=== PATIENT | male | born 1965 | race Caucasian/White ===

== ENCOUNTER → 2017-11-10 10:53 | Outpatient (CLI) | payer OTHER, SELFPAY ==
[2017-11-10 12:50] LABS: AST(SGOT) 21 U/L (15-37); Alanine Aminotransfer ALT/SGPT 36 U/L (16-61); Alkaline Phosphatase 61 U/L (45-117); Bilirubin, Direct 0.13 mg/dL (0.00-0.30); Cholesterol 145 mg/dL (200); Globulin 3.4 g/dL (2.2-4.2); High Density Lipoprotein 38 mg/dL; Protein, Total 7.4 g/dL (6.4-8.2); Triglycerides 174 mg/dL; Very Low Density Lipoprotein 35 mg/dL (5-40)
== END ==
PROVIDERS: Nurse Practitioner Family; Family Provider Family Medicine; PCP Family Medicine; Visit Provider Family Medicine
DX: E78.5 Hyperlipidemia, unspecified (principal); E78.1 Pure hyperglyceridemia
CPT/HCPCS: 36415; 80061; 80076

== ENCOUNTER → 2018-01-04 10:01 | Outpatient (CLI) | payer OTHER, SELFPAY | PROVIDERS: Family Provider Family Medicine; PCP Family Medicine; Visit Provider Family Medicine | DX: M54.16 Radiculopathy, lumbar region (principal) | CPT/HCPCS: 72110 ==

== ENCOUNTER 2018-04-01 15:18 | Emergency (ER) | payer OTHER, SELFPAY ==
[2018-04-01 15:18] VITALS: BP 175/94; PULSE 85; RESP 18; TEMP 36.6; O2SAT 100; BMI 30.5
--- NOTE | 2018-04-01 15:35 | RAD_ITS ---
STUDY: X-RAY - LEFT KNEE REASON FOR EXAM: Male, 52 years old. Injury and pain TECHNIQUE: Four view(s) of the knee were obtained. COMPARISON: None. FINDINGS: The distal femur is unremarkable. The proximal tibia is unremarkable. Normal medial femorotibial compartment. Normal lateral femorotibial compartment. Normal patellofemoral articulation. There is no fullness above the patella. The soft tissue structures are unremarkable. RAD/Knee 4 or More Views IMPRESSION: No acute abnormalities are seen in the left knee. Electronically Signed: Tiana Atkins MD at 18:43 EST Tel Direct: [phone], Service support ,
--- NOTE | 2018-04-01 15:35 | ED.VISSUMM ---
- ER Visit Summary Date of Service: 04/01/18 Chief Complaint: Left knee injury History of Present Illness: The patient is a 52 M slipped on mud going down the hill, felt the snap. No head injuries. Unable to lift the leg since then. No paresthesias. Pain with movement. Has not had orthopedic surgery in the past, however has seen [facility] in the past for elbow rehab. Baby aspirin. No other complaints. Has tolerated [place] in the past. Physical Examination: General: Alert and oriented ?3, no acute distress HEENT: Normocephalic, atraumatic. Moist mucosa membranes Neck: supple, nontender. Cardiovascular: Regular rate and rhythm, no murmurs Respiratory: Normal breath sounds, symmetric, no distress Abdomen: Soft, nontender, nondistended Extremities: Left lower extremity negative logroll. Defect at quadriceps insertion. No patellar deformities. Negative varus and valgus. Unable to extend leg. No patellar ligament tenderness or defect. Skin intact. Neurovascular intact. Neuro: no focal neurological deficits. Test Results: Left knee x-ray: No acute bony process Emergency Department Course and Treatment: Patient exam concerns for quadriceps rupture. Treated [place] prior to x-ray images for comfort. X-ray reviewed by myself shows no fracture or dislocation. He is placed in a knee mobilizer and crutches. Prescription for [place]. He states he would like to follow-up with [facility] orthopedics for which she does have information. X-ray was placed on a disc. Discussed nonweightbearing left lower extremity until he sees his orthopedist. Treatment Plan: [] Disposition: Discharge Impression: Ruptured left quadriceps tendon This note was generated with Mobule dictation software. It may contain incorrect words, spelling, and punctuation that were not noted in review of the chart prior to signing ED Disposition - Plan for ED Patient: Disposition: Home or Assisted Living Chief Complaint: Lower Extremity Injury Diagnosis: Rupture of left quadriceps tendon Prescriptions: Hydrocodone Bitart/Apap 5-325 [[place] 5MG-325MG] 1 tablet PO Q6H PRN PRN 3 Days #12 tablet PRN Reason: Pain Referrals: Parker Villavicencio DO [Primary Care Provider] - Additional Instructions: Ruptured left quadriceps tendon. Nonweightbearing to left lower extremity. Keep knee immobilizer and crutches. Follow-up with your orthopedist at [facility].
[2018-04-01] MEDS: HYDROcodone Bitartrate/Apap 5/325 Tablet PO (15:38)
[2018-04-01 17:37] VITALS: BP 168/92; PULSE 85; RESP 15; O2SAT 98
--- OUTSIDE RECORDS SUMMARY | 2018-05-26 00:04 | XMS RPT_ITS ---
:1965 Author Organization OHIP Support Name Relationship Address Phone AJ, THI Unavailable [address] + [place] [address] ANTHONY THORPE Unavailable Unavailable + [place] [address] CHUY LANES Unavailable [address] + [place] [address] AJ, THI Unavailable [address] + [place] [address] ANTHONY THORPE Unavailable Unavailable + [place] [address] CHUY LANES Un[address] + [place] [address] AJ, THI Unavailable [address] + [place] [address] R Unavailable Unavailable Unavailable BOOTHY, THI Unavailable [address] + [place] [address] R Unavailable Unavailable Unavailable BOOTHY, THI Unavailable [address] + [place] [address] R Unavailable Unavailable Unavailable BOOTHY, THI Unavailable [address] + [place] [address] R Unavailable Unavailable Unavailable BOOTHY, THI Unavailable [address] + [place] [address] R Unavailable Unavailable Unavailable BOOTHY, THI Unavailable [address] + [place] [address] R Unavailable Unavailable Unavailable BOOTHY, THI Unavailable [address] + [place] [address] R Unavailable Unavailable Unavailable BOOTHY, THI Unavailable [address] + [place] [address] R Unavailable Unavailable Unavailable BOOTHY, THI Unavailable Unavailable + R Unavailable Unavailable Unavailable BOOTHY, THI Unavailable NA + [place], [place] R Unavailable Unavailable Unavailable BOOTHY, THI Unavailable NA + [place], [place] R Unavailable Unavailable Unavailable R Unavailable Unavailable Unavailable THORPE, THI Unavailable [address] + [place], [place] . Care Team Providers Name Role Phone PCP, NONE Primary Care Unavailable LESIA KINCAID Attending Unavailable Naseem Mann Attending Unavailable Maye, Parker Primary Care Unavailable Fabian Diaz Attending Unavailable Maye, Parker Referring Unavailable Maye, Parker Primary Care Unavailable Maye, Parker Attending Unavailable Maye, Parker Primary Care Unavailable Maye, Parker Attending Unavailable Maye, Parker Referring Unavailable Maye, Parker Primary Care Unavailable Dossie, Mraie Ivy Attending Unavailable Maye, Parker Referring Unavailable Maye, Parker Primary Care Unavailable Dossie, Marie Ivy Attending Unavailable Maye, Parker Referring Unavailable Maye, Parker Primary Care Unavailable Dossie, Marie Ivy Attending Unavailable Maye, Parker Referring Unavailable Dossie, Marie Ivy Attending Unavailable Maye, Parker Referring Unavailable Dossie, Marie Ivy Attending Unavailable MoodispaNaseem carlisle Attending Unavailable Maye, Parker Referring Unavailable Dossie, Marie Ivy Attending Unavailable Maye, Parker Referring Unavailable Maye, Parker Primary Care Unavailable Roscoe Joseph Attending Unavailable Ifeanyi Murphy Attending Unavailable Ifeanyi Murphy Referring Unavailable Maye, Parker Primary Care Unavailable Kirsty Esquivelh Attending Unavailable Alvin Starr Referring Unavailable Maye, Parker Primary Care Unavailable PROBLEMS PROBLEMS DATE TYPE CONDITION / CODE ATTENDING STATUS SOURCE Unknown G89.18 - Other acute Ifeanyi Murphy Active [facility] postprocedural pain / Community G89.18(ICD-10) Hospital Repository Unknown S76.119A - Strain of Roscoe Joseph Active [place] [facility] unspecified quadriceps Community muscle, fascia and Hospital tendon, initial Repository encounter / S76.119A(ICD-10) Unknown M99.03 - Segmental and Dossie, Marie Active [facility] somatic dysfunction of [facility] lumbar region / Hospital M99.03(ICD-10) Repository Unknown M99.02 - Segmental and Dossie, Marie Active [facility] somatic dysfunction of [facility] thoracic region / Hospital M99.02(ICD-10) Repository Unknown M99.05 - Segmental and Dossie, Marie Active [place] [facility] somatic dysfunction of [facility] pelvic region / Hospital M99.05(ICD-10) Repository Unknown E78.5 - Moodisp[place], Active [place] [facility] Hyperlipidemia, [facility] unspecified / Hospital E78.5(ICD-10) Repository Unknown I42.2 - Other [place], Active [place] [facility] hypertrophic [facility] cardiomyopathy / Hospital I42.2(ICD-10) Repository Unknown I10 - Essential [place], Active [place] [facility] (primary) hypertension [facility] / I10(ICD-10) Hospital Repository Admitting Dizziness and LESIA KINCAID [facility] 8 Diagnosis giddiness / System R42(ICD-10) Repository Final Acute nasopharyngitis LESIA KINCAID [facility] 8 Diagnosis [common cold] / System (Discharge) J00(ICD-10) Repository Unknown E78.1 - Pure RoofFabian Active [place] [facility] hyperglyceridemia / Community E78.1(ICD-10) Hospital Repository PROCEDURES PROCEDURES No Procedure Records FoundRESULTS RESULTS OPERATIVE REPORT Observed: 04/04/2018 Status: F Source: ROB[facility] 2:08 PM [facility] H[facility]PITAL REPOSITORY [facility] Medical Records Department [address] [place] [address] Operative Report 04/04/18 1405 MR#: [id number] Acct: [id number] Name: ILAGEORGIA Mena Rep #: [id number] : 1965 52 From: Ifeanyi Murphy MD PCP: Parker Villavicencio DO Status: REG [facility] Location: [place] [address] Report of Operation Date of Procedure: 04/04/18 Pre-Operative Diagnosis: Left quad tendon rupture Post-Operative Diagnosis: Left quad tendon rupture Surgery/Procedure Performed:: Left quadriceps tendon repair Description of Surgical Findings:: Stable repair, anatomically repaired collection card clerk: Damien Kimball Type of Anesthesia:: General Anesthesiologist: Wyatt Bowens Special Medications: 2 g Ancef Estimated Blood Loss (mL): 25 Fluids Replaced: 1500 mL crystalloid Description of Procedure: On the date of procedure patient's left lower extremity is was marked in the preoperative area. The patient was then taken back to the operating room where they were placed on the table in the supine position. All bony prominences were identified a well-padded. Anesthesia assumed control of the C-spine and airway and remained controlled throughout the remainder of the procedure. A tourniquet was placed on the left upper thigh and the left leg was prepped in a sterile fashion. The surgeon scrubbed at this time. Upon reentering the room the left extremity was draped in a standard orthopedic fashion. A timeout was then called and everyone agreed upon the side, the site, the procedure to be performed, patient's identity and antibiotics given. Attention was directed to the left leg where a midline incision was made. Dissection was taken down through skin, subcutaneous tissues and fat. At this point we were able to identify the rupture and got a gush of serosanguineous fluid. The wound was copiously irrigated with normal saline. The proximal aspect of the patella was debrided and the bone was rongeured to prepare a fresh tissue bed. Allis clamps were then placed on the quadricep tendon was pulled distally. 2 #5 FiberWire's were used to place 2 Krak w stitches giving us all 4 suture limbs. At this time #0 Vicryls were then used to repair the retinaculum but left untied. A short Beath pin was then used to drill 3 bone tunnels and passed the suture limbs. 2 suture limbs were placed through the central tunnel. The #1 Vicryls were then tied to repair the retinaculum and take stress off the tendon repair. The central limbs of the FiberWire were then tunneled under the tendon and firmly tied over bone tunnels to the outter limbs medially and laterally. Finally a #1 Vicryl runner was used to sew the retinacular repair over the central portion of the tendon. The tendon repair was stressed and did not see stress until 30 degrees of flexion.The wound was irrigated out with normal saline. Skin was closed with 2-0 Vicryl and cj. A sterile compressive dressing was placed. A knee immobilizer brace was then placed on the operative extremity locked in extension. Patient was awakened by anesthesia and transferred to the [facility] then taken to the PACU for recovery. Post op plan PT: Touchdown with TROM brace locked in extension 2 weeks followed by weightbearing as tolerated with the T ROM locked for 4 weeks. Brace: locked in extension until first post op visit. At first visit patient should have 1 PT visit with brace opened to 0-30 flexion with flexion advanced 15 degrees per week. Patient may also start quad sets and straight leg raises at first visit. Goal is 90 degrees of flexion at 6 weeks. Will begin strengthening at 6 weeks. Prior to 6 weeks pt only allowed active flexion and passive extension. Follow up: 2 weeks for wound check and removal of cj My physician preschool assistant was a vital part of this case. He was important in appropriate retraction during the case, and protection of soft tissues during the procedure. His intimate knowledge of the case and my steps aided in safe and expedient completion of the procedure as well as appropriate position of the leg during the case. He was also vital in assisting with closure under my direct supervision. - Complications NONE - Admit VTE Documentation VTE Present on Admission: No VTE Mechan Device Prophylaxis: SCD's, Thigh High BILLIE Hose VTE Pharm Prophylaxis ordered?: Yes 04/04/18 1408 <Electronically signed by Ifeanyi Murphy MD> Date Ifeanyi Murphy MD CC: Parker Villavicencio DO; Ifeanyi Murphy MD Signed CBC W/DIFF, AUTOMATED Collected: 04/03/2018 Status: F Source: ROBYN 12:[address] [facility] REPOSITORY TYPE CODE TESTS RESULT OUT OF RANGE REFERENCE UNITS LAB L100.1000 4.4-11.0 K/mm3 High WBC 16.1 LAB L100.1200 4.6-6.2 M/mm3 Normal RBC 4.92 LAB L100.1300 13.0-16.5 g/dl Normal HGB 15.9 LAB L100.1400 40-54 % Normal HCT 44.4 LAB L100.1500 80-94 fL Normal MCV 90.2 LAB L100.1600 27.0-32.0 pg High MCH 32.3 LAB L100.1700 32-36 g/gl Normal MCHC 35.8 LAB L100.1810 11.6-14.6 % Normal RDW CV 12.7 LAB L100.1820 35.1-43.9 fl Normal RDW SD 41.5 LAB L100.1900 150-450 K/mm3 Normal PLT 271 LAB L100.2000 6.2-12.0 fl Normal MPV 10.1 LAB L100.2100 47-70 % High NEUT% 80.0 LAB L100.2200 19-41 % Low LY% 11.1 LAB L100.2300 0-10 % Normal MONO% 8.0 LAB L100.2400 0-5 % Normal EO% 0.5 LAB L100.2500 0-1 % Normal BASO% 0.2 LAB L100.2550 0.0-0.9 % Normal IM GRAN % 0.200 Result Comment: IG% - Immature Granulocytes (promyelocytes, myelocytes and metamyelocytes) > 1% indicates that a LEFT SHIFT is Present. LAB L100.2620 2.0-7.7 X10 3/uL High Absolute Neut 12.9 LAB L100.2720 0.83-4.51 X10 3/ul Normal Absolute Lymph 1.78 Performed By: #### L100.0100 #### [facility] [address] [place] [address]. [place], [address] BASIC METABOLIC Collected: 04/03/2018 Status: F Source: SCENIC PROFILE (BMP) 12:[address] [facility] REPOSITORY TYPE CODE TESTS RESULT OUT OF RANGE REFERENCE UNITS LAB L501.0100 74-106 mg/dL Normal GLU 92 Result Comment: Please note revised GLUCOSE reference range effective 2017. LAB L501.1000 7-18 mg/dL High BUN 28 LAB L501.1100 0.70-1.30 mg/dL High CREAT,SERUM 1.46 Result Comment: The validity of the calculated GFR AND GFRAA in patients over 70 years has not been determined. Clinical correlation is essential. LAB L501.1110 >60 mL/min Low EST GFR 54 Result Comment: Non- GFR Calc LAB L501.1115 >60 mL/min Normal EST GFR - AA 65 Result Comment: GFR Calc LAB L501.1300 10-20 RATIO Normal BUN/CRE 19.2 LAB L501.2200 8.5-10.1 mg/dL CA Normal 8.8 LAB L501.5300 136-145 mmol/L NA Normal 140 LAB L501.5600 3.5-5.1 mmol/L K Normal 3.5 LAB L501.5900 98-107 mmol/L CL Normal 101 LAB L501.6100 21.0-32.0 mmol/L Normal CO2 27.0 LAB L501.6200 5-15 Normal GAP 12 Performed By: #### L500.2500 #### [facility] [address] [place], [address] EMERGENCY DEPARTMENT Observed: 04/01/2018 Status: F Source: SCENIC SUMMARY 5:[address] [facility] REPOSITORY [facility] Medical Records Department [address] [place] [address] Emergency Department Summary 04/01/18 1535 MR#: [id number] Acct: [id number] Name: GEORGIA THORPE Rep #: [id number] : 1965 52 From: Roscoe Portillo PCP: Parker Villavicencio DO Status: REG ER - ER Visit Summary Date of Service: 04/01/18 Chief Complaint: Left knee injury History of Present Illness: The patient is a 52 M slipped on mud going down the hill, felt the snap. No head injuries. Unable to lift the leg since then. No paresthesias. Pain with movement. Has not had orthopedic surgery in the past, however has seen [facility] in the past for elbow rehab. Baby aspirin. No other complaints. Has tolerated Ensign in the past. Physical Examination: General: Alert and oriented 3, no acute distress HEENT: Normocephalic, atraumatic. Moist mucosa membranes Neck: supple, nontender. Cardiovascular: Regular rate and rhythm, no murmurs Respiratory: Normal breath sounds, symmetric, no distress Abdomen: Soft, nontender, nondistended Extremities: Left lower extremity negative logroll. Defect at quadriceps insertion. No patellar deformities. Negative varus and valgus. Unable to extend leg. No patellar ligament tenderness or defect. Skin intact. Neurovascular intact. Neuro: no focal neurological deficits. Test Results: Left knee x-ray: No acute bony process Emergency Department Course and Treatment: Patient exam concerns for quadriceps rupture. Treated Ensign prior to x-ray images for comfort. X-ray reviewed by myself shows no fracture or dislocation. He is placed in a knee mobilizer and crutches. Prescription for Ensign. He states he would like to follow-up with [facility] orthopedics for which she does have information. X-ray was placed on a disc. Discussed nonweightbearing left lower extremity until he sees his orthopedist. Treatment Plan: [] Disposition: Discharge Impression: Ruptured left quadriceps tendon This note was generated with eoSemi dictation software. It may contain incorrect words, spelling, and punctuation that were not noted in review of the chart prior to signing ED Disposition - Plan for ED Patient: Disposition: Home or Assisted Living Chief Complaint: Lower Extremity Injury Diagnosis: Rupture of left quadriceps tendon Prescriptions: Hydrocodone Bitart/Apap 5-325 [Ensign 5MG-325MG] 1 tablet PO Q6H PRN PRN 3 Days #12 tablet PRN Reason: Pain Referrals: Parker Villavicencio DO [Primary Care Provider] - Additional Instructions: Ruptured left quadriceps tendon. Nonweightbearing to left lower extremity. Keep knee immobilizer and crutches. Follow-up with your orthopedist at [facility]. What to do if you have Problems For any increased pain, shortness of breath, bleeding, nausea or vomiting, chest pain, or any unexpected problems, contact your Primary Care Provider. Call [facility] ([phone]) or report to the closest Emergency Room. Call 911 if necessary. 04/01/18 7178 <Electronically signed by Roscoe Portillo> Date Roscoe Portillo Cosigner Signature (If Indicated): Date CC: Parker Villavicencio DO KNEE 4 OR MORE Observed: 04/01/2018 Status: F Source: ROBYN VIEWS 3:[address] [facility] REPOSITORY [facility] Imaging Services [address] [place] [address] Knee 4 or More Views MR#: [id number] Acct: [id number] Name: GEORGIA THORPE Rep #: [id number] : 1965 M 52 From: Tiana Atkins MD PCP: Parker Villavicencio DO Status: DEP ER Study: Knee 4 or More Views Date of Exam: 04/01/18 Exam# [id number] Ordering Dr: Roscoe Joseph DO STUDY: X-RAY - LEFT KNEE REASON FOR EXAM: Male, 52 years old. Injury and pain TECHNIQUE: Four view(s) of the knee were obtained. COMPARISON: None. FINDINGS: The distal femur is unremarkable. The proximal tibia is unremarkable. Normal medial femorotibial compartment. Normal lateral femorotibial compartment. Normal patellofemoral articulation. There is no fullness above the patella. The soft tissue structures are unremarkable. RAD/Knee 4 or More Views IMPRESSION: No acute abnormalities are seen in the left knee. Electronically Signed: Tiana Atkins MD at 18:43 EST Tel Direct: [phone], Service support , CC: Parker Villavicencio DO; Roscoe Joseph Filter Tank Operator: Signed CHIROPRACTIC REPORT Observed: 02/06/2018 Status: F Source: ROBYN 10:[address] [facility] REPOSITORY [facility] [address] [place] [address] OFFICE VISIT Date of Service: 02/05/18 MR#: [id number] Acct: [id number] Name: ILAGEORGIA Mena Rep #: [id number] : 1965 Provider: Marie Ramos D.C. Age/Sex: 52/M Location: [facility] Status: Signed Intake Vital Signs02/05/18 Height 5 ft 7 in 02/05/18 Weight: 201 lb 02/05/18 Body Mass Index (BMI) 31.4 Intake Visit Reasons: back pain Chief Complaint: Low back pain Is patient in pain?: Yes Allergies No Known Allergies Allergy (Verified 02/05/18 13:09) Medications aspirin 81 mg tablet,delayed release 81 mg PO QDAY 05/12/17 [History Confirmed 02/05/18] fenofibrate nanocrystallized 48 mg tablet 48 mg PO QDAY 05/12/17 [History Confirmed 02/05/18] hydrochlorothiazide 25 mg tablet 25 mg PO QDAY #90 tab 12/04/17 [Rx Confirmed 02/05/18] verapamil ER 120 mg 24 hr capsule,extended release 120 mg PO BID #180 cap 12/05/17 [Rx Confirmed 02/05/18] losartan 100 mg tablet 100 mg PO QDAY #90 tab 12/11/17 [Rx Confirmed 02/05/18] fluticasone 50 mcg/actuation nasal spray,suspension 2 spray INTRANASAL DAILY 02/05/18 [History Confirmed 02/05/18] zolpidem 10 mg tablet 10 mg PO QHS PRN 02/05/18 [History Confirmed 02/05/18] PFSH Medical History Essential hypertension (Chronic) Hypertriglyceridemia (Chronic) Allergic rhinitis (Chronic) Erectile dysfunction (Chronic) Hyperlipidemia (Chronic) Surgical History History of left heart catheterization (Chronic) Hx of sinus surgery (Chronic) Family History Father CAD (coronary artery disease) Hypertension Aunt Cancer Social History Smoking Status: Never smoker alcohol intake: current alcohol intake frequency: a few times a month Alcohol type: beer substance use type: does not use caffeine: Yes Type: carbonated beverages, coffee Number of servings: 2 what type of physical activity do you participate in: none seatbelt use: always do you feel safe at home: Yes HPI back pain : Chief Complaint: low back pain Visit Number: 5 Details: GEORGIA THORPE is a 52 year old M who presents with decreased low back pain. He states he is not experiencing a sharp twinge in the back anymore, although there is a dull ache still present. Today Georgia rates his pain a 3/10 and describes it as a dull ache that bands across the low back, bending, lifting, twisting and golfing still cause increased pain, although he denies any numbness, tingling, or radiculopathy. Location: low back pain Duration: intermittent Aggravating or associated factors: bending, lifting, and twisting Relieving factors: chiro Pain Quality: aching, dull, cramping Exam Musc General: Yes normal posture, normal gait and joint tenderness (T9, T10,L3-L5, R SI) Thoracic/Lumbar Spine: pain with thoraco-lumbar ROM, thoraco- lumbar ROM limited, thoracic and lumbar spine normal to inspection, Lasegue's sign positive, straight leg raise negative bilaterally, paraspinal tenderness bilaterally in the lower lumbar, in the mid lumbar, in the lower thoracic and in the mid thoracic, thoraco-lumbar spasm bilaterally in the lower lumbar and in the lower thoracic Sacroiliac joints: on the right Office Procedures Chiropractic Treatments Procedures Manipulation: 3-4 regions (T9,L3,L5, RIL) Electrical Stimulation: 15 mins (lumbar ) Assessment AND Plan 1. Segmental and somatic dysfunction of pelvic region M99.05 Orders Orders: 2. Segmental and somatic dysfunction of thoracic region M99.02 Orders Orders: 3. Segmental and somatic dysfunction of lumbar region M99.03 Orders Orders: Plan Detail Additional Comments Patient is showing positive response to therapy. Goals Decrease pain and spasm Decrease R big toe numbness Barriers Decreased L5-S1 disc height Follow Up 2 x week Coding Level of Care Code No Charge Diagnoses Segmental and somatic dysfunction of pelvic region M99.05 Segmental and somatic dysfunction of thoracic region M99.02 Segmental and somatic dysfunction of lumbar region M99.03 Additional Codes Procedures - Manipulation: 3-4 regions (58358) Procedures - Electrical Stimulation: 15 mins (53612) 02/06/18 1034 <Electronically signed by Marie Ramos D.C.> Date Marie Stanley Signature: Date (if applicable) CC: CARDIOLOGY VISIT Observed: 02/05/2018 Status: F Source: ROBYN REPORT 1:[address] [facility] REPOSITORY [facility] [address] [place] [address] OFFICE VISIT Date of Service: 02/05/18 MR#: [id number] Acct: [id number] Name: GEORGIA THORPE Rep #: [id number] : 1965 Provider: Naseem Mann MD Age/Sex: 52/M [place] [facility] [place]: Signed HPI HPI Chief Complaint: Low back pain Details: GEORGIA THORPE, is a 52 M who presents to the office today for outpatient cardiovascular follow-up. Overall he states he is doing well. He denies any concerns of chest discomfort at rest or with exertion. There has been no issues with respect to acute CHF or pulmonary edema. There has been no concern of palpitations, near-syncope, or syncope. He states he appears to be tolerating his medications well. He has had lipid profile performed in October of this year. His cholesterol was reported at 145 with an LDL of 72 and an HDL of 38 and a triglyceride level of 174. Intake Vital Signs02/05/18 Height 5 ft 7 in 02/05/18 Weight: 201 lb 02/05/18 Body Mass Index (BMI) 31.4 02/05/18 Blood Pressure 124/7 H Intake Visit Reasons: 9 M FU Allergies No Known Allergies Allergy (Verified 02/05/18 13:09) Medications aspirin 81 mg tablet,delayed release 81 mg PO QDAY 05/12/17 [History Confirmed 02/05/18] fenofibrate nanocrystallized 48 mg tablet 48 mg PO QDAY 05/12/17 [History Confirmed 02/05/18] hydrochlorothiazide 25 mg tablet 25 mg PO QDAY #90 tab 12/04/17 [Rx Confirmed 02/05/18] verapamil ER 120 mg 24 hr capsule,extended release 120 mg PO BID #180 cap 12/05/17 [Rx Confirmed 02/05/18] losartan 100 mg tablet 100 mg PO QDAY #90 tab 12/11/17 [Rx Confirmed 02/05/18] fluticasone 50 mcg/actuation nasal spray,suspension 2 spray INTRANASAL DAILY 02/05/18 [History Confirmed 02/05/18] zolpidem 10 mg tablet 10 mg PO QHS PRN 02/05/18 [History Confirmed 02/05/18] PFSH Medical History Essential hypertension (Chronic) Hypertriglyceridemia (Chronic) Allergic rhinitis (Chronic) Erectile dysfunction (Chronic) Hyperlipidemia (Chronic) Surgical History History of left heart catheterization (Chronic) Hx of sinus surgery (Chronic) Family History Father CAD (coronary artery disease) Hypertension Aunt Cancer Social History Smoking Status: Never smoker alcohol intake: current alcohol intake frequency: a few times a month Alcohol type: beer substance use type: does not use caffeine: Yes Type: carbonated beverages, coffee Number of servings: 2 what type of physical activity do you participate in: none seatbelt use: always do you feel safe at home: Yes ROS Const Const: Positive for fatigue (not sleeping well); negative for weakness, weight gain, weight loss, frequent falls or excessive sweating Eyes Eyes: Negative for change in vision, blurry vision or transient loss of vision ENT ENT: Negative for dizziness or balance problems Cardio Chest Pain: No Palpitations: No Edema: None Muscle aches with walking: None Resp Respiratory: Positive for SOB with activity (baseline); negative for SOB at rest GI GI: Negative vomiting or vomiting blood/hematemesis : Negative for hematuria Musc Musc: Negative for balance problems, muscle aches/ myalgia, muscle weakness or joint pain Skin Skin: Negative non-healing lesions or rash Neuro Neuro: Negative for weakness, blurry vision, dizziness, lightheadedness, frequent falls or orthostatic symptoms Gonsalo Hematologic/Lymphatic: Negative for easy bleeding Endo Endo: Positive for fatigue (not sleeping well); negative for excessive sweating Psych Psych: Negative for anxiety or depression Allergy Allergy/Immunology: Negative for hives, Negative for rash Cardiology Exam Const Appearance: cooperative, healthy appearing, comfortable, no acute distress, well developed and well groomed Nutritional Appearance: overweight Orientation: alert, awake and oriented x3 Head Head: normal to inspection, normocephalic and atraumatic Ears: hearing grossly normal bilaterally Face and Sinus: face symmetric Mouth: oral mucosae normal Teeth and gingiva: fair dentition Eyes Eyelids: eyelids normal Conjunctivae: conjunctivae normal Pupils: PERRL EOM: EOM intact bilaterally Neck Neck: no JVD and normal visual inspection Carotids: normal carotid upstroke Chest Chest inspection: normal inspection of the chest, normal respiratory effort and symmetric chest movement Auscultation: Bilateral: Clear to Auscultation Cardio Palpation: normal PMI Rate: regular rate Rhythm: regular rhythm Heart sounds: S1 normal and S2 normal; negative rub or gallop GI GI: normal to inspection, bowel sounds present and soft Neuro General: alert, awake and oriented x3 Skin Skin: no rashes or lesions noted Extremities Pulses: Normal: Right Posterior Tibial Pulse, Left Posterior Tibial Pulse, Right Radial Pulse, Left Radial Pulse Lower Extremity Edema: None: Bilateral Psych Psychological: normal affect Supplemental Info He did have a transthoracic echocardiogram on 12/31/2015 Interpretation Summary Left ventricular systolic function is normal. The estimated ejection fraction is 65 %. Moderate assymetric septal hypertrophy. The left atrium is mildly enlarged. Chordal systolic anterior motion of the mitral valve. Trivial mitral valve insufficiency. Trivial tricuspid valve insufficiency. Mild diffuse aortic valve thickening. Mild focal aortic valve calcification. Trivial pulmonic valve insufficiency. Transmitral doppler flow suggestive of impaired relaxation of left ventricle Late peaking spectral doppler pattern in the LVOT area approaching 3 m/sec (PG of 36 mm Hg) c/ w a hyperdynamic state. The echo findings are consistent with hypertrophic cardiomyopathy. He had a stress test performed at the [facility] in [place], [place] on 11/20/2015 Per the report the SPECT perfusion imaging was within normal limits, the LV wall motion and ejection fraction was within normal limits, it was considered a low risk scan He did have a diagnostic cardiac catheterization performed on 09/13/2011 at [facility] At that time the left ventricle was normal with an LVEF of 70% with fluoroscopic findings suggestive of left ventricular hypertrophy and the coronary arteries were thought to be angiographically normal. Of note there was relatively normal resting left ventricular end-diastolic pressures Assessment AND Plan 1. Asymmetric septal hypertrophy I42.2 Plan At the present time he continues with his history of an underlying abnormal transthoracic echocardiogram with concerns of asymmetric septal hypertrophy with overall preserved LV systolic function with an estimated LVEF of 65% based upon his last study. He did have hemodynamic findings compatible with a hyperdynamic state. He has been on medical management. He has done well on his medical therapy. This will be continued. Orders Orders: 2. Hypertrophic obstructive cardiomyopathy I42.1 Plan Based upon his aforementioned findings he does have concerns of an underlying hypertrophic obstructive type cardiomyopathy. Again he appears without any acute symptoms. He has been doing well on his medical management. He will continue medical therapy and follow-up. As part of his follow-up, over time, he will have echocardiograms performed to monitor his left ventricular wall motion, thickness, and overall systolic function. 3. Hyperlipidemia, unspecified hyperlipidemia type E78.5 Plan His lipid labs were reviewed. They appear to be under reasonably good control with respect to his total cholesterol and his LDL cholesterol. He does need to continue risk factor evaluation and care. He needs to continue dietary management and exercise. Hopefully his total cholesterol and LDL cholesterol remains low and his HDL cholesterol will increase Orders Orders: 4. Essential hypertension I10 Plan He has blood pressure appears to be well at home. He states since custodial he feels overall his blood pressure has been under better control. He will continue his current medical therapy Orders Orders: Plan Detail Goals Decrease pain and spasm Decrease R big toe numbness Barriers Decreased L5-S1 disc height Follow Up 1 Year ([facility]) Coding Level of Care Code Off vis,est,level 4 Diagnoses Asymmetric septal hypertrophy I42.2 Hypertrophic obstructive cardiomyopathy I42.1 Cardiomyopathy type: obstructive hypertrophic Hyperlipidemia, unspecified hyperlipidemia type E78.5 Hyperlipidemia type: unspecified Essential hypertension I10 Coding Level of Care Code Off vis,est,level 4 Diagnoses Asymmetric septal hypertrophy I42.2 Hypertrophic obstructive cardiomyopathy I42.1 Cardiomyopathy type: obstructive hypertrophic Hyperlipidemia, unspecified hyperlipidemia type E78.5 Hyperlipidemia type: unspecified Essential hypertension I10 02/05/18 1639 <Electronically signed by Naseem Mann MD> Date Naseem Mann MD Cosigner Signature: Date (if applicable) CC: Parker Villavicencio DO CHIROPRACTIC REPORT Observed: 02/05/2018 Status: F Source: [facility] 11:12 AM [facility] [address] [place] [address] OFFICE VISIT Date of Service: 02/01/18 MR#: [id number] Acct: [id number] Name: GEORGIA THORPE Rep #: [id number] : 1965 Provider: Marie Ramos D.C. Age/Sex: 52/M Location: [facility] Status: Signed Intake Vital Signs02/01/18 Height 5 ft 7 in 02/01/18 Weight: 198 lb 02/01/18 Body Mass Index (BMI) 31.0 Intake Visit Reasons: Low back pain Is patient in pain?: Yes Allergies No Known Allergies Allergy (Verified 09/25/14 01:12) Medications aspirin 81 mg tablet,delayed release 81 mg PO QDAY 05/12/17 [History Confirmed 05/12/17] fenofibrate nanocrystallized 48 mg tablet 48 mg PO QDAY 05/12/17 [History Confirmed 05/12/17] hydrochlorothiazide 25 mg tablet 25 mg PO QDAY #90 tab 12/04/17 [Rx] verapamil ER 120 mg 24 hr capsule,extended release 120 mg PO BID #180 cap 12/05/17 [Rx] losartan 100 mg tablet 100 mg PO QDAY #90 tab 12/11/17 [Rx] PFSH Medical History Essential hypertension (Chronic) Hypertriglyceridemia (Chronic) Allergic rhinitis (Chronic) Erectile dysfunction (Chronic) Hyperlipidemia (Chronic) Surgical History History of left heart catheterization (Chronic) Hx of sinus surgery (Chronic) Family History Father CAD (coronary artery disease) Hypertension Aunt Cancer Social History Smoking Status: Never smoker alcohol intake: current alcohol intake frequency: a few times a month Alcohol type: beer substance use type: does not use caffeine: Yes Type: carbonated beverages, coffee Number of servings: 2 what type of physical activity do you participate in: none seatbelt use: always do you feel safe at home: Yes HPI Low back pain : Chief Complaint: Low back pain Visit Number: 4 Details: GEORGIA THORPE is a 52 year old M who presents with decreased low back pain. He states that after each treatment his pain is slightly decreasing, leaving him with a tight ache banding across the low back. On occasion after frequent bending and twisting Georgia will experience a sharp sensation that bands across the low back. Georgia denies any numbness, tingling, or radiculopathy. Location: low back pain Duration: intermittent Aggravating or associated factors: bending and twisting Relieving factors: chiro Pain Quality: aching, dull, cramping, sharp Exam Musc General: Yes normal posture, normal gait and joint tenderness (L3-L5, R SI) Thoracic/Lumbar Spine: pain with thoraco-lumbar ROM, thoraco- lumbar ROM limited, thoracic and lumbar spine normal to inspection, Lasegue's sign positive, straight leg raise negative bilaterally, paraspinal tenderness bilaterally in the lower thoracic, in the lower lumbar and in the mid lumbar, thoraco-lumbar spasm bilaterally in the lower lumbar, in the mid lumbar and in the lower thoracic Sacroiliac joints: on the right Office Procedures Chiropractic Treatments Procedures Manipulation: 3-4 regions (T11, L3,L5, RIL) Assessment AND Plan 1. Segmental and somatic dysfunction of pelvic region M99.05 Orders Orders: 2. Segmental and somatic dysfunction of lumbar region M99.03 Orders Orders: 3. Segmental and somatic dysfunction of thoracic region M99.02 Orders Orders: Plan Detail Goals Decrease pain and spasm Decrease R big toe numbness Barriers Decreased L5-S1 disc height Follow Up 2 x week Coding Level of Care Code No Charge Diagnoses Segmental and somatic dysfunction of pelvic region M99.05 Segmental and somatic dysfunction of lumbar region M99.03 Segmental and somatic dysfunction of thoracic region M99.02 Additional Codes Procedures - Manipulation: 3-4 regions (70889) 02/05/18 1112 <Electronically signed by Marie Ramos D.C.> Date Marie [facility] Signature: Date (if applicable) CC: CHIROPRACTIC REPORT Observed: 01/30/2018 Status: F Source: [facility] 8:31 AM [facility] [address] [place] [id number] OFFICE VISIT Date of Service: 01/29/18 MR#: [id number] Acct: [id number] Name: GEORGIA THORPE Rep #: [id number] : 1965 Provider: Marie Ramos D.C. Age/Sex: 52/M Location: [facility] Status: Signed Intake Vital Signs01/29/18 Height 5 ft 7 in 01/29/18 Weight: 198 lb 01/29/18 Body Mass Index (BMI) 31.0 Intake Visit Reasons: low back pain Chief Complaint: Low back pain Is patient in pain?: Yes Allergies No Known Allergies Allergy (Verified 09/25/14 01:12) Medications aspirin 81 mg tablet,delayed release 81 mg PO QDAY 05/12/17 [History Confirmed 05/12/17] fenofibrate nanocrystallized 48 mg tablet 48 mg PO QDAY 05/12/17 [History Confirmed 05/12/17] hydrochlorothiazide 25 mg tablet 25 mg PO QDAY #90 tab 12/04/17 [Rx] verapamil ER 120 mg 24 hr capsule,extended release 120 mg PO BID #180 cap 12/05/17 [Rx] losartan 100 mg tablet 100 mg PO QDAY #90 tab 12/11/17 [Rx] PFSH Medical History Hypertriglyceridemia (Chronic) Allergic rhinitis (Chronic) Erectile dysfunction (Chronic) Hyperlipidemia (Chronic) Hypertension (Chronic) Surgical History History of left heart catheterization (Chronic) Hx of sinus surgery (Chronic) Family History Father CAD (coronary artery disease) Hypertension Aunt Cancer Social History Smoking Status: Never smoker alcohol intake: current alcohol intake frequency: a few times a month Alcohol type: beer substance use type: does not use caffeine: Yes Type: carbonated beverages, coffee Number of servings: 2 what type of physical activity do you participate in: none seatbelt use: always do you feel safe at home: Yes HPI low back pain : Chief Complaint: Low back pain Visit Number: 3 Details: GEORGIA THORPE is a 52 year old M who presents with decreased low back pain. He states that after his last treatment his pain slightly decreased, leaving him with a tight ache. Rotation, lifting, and twisting still cause increased pain, although he denies any numbness or tingling rating his pain a 3/10. Location: low back Duration: intermittent Aggravating or associated factors: bending, lifting, twisting Relieving factors: chiro Pain Quality: aching, dull, cramping Exam Musc General: Yes normal posture, normal gait and joint tenderness (L3-L5, R SI) Thoracic/Lumbar Spine: pain with thoraco-lumbar ROM, thoraco- lumbar ROM limited, thoracic and lumbar spine normal to inspection, Lasegue's sign positive, straight leg raise negative bilaterally, paraspinal tenderness on the right greater than left, thoraco-lumbar spasm on the right greater than left (lower lumbar) Sacroiliac joints: on the right Office Procedures Chiropractic Treatments Procedures Manipulation: 1-2 regions (L3,L5, RIL) Electrical Stimulation: 15 mins (Lumbar ) Traction, Mechanical: Yes Details: Lumbar traction 15 min Assessment AND Plan 1. Segmental and somatic dysfunction of pelvic region M99.05 Orders Orders: 2. Segmental and somatic dysfunction of thoracic region M99.02 Orders Orders: 3. Segmental and somatic dysfunction of lumbar region M99.03 Orders Orders: Plan Detail Goals Decrease pain and spasm Decrease R big toe numbness Barriers Decreased L5-S1 disc height Follow Up 2 x week Coding Level of Care Code No Charge Diagnoses Segmental and somatic dysfunction of pelvic region M99.05 Segmental and somatic dysfunction of thoracic region M99.02 Segmental and somatic dysfunction of lumbar region M99.03 Additional Codes Procedures - Electrical Stimulation: 15 mins (68368) Procedures - Traction, Mechanical: Yes (34411) Procedures - Manipulation: 1-2 regions (23247) 01/30/18 0831 <Electronically signed by Marie Ramos D.C.> Date Marie Ramos D.C. Cosigner Signature: Date (if applicable) CC: CHIROPRACTIC REPORT Observed: 01/22/2018 Status: F Source: [facility] 8:29 AM [facility] [address] [place] [address] OFFICE VISIT Date of Service: 01/18/18 MR#: [id number] Acct: [id number] Name: ILAGEORGIA Nik Rep #: [id number] : 1965 Provider: Marie Ramos D.C. Age/Sex: 52/M Location: [facility] Status: Signed Intake Vital Signs01/18/18 Height 5 ft 7 in 01/18/18 Weight: 198 lb 01/18/18 Body Mass Index (BMI) 31.0 Intake Visit Reasons: back pain Chief Complaint: Low back pain Is patient in pain?: Yes Allergies No Known Allergies Allergy (Verified 09/25/14 01:12) Medications aspirin 81 mg tablet,delayed release 81 mg PO QDAY 05/12/17 [History Confirmed 05/12/17] fenofibrate nanocrystallized 48 mg tablet 48 mg PO QDAY 05/12/17 [History Confirmed 05/12/17] hydrochlorothiazide 25 mg tablet 25 mg PO QDAY #90 tab 12/04/17 [Rx] verapamil ER 120 mg 24 hr capsule,extended release 120 mg PO BID #180 cap 12/05/17 [Rx] losartan 100 mg tablet 100 mg PO QDAY #90 tab 12/11/17 [Rx] PFSH Medical History Hypertriglyceridemia (Chronic) Allergic rhinitis (Chronic) Erectile dysfunction (Chronic) Hyperlipidemia (Chronic) Hypertension (Chronic) Surgical History History of left heart catheterization (Chronic) Hx of sinus surgery (Chronic) Family History Father CAD (coronary artery disease) Hypertension Aunt Cancer Social History Smoking Status: Never smoker alcohol intake: current alcohol intake frequency: a few times a month Alcohol type: beer substance use type: does not use caffeine: Yes Type: carbonated beverages, coffee Number of servings: 2 what type of physical activity do you participate in: none seatbelt use: always do you feel safe at home: Yes HPI back pain: Chief Complaint: Low back pain Visit Number: 2 Details: GEORGIA THORPE is a 52 year old M who presents with low back and R foot numbness. After his last treatment he noticed his back was sore and tight, although did not decrease the pain. Georgia still has the numbness in his R big toe with no change. Today he rates his pain a 3/10 and describes it as a tight ache that bands across the low back. Rotation, bending, lifting, and twisting cause increased pain and numbness, although denies any numbness, or tingling. Location: low back pain Duration: intermittent Aggravating or associated factors: bending, lifting, and twisting Relieving factors: chiro Pain Quality: aching, dull, cramping Exam Musc General: Yes normal posture, normal gait and joint tenderness (L3-L5, R SI) Thoracic/Lumbar Spine: pain with thoraco-lumbar ROM with forward flexion, thoraco-lumbar ROM limited with forward flexion, thoracic and lumbar spine normal to inspection, Lasegue's sign positive on the right, straight leg raise negative bilaterally, paraspinal tenderness on the right greater than left (QL, piriformis), thoraco-lumbar spasm on the right in the lower lumbar and in the mid lumbar Office Procedures Chiropractic Treatments Procedures Manipulation: 1-2 regions (T12, L3,L5, RIL) Electrical Stimulation: 15 mins (lumbar ) Traction, Mechanical: Yes Details: Lumbar traction Assessment AND Plan 1. Segmental and somatic dysfunction of pelvic region M99.05 Orders Orders: 2. Segmental and somatic dysfunction of thoracic region M99.02 Orders Orders: 3. Segmental and somatic dysfunction of lumbar region M99.03 Orders Orders: Plan Detail Goals Decrease pain and spasm Decrease R big toe numbness Barriers Decreased L5-S1 disc height Follow Up 1 x week Coding Level of Care Code No Charge Diagnoses Segmental and somatic dysfunction of pelvic region M99.05 Segmental and somatic dysfunction of thoracic region M99.02 Segmental and somatic dysfunction of lumbar region M99.03 Additional Codes Procedures - Electrical Stimulation: 15 mins (46226) Procedures - Traction, Mechanical: Yes (25039) Procedures - Manipulation: 1-2 regions (98603) 01/22/18 0829 <Electronically signed by Marie Ramos D.C.> Date Marie Ramos D.C. Cosigner Signature: Date (if applicable) CC: CHIROPRACTIC REPORT Observed: 01/16/2018 Status: F Source: [facility] 1:30 PM [facility] [address] [place] [address] OFFICE VISIT Date of Service: 01/16/18 MR#: [id number] Acct: [id number] Name: GEORGIA THORPE Rep #: [id number] : 1965 Provider: Marie Ramos D.C. Age/Sex: 52/M Location: [facility] Status: Signed Intake Vital Signs01/16/18 Height 5 ft 7 in 01/16/18 Weight: 198 lb 01/16/18 Body Mass Index (BMI) 31.0 Intake Visit Reasons: back pain Chief Complaint: R sided low back pain Is patient in pain?: Yes Allergies No Known Allergies Allergy (Verified 09/25/14 01:12) Medications aspirin 81 mg tablet,delayed release 81 mg PO QDAY 05/12/17 [History Confirmed 05/12/17] fenofibrate nanocrystallized 48 mg tablet 48 mg PO QDAY 05/12/17 [History Confirmed 05/12/17] hydrochlorothiazide 25 mg tablet 25 mg PO QDAY #90 tab 12/04/17 [Rx] verapamil ER 120 mg 24 hr capsule,extended release 120 mg PO BID #180 cap 12/05/17 [Rx] losartan 100 mg tablet 100 mg PO QDAY #90 tab 12/11/17 [Rx] PFSH Medical History Hypertriglyceridemia (Chronic) Allergic rhinitis (Chronic) Erectile dysfunction (Chronic) Hyperlipidemia (Chronic) Hypertension (Chronic) Surgical History History of left heart catheterization (Chronic) Hx of sinus surgery (Chronic) Family History Father CAD (coronary artery disease) Hypertension Aunt Cancer Social History Smoking Status: Never smoker alcohol intake: current alcohol intake frequency: a few times a month Alcohol type: beer substance use type: does not use caffeine: Yes Type: carbonated beverages, coffee Number of servings: 2 what type of physical activity do you participate in: none seatbelt use: always do you feel safe at home: Yes HPI back pain : Chief Complaint: Low back pain Visit Number: 1 Referral source: Details: GEORGIA THORPE is a 52 year old M who presents with R sided low back pain. He states the pain has been ongoing for 4 months, although recently he began with R big toe numbness. Bending, lifting, and twisting seem to cause increased pain, although the R sided low back pain is described as only a tightness. Georgia denies any numbness, tingling, or radiculopathy. At times when using a foam roller and stretching his low back improves. Onset: 09/05/17 Location: R sided low back pain Duration: intermittent Aggravating or associated factors: bending, lifting and twisting Relieving factors: foam roller Pain Quality: aching, dull, cramping Exam Musc General: Yes normal posture, normal gait and joint tenderness (L3-L5, R SI) Thoracic/Lumbar Spine: pain with thoraco-lumbar ROM with forward flexion, thoraco-lumbar ROM limited with forward flexion, thoracic and lumbar spine normal to inspection, Lasegue's sign positive on the right, straight leg raise negative bilaterally, paraspinal tenderness on the right greater than left (QL, piriformis), thoraco-lumbar spasm on the right in the lower lumbar and in the mid lumbar Neuro General: alert, awake, oriented x3, gait normal, abnormal to light touch, pain or propio. (R L4/L5 dermatome tingly to sensation testing), no focal motor deficits, deep tendon reflexes 2+ bilaterally (lower extremity) Ortho Test CERVICAL THORACIC LUMBAR Kemps: Negative Valsalvas: Negative SLR: Negative Iliac Compression: Negative Office Procedures Chiropractic Treatments Procedures Manipulation: 3-4 regions (T10, L3,L5, RIL) Electrical Stimulation: 15 mins Location: lumbar Traction, Mechanical: Yes Assessment AND Plan Problems 1. Segmental and somatic dysfunction of lumbar region M99.03 2. Segmental and somatic dysfunction of thoracic region M99.02 3. Segmental and somatic dysfunction of pelvic region M99.05 Plan Reviewed lumbar xrays and recommend acute care treatment plan. Orders Orders: Plan Detail Goals Decrease pain and spasm Decrease R big toe numbness Barriers Decreased L5-S1 disc height Follow Up 2x/wk Coding Level of Care Code Off vis,new,level 3 Diagnoses Segmental and somatic dysfunction of lumbar region M99.03 Segmental and somatic dysfunction of thoracic region M99.02 Segmental and somatic dysfunction of pelvic region M99.05 Additional Codes Procedures - Manipulation: 3-4 regions (43670) Procedures - Electrical Stimulation: 15 mins (63739) Procedures - Traction, Mechanical: Yes (20008) 01/16/18 1330 <Electronically signed by Marie Ramos D.C.> Date Marie Ramos D.C. Cosigner Signature: Date (if applicable) CC: L/S SPINE MIN 4 Observed: 01/04/2018 Status: F Source: [facility] 10:[address] [facility] REPOSITORY [facility] Services [address] [place] [address] L/S Spine Min 4 Views MR#: [id number] Acct: [id number] Name: GEORGIA THORPE Rep #: [id number] : 1965 M 52 From: Gianni Almazan MD PCP: Parker Villavicencio DO Status: REG CLI Study: L/S Spine Min 4 Views Date of Exam: 01/04/18 Exam# [id number] Ordering Dr: Parker Villavicencio DO STUDY: X-RAY - LUMBAR SPINE REASON FOR EXAM: Male, 52 years old. Low back pain TECHNIQUE: 5 view(s) of the lumbar spine were obtained. COMPARISON: 2014 FINDINGS: Normal lumbar lordosis. There is no substantial scoliosis. There is a normal alignment of the vertebrae. Normal vertebral bodies and endplates. Normal disc space heights except for narrowing at L5/S1. There is no demonstrated fracture. The soft tissue structures are unremarkable. RAD/L/S Spine Min 4 Views IMPRESSION: Degenerative changes at L5/S1, otherwise unremarkable lumbar spine Electronically Signed: Shane Almazan MD at 10:09 EDT , Service support , CC: Parker Villavicencio DO Filter Tank Operator: Signed LIVER PROFILE Collected: 11/10/2017 Status: F Source: [facility] 10:[address] [facility] REPOSITORY TYPE CODE TESTS RESULT OUT OF RANGE REFERENCE UNITS LAB L501.1500 6.4-8.2 g/dL Normal T PROT 7.4 LAB L501.1800 3.2-5.0 g/dL Normal ALB 4.0 LAB L501.1950 2.2-4.2 g/dL Normal GLOB 3.4 LAB L501.4100 15-37 U/L Normal AST 21 LAB L501.4305 45-117 U/L Normal ALK P 61 LAB L501.4405 16-61 U/L Normal ALT 36 LAB L501.4600 0.20-1.00 mg/dL Normal T BILI 0.50 LAB L501.4700 0.00-0.30 mg/dL Normal D BILI 0.13 Performed By: #### L500.3400, L500.4100 #### [facility] [address] [place], [address] LIPID PROFILE Collected: 11/10/2017 Status: F Source: [facility] 10:[address] [facility] REPOSITORY TYPE CODE TESTS RESULT OUT OF RANGE REFERENCE UNITS LAB L501.4900 200 mg/dL Normal CHOL 145 Result Comment: <200 mg/dL Desirable 200-240 mg/dL Borderline >240 mg/dL High Risk LAB L501.5000 mg/dL Normal TRIG 174 Result Comment: The drugs N-Acetylcysteine and Metamizole may falsely depress this assay. Serum Triglycerides Reference Interval Normal <150 mg/dL Borderline high 150 - 199 mg/dL High 200 - 499 mg/dL Very High > or = 500 mg/dL LAB L501.6400 mg/dL Low HDL 38 Result Comment: The drugs N-Acetylcysteine and Metamizole may falsely depress this assay. Reference Range HDL <40 mg/dL Low HDL Cholesterol HDL >or= 60 mg/dL High HDL Cholesterol LAB L501.6500 0-130 mg/dL Normal LDL 72 LAB L501.6600 5-40 mg/dL Normal VLDL 35 Performed By: #### L500.3400, L500.4100 #### [facility] [address] [place], [address] CARDIOLOGY VISIT Observed: 05/29/2017 Status: F Source: [facility] REPORT 6:[address] [facility] REPOSITORY [facility] [address] [place], [place] [id number] OFFICE VISIT Date of Service: 05/15/17 MR#: [id number] Acct: [id number] Name: GEORGIA THORPE Rep #: [id number] : 1965 Provider: KENA Diaz Age/Sex: 51/M [place] [facility] [place]: Signed HPI 6 M FU: Details: GEORGIA THORPE, is a 51 M who presents to the office today for a cardiovascular outpatient follow-up. Patient has a history of asymmetrical septal hypertrophy, hypertension, and hyperlipidemia. Pt. denies chest, arm, jaw, or neck discomfort. His exercise tolerance is stable, decreased lately. Pt. denies symptoms of CHF, palpitations, lightheadedness, dizziness, near syncope, or syncopal episodes. Pt. denies edema or claudication issues. Pt. denies orthopnea, PND, fever, chills, blood in urine, blood in stool, myalgia, or unexplainable fatigue. Lower extremity arterial arterial exam from August 2016 was negative for significant arterial occlusive disease at rest with ABIs of 1.29 and 1.28. Echocardiogram from December 2015 showed estimated ejection fraction of 65%, moderate asymmetric septal hypertrophy, mildly enlarged left atrium, chordal systolic anterior motion of the mitral valve, trivial mitral valve insufficiency, trivial bicuspid valve insufficiency, mild diffuse aortic valve thickening, mild focal aortic valve calcification, trivial pulmonic valve insufficiency, diastolic dysfunction, late peaking spectral Doppler pattern in the LVOT area approaching 3 m/sec (PG of 36 mmHg) C/W a hyperdynamic state, and the echo findings are consistent with hypertrophic cardiomyopathy. Intake Vital Signs05/15/17 Height 5 ft 7 in 05/15/17 Weight: 207 lb 05/15/17 Body Mass Index (BMI) 32.4 05/15/17 Blood Pressure 104/62 05/15/17 Blood Pressure Location Lt brachial Intake Visit Reasons: 6 M FU Plow Holder Required: No Accompanied by: None Is patient in pain?: No Allergies No Known Allergies Allergy (Verified 09/25/14 01:12) Medications aspirin 81 mg tablet,delayed release 81 mg PO QDAY 05/12/17 [History Confirmed 05/12/17] fenofibrate nanocrystallized 48 mg tablet 48 mg PO QDAY 05/12/17 [History Confirmed 05/12/17] hydrochlorothiazide 25 mg tablet 25 mg PO QDAY 05/12/17 [History Confirmed 05/12/17] valsartan 320 mg tablet 320 mg PO QDAY 05/12/17 [History Confirmed 05/12/17] verapamil 120 mg tablet 120 mg PO BID tab 05/15/17 [History Confirmed 05/15/17] Ejection fraction %: 65 to 70 PFSH Medical History Hypertriglyceridemia (Chronic) Allergic rhinitis (Chronic) Erectile dysfunction (Chronic) Hyperlipidemia (Chronic) Hypertension (Chronic) Surgical History History of left heart catheterization (Chronic) Hx of sinus surgery (Chronic) Family History Father CAD (coronary artery disease) Hypertension Aunt Cancer Social History Smoking Status: Never smoker alcohol intake: current alcohol intake frequency: a few times a month Alcohol type: beer substance use type: does not use caffeine: Yes Type: carbonated beverages, coffee Number of servings: 2 what type of physical activity do you participate in: none seatbelt use: always do you feel safe at home: Yes ROS Const Const: Negative for fatigue, weakness, body ache, fever(s) or chills ENT ENT: Negative for dizziness Cardio Chest Pain: No Palpitations: Positive for No Edema: None Muscle aches with walking: None Resp Respiratory: Negative for SOB with activity, SOB at rest, SOB orthopnea\SOB lying down or paroxysmal nocturnal dyspnea GI GI: Negative nausea, black,tarry stools, bright, red blood in stools or vomiting blood/hematemesis : Negative for hematuria or frequent nighttime urination/ nocturia Musc Musc: Negative for muscle aches/ myalgia Neuro Neuro: Negative for weakness, Negative for dizziness, Negative for lightheadedness, Negative for near syncope, Negative for syncope, Negative for orthostatic symptoms Endo Endo: Negative for fatigue Cardiology Exam Const Appearance: cooperative, healthy appearing, comfortable and no acute distress Orientation: alert, awake and oriented x3 Head Head: normal to inspection Mouth: oral mucosae normal Neck Neck: no JVD and normal visual inspection Carotids: normal carotid upstroke Chest Chest inspection: normal inspection of the chest and normal respiratory effort Auscultation: Bilateral: Clear to Auscultation Cardio Rate: regular rate Rhythm: regular rhythm Heart sounds: S1 normal and S2 normal; negative rub or gallop GI GI: normal to inspection Neuro General: alert, awake, oriented x3 and CN's II-XI intact bilaterally Skin Skin: no rashes or lesions noted Extremities Pulses: Normal: Right Posterior Tibial Pulse, Left Posterior Tibial Pulse, Right Radial Pulse, Left Radial Pulse Lower Extremity Edema: None: Bilateral Psych Psychological: normal affect Assessment AND Plan 1. Asymmetric septal hypertrophy I42.2 Plan - COLLEEN Thomason Patient's most recent echocardiogram is noted above. Patient denies any secondary symptoms such as shortness of breath or lower extremity pedal edema. His activity level has been stable. We will continue to monitor this through exam and echocardiogram. We will not make any medication regimen changes. 2. Hypertriglyceridemia E78.1 Plan - COLLEEN Thomason Patient's most recent lipid panel from May 2017 showed cholesterol: 179, HDL: 38, LDL: 87, and triglycerides: 272. Based on these results it was recommended to increase his fenofibrate due to elevated triglycerides. Through conversation patient would like to continue risk factor modification such as improving his activity and diet and rechecking these values in the near future. Thus, patient will modify his activity and his diet and repeat lipid panel in approximately 3 months. If triglycerides remain elevated we will increase his fenofibrate. Orders Orders: 3. Essential hypertension I10 Plan - COLLEEN Thomason Patient's blood pressure readings at home and on the higher end of expected range with average systolics readings in the 140 and diastolic readings in the 80s. We will continue current blood pressure medication. We will continue to monitor this. 4. Leg pain, bilateral M79.604; M79.605 Plan - COLLEEN Thomason Patient's most recent MAY is noted above. Patient denies any lower extremity leg pain. We will continue to monitor this. We will not make any medication regimen changes. Plan Detail Other Orders Orders: Additional Comments - COLLEEN Thomason Discussed the above patient with Dr. Mann, he agrees with the plan of care. Thank you for allowing us to participate in the patients plan of care, if you have any questions please do not hesitate to call. This note was generated using a voice recognition system and there may be incorrect words, spelling or punctuation that were not noted when reviewing the office note prior to saving. Follow Up 9 Months (PFM) 05/24/17 1213 <Electronically signed by Fabian MACIAS> Date Fabian MACIAS 05/29/17 6599<Electronically signed by Naseem Mann MD> Cosigner Signature: Date (if applicable) Naseem Mann MD CC: Parker Villavicencio DO CBC W/DIFF, AUTOMATED Collected: 05/04/2017 Status: F Source: [place] 1:[address] [facility] REPOSITORY Order Comment: DR. VILLAVICENCIO ORDERED LIPID,PSA,CMP,CBCD DR. MANN ORDERED LIVER AND LIPID TYPE CODE TESTS RESULT OUT OF RANGE REFERENCE UNITS LAB L100.1000 4.4-11.0 K/mm3 Normal WBC 7.3 LAB L100.1200 4.6-6.2 M/mm3 Normal RBC 4.79 LAB L100.1300 13.0-16.5 g/dl Normal HGB 15.2 LAB L100.1400 40-54 % Normal HCT 42.6 LAB L100.1500 80-94 fL Normal MCV 88.9 LAB L100.1600 27.0-32.0 pg Normal MCH 31.7 LAB L100.1700 32-36 g/gl Normal MCHC 35.7 LAB L100.1810 11.6-14.6 % Normal RDW CV 12.6 LAB L100.1820 35.1-43.9 fl Normal RDW SD 40.4 LAB L100.1900 150-450 K/mm3 Normal PLT 277 LAB L100.2000 6.2-12.0 fl Normal MPV 10.0 LAB L100.2100 47-70 % Normal NEUT% 56.2 LAB L100.2200 19-41 % Normal LY% 31.7 LAB L100.2300 0-10 % Normal MONO% 8.5 LAB L100.2400 0-5 % Normal EO% 2.7 LAB L100.2500 0-1 % Normal BASO% 0.4 LAB L100.2550 0.0-0.9 % Normal IM GRAN % 0.500 Result Comment: IG% - Immature Granulocytes (promyelocytes, myelocytes and metamyelocytes) > 1% indicates that a LEFT SHIFT is Present. LAB L100.2620 2.0-7.7 X10 3/uL Normal Absolute Neut 4.1 LAB L100.2720 0.83-4.51 X10 3/ul Normal Absolute Lymph 2.32 Performed By: #### L100.0100 #### [facility] [address] [place], [address] BASIC METABOLIC Collected: 05/04/2017 Status: F Source: ROBYN PROFILE (BMP) 1:[address] [facility] REPOSITORY Order Comment: DR. VILLAVICENCIO ORDERED LIPID,PSA,CMP,CBCD DR. MANN ORDERED LIVER AND LIPID TYPE CODE TESTS RESULT OUT OF RANGE REFERENCE UNITS LAB L501.0100 70-110 mg/dL Normal GLU 95 LAB L501.1000 7-18 mg/dL High BUN 25 LAB L501.1100 0.70-1.30 mg/dL High 1.43 CREAT,SERUM Result Comment: The validity of the calculated GFR AND GFRAA in patients over 70 years has not been determined. Clinical correlation is essential. LAB L501.1110 >60 mL/min Low EST GFR 55 Result Comment: Non- GFR Calc LAB L501.1115 >60 mL/min Normal EST GFR - AA 67 Result Comment: GFR Calc LAB L501.1300 10-20 RATIO Normal BUN/CRE 17.5 LAB L501.2200 8.5-10.1 mg/dL CA Normal 8.9 LAB L501.5300 136-145 mmol/L NA Normal 137 LAB L501.5600 3.5-5.1 mmol/L K Normal 3.9 LAB L501.5900 98-107 mmol/L CL Normal 104 LAB L501.6100 21.0-32.0 mmol/L Normal CO2 24.0 LAB L501.6200 5-15 Normal GAP 9 Performed By: #### L500.2500, L501.9910 #### [facility] [address] [place], [address] PSA,TOTAL - ANNUAL Collected: 05/04/2017 Status: F Source: ROBYN SCREEN 1:[address] [facility] REPOSITORY Order Comment: DR. VILLAVICENCIO ORDERED LIPID,PSA,CMP,CBCD DR. MANN ORDERED LIVER AND LIPID TYPE CODE TESTS RESULT OUT OF RANGE REFERENCE UNITS LAB L501.9910 0.00-4.00 ng/mL Normal PSA,TOT 0.92 SCREEN Result Comment: This test was performed using the TPSA assay method for the tok tok tok chemistry system. Values obtained with different assay methods cannot be used interchangably. When changing PSA assays in the course of monitoring a patient, additional sequential testing should be carried out to confirm baseline values. Performed By: #### L500.2500, L501.9910 #### [facility] [address] [place], [address] LIVER PROFILE Collected: 05/04/2017 Status: F Source: ROBYN 1:[address] [facility] REPOSITORY Order Comment: Order Date: 01/05/16 Interface Comments: 12 hours fasting, may have water. TYPE CODE TESTS RESULT OUT OF RANGE REFERENCE UNITS LAB L501.1500 6.4-8.2 g/dL Normal T PROT 7.6 LAB L501.1800 3.4-5.0 g/dL Normal ALB 3.9 Result Comment: Please note revised Albumin AND Globulin reference range effective 2017. LAB L501.1950 2.2-4.2 g/dL Normal GLOB 3.7 LAB L501.4100 15-37 U/L Normal AST 21 LAB L501.4305 45-117 U/L Normal ALK P 60 LAB L501.4405 12-78 U/L Normal ALT 43 LAB L501.4600 0.20-1.00 mg/dL Normal T BILI 0.40 LAB L501.4700 0.00-0.30 mg/dL Normal D BILI 0.10 Performed By: #### L500.3400 #### [facility] [address] [place], [address] LIPID PROFILE Collected: 05/04/2017 Status: F Source: ROBYN 1:[address] [facility] REPOSITORY Order Comment: Order Date: 01/05/16 Interface Comments: 12 hours fasting, may have water. TYPE CODE TESTS RESULT OUT OF RANGE REFERENCE UNITS LAB L501.4900 200 mg/dL Normal CHOL 179 Result Comment: <200 mg/dL Desirable 200-240 mg/dL Borderline >240 mg/dL High Risk LAB L501.5000 mg/dL High TRIG 272 Result Comment: The drugs N-Acetylcysteine and Metamizole may falsely depress this assay. Serum Triglycerides Reference Interval Normal <150 mg/dL Borderline high 150 - 199 mg/dL High 200 - 499 mg/dL Very High > or = 500 mg/dL LAB L501.6400 mg/dL Low HDL 38 Result Comment: The drugs N-Acetylcysteine and Metamizole may falsely depress this assay. Reference Range HDL <40 mg/dL Low HDL Cholesterol HDL >or= 60 mg/dL High HDL Cholesterol LAB L501.6500 0-130 mg/dL Normal LDL 87 LAB L501.6600 5-40 mg/dL High VLDL 54 Performed By: #### L500.4100 #### [facility] [address] [place], [address] ALLERGIES ALLERGIES DATE TYPE / CODE NAME / CODE REACTION SEVERITY SOURCE 04/03/2018 Drug No Known Unknown [facility] Allergy/4160 Allergies/F00 Hospital 74254(SNOMED 4400944(RXNOR Repository CT) M) ENCOUNTERS ENCOUNTERS ADMIT/DISCHARGE ACCOUNT NUMBER ADMITTING ENCOUNTER LOCATION SOURCE CLASS 04/04/2018/04/04/20 [id number] Ambulatory [address] ding:SDCRoom Repository : AC17 04/03/2018 [id number] Ambulatory [facility] ding:MTLAB Repository 04/01/2018/04/01/20 [id number] Emergency [address] ding:ED Repository 02/05/2018/02/06/20 [id number] Ambulatory BMSBuilding: [place] 18 BMS.[facility] Repository 02/05/2018/02/06/20 [id number] Ambulatory BMSBuilding: [place] 18 BMS.[facility] Repository 02/01/2018/02/02/20 [id number] Ambulatory BMSBuilding: [place] 18 BMS.[facility] Repository 01/29/2018/01/30/20 [id number] Ambulatory BMSBuilding: [place] 18 BMS.[facility] Repository 01/25/2018 [id number] Ambulatory BMSBuilding: [place] BMS.[facility] Repository 01/18/2018/01/19/20 [id number] Ambulatory BMSBuilding: [place] 18 BMS.[facility] Repository 01/16/2018/01/17/20 [id number] Ambulatory BMSBuilding: [place] 18 BMS.[facility] Repository 01/04/2018 [id number] Ambulatory [facility] ding:HPRAD Repository 11/10/2017 [id number] Ambulatory [facility] ding:BFHLAB Repository 06/22/2017 [id number] Ambulatory [facility] Repository 05/15/2017/05/15/19 [id number] Ambulatory BMSBuilding: [place] 18 BMS.[facility] Repository 05/04/2017 [id number] Ambulatory [facility] ding:BFHLAB Repository PAYERS PAYERS ENCOUNTER GUARANTOR PAYER SUBSCRIBER SOURCE 04/04/2018 GEORGIA Mena Primary GEORGIA [id number] E Insurance:MEDICAL ROBERTSDOB: [address] Number: Repository [id number]: [phone] [id number] () Date:9023-30-48KQ [address] [address]OL: 04/04/2018 Secondary NOT GIVENUNK [place] Insurance:SELF PAY [facility] Number: Effective Repository Date:2018-04-02 04/03/2018 GEORGIA Mena Primary GEORGIA Carlson [id number] E Insurance:MEDICAL ROBERTSDOB: [address] Number: Repository [id number]: [phone] [id number] () Date:5128-51-67RW [address] [address]LM: 04/03/2018 Secondary NOT GIVENUNK [place] Insurance:SELF PAY [facility] Number: Effective Repository Date:2018-04-03 04/01/2018 GEORGIA Mena Primary GEORGIA THORPE903 E Insurance:MEDICAL ROBERTSDOB: [address] Number: Repository [id number]: [phone] [id number] () Date:2730-53-22[address] [place] [address]FI: 04/01/2018 Secondary NOT GIVENUNK [place] Insurance:SELF PAY [facility] Number: Effective Repository Date:2018-04-01 02/05/2018 GEORGIA Mena Primary GEORGIA THORPE903 E Insurance:MEDICAL ROBERTSDOB: [facility] 6271-50-80[facility], Number: Repository [place] [address]Nvy: [id number] Date:2461-83-78[address] () [address], [place] [address]SA: 02/05/2018 Secondary NOT GIVENUNK [place] Insurance:SELF PAY [facility] Number: Effective Repository Date:2018-02-05 02/05/2018 GEORGIA Nik Primary GEORGIA THORPE903 E Insurance:MEDICAL ROBERTSDOB: [facility] 5330-21-13MYEWyoming [facility] Hospital, Number: Repository [place] [address]Iag: [id number] Date:0620-54-48HP [address] () [address], [place] [address]OU: 02/05/2018 Secondary NOT GIVENUNK [place] Insurance:SELF PAY [facility] Number: Effective Repository Date:2018-02-05 02/01/2018 GEORGIA Mena Primary GEORGIA Carlson [id number] E Insurance:MEDICAL ROBERTSDOB: [facility] [id number] General Hospital, Number: Repository [place] [address]Pkq: [id number] Date:2184-83-82TV [address] () [address], [place] [address]BB: 02/01/2018 Secondary NOT GIVENUNK [place] Insurance:SELF PAY [facility] Number: Effective Repository Date:2018-02-01 01/29/2018 GEORGIA Nik Primary GEORGIA Carlson [id number] E Insurance:MEDICAL ROBERTSDOB: [address]08-19[facility], Number: Repository [place] [address]Xto: [id number] Date:6085-84-84TK [address] () [address], [place] [address]ZR: 01/29/2018 Secondary NOT GIVENUNK [place] Insurance:SELF PAY [facility] Number: Effective Repository Date:2018-01-29 01/25/2018 GEORGIA Nik Primary GEOR[place]IA THORPE903 E Insurance:MEDICAL ROBERTSDOB: [facility] [id number] General Hospital, Number: Repository [place] [address]Oqf: [id number] Date:1318-85-63ZP BOX () [address] [place] [address]YQ: 01/25/2018 Secondary NOT GIVENUNK [place] Insurance:SELF PAY [facility] Number: Effective Repository Date:2018-01-19 01/18/2018 GEORGIA Mena Primary GE[place]IA Carlson [id number] E Insurance:MEDICAL ROBERTSDOB: [facility] [id number] General Hospital, Number: Repository [place] [address]Mmv: [id number] Date:2728-85-65NO [address] () [address] [place] [address]BT: 01/18/2018 Secondary NOT GIVENUNK [place] Insurance:SELF PAY [facility] Number: Effective Repository Date:2018-01-18 01/16/2018 GEORGIA Mena Primary GEORGIA THORPE903 E Insurance:MEDICAL ROBERTSDOB: [facility] [id number] General Hospital, Number: Repository [place] [address]Vto: [id number] Date:8683-78-86OG BOX () [address] [place] [address]EQ: 01/16/2018 Secondary NOT GIVENUNK [place] Insurance:SELF PAY [facility] Number: Effective Repository Date:2018-01-16 01/04/2018 GEORGIA E Primary GEORGIA Carlson [id number] E Insurance:MEDICAL ROBERTSDOB: [facility] [id number] General Hospital, Number: Repository [place] [address]Pws: [id number] Date:8950-78-71MU [address] () [address], [place] [address]DD: 01/04/2018 Secondary NOT GIVENUNK [place] Insurance:SELF PAY [facility] Number: Effective Repository Date:2018-01-04 11/10/2017 GEORGIA E Primary GEORGIA THORPE903 E Insurance:MEDICAL ROBERTSDOB: [facility] 2203-01-52LDYWyoming General Hospital, Number: Repository [place] [address]Avv: [id number] Date:8693-16-32VQ [address] () [address], [place] [address]ND: 11/10/2017 Secondary NOT GIVENUNK [place] Insurance:SELF PAY [facility] Number: Effective Repository Date:2017-11-10 06/22/2017 GEORGIA Primary [facility] ROBERTSDOB: Insurance:MEDICAL ROBERTSDOB: System [facility] Number: [id number] Repository [place] [id number] [place], [place] Date:[place], [place] [address]Oyk: (330) Name:[facility] [address]Bxp: () [address], [place] [address] (HP) [phone]: 05/15/2017 GEORGIA E Primary GEORGIA THORPE903 E Insurance:MEDICAL ROBERTSDOB: [facility] [id number] General Hospital, Number: Repository [place] [address]Npp: [id number] Date:6629-26-78GF [address] () [address], [place] [address]TV: 05/15/2017 Secondary NOT GIVENUNK [place] Insurance:SELF PAY [facility] Number: Effective Repository Date:2017-04-08 05/04/2017 Georgia Mena Primary Georgia Thorpe903 E Insurance:MEDICAL RobertsDOB: [facility] [id number]. [facility], Number: Repository [place] [address]Cvj: [id number] Date:0964-14-11TD [address]OX (KW) [address], [place] [address]LJ: 05/04/2017 Secondary NOT GIVENUNK [place] Insurance:SELF PAY [facility] Number: Effective Repository Date:2017-05-04
== END 2018-04-01 17:37 | disposition home or self-care (01) ==
PROVIDERS: Emergency Provider Emergency Medicine; Family Provider Family Medicine; PCP Family Medicine
DX: S76.112A Strain of left quadriceps muscle, fascia and tendon, initial encounter (principal); W01.0XXA Fall on same level from slipping, tripping and stumbling without subsequent striking against object, initial encounter; Y93.9 Activity, unspecified; Y92.9 Unspecified place or not applicable; Y99.9 Unspecified external cause status; I10 Essential (primary) hypertension; Z79.82 Long term (current) use of aspirin; Z79.899 Other long term (current) drug therapy
CPT/HCPCS: 73564; 99284

== ENCOUNTER → 2018-04-03 12:17 | Outpatient (CLI) | payer OTHER, SELFPAY ==
[2018-04-01 15:18] VITALS: BMI 30.5
[2018-04-03 13:49] LABS: Absolute Lymphocyte Count 1.78 X10^3/ul (0.83-4.51); Absolute Neutrophil Count 12.9 X10^3/uL (2.0-7.7); Basophil# 0.03 X10^3/uL; Basophil% 0.2 % (0-1); Eosinophil# 0.08 X10^3/uL; Eosinophils% 0.5 % (0-5); Hematocrit 44.4 % (40-54); Hemoglobin 15.9 g/dl (13.0-16.5); Lymphocyte # 1.78 X10^3/ul (4.0); Lymphocyte % 11.1 % (19-41); Mean Corp Hgb Conc 35.8 g/gl (32-36); Mean Corpuscular Hgb 32.3 pg (27.0-32.0); Mean Corpuscular Volume 90.2 fL (80-94); Mean Platelet Vol. 10.1 fl (6.2-12.0); Monocyte# 1.28 X10^3/uL; Neutrophil # 12.88 X10^3/uL (2.7-7.7); POSITIVE COUNT NO; POSITIVE DIFFERENTIAL NO; POSITIVE MORPHOLOGY NO; Platelet Count 271 K/mm3 (150-450); RBC Distribution Width CV 12.7 % (11.6-14.6); RBC Distribution Width SD 41.5 fl (35.1-43.9); Red Blood Count 4.92 M/mm3 (4.6-6.2); White Blood Count 16.1 K/mm3 (4.4-11.0)
[2018-04-03 13:57] LABS: Anion Gap 12 (5-15); BUN 28 mg/dL (7-18); BUN/Creat Ratio 19.2 RATIO (10-20); Calcium,Total 8.8 mg/dL (8.5-10.1); Chloride 101 mmol/L (98-107); Creatinine, Serum 1.46 mg/dL (0.70-1.30); EST Glomerular Filtration Rate 54 mL/min (>60); Est Glom Filt Rate - Afr Amer 65 mL/min (>60); Glucose 92 mg/dL (74-106); Potassium 3.5 mmol/L (3.5-5.1); Sodium Level 140 mmol/L (136-145)
== END ==
PROVIDERS: Family Provider Family Medicine; PCP Family Medicine; Referring Provider Family Medicine; Visit Provider Family Medicine
DX: Z01.818 Encounter for other preprocedural examination (principal)
CPT/HCPCS: 36415; 80048; 85025

== ENCOUNTER 2018-04-04 10:45 | Day surgery (SDC) | payer OTHER, SELFPAY ==
[2018-04-04] MEDS: Cefazolin 2 GM in 0.9% Normal Saline 100 ML IV (13:06)
--- NOTE | 2018-04-04 14:05 | PCM.OPRPT ---
Report of Operation Date of Procedure: 04/04/18 Pre-Operative Diagnosis: Left quad tendon rupture Post-Operative Diagnosis: Left quad tendon rupture Surgery/Procedure Performed:: Left quadriceps tendon repair Description of Surgical Findings:: Stable repair, anatomically repaired anti air warfare operations officer: Damien Kimball Type of Anesthesia:: General Anesthesiologist: Wyatt Bowens Special Medications: 2 g Ancef Estimated Blood Loss (mL): 25 Fluids Replaced: 1500 mL crystalloid Description of Procedure: On the date of procedure patient's left lower extremity is was marked in the preoperative area. The patient was then taken back to the operating room where they were placed on the table in the supine position. All bony prominences were identified a well-padded. Anesthesia assumed control of the C-spine and airway and remained controlled throughout the remainder of the procedure. A tourniquet was placed on the left upper thigh and the left leg was prepped in a sterile fashion. The surgeon scrubbed at this time. Upon reentering the room the left extremity was draped in a standard orthopedic fashion. A timeout was then called and everyone agreed upon the side, the site, the procedure to be performed, patient's identity and antibiotics given. Attention was directed to the left leg where a midline incision was made. Dissection was taken down through skin, subcutaneous tissues and fat. At this point we were able to identify the rupture and got a gush of serosanguineous fluid. The wound was copiously irrigated with normal saline. The proximal aspect of the patella was debrided and the bone was rongeured to prepare a fresh tissue bed. Allis clamps were then placed on the quadricep tendon was pulled distally. 2 #5 FiberWire's were used to place 2 Krak?w stitches giving us all 4 suture limbs. At this time #0 Vicryls were then used to repair the retinaculum but left untied. A short Beath pin was then used to drill 3 bone tunnels and passed the suture limbs. 2 suture limbs were placed through the central tunnel. The #1 Vicryls were then tied to repair the retinaculum and take stress off the tendon repair. The central limbs of the FiberWire were then tunneled under the tendon and firmly tied over bone tunnels to the outter limbs medially and laterally. Finally a #1 Vicryl runner was used to sew the retinacular repair over the central portion of the tendon. The tendon repair was stressed and did not see stress until 30 degrees of flexion.The wound was irrigated out with normal saline. Skin was closed with 2-0 Vicryl and cj. A sterile compressive dressing was placed. A knee immobilizer brace was then placed on the operative extremity locked in extension. Patient was awakened by anesthesia and transferred to the [facility] then taken to the PACU for recovery. Post op plan PT: Touchdown with TROM brace locked in extension 2 weeks followed by weightbearing as tolerated with the T ROM locked for 4 weeks. Brace: locked in extension until first post op visit. At first visit patient should have 1 PT visit with brace opened to 0-30 flexion with flexion advanced 15 degrees per week. Patient may also start quad sets and straight leg raises at first visit. Goal is 90 degrees of flexion at 6 weeks. Will begin strengthening at 6 weeks. Prior to 6 weeks pt only allowed active flexion and passive extension. Follow up: 2 weeks for wound check and removal of jc My physician assistant women's basketball coach was a vital part of this case. He was important in appropriate retraction during the case, and protection of soft tissues during the procedure. His intimate knowledge of the case and my steps aided in safe and expedient completion of the procedure as well as appropriate position of the leg during the case. He was also vital in assisting with closure under my direct supervision. - Complications NONE - Admit VTE Documentation VTE Present on Admission: No VTE Mechan Device Prophylaxis: SCD's, Thigh High BILLIE Hose VTE Pharm Prophylaxis ordered?: Yes
--- NOTE | 2018-04-04 14:08 | OP.PCM_ITS ---
Report of Operation Date of Procedure: 04/04/18 Pre-Operative Diagnosis: Left quad tendon rupture Post-Operative Diagnosis: Left quad tendon rupture Surgery/Procedure Performed:: Left quadriceps tendon repair Description of Surgical Findings:: Stable repair, anatomically repaired laundry pricing clerk: Damien Kimball Type of Anesthesia:: General Anesthesiologist: Wyatt Bowens Special Medications: 2 g Ancef Estimated Blood Loss (mL): 25 Fluids Replaced: 1500 mL crystalloid Description of Procedure: On the date of procedure patient's left lower extremity is was marked in the preoperative area. The patient was then taken back to the operating room where they were placed on the table in the supine position. All bony prominences were identified a well-padded. Anesthesia assumed control of the C-spine and airway and remained controlled throughout the remainder of the procedure. A tourniquet was placed on the left upper thigh and the left leg was prepped in a sterile fashion. The surgeon scrubbed at this time. Upon reentering the room the left extremity was draped in a standard orthopedic fashion. A timeout was then called and everyone agreed upon the side, the site, the procedure to be performed, patient's identity and antibiotics given. Attention was directed to the left leg where a midline incision was made. Dissection was taken down through skin, subcutaneous tissues and fat. At this point we were able to identify the rupture and got a gush of serosanguineous fluid. The wound was copiously irrigated with normal saline. The proximal aspect of the patella was debrided and the bone was rongeured to prepare a fresh tissue bed. Allis clamps were then placed on the quadricep tendon was pulled distally. 2 #5 FiberWire's were used to place 2 Krak?w stitches giving us all 4 suture limbs. At this time #0 Vicryls were then used to repair the retinaculum but left untied. A short Beath pin was then used to drill 3 bone tunnels and passed the suture limbs. 2 suture limbs were placed through the central tunnel. The #1 Vicryls were then tied to repair the retinaculum and take stress off the tendon repair. The central limbs of the FiberWire were then tunneled under the tendon and firmly tied over bone tunnels to the outter limbs medially and laterally. Finally a #1 Vicryl runner was used to sew the retinacular repair over the central portion of the tendon. The tendon repair was stressed and did not see stress until 30 degrees of flexion.The wound was irrigated out with normal saline. Skin was closed with 2-0 Vicryl and cj. A sterile compressive dressing was placed. A knee immobilizer brace was then placed on the operative extremity locked in extension. Patient was awakened by anesthesia and transferred to the [facility] then taken to the PACU for recovery. Post op plan PT: Touchdown with TROM brace locked in extension 2 weeks followed by weightbearing as tolerated with the T ROM locked for 4 weeks. Brace: locked in extension until first post op visit. At first visit patient should have 1 PT visit with brace opened to 0-30 flexion with flexion advanced 15 degrees per week. Patient may also start quad sets and straight leg raises at first visit. Goal is 90 degrees of flexion at 6 weeks. Will begin strengthening at 6 weeks. Prior to 6 weeks pt only allowed active flexion and passive extension. Follow up: 2 weeks for wound check and removal of cj My physician household assistant was a vital part of this case. He was important in appropriate retraction during the case, and protection of soft tissues during the procedure. His intimate knowledge of the case and my steps aided in safe and expedient completion of the procedure as well as appropriate position of the leg during the case. He was also vital in assisting with closure under my direct supervision. - Complications NONE - Admit VTE Documentation VTE Present on Admission: No VTE Mechan Device Prophylaxis: SCD's, Thigh High BILLIE Hose VTE Pharm Prophylaxis ordered?: Yes
[2018-04-04 14:35] VITALS: BP 123/92; BP 140/80; PULSE 94; RESP 16; TEMP 37; O2SAT 97
[2018-04-04 14:45] VITALS: BP 138/76; BP 140/80; PULSE 92; RESP 16; O2SAT 97
[2018-04-04 15:00] VITALS: BP 134/89; BP 140/80; PULSE 92; RESP 16; O2SAT 95
[2018-04-04 15:15] VITALS: BP 140/80; BP 145/79; PULSE 98; RESP 16; O2SAT 98
[2018-04-04 15:38] VITALS: BP 140/80
[2018-04-04] MEDS: oxyCODONE 5 MG Tablet PO (15:39)
--- NOTE | 2018-04-04 15:49 | SUR.PREOP ---
Milagros Wallace checked pt in but must not of filled chart. Siria hernandez called Milagros at home and filled in as much as Milagros could remember
== END 2018-04-04 15:51 | disposition home or self-care (01) ==
LOC: SDC 10:47 → AC 10:51
PROVIDERS: Family Provider Family Medicine; PCP Family Medicine; Referring Provider Specialist; Visit Provider Specialist
PROC: (CPT 27385; principal; 2018-04-04 12:45)
DX: S76.112A Strain of left quadriceps muscle, fascia and tendon, initial encounter (principal); W17.81XA Fall down embankment (hill), initial encounter; E78.00 Pure hypercholesterolemia, unspecified; I10 Essential (primary) hypertension; E66.3 Overweight; Z68.30 Body mass index [BMI] 30.0-30.9, adult; Z79.899 Other long term (current) drug therapy; Z87.891 Personal history of nicotine dependence
CPT/HCPCS: 27385; 64447; J7120; J2405

== ENCOUNTER → 2019-01-16 09:43 | Outpatient (CLI) | payer OTHER, SELFPAY ==
[2019-01-16 12:34] LABS: Absolute Lymphocyte Count 2.15 X10^3/uL (0.83-4.51); Absolute Neutrophil Count 3.6 X10^3/uL (2.0-7.7); Basophil# 0.03 X10^3/uL; Basophil% 0.5 % (0-1); Eosinophil# 0.18 X10^3/uL; Eosinophils% 2.8 % (0-5); Hematocrit 42.1 % (40-54); Hemoglobin 14.9 g/dL (13.0-16.5); Lymphocyte # 2.15 X10^3/ul (4.0); Lymphocyte % 33.2 % (19-41); Mean Corp Hgb Conc 35.4 g/dL (32-36); Mean Corpuscular Hgb 32.4 pg (27.0-32.0); Mean Corpuscular Volume 91.5 fL (80-94); Mean Platelet Vol. 9.9 fl (6.2-12.0); Monocyte# 0.51 X10^3/uL; Monocyte% 7.9 % (0-10); NRBC Flagged by Analyzer 0 % (0-5); Neutrophil # 3.58 X10^3/uL (2.7-7.7); Neutrophil % 55.1 % (47-70); Platelet Count 233 K/mm3 (150-450); White Blood Count 6.5 K/mm3 (4.4-11.0)
[2019-01-16 13:09] LABS: ALB/GLOB Ratio 1.1 RATIO (0.9-2.4); AST(SGOT) 17 U/L (15-37); Alanine Aminotransfer ALT/SGPT 33 U/L (16-61); Albumin, Serum 3.7 g/dL (3.2-5.0); Alkaline Phosphatase 55 U/L (45-117); Anion Gap 8 (5-15); BUN 23 mg/dL (7-18); BUN/Creat Ratio 17.4 RATIO (10-20); Bilirubin, Direct 0.12 mg/dL (0.00-0.30); Calcium,Total 8.5 mg/dL (8.5-10.1); Chloride 107 mmol/L (98-107); Cholesterol 167 mg/dL (200); Creatinine, Serum 1.32 mg/dL (0.70-1.30); EST Glomerular Filtration Rate 60 mL/min (>60); Est Glom Filt Rate - Afr Amer 73 mL/min (>60); Globulin 3.3 g/dL (2.2-4.2); Glucose 90 mg/dL (74-106); High Density Lipoprotein 38 mg/dL; PSA,Total - Annual Screen 0.96 ng/mL (0.00-4.00); Potassium 3.7 mmol/L (3.5-5.1); Sodium Level 141 mmol/L (136-145); Triglycerides 280 mg/dL; Very Low Density Lipoprotein 56 mg/dL (5-40)
== END ==
PROVIDERS: Nurse Practitioner Family; Family Provider Family Medicine; PCP Family Medicine; Visit Provider Family Medicine
DX: Z00.00 Encounter for general adult medical examination without abnormal findings (principal); E78.5 Hyperlipidemia, unspecified; Z12.5 Encounter for screening for malignant neoplasm of prostate
CPT/HCPCS: 36415; 80053; 80061; 82248; 84153; 85025; G0103

== ENCOUNTER → 2019-01-28 12:30 | Outpatient (CLI) | payer OTHER, SELFPAY ==
--- NOTE | 2019-01-28 12:32 | ECHOD_ITS ---
Reason For Study: MURMUR Procedure This was a 2D Doppler, Color Flow transthoracic echocardiogram. The exam was of adequate technical quality. Exam performed in department. Left Ventricle Normal LV size. Asymmetric septal hypertrophy. Left ventricular systolic function is normal. The estimated ejection fraction is 65 %. There is evidence of diastolic dysfunction. No regional wall motion abnormalities noted. Right Ventricle Normal RV size. Normal systolic function. Atria The left atrium is mildly enlarged. Normal right atrium. No doppler evidence for ASD. Mitral Valve There is no mitral annular calcification. Normal mitral valve. Mild (1+) mitral valve insufficiency. Tricuspid Valve Normal tricuspid valve. Trivial tricuspid valve insufficiency. Aortic Valve Trisinus/trileaflet aortic valve. Mild focal aortic valve calcification. Pulmonic Valve The pulmonic valve is not well visualized. Mild (1+) pulmonic valve insufficiency. Great Vessels Normal sized aortic root. Pericardium/Pleural No pericardial effusion. MMode/2D Measurements & Calculations LVIDd: 4.8 cm IVSd: 1.9 cm Ao root diam: 3.5 cm LVIDs: 3.1 cm LVPWd: 1.2 cm RVDd: 2.8 cm FS: 34.3 % LAV(MOD-bp): 75.6 ml LVAd ap4: 35.2 cm2 SV(MOD-sp4): 76.1 ml LAV(MOD-bp) Indexed: 37.8 ml/m2 EDV(MOD-sp4): 109.4 ml LAV(MOD-sp2): 54.9 ml EDV(sp4-el): 117.5 ml LAV(MOD-sp4): 91.6 ml LVAs ap4: 16.7 cm2 ESV(MOD-sp4): 33.3 ml ESV(sp4-el): 33.6 ml EF(MOD-sp4): 69.6 % EF(sp4-el): 71.4 % SV(sp4-el): 83.9 ml LA A4 area: 26.2 cm2 LA dimension(2D): 5.1 cm RA A4 area: 17.4 cm2 Time Measurements MV dec time: 0.21 sec Doppler Measurements & Calculations MV E max kyle: 74.2 cm/sec Lat Peak E' Kyle: 7.9 cm/sec Med Peak E' Kyle: 4.4 cm/sec MV A max kyle: 53.4 cm/sec E/E' lat: 9.3 E/E' med: 16.9 MV E/A: 1.4 Ao V2 max: 146.1 cm/sec LV V1 max: 122.6 cm/sec PA V2 max: 149.9 cm/sec Ao max P.5 mmHg LV V1 max P.0 mmHg PI end-d kyle: 112.8 cm/sec Interpretation Summary Left ventricular systolic function is normal. The estimated ejection fraction is 65 %. Asymmetric septal hypertrophy. The left atrium is mildly enlarged. Mild (1+) mitral valve insufficiency. Trivial tricuspid valve insufficiency. Mild focal aortic valve calcification. Mild (1+) pulmonic valve insufficiency. There is evidence of diastolic dysfunction. Ordering Physician: Naseem Murray Referring Physician: PANCHO PAREDES Performed By: Carmen Mcmullen, RDCS, RVT
== END ==
PROVIDERS: Family Provider Family Medicine; PCP Family Medicine; Referring Provider Internal Medicine Cardiovascular Disease; Visit Provider Internal Medicine Cardiovascular Disease
DX: I42.2 Other hypertrophic cardiomyopathy (principal); E78.5 Hyperlipidemia, unspecified; I10 Essential (primary) hypertension
CPT/HCPCS: 93306

== ENCOUNTER → 2020-03-10 09:17 | Outpatient (CLI) | payer OTHER, SELFPAY ==
[2020-03-09 11:35] VITALS: BMI 30.2
[2020-03-10 10:48] LABS: AST(SGOT) 18 U/L (15-37); Alanine Aminotransfer ALT/SGPT 43 U/L (16-61); Albumin, Serum 3.8 g/dL (3.2-5.0); Alkaline Phosphatase 63 U/L (45-117); Bilirubin, Direct 0.14 mg/dL (0.00-0.30); Cholesterol 146 mg/dL (200); Globulin 3.4 g/dL (2.2-4.2); High Density Lipoprotein 33 mg/dL; Protein, Total 7.2 g/dL (6.4-8.2); Triglycerides 286 mg/dL; Very Low Density Lipoprotein 57 mg/dL (5-40)
== END ==
PROVIDERS: PCP Family Medicine; Referring Provider Internal Medicine Cardiovascular Disease; Visit Provider Internal Medicine Cardiovascular Disease
DX: E78.00 Pure hypercholesterolemia, unspecified (principal)
CPT/HCPCS: 36415; 80061; 80076

== ENCOUNTER → 2020-07-08 09:11 | Outpatient (CLI) | payer OTHER, SELFPAY ==
[2020-03-09 11:35] VITALS: BMI 30.2
[2020-07-08 12:25] LABS: Absolute Lymphocyte Count 2.13 X10^3/uL (0.83-4.51); Absolute Neutrophil Count 1.9 X10^3/uL (2.0-7.7); Basophil# 0.02 X10^3/uL; Basophil% 0.4 % (0-1); Eosinophils% 2.1 % (0-5); Hematocrit 41.4 % (40-54); Hemoglobin 14.6 g/dL (13.0-16.5); Lymphocyte # 2.13 X10^3/ul (4.0); Lymphocyte % 45.3 % (19-41); Mean Corp Hgb Conc 35.3 g/dL (32-36); Mean Corpuscular Hgb 32.2 pg (27.0-32.0); Mean Corpuscular Volume 91.2 fL (80-94); Mean Platelet Vol. 9.9 fl (6.2-12.0); Monocyte# 0.52 X10^3/uL; Monocyte% 11.1 % (0-10); NRBC Flagged by Analyzer 0 % (0-5); Neutrophil # 1.89 X10^3/uL (2.7-7.7); Neutrophil % 40.2 % (47-70); Platelet Count 249 K/mm3 (150-450); RBC Distribution Width CV 12.9 % (11.6-14.6); Red Blood Count 4.54 M/mm3 (4.6-6.2); White Blood Count 4.7 K/mm3 (4.4-11.0)
[2020-07-08 13:11] LABS: ALB/GLOB Ratio 1.2 RATIO (0.9-2.4); AST(SGOT) 26 U/L (15-37); Alanine Aminotransfer ALT/SGPT 53 U/L (16-61); Albumin, Serum 3.8 g/dL (3.2-5.0); Alkaline Phosphatase 64 U/L (45-117); Anion Gap 10 (5-15); BUN 25 mg/dL (7-18); BUN/Creat Ratio 16.6 RATIO (10-20); Calcium,Total 8.4 mg/dL (8.5-10.1); Chloride 105 mmol/L (98-107); Cholesterol 194 mg/dL (200); Creatinine, Serum 1.51 mg/dL (0.70-1.30); EST Glomerular Filtration Rate 51 mL/min (>60); Est Glom Filt Rate - Afr Amer 62 mL/min (>60); Globulin 3.3 g/dL (2.2-4.2); Glucose 99 mg/dL (74-106); High Density Lipoprotein 24 mg/dL; PSA,Total - Annual Screen 0.97 ng/mL (0.00-4.00); Potassium 3.3 mmol/L (3.5-5.1); Protein, Total 7.1 g/dL (6.4-8.2); Sodium Level 138 mmol/L (136-145); Triglycerides 766 mg/dL
== END ==
PROVIDERS: PCP Family Medicine; Visit Provider Internal Medicine Cardiovascular Disease
DX: Z00.00 Encounter for general adult medical examination without abnormal findings (principal); E78.5 Hyperlipidemia, unspecified; E78.1 Pure hyperglyceridemia; Z12.5 Encounter for screening for malignant neoplasm of prostate
CPT/HCPCS: 36415; 80053; 80061; 82248; 84153; 85025; G0103

== ENCOUNTER 2020-07-11 12:48 | Emergency (ER) | payer OTHER, SELFPAY ==
[2020-03-09 11:35] VITALS: BMI 30.2
[2020-07-11 12:50] VITALS: BP 166/74; PULSE 92; RESP 18; TEMP 36.6; O2SAT 98; BMI 32.5
--- NOTE | 2020-07-11 13:24 | ED.VISSUMM ---
- ER Visit Summary Date of Service: 07/11/20 Chief Complaint: Left thigh laceration History of Present Illness: The patient is a 54 M who presents with a laceration to his left thigh. Patient was using a utility knife when it slipped and cut his left thigh. Patient states the bleeding stopped after several minutes of pressure. Patient denies any paresthesias or weakness. Patient states his last tetanus was approximately 5 years ago. Patient denies any paresthesias or weakness. Patient denies any other injuries. Patient states his pain is very mild at the present time. Physical Examination: Vital signs are stable. Patient is afebrile. Patient is in no acute distress. Skin is warm and dry. There is a 3 cm full-thickness linear laceration of the anterior aspect of the left thigh. There are no foreign bodies noted. There is no active bleeding noted. Sensation was intact to light touch bilaterally in the lower extremities. Strength is 5/5 bilateral in lower extremities. There is good range of motion of the left hip and left knee. Emergency Department Course and Treatment: The wound was cleaned and irrigated with copious amounts of normal saline. The wound was anesthetized with 1% plain lidocaine locally. The wound was closed with 4 simple interrupted #4-0 nylon sutures under sterile technique. Patient tolerated the procedure well. Bacitracin dressing was applied. Patient was instructed to keep the wound clean and dry. Patient was instructed to follow-up with his primary care physician in 10 days for wound recheck and suture removal. Patient understood and was agreeable with the plan. All questions were answered. Disposition: Discharge home Impression: Left thigh laceration This note was generated with [employer] dictation software. It may contain incorrect words, spelling, and punctuation that were not noted in review of the chart prior to signing ED Disposition - Plan for ED Patient: Disposition: Home or Assisted Living Diagnosis: Laceration of left thigh Instructions: ED Laceration: All Closures Referrals: Parker Villavicencio DO [Primary Care Provider] - 10 Day for suture removal
[2020-07-11] MEDS: BACITRACIN 15 GM Tube 1 APPLIC TOPICAL (13:57)
[2020-07-11] MEDS: Lidocaine 1% (20 ml mdv) 20 ML Vial INFILT (13:57)
== END 2020-07-11 14:03 | disposition home or self-care (01) ==
PROVIDERS: Emergency Provider Emergency Medicine; PCP Family Medicine
DX: S71.112A Laceration without foreign body, left thigh, initial encounter (principal); W26.0XXA Contact with knife, initial encounter; Y93.9 Activity, unspecified; Y92.9 Unspecified place or not applicable; Y99.9 Unspecified external cause status; I10 Essential (primary) hypertension; Z79.82 Long term (current) use of aspirin; Z79.899 Other long term (current) drug therapy
CPT/HCPCS: 12002; 99284

== ENCOUNTER → 2020-08-13 08:34 | Outpatient (CLI) | payer OTHER, SELFPAY ==
[2020-08-13 10:21] LABS: AST(SGOT) 23 U/L (15-37); Alanine Aminotransfer ALT/SGPT 53 U/L (16-61); Alkaline Phosphatase 62 U/L (45-117); Bilirubin, Direct 0.21 mg/dL (0.00-0.30); Cholesterol 122 mg/dL (200); Globulin 3.4 g/dL (2.2-4.2); High Density Lipoprotein 35 mg/dL; Protein, Total 7.4 g/dL (6.4-8.2); Triglycerides 270 mg/dL; Very Low Density Lipoprotein 54 mg/dL (5-40)
== END ==
PROVIDERS: PCP Family Medicine; Referring Provider Nurse Practitioner Family; Visit Provider Nurse Practitioner Family
DX: E78.1 Pure hyperglyceridemia (principal); E78.5 Hyperlipidemia, unspecified
CPT/HCPCS: 36415; 80061; 80076

== ENCOUNTER → 2021-03-15 10:35 | Outpatient (CLI) | payer OTHER, SELFPAY ==
[2021-03-15 13:08] LABS: AST(SGOT) 22 U/L (15-37); Alanine Aminotransfer ALT/SGPT 53 U/L (16-61); Albumin, Serum 3.7 g/dL (3.2-5.0); Alkaline Phosphatase 60 U/L (45-117); Bilirubin, Direct 0.17 mg/dL (0.00-0.30); Cholesterol 120 mg/dL (200); Globulin 3.6 g/dL (2.2-4.2); High Density Lipoprotein 36 mg/dL; Protein, Total 7.3 g/dL (6.4-8.2); Triglycerides 225 mg/dL; Very Low Density Lipoprotein 45 mg/dL (5-40)
== END ==
PROVIDERS: PCP Family Medicine; Visit Provider Internal Medicine Cardiovascular Disease
DX: E78.00 Pure hypercholesterolemia, unspecified (principal)
CPT/HCPCS: 36415; 80061; 80076

== ENCOUNTER 2021-03-16 09:00 | Outpatient (RCR) | payer OTHER, SELFPAY ==
--- NOTE | 2021-01-22 08:17 | HP.PTEVAL_ITS ---
Patient's Visit Information GEORGIA THORPE Jr. is a 55 year old M referred to Physical Therapy by Dr. Osvaldo Bocanegra MD with a diagnosis of R rotator cuff repairs. Date of Evaluation: 01/22/21 Physical Therapist: Porfirio Montano, PT, ATC - Visit Plan Frequency: 1x/Week Duration: 6 Weeks Plan: Will follow up in 3 weeks as pt has already met all his restricted ROM. Follow Protocol. Forward elevation to 50 degrees for first 6 weeks, No pendulums, No IR behind back, ER to neutral. CP for pain - Subjective DOS: 01/11/21. Pt tore his R rotator cuff and had a repair on that date. Pt reports he tore his rotator cuff while he was bowling. Pt reports he is in very little pain this date. Pt reports he is an avid golfer and would like to return to that as soon as possible. Pt denies tingling and numbness in his R UE. Pt reports he is having sleep difficulty at this time secondary to being uncomfortable with his sling on. Pt notes he is R hand dominant. Pt reports he was told he can move his hand, but he is not allowed to actively move his R shoulder for 6 weeks. Pt works out at the [employer]. 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 2/10 pain at rest, and has not exceeded that level over the past 3-4 days. - Pain R shoulder Pain Intensity (Out of 10): 2 Pain Intensity Range: 2 - Objective Neuro: B UE sensation is WNL to light touch. B bicepital reflex= 1/3. ROM: L shoulder flex= 165, abd= 165, ER= 65, IR WNL. R shoulder flex= 50, ER= 0. MMT: L shoulder is 5/5 throughout. R shoulder not tested this date. Observation: Incisions are mostly healed. Sutures have been removed and steristrips applied. - Balance/Special Test Scores Quick DASH Score: 68.1800 - Goals Goal 1:: Decrease R shoulder pain x 50% to aid with sleep Goal Time Frame: 6-8 Weeks Goal 2:: Increase R shoulder ROM flex and abd x 50 degrees to aid with overhead lifting Goal Time Frame: 6-8 Weeks Goal 3:: Increase R shoulder strength to 4/5 throughout to aid with RTW without limitation Goal Time Frame: 6-8 Weeks Goal 4:: I with HEP Goal Time Frame: 6-8 Weeks - Rehabilitation Potential Physical Therapy Diagnosis: R shoulder pain, weakness, and limited ROM secondary to R rotator cuff repair Rehabilitation Potential: Good - Anticipated Interventions Patient/Client Instruction: Educate patient on: Condition, Plan of Care For the Purpose of:: To improve self management Therapeutic Exercise to Include: Strength training, Flexibilty training, Passive ROM, Active ROM, Scapular Strength/Stabilization For the Purpose of:: To decrease pain, To increase ROM, To improve muscle performance and motor function Cryotherapy (ice pack, ice massage): Yes For the Purpose of:: To decrease pain Thank you for the opportunity to evaluate your patient. For Medicare and Medicare HMO plans, please review the plan of care and approve it. It will need to be FAXED BACK to us at [phone] for Medicare purposes. For Medicare only, by signing this I certify the plan of care. Please let me know if there are questions or concerns regarding this plan of care. Physician Signature: Date:
--- NOTE | 2021-03-16 09:32 | HP.PTREVAL ---
Dr. Osvaldo Bocanegra MD, It has been my pleasure to treat GEORGIA THORPE Jr. over the last 6 visits for R rotator cuff repairs 01/11/21. Please see the progress note below for an update on the physical therapy plan of care! Subjective: Pt reports he has been compliant with Dr. cotto. No pain today Objective/Function: R shoulder pain is 0/10. R shoulder ROM: flex= 110, ER= 45 degrees Plan Plan: Follow Protocol. Forward elevation to 110 degrees for first 6 weeks, No pendulums, No IR behind back, ER to 45 degrees. CP for pain Balance/Gait/Functional tests - Balance/Special Test Scores Quick DASH Score: 68.1800 Goals Goal 1:: Decrease R shoulder pain x 50% to aid with sleep Goal Time Frame: 6-8 Weeks Goal Progress: Progressing Goal 2:: Increase R shoulder ROM flex and abd x 50 degrees to aid with overhead lifting Goal Time Frame: 6-8 Weeks Goal Progress: Progressing Goal 3:: Increase R shoulder strength to 4/5 throughout to aid with RTW without limitation Goal Time Frame: 6-8 Weeks Goal Progress: Progressing Goal 4:: I with HEP Goal Time Frame: 6-8 Weeks Goal Progress: Progressing Anticipated Interventions Patient/Client Instruction: Educate patient on: Condition, Plan of Care For the Purpose of:: To improve self management Therapeutic Exercise to Include: Strength training, Flexibilty training, Passive ROM, Active ROM, Scapular Strength/Stabilization For the Purpose of:: To decrease pain, To increase ROM, To improve muscle performance and motor function Cryotherapy (ice pack, ice massage): Yes For the Purpose of:: To decrease pain Please do not hesitate to contact me at [phone] by phone or if you have questions or concerns regarding this new plan of care! Sincerely, Porfirio Montano, PT, ATC
--- NOTE | 2021-05-17 14:29 | HP.PT.NRP ---
GEORGIA Rajseh THORPE Jr. was seen in my office for initial evaluation on 01/22/21. The following Plan of Care was established for this patient: Initial Frequency: 1x/Week Initial Duration: 6 Weeks Patient/Client Instruction: Educate patient on: Condition, Plan of Care For the Purpose of:: To improve self management Therapeutic Exercise to Include: Strength training, Flexibilty training, Passive ROM, Active ROM, Scapular Strength/Stabilization For the Purpose of:: To decrease pain, To increase ROM, To improve muscle performance and motor function Cryotherapy (ice pack, ice massage): Yes For the Purpose of:: To decrease pain This patient was last seen in our office . Pertinent comments regarding their Physical therapy will appear below: Pt was treated for 6 PT visits for R rotator cuff repair through the date of 03/16/21. Pt has not returned today and is therefore discontinued at this time. At this point I will be discontinuing this patient from physical therapy. I would be happy to see this patient again in the future if found appropriate by the physician. Thank you! Porfirio Montano, PT, ATC Balance/Gait/Functional tests - Balance/Special Test Scores Quick DASH Score: 68.1800
== END 2021-03-16 19:00 | disposition home or self-care (01) ==
LOC: PT 09:00
PROVIDERS: PCP Family Medicine; Referring Provider Orthopaedic Surgery; Visit Provider Orthopaedic Surgery
DX: M75.101 Unspecified rotator cuff tear or rupture of right shoulder, not specified as traumatic (principal)
CPT/HCPCS: 97140; 97161; 97164

== ENCOUNTER → 2021-09-14 | Outpatient (CLI) | payer MEDICAID, SELFPAY ==
[2021-09-14 07:37] LABS: Absolute Lymphocyte Count 2.82 X10^3/uL (0.83-4.51); Absolute Neutrophil Count 3.4 X10^3/uL (2.0-7.7); Basophil# 0.04 X10^3/uL; Basophil% 0.6 % (0-1); Eosinophil# 0.25 X10^3/uL; Eosinophils% 3.5 % (0-5); Hematocrit 43.9 % (40-54); Hemoglobin 15.6 g/dL (13.0-16.5); Lymphocyte # 2.82 X10^3/ul (0.83-4.51); Lymphocyte % 39.2 % (19-41); Mean Corp Hgb Conc 35.5 g/dL (32-36); Mean Corpuscular Hgb 32.4 pg (27.0-32.0); Mean Corpuscular Volume 91.1 fL (80-94); Mean Platelet Vol. 9.4 fl (6.2-12.0); Monocyte# 0.71 X10^3/uL; Monocyte% 9.9 % (0-10); NRBC Flagged by Analyzer 0 % (0-5); Neutrophil # 3.36 X10^3/uL (2.7-7.7); Neutrophil % 46.7 % (47-70); Platelet Count 173 K/mm3 (150-450); RBC Distribution Width CV 11.9 % (11.6-14.6); RBC Distribution Width SD 39.2 fl (35.1-43.9); Red Blood Count 4.82 M/mm3 (4.6-6.2); White Blood Count 7.2 K/mm3 (4.4-11.0)
[2021-09-14 07:57] LABS: AST(SGOT) 22 U/L (15-37); Alanine Aminotransfer ALT/SGPT 57 U/L (16-61); Albumin, Serum 3.7 g/dL (3.2-5.0); Alkaline Phosphatase 75 U/L (45-117); Bilirubin, Direct 0.13 mg/dL (0.00-0.30); Cholesterol 130 mg/dL (200); High Density Lipoprotein 32 mg/dL; Protein, Total 6.7 g/dL (6.4-8.2); Triglycerides 365 mg/dL; Very Low Density Lipoprotein 73 mg/dL (5-40)
[2021-09-14 08:01] LABS: Anion Gap 6 (5-15); BUN 23 mg/dL (7-18); BUN/Creat Ratio 18.5 RATIO (10-20); Calcium,Total 8.5 mg/dL (8.5-10.1); Chloride 105 mmol/L (98-107); Creatinine, Serum 1.24 mg/dL (0.70-1.30); EST Glomerular Filtration Rate 64 mL/min (>60); Est Glom Filt Rate - Afr Amer 77 mL/min (>60); Glucose 102 mg/dL (74-106); Potassium 3.2 mmol/L (3.5-5.1); Sodium Level 142 mmol/L (136-145)
== END | disposition home or self-care (01) ==
LOC: LAB 07:20
PROVIDERS: Internal Medicine Cardiovascular Disease; PCP Family Medicine; Referring Provider Physician Assistant Medical; Visit Provider Physician Assistant Medical
DX: I42.1 Obstructive hypertrophic cardiomyopathy (principal); I10 Essential (primary) hypertension; E78.5 Hyperlipidemia, unspecified; R06.00 Dyspnea, unspecified; E78.00 Pure hypercholesterolemia, unspecified; E78.1 Pure hyperglyceridemia
CPT/HCPCS: 36415; 80048; 80061; 80076; 85025

== ENCOUNTER → 2021-09-29 | Outpatient (CLI) | payer MEDICAID, SELFPAY ==
[2021-09-29 09:55] LABS: Anion Gap 7 (5-15); BUN 26 mg/dL (7-18); BUN/Creat Ratio 19.7 RATIO (10-20); Calcium,Total 8.7 mg/dL (8.5-10.1); Chloride 105 mmol/L (98-107); Cholesterol 129 mg/dL (200); Creatinine, Serum 1.32 mg/dL (0.70-1.30); EST Glomerular Filtration Rate 60 mL/min (>60); Est Glom Filt Rate - Afr Amer 72 mL/min (>60); Glucose 91 mg/dL (74-106); High Density Lipoprotein 34 mg/dL; Potassium 3.8 mmol/L (3.5-5.1); Sodium Level 139 mmol/L (136-145); Triglycerides 277 mg/dL; Very Low Density Lipoprotein 55 mg/dL (5-40)
== END | disposition home or self-care (01) ==
LOC: LAB 08:00
PROVIDERS: PCP Family Medicine; Visit Provider Physician Assistant Medical
DX: I10 Essential (primary) hypertension (principal); E78.5 Hyperlipidemia, unspecified; E78.1 Pure hyperglyceridemia
CPT/HCPCS: 36415; 80048; 80061

== ENCOUNTER → 2021-10-06 | Outpatient (CLI) | payer MEDICAID, SELFPAY ==
--- NOTE | 2021-10-06 06:56 | ECHOCS_ITS ---
Reason For Study: Dyspnea/SOB Procedure This was a 2D Doppler, Color Flow transthoracic echocardiogram. The study was technically difficult. Contrast injection was performed. Exam performed in department. Left Ventricle Normal LV size. Asymmetric septal hypertrophy. Left ventricular systolic function is hyperdynamic. The estimated ejection fraction is 75 %. There is evidence of diastolic dysfunction. No regional wall motion abnormalities noted. Right Ventricle Normal RV size. Normal systolic function. Atria The left atrium is mildly enlarged. Normal right atrium. No doppler evidence for ASD. Mitral Valve There is no mitral annular calcification. Chordal systolic anterior motion of the mitral valve. Mild (1+) mitral valve insufficiency. Tricuspid Valve Normal tricuspid valve. Trivial tricuspid valve insufficiency. Unable to estimate RV systolic pressure due to insufficient tricuspid regurgitant envelope. Aortic Valve Trisinus/trileaflet aortic valve. Mild focal aortic valve calcification. Pulmonic Valve The pulmonic valve is not well visualized. Trivial pulmonic valve insufficiency. Great Vessels Normal sized aortic root. Pericardium/Pleural No pericardial effusion. Medication Diluted definity 3ml given slow IV push to enhance endocardial definition. MMode/2D Measurements & Calculations LVIDd: 4.7 cm IVSd: 2.1 cm Ao root diam: 3.1 cm LVIDs: 3.1 cm LVPWd: 1.5 cm RVDd: 2.5 cm FS: 33.0 % LAV(MOD-bp): 61.4 ml LVAd ap4: 33.2 cm2 SV(MOD-sp4): 78.4 ml LAV(MOD-bp) Indexed: 29.6 ml/m2 LVLd ap4: 8.1 cm LAV(MOD-sp2): 51.7 ml EDV(MOD-sp4): 110.0 ml LAV(MOD-sp4): 66.5 ml EDV(sp4-el): 115.4 ml LVAs ap4: 15.6 cm2 LVLs ap4: 6.4 cm ESV(MOD-sp4): 31.6 ml ESV(sp4-el): 32.1 ml EF(MOD-sp4): 71.3 % EF(sp4-el): 72.1 % SV(sp4-el): 83.2 ml LA A4 area: 20.2 cm2 LA dimension(2D): 4.5 cm RA A4 area: 10.6 cm2 Doppler Measurements & Calculations MV E max kyle: 48.7 cm/sec Lat Peak E' Kyle: 5.2 cm/sec Med Peak E' Kyle: 2.8 cm/sec MV A max kyle: 58.1 cm/sec E/E' lat: 9.4 E/E' med: 17.5 MV E/A: 0.84 Ao V2 max: 141.1 cm/sec LV V1 max: 112.9 cm/sec PA V2 max: 143.5 cm/sec Ao max P.0 mmHg LV V1 max P.1 mmHg Ao V2 mean: 99.3 cm/sec Ao mean P.3 mmHg Ao V2 VTI: 25.2 cm ECHO/Echo Complete W/ Contrast Interpretation Summary The study was technically difficult. Contrast injection was performed. Left ventricular systolic function is hyperdynamic. The estimated ejection fraction is 75 %. Asymmetric septal hypertrophy. The left atrium is mildly enlarged. Chordal systolic anterior motion of the mitral valve. Mild (1+) mitral valve insufficiency. Trivial tricuspid valve insufficiency. Mild focal aortic valve calcification. Trivial pulmonic valve insufficiency. Unable to estimate RV systolic pressure due to insufficient tricuspid regurgita nt envelope. There is evidence of diastolic dysfunction. Late peaking spectral doppler pattern in the LVOT area approaching 3 m/sec (PG of 36 mm Hg) c/w a hyperdynamic state. The echo findings are consistent with hypertrophic cardiomyopathy. Ordering Physician: Lety Joseph Referring Physician: Parker Abdullahi Performed By: Melania Diaz, RDCS, RVT
--- NOTE | 2021-10-06 08:22 | STRESSREP_ITS ---
Stress Test Report Date: 10-06-2021 Procedure: Exercise tolerance test/imaging study Indications: Shortness of breath/dyspnea on exertion; hypertrophic cardiomyopa thy Consent: Per the patient Procedure: The patient exercised on a Lorenzo protocol for 6 minutes completing Stage II achieving a peak heart rate of 148 bpm (90% predicted maximal heart rate) with a peak blood pressure 172/80 mmHg and a peak MET capacity of 7 METs. The baseline ECG demonstrated normal sinus rhythm; ST/T wave abnormality. The peak exercise ECG demonstrated demonstrated continued ST/T wave abnormality which appears to be more pronounced, with respect to ST segment depression, compared to the baseline study with notation of subsequent resolution towards baseline later in recovery.. There were no cardiac dysrhythmias pretest, during exercise, or recovery. The functional capacity was considered average. There was no complaint of chest discomfort during exercise or recovery. The examination was discontinued secondary to dyspnea. Impression: 1. Technically adequate (percent predicted maximal heart rate greater than 85%) exercise tolerance test 2. Peak exercise ECG demonstrated continued ST/T wave abnormality which appears to be more pronounced, with respect to ST segment depression, compared to the baseline study with notation of subsequent resolution towards baseline later in recovery 3. There were no cardiac dysrhythmias pretest, during exercise, or recovery 4. Nuclear images pending Myocardial perfusion imaging study: Technique: The patient was injected with 12.0 mCi of technetium 99m Cardiolite and subsequently rest SPECT Cardiolite nuclear imaging was obtained in the horizontal long, vertical long, and short axis views. The patient exercised on a Lorenzo protocol for 6 minutes completing Stage II achieving a peak heart rate of 148 bpm (90% predicted maximal heart rate) with a peak blood pressure 172/80 mmHg and a peak MET capacity of 7 METs. The patient was injected with 34.6 mCi of technetium 99m Cardiolite and subsequently stress SPECT Cardiolite nuclear imaging was obtained in the horizontal long, vertical long, and short axis views . A gated Cardiolite study at peak stress was obtained. Interpretation: Rest and stress SPECT Cardiolite nuclear imaging status post realignment, normalization, and attenuation correction, demonstrates a small area of subtle diminished tracer uptake near the apical segments without significant change between rest and stress. There is end systolic thickening and brightening. The gated Cardiolite study demonstrates myocardial thickening and inward wall motion. The reported LVEF is 55%. Impression: 1. Rest and stress SPECT Cardiolite nuclear imaging demonstrate myocardial perfusion changes appearing compatible with physiologic apical thinning with no myocardial perfusion changes considered diagnostic for associated stress-induced myocardial ischemia. 2. The gated Cardiolite study reports an LVEF of 55%. This note was generated with [employer] software. It may contain incorrect words, spelling, and punctuation that were not noted in checking the note before signing.
== END | disposition home or self-care (01) ==
LOC: CVS 06:55
PROVIDERS: PCP Family Medicine; Referring Provider Physician Assistant Medical; Visit Provider Physician Assistant Medical
DX: I42.1 Obstructive hypertrophic cardiomyopathy (principal); I10 Essential (primary) hypertension; E78.5 Hyperlipidemia, unspecified; R06.02 Shortness of breath
CPT/HCPCS: 78452; 93017; 93306; A9500; Q9957; A4216; C8929

== ENCOUNTER → 2022-03-28 | Outpatient (CLI) | payer MEDICAID, SELFPAY ==
[2022-03-28 12:28] LABS: Absolute Lymphocyte Count 1.98 X10^3/uL (0.83-4.51); Absolute Neutrophil Count 4.1 X10^3/uL (2.0-7.7); Basophil# 0.03 X10^3/uL; Basophil% 0.4 % (0-1); Eosinophil# 0.18 X10^3/uL; Eosinophils% 2.6 % (0-5); Hematocrit 47.2 % (40-54); Hemoglobin 16.7 g/dL (13.0-16.5); Lymphocyte # 1.98 X10^3/ul (0.83-4.51); Lymphocyte % 28.8 % (19-41); Mean Corp Hgb Conc 35.4 g/dL (32-36); Mean Corpuscular Hgb 32.8 pg (27.0-32.0); Mean Corpuscular Volume 92.7 fL (80-94); Mean Platelet Vol. 9.8 fl (6.2-12.0); Monocyte# 0.59 X10^3/uL; Monocyte% 8.6 % (0-10); NRBC Flagged by Analyzer 0 % (0-5); Neutrophil # 4.06 X10^3/uL (2.7-7.7); Neutrophil % 59.2 % (47-70); Platelet Count 197 K/mm3 (150-450); RBC Distribution Width CV 12.5 % (11.6-14.6); RBC Distribution Width SD 42.4 fl (35.1-43.9); Red Blood Count 5.09 M/mm3 (4.6-6.2); White Blood Count 6.9 K/mm3 (4.4-11.0)
[2022-03-28 13:07] LABS: Insulin 19.1 mU/L (2.6-37.6); Vitamin D,25 Hydroxy 26.4 ng/mL
[2022-03-28 13:43] LABS: ALB/GLOB Ratio 1.1 RATIO (0.9-2.4); AST(SGOT) 24 U/L (15-37); Alanine Aminotransfer ALT/SGPT 59 U/L (16-61); Albumin, Serum 4.2 g/dL (3.2-5.0); Alkaline Phosphatase 75 U/L (45-117); Anion Gap 9 (5-15); BUN 24 mg/dL (7-18); BUN/Creat Ratio 20.9 RATIO (10-20); Calcium,Total 9.2 mg/dL (8.5-10.1); Chloride 103 mmol/L (98-107); Cholesterol 147 mg/dL (200); Creatinine, Serum 1.15 mg/dL (0.70-1.30); EST Glomerular Filtration Rate 70 mL/min (>60); Est Glom Filt Rate - Afr Amer 84 mL/min (>60); Globulin 3.7 g/dL (2.2-4.2); Glucose 96 mg/dL (74-106); High Density Lipoprotein 44 mg/dL; Potassium 3.8 mmol/L (3.5-5.1); Protein, Total 7.9 g/dL (6.4-8.2); Sodium Level 137 mmol/L (136-145); Thyroid Stim Hormone (TSH) 3.16 uIU/mL (0.358-3.74); Triglycerides 298 mg/dL; Very Low Density Lipoprotein 60 mg/dL (5-40)
[2022-03-28 13:46] LABS: Hemoglobin A1c 4.8 % (3.8-5.6)
== END | disposition home or self-care (01) ==
LOC: LAB 11:00
PROVIDERS: PCP Internal Medicine; Referring Provider Internal Medicine; Visit Provider Internal Medicine
DX: I42.1 Obstructive hypertrophic cardiomyopathy (principal); E78.1 Pure hyperglyceridemia; E78.5 Hyperlipidemia, unspecified; I10 Essential (primary) hypertension; G47.33 Obstructive sleep apnea (adult) (pediatric); Z79.899 Other long term (current) drug therapy
CPT/HCPCS: 36415; 80053; 80061; 82306; 83036; 83525; 84443; 85025

== ENCOUNTER → 2022-10-10 | Outpatient (CLI) | payer MEDICAID, SELFPAY ==
[2022-10-10 10:08] LABS: AST(SGOT) 29 U/L (15-37); Alanine Aminotransfer ALT/SGPT 51 U/L (16-61); Albumin, Serum 4.2 g/dL (3.2-5.0); Alkaline Phosphatase 72 U/L (45-117); Bilirubin, Direct 0.22 mg/dL (0.00-0.30); Cholesterol 80 mg/dL (200); Globulin 3.3 g/dL (2.2-4.2); High Density Lipoprotein 39 mg/dL; Protein, Total 7.5 g/dL (6.4-8.2); Triglycerides 95 mg/dL; Very Low Density Lipoprotein 19 mg/dL (5-40)
== END | disposition home or self-care (01) ==
LOC: LAB 08:36
PROVIDERS: Nurse Practitioner Family; PCP Internal Medicine; Referring Provider Physician Assistant Medical; Visit Provider Physician Assistant Medical
DX: E78.00 Pure hypercholesterolemia, unspecified (principal)
CPT/HCPCS: 36415; 80061; 80076

== ENCOUNTER → 2022-12-29 | Outpatient (CLI) | payer MEDICAID, SELFPAY ==
--- NOTE | 2022-12-29 10:42 | ECHOD_ITS ---
Reason For Study: HCM Procedure This was a 2D Doppler, Color Flow transthoracic echocardiogram. Exam performed in department. Left Ventricle Normal LV size. Moderate assymetric septal hypertrophy. The estimated ejection fraction is 65 %. No regional wall motion abnormalities noted. Right Ventricle Normal RV size. Normal systolic function. Atria The left atrium is moderately enlarged. Normal right atrium. Mitral Valve Normal mitral valve. Tricuspid Valve Normal tricuspid valve. Aortic Valve Trisinus/trileaflet aortic valve. Mild focal aortic valve calcification. Pulmonic Valve Normal pulmonic valve. Great Vessels Normal aortic root. The pulmonary artery is normal size. Inferior vena cava collapse with respiration. Pericardium/Pleural No pericardial effusion. MMode/2D Measurements & Calculations IVSd: 2.1 cm Ao root diam: 3.4 cm LAV(MOD-bp): 110.0 ml LAV(MOD-bp) Indexed: 55.0 ml/m2 LAV(MOD-sp2): 97.3 ml LAV(MOD-sp4): 124.6 ml SV(MOD-sp4): 94.6 ml SV(sp4-el): 93.0 ml LVAd ap4: 37.5 cm2 LVLd ap4: 9.0 cm EDV(MOD-sp4): 137.6 ml EDV(sp4-el): 133.5 ml LVAs ap4: 17.7 cm2 LVLs ap4: 6.6 cm ESV(MOD-sp4): 43.0 ml ESV(sp4-el): 40.5 ml EF(MOD-sp4): 68.7 % EF(sp4-el): 69.6 % LA A4 area: 31.2 cm2 LA dimension(2D): 5.0 cm RA A4 area: 15.1 cm2 TAPSE: 1.9 cm Time Measurements MV dec time: 0.19 sec Doppler Measurements & Calculations MV E max kyle: 72.3 cm/sec Lat Peak E' Kyle: 8.5 cm/sec Med Peak E' Kyle: 6.0 cm/sec MV A max kyle: 49.5 cm/sec E/E' lat: 8.5 E/E' med: 12.0 MV E/A: 1.5 MV V2 max: 78.6 cm/sec Ao V2 max: 163.8 cm/sec MV max P.5 mmHg MV dec slope: 382.9 cm/sec2 Ao max P.7 mmHg MV V2 mean: 44.5 cm/sec Ao V2 mean: 114.0 cm/sec MV mean P.91 mmHg Ao mean P.0 mmHg MV V2 VTI: 25.4 cm Ao V2 VTI: 35.6 cm AV (velocity ratio): 0.70 LV V1 max: 110.2 cm/sec PA V2 max: 129.1 cm/sec LV V1 max P.9 mmHg PA V2 mean: 96.2 cm/sec LV V1 mean P.8 mmHg LV V1 mean: 78.1 cm/sec LV V1 VTI: 24.8 cm ECHO/Echo Complete Interpretation Summary Normal LV size. The estimated ejection fraction is 65 %. The left atrium is moderately enlarged. Mild focal aortic valve calcification. Moderate assymetric septal hypertrophy. Ordering Physician: Lety Joseph Referring Physician: Lety Joseph Performed By: Opal Abbasi RCS
== END | disposition home or self-care (01) ==
LOC: CVS 10:41
PROVIDERS: PCP Internal Medicine; Referring Provider Physician Assistant Medical; Visit Provider Physician Assistant Medical
DX: I42.1 Obstructive hypertrophic cardiomyopathy (principal); I10 Essential (primary) hypertension; E78.1 Pure hyperglyceridemia
CPT/HCPCS: 93306

== ENCOUNTER → 2023-06-06 | Outpatient (CLI) | payer OTHER, SELFPAY ==
[2023-06-06 11:10] LABS: Absolute Lymphocyte Count 2.51 X10^3/uL (0.83-4.51); Absolute Neutrophil Count 3.2 X10^3/uL (2.0-7.7); Basophil# 0.04 X10^3/uL; Basophil% 0.6 % (0-1); Eosinophil# 0.14 X10^3/uL; Eosinophils% 2.2 % (0-5); Hematocrit 42.8 % (40-54); Hemoglobin 15.1 g/dL (13.0-16.5); Lymphocyte # 2.51 X10^3/ul (0.83-4.51); Lymphocyte % 38.7 % (19-41); Mean Corp Hgb Conc 35.3 g/dL (32-36); Mean Corpuscular Hgb 32.6 pg (27.0-32.0); Mean Corpuscular Volume 92.4 fL (80-94); Mean Platelet Vol. 9.4 fl (6.2-12.0); Monocyte# 0.55 X10^3/uL; Monocyte% 8.5 % (0-10); NRBC Flagged by Analyzer 0 % (0-5); Neutrophil # 3.21 X10^3/uL (2.7-7.7); Neutrophil % 49.4 % (47-70); Platelet Count 223 K/mm3 (150-450); RBC Distribution Width CV 12.4 % (11.6-14.6); RBC Distribution Width SD 41.4 fl (35.1-43.9); Red Blood Count 4.63 M/mm3 (4.6-6.2); White Blood Count 6.5 K/mm3 (4.4-11.0)
[2023-06-06 11:44] LABS: ALB/GLOB Ratio 1.2 RATIO (0.9-2.4); AST(SGOT) 24 U/L (15-37); Alanine Aminotransfer ALT/SGPT 41 U/L (16-61); Alkaline Phosphatase 66 U/L (45-117); Anion Gap 3 (5-15); BUN 22 mg/dL (7-18); BUN/Creat Ratio 17.7 RATIO (10-20); Bilirubin, Direct 0.18 mg/dL (0.00-0.30); Calcium,Total 8.8 mg/dL (8.5-10.1); Chloride 104 mmol/L (98-107); Cholesterol 184 mg/dL (200); Creatinine, Serum 1.24 mg/dL (0.70-1.30); EST Glomerular Filtration Rate 64 mL/min (>60); Est Glom Filt Rate - Afr Amer 77 mL/min (>60); Globulin 3.4 g/dL (2.2-4.2); Glucose 108 mg/dL (74-106); High Density Lipoprotein 45 mg/dL; PSA,Total - Annual Screen 1.22 ng/mL (0.00-4.00); Potassium 3.5 mmol/L (3.5-5.1); Protein, Total 7.4 g/dL (6.4-8.2); Sodium Level 134 mmol/L (136-145); Triglycerides 160 mg/dL; Very Low Density Lipoprotein 32 mg/dL (5-40)
[2023-06-06 12:10] LABS: Hemoglobin A1c 4.6 % (3.8-5.6)
--- OUTSIDE RECORDS SUMMARY | 2023-06-06 12:29 | XMS RPT_ITS | CCD ---
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 Name Role Phone PCP, NONE Unavailable Unavailable LESIA KINCAID Unavailable Unavailable Problems Active Problems Problem Classification Problem Date Documented Date Episodic/Chronic Conditions associated with dizziness or vertigo (1 source) Conditions associated with dizziness or vertigo Onset: 06-22-2017 Unclassified (1 source) Acute nasopharyngitis [common cold] / J00(ICD-10) Onset: 06-22-2017 Past or Other Problems Problem Classification Problem Date Documented Da te Episodic/Chronic Conditions associated with dizziness or vertigo (1 source) Dizziness and giddiness; Translations: [Dizziness and giddiness] Onset: 06-22-2017 Episodic Results Test Name Value Interpretation Reference Range Facil ity Encounters Encounter Date Encounter Type Care Provider Facility Start: 06-22-2017 Ambulatory NONE PCP Facility:[facility] Payers Date Payer Category Payer Policy ID Unknown [id number] Summary Purpose Family History No Family History Records FoundNo Family History Records Found Advance Directives No Advanced Directives Records FoundNo Advanced Directives Records Found Additional Source Comments (unrecognized sect ion and content) No Status Records FoundNo Status Records Found INFORMATION SOURCE (unrecogn ized section and content) DATE CREATED AUTHOR AUTHOR'S YAQUELIN ATION 06/02/2021 [facility] FOR RECORDS PERTAINING TO PATIENTS WHO ARE OR HAVE BEEN ENROLLED IN A CHEMICAL DEPENDENCY/SUBSTANCEABUSE PROGRAM, SOME INFORMATION MAY BE OMITTED. This clinical summary was aggregated from multiple sources. Caution should be exercised in using it in the provision of clinical care. This summary normalizes information from multiple sources, and as a consequence, information in this document may materially change the coding, format and clinical context of patient data. In addition, data may be omitted in some cases. CLINICAL DECISIONS SHOULD BE BASED ON THE PRIMARY CLINICAL RECORDS. [facility]. provides no warranty or guarantee of the accuracy or completeness of information in this document.
== END | disposition home or self-care (01) ==
PROVIDERS: PCP Internal Medicine; Referring Provider Internal Medicine; Visit Provider Internal Medicine
DX: I10 Essential (primary) hypertension (principal); E78.5 Hyperlipidemia, unspecified; E88.810 Metabolic syndrome; Z13.220 Encounter for screening for lipoid disorders; R73.9 Hyperglycemia, unspecified; Z12.5 Encounter for screening for malignant neoplasm of prostate; E55.9 Vitamin D deficiency, unspecified
CPT/HCPCS: 36415; 80053; 80061; 82248; 82306; 83036; 84153; 84443; 85025; G0103

== ENCOUNTER → 2023-12-04 | Outpatient (CLI) | payer SELFPAY ==
--- NOTE | 2023-12-04 08:46 | ECHOD_ITS ---
Reason For Study: HTN, HCM Procedure This was a 2D Doppler, Color Flow transthoracic echocardiogram. Exam performed in department. Left Ventricle Normal LV size. Moderate eccentric left ventricular hypertrophy. Left ventricular systolic function is normal. The left ventricular ejection fraction is 60 %. No regional wall motion abnormalities noted. Right Ventricle Normal RV size. Normal systolic function. Atria Normal left atrium. Normal right atrium. Mitral Valve Normal mitral valve. Tricuspid Valve Normal tricuspid valve. Aortic Valve Trisinus/trileaflet aortic valve. Mild focal aortic valve calcification. Pulmonic Valve Normal pulmonic valve. Great Vessels Normal aortic root. The pulmonary artery is normal size. Normal inferior vena cava. Pericardium/Pleural No pericardial effusion. MMode/2D Measurements & Calculations LVIDd: 4.9 cm IVSd: 1.8 cm Ao root diam: 3.2 cm LVIDs: 3.3 cm LVPWd: 1.1 cm RVDd: 3.7 cm FS: 34.0 % LAV(MOD-bp): 55.3 ml LVAd ap4: 32.4 cm2 SV(MOD-sp4): 61.3 ml LAV(MOD-bp) Indexed: 27.3 ml/m2 LVLd ap4: 8.6 cm LAV(MOD-sp2): 56.4 ml EDV(MOD-sp4): 100.8 ml LAV(MOD-sp4): 51.7 ml EDV(sp4-el): 103.4 ml LVAs ap4: 18.8 cm2 LVLs ap4: 7.5 cm ESV(MOD-sp4): 39.5 ml ESV(sp4-el): 40.3 ml EF(MOD-sp4): 60.8 % EF(sp4-el): 61.0 % SV(sp4-el): 63.1 ml LA A4 area: 18.8 cm2 LA dimension(2D): 3.6 cm RA A4 area: 14.9 cm2 TAPSE: 2.6 cm Time Measurements MV dec time: 0.16 sec Doppler Measurements & Calculations MV E max kyle: 73.2 cm/sec Lat Peak E' Kyle: 9.5 cm/sec Med Peak E' Kyle: 7.2 cm/sec MV A max kyle: 48.8 cm/sec E/E' lat: 7.7 E/E' med: 10.2 MV E/A: 1.5 Ao V2 max: 159.3 cm/sec LV V1 max: 134.2 cm/sec PA V2 max: 122.6 cm/sec Ao max P.2 mmHg LV V1 max P.2 mmHg ECHO/Echo Complete Interpretation Summary Normal LV size. Left ventricular systolic function is normal. The left ventricular ejection fraction is 60 %. Moderate eccentric left ventricular hypertrophy. Mild focal aortic valve calcification. Ordering Physician: Lety Joseph Referring Physician: TERESITA POWELL Performed By: Pam Stanley RDCS
== END | disposition home or self-care (01) ==
LOC: CVS 08:46
PROVIDERS: PCP Internal Medicine; Referring Provider Physician Assistant Medical; Visit Provider Physician Assistant Medical
DX: I10 Essential (primary) hypertension (principal); I42.2 Other hypertrophic cardiomyopathy; E78.5 Hyperlipidemia, unspecified
CPT/HCPCS: 93306

== ENCOUNTER 2024-06-03 22:48 | Inpatient (IN) | payer SELFPAY ==
[2024-06-03 22:48] VITALS: BP 158/84; PULSE 87; RESP 16; TEMP 36.8; O2SAT 98; BMI 30.6
[2024-06-04] VITALS (7 sets, daily range): BP systolic 133–155; BP diastolic 77–92; PULSE 59–72; RESP 12–18; TEMP 36.8–37.1; O2SAT 94–100; BMI 30.6
--- NOTE | 2024-06-04 00:21 | CT_ITS ---
PROCEDURE: ABDOMEN/PELVIS W IV CONT ONLY REASON FOR EXAM: Constipation. TECHNIQUE: Abdomen and pelvis CT with intravenous contrast. COMPARISON: None. FINDINGS: Lung bases are clear. Coronary artery calcifications are identified. The liver, spleen, gallbladder, pancreas, biliary system, and adrenal glands are unremarkable. Abdominal aorta demonstrates a normal caliber with mild atherosclerotic calcifications. There is a small fat containing umbilical hernia. Bilateral kidneys enhance homogeneously. There is suggestion of bilateral parapelvic renal cysts versus hydronephrosis. No hydroureters are present bilaterally. Urinary bladder is smoothly contoured. Prostate gland is enlarged measuring 5.9 x 4.3 cm with calcifications and results in mild mass effect on the posterior base of the urinary bladder. Colonic diverticulosis is identified. There is acute diverticulitis involving the distal sigmoid colon with adjacent pericolonic inflammatory stranding. There is an adjacent loculated fluid collection which contains air measuring approximately 4.5 x 1.6 x 2.3 cm likely relating to an abscess. No free air is present. There are fat containing bilateral inguinal hernias. Fluid-filled loops of large bowel are present without obstruction. Small bowel demonstrates a normal caliber. No free fluid is seen. Evaluation of the osseous structures demonstrates no acute findings. Degenerative changes are present. CT/Abdomen/Pelvis W IV Cont ONLY IMPRESSION: 1. Acute diverticulitis involving the distal sigmoid colon with adjacent contai niesha air and loculated fluid collection measuring 4.5 cm likely related to an abscess. There is significant adjacent mesenteric inflammatory stranding. 2. Fluid-filled loops of large bowel with scattered air-fluid levels without ob struction. 3. Bilateral parapelvic renal cysts or hydronephrosis however limited evaluatio n without delayed post-contrast images. Bilateral kidneys enhance homogeneously and bilateral ureters demonstrate a normal course and caliber. 4. Enlarged prostate gland. Correlation with serum PSA is recommended. 5. Additional findings as above. One or more dose reduction techniques were used (e.g., Automated exposure contr ol, adjustment of the mA and/or kV according to patient size, use of iterative reconstruction technique). Reading Location: [facility]
[2024-06-04] MEDS: 0.9% Normal Saline (1000mL) 1,000 ML 999 ML IV (00:30)
[2024-06-04 00:53] LABS: Absolute Neutrophil Count 10.3 X10^3/uL (2.0-7.7); Basophil# 0.04 X10^3/uL; Basophil% 0.3 % (0-1); Eosinophil# 0.07 X10^3/uL; Eosinophils% 0.5 % (0-5); Hematocrit 36.7 % (40-54); Hemoglobin 13.7 g/dL (13.0-16.5); Lymphocyte % 12.8 % (19-41); Mean Corp Hgb Conc 37.3 g/dL (32-36); Mean Corpuscular Volume 88.4 fL (80-94); Mean Platelet Vol. 9.6 fl (6.2-12.0); Monocyte# 1.02 X10^3/uL; Monocyte% 7.7 % (0-10); NRBC Flagged by Analyzer 0 % (0-5); Neutrophil # 10.34 X10^3/uL (2.7-7.7); Neutrophil % 78.1 % (47-70); Platelet Count 232 K/mm3 (150-450); RBC Distribution Width CV 11.9 % (11.6-14.6); RBC Distribution Width SD 38.5 fl (35.1-43.9); Red Blood Count 4.15 M/mm3 (4.6-6.2); White Blood Count 13.3 K/mm3 (4.4-11.0)
[2024-06-04 01:12] LABS: AST(SGOT) 17 U/L (15-37); Alanine Aminotransfer ALT/SGPT 31 U/L (16-61); Albumin, Serum 3.2 g/dL (3.2-5.0); Alkaline Phosphatase 55 U/L (45-117); Anion Gap 9 (5-15); BUN 16 mg/dL (7-18); BUN/Creat Ratio 15.2 RATIO (10-20); Bilirubin, Direct 0.26 mg/dL (0.00-0.30); Calcium,Total 8.3 mg/dL (8.5-10.1); Chloride 102 mmol/L (98-107); Creatinine, Serum 1.05 mg/dL (0.70-1.30); EST Glomerular Filtration Rate 77 mL/min (>60); Est Glom Filt Rate - Afr Amer 93 mL/min (>60); Estimated Creatinine Clearance 80.49 ml/min; Globulin 3.8 g/dL (2.2-4.2); Glucose 109 mg/dL (74-106); Lipase 36 U/L (13-75); Magnesium 2.7 mg/dL (1.6-2.6); Potassium 2.8 mmol/L (3.5-5.1); Sodium Level 138 mmol/L (136-145)
[2024-06-04] MEDS: Piperacil/Tazobactam 3.375 GM in 0.9% Normal Saline (50mL MB+) 50 ML IV ×4 (01:53→22:21)
[2024-06-04] MEDS: Morphine 4 MG/ML Syringe IV (02:05)
[2024-06-04] MEDS: Ondansetron 4 MG/2 ML Vial IV (02:05)
[2024-06-04] MEDS: Potassium Chloride 10mEq/100mL 10 MEQ/100 ML IV.SOLN. 100 MEQ IV BOLUS ×4 (02:22→05:30)
--- NOTE | 2024-06-04 02:35 | EX.ED.DYSGE1 ---
HPI History of Present Illness Chief Complaint: Constipation Informant: patient Narrative Narrative: Patient is a 58-year-old male with past medical history of hypertension hyperlipidemia and SHAY. He states roughly a week or so ago he had the stomach bug with bouts of nausea vomiting and diarrhea. He states the symptoms improved/resolved but then he developed constipation which he reports is not normal for him. He states that he has tried multiple doses of MiraLAX and even magnesium citrate and an enema and is only passing brown water. He states that the symptoms have been present for the past 3 to 4 days but do not seem to be improving and secondary to this he presents to the hospital for evaluation [facility] Medical History Contact with and (suspected) exposure to other viral communicable diseases Acute maxillary sinusitis, unspecified Seizure Dyspnea on exertion Hypertension Recent surgical procedure on lower extremity SHAY on CPAP Hypertrophic obstructive cardiomyopathy Essential hypertension Segmental and somatic dysfunction of pelvic region Segmental and somatic dysfunction of thoracic region Segmental and somatic dysfunction of lumbar region Leg pain, bilateral Asymmetric septal hypertrophy Hypertriglyceridemia Allergic rhinitis Erectile dysfunction Hyperlipidemia Home Medications ?Medication ?Instructions ?Recorded ?Last Taken ?Type fluticasone propionate 50 2 spray intranasal DAILY 02/05/18 Unknown History mcg/actuation nasal spray,suspension (Allergy Relief (fluticasone)) multivitamin 1 tab PO DAILY 09/15/20 Unknown History cpap 03/28/22 Unknown History cholecalciferol (vitamin D3) 50 50 mcg PO DAILY 10/30/23 Unknown History mcg (2,000 unit) capsule loratadine 10 mg tablet (Claritin) 10 mg PO DAILY 10/30/23 Unknown History krill 1,000 mg-omega-3 230 mg-dha 1 cap PO BID #180 caps 12/05/23 Unknown Rx 60 yt-bzk-avvsswybf-astaxan capsule (MegaRed [place]-3 Krill Oil) sildenafil (pulm.hypertension) 20 20 mg PO .COMPLEX PRN sexual 04/22/24 Unknown Rx mg tablet activity #30 tabs hydrochlorothiazide 25 mg tablet 25 mg PO DAILY #90 tabs 05/16/24 Unknown Rx losartan 100 mg tablet 100 mg PO DAILY #90 tabs 05/16/24 Unknown Rx diltiazem HCl 180 mg 180 mg PO BID 06/04/24 Unknown History capsule,extended release 24 hr, controlled (DILT-XR) Allergy/AdvReac Type Severity Reaction Status Date / Time cat dander Allergy Shortness Verified 06/03/24 22:49 of breath Family History (Updated 06/04/24 @ 02:[address] Adina Parikh MD) Father CAD (coronary artery disease) Hypertension Aunt Cancer Mother No problems noted. Surgical History History of rotator cuff surgery History of left heart catheterization Hx of sinus surgery Social History (Updated 06/04/24 @ 02:[address] Adina Parikh MD) household members: none Smoking Status: Never smoker alcohol intake: current alcohol intake frequency: a few times a week Alcohol type: beer substance use type: does not use caffeine: Yes Type: carbonated beverages and coffee Number of servings: 2 what type of physical activity do you participate in: none seatbelt use: always do you feel safe at home: Yes ROS ROS ED Constitutional Constitutional ED: Denies chills or fever(s) ENT ENT ED: Denies sore throat Cardiovascular Cardiovascular: Denies chest pain Respiratory/Chest Respiratory/Chest: Denies cough or dyspnea Gastrointestinal Gastrointestinal: Reports abdominal pain and diarrhea; Denies nausea or vomiting Genitourinary Genitourinary ED: Denies dysuria Musculoskeletal Musculoskeletal: Denies myalgias Integumentary Denies rash Neurologic Neurologic: Denies headache(s) Hematologic/Lymphatic Hematologic/Lymphatic: Denies easy bleeding or easy bruising EXAM Physical Exam Const Vital Signs: 06/03/24 22:48 06/04/24 00:48 06/04/24 02:00 Temperature 98.2 F 98.4 F Temperature Source Oral Pulse Rate 87 59 L 72 Respiratory Rate 16 12 12 Blood Pressure 158/84 H 135/78 H 146/80 H Blood Pressure Mean 108 97 102 Pulse Ox 98 98 98 Oxygen Delivery Method Room Air Room Air 06/04/24 02:09 Temperature 98.4 F Temperature Source Oral Pulse Rate 72 Respiratory Rate 18 Blood Pressure 146/80 H Blood Pressure Mean 102 Pulse Ox 99 Oxygen Delivery Method Room Air Positive well nourished, well developed and obese General Appearance ED: well developed; Negative for pallor Nutritional Appearance: obese HEENT HEENT Narrative: Normocephalic atraumatic Eyes PERRL and EOMs intact bilaterally General Eye ED: Negative for scleral icterus Neck supple Resp normal respiratory effort and clear to auscultation bilaterally Cardio regular rate and regular rhythm Rate: other Other Details: Heart is regular rate and rhythm without murmurs rubs or gallop Radial and carotid pulses are equal and symmetric GI non-distended and no masses GI Narrative: Abdomen is soft and nondistended with normal active bowel sounds. There is pain with palpation in the left and right lower quadrant. However it is greatest in the right lower quadrant with voluntary guarding at the site. Negative heel strike psoas and obturator signs No pulsatile mass or fluid wave Auscultation: normoactive bowel sounds Palpation: soft Back/Spine no CVA tenderness Extremity normal to inspection Neuro oriented x3, CN's II-XII intact bilaterally and no sensory deficits noted Sensorium / Orientation: alert Motor Exam: strength 5/5 throughout Psych mental status grossly normal Skin no rashes or lesions noted General Skin Exam: Negative for jaundice or pallor MDM MDM MDM Narrative Medical decision making narrative: Patient arrived to the ER hypertensive but has a past medical history of this. He reported previous viral stomach infection such as norovirus or rotavirus with bouts of nausea vomiting and diarrhea which improved and then patient had secondary constipation which was not normal for him. With the patient's pain in the left and right lower quadrant and constipation there is concern for diverticulitis versus acute appendicitis versus intestinal obstruction versus ileus versus colitis. Secondary to this basic labs and a CT scan were obtained. Labs showed leukocytosis at 13.3 with left shift with neutrophils at 10.3 which is concerning for infectious process. CT confirmed diverticulitis but there was also a abscess present. However no perforation or obstruction. As the patient now has complicated diverticulitis with the presence of abscess formation the case was discussed with general surgery. As the patient is not septic does not have perforation or obstruction did not feel there is any need for acute surgical intervention I recommend IV antibiotics. Therefore medicine was contacted and they do agree to accept the patient for continued care. History & Record Review Discussion w/independent historian: Patient Lab Data Attestation: I reviewed the patient's lab results. Labs: Laboratory Results - last 24 hr 06/04/24 00:35 WBC 13.3 H RBC 4.15 L Hgb 13.7 Hct 36.7 L MCV 88.4 MCH 33.0 H MCHC 37.3 H RDW Std Deviation 38.5 RDW Coeff of Rafita 11.9 Plt Count 232 MPV 9.6 Immature Gran % (Auto) 0.600 Neut % (Auto) 78.1 H Lymph % (Auto) 12.8 L [place] % (Auto) 7.7 Eos % (Auto) 0.5 Baso % (Auto) 0.3 Absolute Neuts (auto) 10.3 H Absolute Lymphs (auto) 1.70 Nucleated RBC % 0 Sodium 138 Potassium 2.8 L Chloride 102 Carbon Dioxide 27.0 Anion Gap 9 BUN 16 Creatinine 1.05 Estim Creat Clear Calc 80.49 Est GFR (MDRD) Af Amer 93 Est GFR (MDRD) Non-Af 77 BUN/Creatinine Ratio 15.2 Glucose 109 H Calcium 8.3 L Magnesium 2.7 H Total Bilirubin 1.00 Direct Bilirubin 0.26 AST 17 ALT 31 Alkaline Phosphatase 55 Total Protein 7.0 Albumin 3.2 Globulin 3.8 Lipase 36 Radiography Diagnostic Testing: Clinical Impression(s) from Imaging Studies Abdomen/Pelvis CT 06/04/24 00:21 IMPRESSION: 1. Acute diverticulitis involving the distal sigmoid colon with adjacent contained air and loculated fluid collection measuring 4.5 cm likely related to an abscess. There is significant adjacent mesenteric inflammatory stranding. 2. Fluid-filled loops of large bowel with scattered air-fluid levels without obstruction. 3. Bilateral parapelvic renal cysts or hydronephrosis however limited evaluation without delayed post-contrast images. Bilateral kidneys enhance homogeneously and bilateral ureters demonstrate a normal course and caliber. 4. Enlarged prostate gland. Correlation with serum PSA is recommended. 5. Additional findings as above. One or more dose reduction techniques were used (e.g., Automated exposure control, adjustment of the mA and/or kV according to patient size, use of iterative reconstruction technique). Reading Location: [facility] Management Discussion w/another healthcare provider: Hospitalist and [facility] Discharge Plan Dx/Rx/DC Orders Clinical Impression: Diverticulitis of intestine with abscess, Essential hypertension, SHAY on CPAP, Hyperlipidemia Disposition Disposition: [facility] Discharge Date/Time: 06/04/24 04:13
--- NOTE | 2024-06-04 02:43 | PCM.HP.STD ---
HPI - General General Date of Admission: 06/04/24 Date of Service: 06/04/24 Chief Complaint: Abdominal pain, fever, chills. HPI Narrative The patient is a 58-year-old male with past medical history obesity, seizure disorder, SHAY on CPAP, hypertension, hyperlipidemia, allergic rhinitis, hypertrophic obstructive cardiomyopathy who presents to the [facility] ED on 06/04/24 with history of onset lower abdominal discomfort described as sharp stabbing, dull aching and cramping noted to be intermittent starting the Monday prior to current presentation rated 10 out of 10 in severity at its worst although lessening to near 1-2 out of 10 at times with no nausea or emesis but onset of fevers or chills not improving prompting eventual ED evaluation to be cautious in addition to associated constipation although he did report he would run to the bathroom with a cramping and would have some liquid but this was primarily water he noted. He did report approximately 1.5 weeks prior to this he had a gastrointestinal illness with nausea/emesis/diarrhea but it had seemed to resolve. Workup in the ED included T98.2, heart rate 87, BP 158/84, respiratory rate 16, 90% on room air with most recent repeat assessment heart rate 59, BP 135/70, respiratory rate 12, 98% on room air, CBC with WBC 13.3, human 13.7, platelet 232 with left shift, CMP with potassium 2.8, glucose 109, calcium 8.3, magnesium 2.7, hepatic profile unremarkable, CT abdomen pelvis with IV contrast with acute diverticulitis involving the distal sigmoid colon with adjacent contained air and loculated fluid collection measuring 4.5 cm likely related to an abscess with significant adjacent mesenteric inflammatory stranding, fluid-filled loops of large bowel with scattered air-fluid levels without obstruction, bilateral Pelvic renal cyst or hydronephrosis however limited evaluation without delayed postcontrast images, bilateral kidneys enhance homogeneously and bilateral ureters demonstrate a normal course and caliber, enlarged prostate gland. In the ED patient administered potassium 40 mill equivalent IV x 1, Zosyn 3.375 g IV x 1, Zofran 4 mg IV x 1, morphine 4 mg IV x 1 as well as 1 L normal saline. ED discussed case with general surgeon Dr. Maher. REPLACED BY [facility] Medical History Contact with and (suspected) exposure to other viral communicable diseases Acute maxillary sinusitis, unspecified Seizure Dyspnea on exertion Hypertension Recent surgical procedure on lower extremity SHAY on CPAP Hypertrophic obstructive cardiomyopathy Essential hypertension Segmental and somatic dysfunction of pelvic region Segmental and somatic dysfunction of thoracic region Segmental and somatic dysfunction of lumbar region Leg pain, bilateral Asymmetric septal hypertrophy Hypertriglyceridemia Allergic rhinitis Erectile dysfunction Hyperlipidemia Home Medications ?Medication ?Instructions ?Recorded ?Last Taken ?Type fluticasone propionate 50 2 spray intranasal DAILY 02/05/18 Unknown History mcg/actuation nasal spray,suspension (Allergy Relief (fluticasone)) multivitamin 1 tab PO DAILY 09/15/20 Unknown History cpap 03/28/22 Unknown History cholecalciferol (vitamin D3) 50 50 mcg PO DAILY 10/30/23 Unknown History mcg (2,000 unit) capsule loratadine 10 mg tablet (Claritin) 10 mg PO DAILY 10/30/23 Unknown History krill 1,000 mg-omega-3 230 mg-dha 1 cap PO BID #180 caps 12/05/23 Unknown Rx 60 jm-lsh-weytemaem-astaxan capsule (MegaRed [place]-3 Krill Oil) sildenafil (pulm.hypertension) 20 20 mg PO .COMPLEX PRN sexual 04/22/24 Unknown Rx mg tablet activity #30 tabs hydrochlorothiazide 25 mg tablet 25 mg PO DAILY #90 tabs 05/16/24 Unknown Rx losartan 100 mg tablet 100 mg PO DAILY #90 tabs 05/16/24 Unknown Rx diltiazem HCl 180 mg 180 mg PO BID 06/04/24 Unknown History capsule,extended release 24 hr, controlled (DILT-XR) Allergy/AdvReac Type Severity Reaction Status Date / Time cat dander Allergy Shortness Verified 06/03/24 22:49 of breath Family History Father CAD (coronary artery disease) Hypertension Aunt Cancer Mother No problems noted. Surgical History History of rotator cuff surgery History of left heart catheterization Hx of sinus surgery Social History household members: none Smoking Status: Never smoker alcohol intake: current alcohol intake frequency: a few times a week Alcohol type: beer substance use type: does not use caffeine: Yes Type: carbonated beverages and coffee Number of servings: 2 what type of physical activity do you participate in: none seatbelt use: always do you feel safe at home: Yes ROS ROS Narrative Admission Review of Systems: CONSTITUTIONAL: No weight loss, + fever, chills, weakness or fatigue. HEENT: Eyes: No visual loss, blurred vision, double vision or yellow sclerae. Ears, Nose, Throat: No hearing loss, sneezing, congestion, runny nose or sore throat. SKIN: No rash or itching, lesions, wounds. CARDIOVASCULAR: No chest pain, chest pressure or chest discomfort, palpitations, edema, orthopnea, syncopal events. RESPIRATORY: No shortness of breath, cough or sputum, wheezing, hemoptysis. GASTROINTESTINAL: + anorexia, abdominal pain. No nausea, vomiting, diarrhea, melena, BRBPR. GENITOURINARY: No dysuria, frequency, urgency or retention. NEUROLOGICAL: No headache, dizziness, syncope, paralysis, ataxia, numbness or tingling in the extremities, focal weakness, change in bowel or bladder control, seizure. MUSCULOSKELETAL: + muscle, back pain, joint pain or stiffness. HEMATOLOGIC: No anemia, bleeding or bruising. LYMPHATICS: No enlarged nodes. No history of splenectomy. PSYCHIATRIC: No history of depression or anxiety. ENDOCRINOLOGIC: No reports of sweating, cold or heat intolerance. No polyuria or polydipsia. ALLERGIES: + History of allergic rhinitis. Vital Signs Vital Signs Vital Signs: 06/03/24 22:48 06/04/24 00:48 06/04/24 02:00 Temperature 98.2 F 98.4 F Temperature Source Oral Pulse Rate 87 59 L 72 Respiratory Rate 16 12 12 Blood Pressure 158/84 H 135/78 H 146/80 H Blood Pressure Mean 108 97 102 Pulse Ox 98 98 98 Oxygen Delivery Method Room Air Room Air 06/04/24 02:09 Temperature 98.4 F Temperature Source Oral Pulse Rate 72 Respiratory Rate 18 Blood Pressure 146/80 H Blood Pressure Mean 102 Pulse Ox 99 Oxygen Delivery Method Room Air Weight Weight: 195 lb 7 oz Body Mass Index (BMI) 30.6 Physical Exam Narrative Physical Examination: General: Awake, alert, oriented x 3 and cooperative, laying in the ED bed, denies any severe abdominal pain at this time, notes it is intermittent and when the cramping comes it is severe pain. Skin: Normal color, normal turgor, no icterus, no cyanosis. HEENT: AT/NC, EOMI, PERRLA, moderately dry MM, no carotid bruits or JVD noted. Lungs: Mild diminished, greater bases, appropriate effort, no rales, ronchi or wheezing. Heart: Regular rate and rhythm; no gallop, rub audible. Abdomen: Soft, obese, NTTP even in the bilateral lower quadrants with no rebound or guarding, ND, significantly hyperactive BS, no appreciated HSM. Extremities: No cyanosis, clubbing, or edema. Neurological: Patient awake, alert, oriented as noted, cognitive function intact; pupils equally reactive to light and accommodation, cranial nerves grossly normal, moving all 4 extremities, no focal deficits, strength mildly globally creased. Psychiatric: Affect appears fatigued, no acute evidence of depressive or anxiety feelings. Results Lab / Micro Data 06/04/24 00:35 06/04/24 00:35 Labs: Laboratory Results - last 24 hr 06/04/24 00:35: WBC 13.3 H, RBC 4.15 L, Hgb 13.7, Hct 36.7 L, MCV 88.4, MCH 33.0 H, MCHC 37.3 H, RDW Std Deviation 38.5, RDW Coeff of Rafita 11.9, Plt Count 232, MPV 9.6, Immature Gran % (Auto) 0.600, Neut % (Auto) 78.1 H, Lymph % (Auto) 12.8 L, [place] % (Auto) 7.7, Eos % (Auto) 0.5, Baso % (Auto) 0.3, Absolute Neuts (auto) 10.3 H, Absolute Lymphs (auto) 1.70, Nucleated RBC % 0, Sodium 138, Potassium 2.8 L, Chloride 102, Carbon Dioxide 27.0, Anion Gap 9, BUN 16, Creatinine 1.05, Estim Creat Clear Calc 80.49, Est GFR (MDRD) Af Amer 93, Est GFR (MDRD) Non-Af 77, BUN/Creatinine Ratio 15.2, Glucose 109 H, Calcium 8.3 L, Magnesium 2.7 H, Total Bilirubin 1.00, Direct Bilirubin 0.26, AST 17, ALT 31, Alkaline Phosphatase 55, Total Protein 7.0, Albumin 3.2, Globulin 3.8, Lipase 36 Imaging Radiology Impression Abdomen/Pelvis CT 06/04/24 00:21 IMPRESSION: 1. Acute diverticulitis involving the distal sigmoid colon with adjacent contained air and loculated fluid collection measuring 4.5 cm likely related to an abscess. There is significant adjacent mesenteric inflammatory stranding. 2. Fluid-filled loops of large bowel with scattered air-fluid levels without obstruction. 3. Bilateral parapelvic renal cysts or hydronephrosis however limited evaluation without delayed post-contrast images. Bilateral kidneys enhance homogeneously and bilateral ureters demonstrate a normal course and caliber. 4. Enlarged prostate gland. Correlation with serum PSA is recommended. 5. Additional findings as above. One or more dose reduction techniques were used (e.g., Automated exposure control, adjustment of the mA and/or kV according to patient size, use of iterative reconstruction technique). Reading Location: [facility] Assessment & Plan Assessment/Plan (1) Diverticulitis of intestine with abscess: PLAN: Plan The patient is a 58-year-old male with past medical history obesity, seizure disorder, SHAY on CPAP, hypertension, hyperlipidemia, allergic rhinitis, hypertrophic obstructive cardiomyopathy who presents to the [facility] ED on 06/04/24 with history of onset lower abdominal discomfort described as sharp stabbing, dull aching and cramping noted to be intermittent starting the Monday prior to current presentation rated 10 out of 10 in severity at its worst although lessening to near 1-2 out of 10 at times with no nausea or emesis but onset of fevers or chills not improving prompting eventual ED evaluation to be cautious in addition to associated constipation although he did report he would run to the bathroom with a cramping and would have some liquid but this was primarily water he noted. #1. Acute Diverticulitis of the distal sigmoid colon with an adjacent contained air and loculated fluid collection consistent with abscess with mesenteric inflammatory adjacent stranding: Will admit to medical surgical floor, continue surgery consultation, continue hydration, monitor I&Os, maintain NPO status w/ bowel rest, treat with IV zosyn regimen, IV PPI, anti-emetics, pain regimen PRN. Will await surgery input however suspect likely IR will be their recommendation thus will maintain n.p.o. status and defer chemoprophylaxis in case of intervention 06/04/2024. #2. Hypokalemia: Admission K+ 2.8, magnesium 2.7, supplementation given, repeat level in AM. #3. Hypertension: Continue home regimen including diltiazem, losartan, hydrochlorothiazide cautiously given hypokalemia, PRN hydralazine. #4. Hyperlipidemia: Per current list does not appear to be on statin therapy, defer to outpatient. #5. Hypertrophic obstructive cardiomyopathy, septal hypertrophy: 12/04/2023 echocardiogram with normal LV size, LV systolic function normal, LV EF 60%, moderate LVH, mild focal AV calcification. Following with cardiology, last visit noted 11/03/2023, continued on diltiazem, losartan and hydrochlorothiazide. Encourage continued follow-up with cardiology as previously arranged. #6. Allergic rhinitis: We will continue patient home fluticasone and loratadine home regimen. #7. Obesity: Weight loss and lifestyle changes encouraged. #8. Chart reported Seizure history, unclear specifics: Noted in chart history, not on any antibiotic medication, encourage continued outpatient follow-up as previously arranged with neurology. #9. SHAY: CPAP nightly. #10. DVT prophylaxis: SCDs, defer chemoprophylaxis pending surgery evaluation in case of preference for IR needs. #11. CODE status: Patient does not have healthcare power of head inspector or living will in place but notes his daughter would be his medical decision-maker if necessary. He notes she is an [employer]. Discussed CODE status at length including difference between FULL code, DNR-CCA and DNR-CC status. Following discussions about the differences in these status, requested full code status. Charges/Coding Visit Charges Inpatient E&M: 98665 Init Hosp L3
[2024-06-04] MEDS: 0.9% Normal Saline (1000mL) 1,000 ML 100 ML IV (04:24)
--- NOTE | 2024-06-04 04:58 | CPS ---
[0440] Pt. politely refused use of CPAP/BiPAP device for tonight.
[2024-06-04] MEDS: Pantoprazole Sodium 40 MG in 0.9% Normal Saline (100mL MB+) 100 ML 330 MG IV ×2 (06:25→21:55)
--- NOTE | 2024-06-04 07:26 | EX.PCM.CON.S ---
Assessment & Plan Assessment/Plan (1) Diverticulitis of intestine with abscess: PLAN: Plan Review CT abdomen pelvis personally and with the patient. Also discussed with daughter over the phone. Patient's abscess is not in a location that is amenable to drainage also small enough that antibiotics should help. Will plan to repeat CAT scan in a couple days to verify improvement. Currently patient does not have any pain on my exam on palpation. White blood count is improved from 13-11. Will continue IV Zosyn. Okay for clears today and will not advance today. Patient is aware that if the pain gets worse or increased white blood count or fever may need more emergent surgery. Otherwise we will plan for conservative management. I will be gone after today and Dr. Chand will be following. Vanessa Maher M.D. Pager: [phone] [facility] [address] [place] [address], [facility], [address] [place] [address] Office: [phone] HPI Consult Data Date of Consult: 06/04/24 HPI Narrative HPI Narrative: GEORGIA THORPE, is a 58 M who presents due to lower abdominal pain. Patient started having pain on Monday. Patient thought was constipated did take various bowel regimen including oral laxative, enemas, magnesium citrate. Patient did take the laxatives on Monday as well as yesterday. Patient has had some liquid stool since then. Patient presented to the ER and had a CT abdomen pelvis showed small abscess 4.5 cm x 1.6 x 2.3 cm this is not amenable to drainage upon my review of CT due to location. Patient states that the pain was worse when he was having a bowel movement or likely due to laxatives. Currently denies any abdominal pain even with palpation. Patient's white blood cell count is 11 down from 13. Patient has never had a history of diverticulitis previously, no abdominal surgeries. Patient had a colonoscopy around 2019 negative per patient. [facility] Medical History Contact with and (suspected) exposure to other viral communicable diseases Acute maxillary sinusitis, unspecified Seizure Dyspnea on exertion Hypertension Recent surgical procedure on lower extremity SHAY on CPAP Hypertrophic obstructive cardiomyopathy Essential hypertension Segmental and somatic dysfunction of pelvic region Segmental and somatic dysfunction of thoracic region Segmental and somatic dysfunction of lumbar region Leg pain, bilateral Asymmetric septal hypertrophy Hypertriglyceridemia Allergic rhinitis Erectile dysfunction Hyperlipidemia Home Medications ?Medication ?Instructions ?Recorded ?Last Taken ?Type fluticasone propionate 50 2 spray intranasal DAILY 02/05/18 Unknown History mcg/actuation nasal spray,suspension (Allergy Relief (fluticasone)) multivitamin 1 tab PO DAILY 09/15/20 Unknown History cpap 03/28/22 Unknown History cholecalciferol (vitamin D3) 50 50 mcg PO DAILY 10/30/23 Unknown History mcg (2,000 unit) capsule loratadine 10 mg tablet (Claritin) 10 mg PO DAILY 10/30/23 Unknown History krill 1,000 mg-omega-3 230 mg-dha 1 cap PO BID #180 caps 12/05/23 Unknown Rx 60 tz-yfy-vwurlyyjd-astaxan capsule (MegaRed [place]-3 Krill Oil) sildenafil (pulm.hypertension) 20 20 mg PO .COMPLEX PRN sexual 04/22/24 Unknown Rx mg tablet activity #30 tabs hydrochlorothiazide 25 mg tablet 25 mg PO DAILY #90 tabs 05/16/24 Unknown Rx losartan 100 mg tablet 100 mg PO DAILY #90 tabs 05/16/24 Unknown Rx diltiazem HCl 180 mg 180 mg PO BID 06/04/24 Unknown History capsule,extended release 24 hr, controlled (DILT-XR) Allergy/AdvReac Type Severity Reaction Status Date / Time cat dander Allergy Shortness Verified 06/03/24 22:49 of breath Family History Father CAD (coronary artery disease) Hypertension Aunt Cancer Mother No problems noted. Surgical History History of rotator cuff surgery History of left heart catheterization Hx of sinus surgery Social History household members: none Smoking Status: Never smoker alcohol intake: current alcohol intake frequency: a few times a week Alcohol type: beer substance use type: does not use caffeine: Yes Type: carbonated beverages and coffee Number of servings: 2 what type of physical activity do you participate in: none seatbelt use: always do you feel safe at home: Yes ROS Constitutional Constitutional: Denies chills Eyes Eyes: Denies blurry vision ENT HEENT: Denies dysphagia Cardiovascular Cardiovascular: Denies chest pain Respiratory/Chest Respiratory/Chest: Denies cough Gastrointestinal Gastrointestinal: Reports abdominal pain and constipation; Denies nausea or vomiting Genitourinary Genitourinary: Denies dysuria Musculoskeletal Musculoskeletal: Denies joint swelling Integumentary Integumentary: Denies jaundice Neurologic Neurologic: Denies focal weakness Psychiatric Psychiatric: Denies anxiety Endocrine Endocrinology: Denies palpitations Hematologic/Lymphatic Hematologic/Lymphatic: Denies easy bleeding Physical Exam Const alert, oriented x3 and no apparent distress HEENT normocephalic and head/scalp atraumatic Resp normal respiratory effort Cardio regular rate GI soft to palpation and non-tender; Negative for non-distended Palpation: Negative for guarding Extremity no clubbing, cyanosis or edema Skin no rashes or lesions noted Neuro CN's II-XII intact bilaterally Psych mental status grossly normal Lab / Micro Data 06/04/24 08:06 06/04/24 08:06 Labs: Laboratory Results - last 24 hr 06/04/24 00:35: WBC 13.3 H, RBC 4.15 L, Hgb 13.7, Hct 36.7 L, MCV 88.4, MCH 33.0 H, MCHC 37.3 H, RDW Std Deviation 38.5, RDW Coeff of Rafita 11.9, Plt Count 232, MPV 9.6, Immature Gran % (Auto) 0.600, Neut % (Auto) 78.1 H, Lymph % (Auto) 12.8 L, [place] % (Auto) 7.7, Eos % (Auto) 0.5, Baso % (Auto) 0.3, Absolute Neuts (auto) 10.3 H, Absolute Lymphs (auto) 1.70, Nucleated RBC % 0, Sodium 138, Potassium 2.8 L, Chloride 102, Carbon Dioxide 27.0, Anion Gap 9, BUN 16, Creatinine 1.05, Estim Creat Clear Calc 80.49, Est GFR (MDRD) Af Amer 93, Est GFR (MDRD) Non-Af 77, BUN/Creatinine Ratio 15.2, Glucose 109 H, Calcium 8.3 L, Magnesium 2.7 H, Total Bilirubin 1.00, Direct Bilirubin 0.26, AST 17, ALT 31, Alkaline Phosphatase 55, Total Protein 7.0, Albumin 3.2, Globulin 3.8, Lipase 36 Imaging Radiology Impression Abdomen/Pelvis CT 06/04/24 00:21 IMPRESSION: 1. Acute diverticulitis involving the distal sigmoid colon with adjacent contained air and loculated fluid collection measuring 4.5 cm likely related to an abscess. There is significant adjacent mesenteric inflammatory stranding. 2. Fluid-filled loops of large bowel with scattered air-fluid levels without obstruction. 3. Bilateral parapelvic renal cysts or hydronephrosis however limited evaluation without delayed post-contrast images. Bilateral kidneys enhance homogeneously and bilateral ureters demonstrate a normal course and caliber. 4. Enlarged prostate gland. Correlation with serum PSA is recommended. 5. Additional findings as above. One or more dose reduction techniques were used (e.g., Automated exposure control, adjustment of the mA and/or kV according to patient size, use of iterative reconstruction technique). Reading Location: [facility]
[2024-06-04 08:27] LABS: Absolute Lymphocyte Count 1.39 X10^3/uL (0.83-4.51); Absolute Neutrophil Count 8.9 X10^3/uL (2.0-7.7); Basophil# 0.02 X10^3/uL; Basophil% 0.2 % (0-1); Eosinophil# 0.13 X10^3/uL; Eosinophils% 1.1 % (0-5); Hematocrit 37.6 % (40-54); Hemoglobin 13.2 g/dL (13.0-16.5); Lymphocyte # 1.39 X10^3/ul (0.83-4.51); Lymphocyte % 12.2 % (19-41); Mean Corp Hgb Conc 35.1 g/dL (32-36); Mean Corpuscular Hgb 31.7 pg (27.0-32.0); Mean Corpuscular Volume 90.4 fL (80-94); Mean Platelet Vol. 9.7 fl (6.2-12.0); Monocyte# 0.87 X10^3/uL; Monocyte% 7.6 % (0-10); NRBC Flagged by Analyzer 0 % (0-5); Neutrophil # 8.91 X10^3/uL (2.7-7.7); Neutrophil % 78.3 % (47-70); Platelet Count 226 K/mm3 (150-450); RBC Distribution Width CV 12.1 % (11.6-14.6); RBC Distribution Width SD 39.8 fl (35.1-43.9); Red Blood Count 4.16 M/mm3 (4.6-6.2); White Blood Count 11.4 K/mm3 (4.4-11.0)
[2024-06-04 08:41] LABS: ALB/GLOB Ratio 0.7 RATIO (0.9-2.4); AST(SGOT) 13 U/L (15-37); Alanine Aminotransfer ALT/SGPT 29 U/L (16-61); Albumin, Serum 2.9 g/dL (3.2-5.0); Alkaline Phosphatase 49 U/L (45-117); Anion Gap 7 (5-15); BUN 16 mg/dL (7-18); Calcium,Total 8.1 mg/dL (8.5-10.1); Chloride 105 mmol/L (98-107); EST Glomerular Filtration Rate 81 mL/min (>60); Est Glom Filt Rate - Afr Amer 98 mL/min (>60); Estimated Creatinine Clearance 84.49 ml/min; Globulin 3.9 g/dL (2.2-4.2); Glucose 97 mg/dL (74-106); Potassium 3.2 mmol/L (3.5-5.1); Protein, Total 6.8 g/dL (6.4-8.2); Sodium Level 137 mmol/L (136-145)
[2024-06-04] MEDS: Fluticasone 0.05% 1 SPRAY NASAL.SRY 2 SPRAY NASAL (09:42)
[2024-06-04] MEDS: dilTIAZem CD 180 MG Capsule PO ×2 (09:42→22:15)
[2024-06-04] MEDS: hydroCHLOROthiazide 25 MG Tablet PO (09:42)
[2024-06-04] MEDS: Loratadine 10 MG Tablet PO (09:42)
[2024-06-04] MEDS: Losartan Potassium 100 MG Tablet PO (09:42)
[2024-06-04] MEDS: Potassium Chloride Oral Tablet 20 MEQ 60 MEQ PO (11:37)
--- NOTE | 2024-06-04 13:29 | CASEMGMT ---
Social Work SW met w/pt in room as pt is listed as self pay. Pt states he has some benefits through the [facility], has $5000 to use toward medical costs. He also has something called [facility] that covers the cost, he understands he needs to send the bills to them. He states he also has prescription coverage, so no resources needed at this time. SW also asked pt about POA papers, he declined to complete them. He has twin daughters Anna and Rita and would be fine with them making decisions together, he states they know his wishes. SW remains available for any additional social service needs. SW did let Cata from [facility] [employer] know what pt shared w/SW. CONNER Bartlett
--- NOTE | 2024-06-04 14:26 | PN.HOSP_ITS ---
Reason for Visit Reason for Visit: Diagnoses Diverticulitis of intestine, part unspecified, with perforation and abscess without bleeding (06/04/24) Objective Data Objective Data Vital Signs: Vital Signs Temp Pulse Resp BP Pulse Ox O2 Del Method 98.5 F 69 16 155/84 H 98 Room Air 06/04/24 08:38 06/04/24 08:38 06/04/24 08:38 06/04/24 08:38 06/04/24 08:38 06/04/24 08:38 Oxygen Delivery Method Room Air Weight: 195 lb 5.273 oz Body Mass Index (BMI) 30.6 Intake & Output: Intake and Output for Last 24 Hours 06/02/24 06/03/24 06/04/24 23:59 23:59 23:59 Intake Total 2906.67 / 2906.67 Balance 2906.67 / 2906.67 Lab / Micro Data 06/04/24 08:06 06/04/24 08:06 Labs: Laboratory Results - last 24 hr 06/04/24 00:35: WBC 13.3 H, RBC 4.15 L, Hgb 13.7, Hct 36.7 L, MCV 88.4, MCH 33.0 H, MCHC 37.3 H, RDW Std Deviation 38.5, RDW Coeff of Rafita 11.9, Plt Count 232, MPV 9.6, Immature Gran % (Auto) 0.600, Neut % (Auto) 78.1 H, Lymph % (Auto) 12.8 L, [place] % (Auto) 7.7, Eos % (Auto) 0.5, Baso % (Auto) 0.3, Absolute Neuts (auto) 10.3 H, Absolute Lymphs (auto) 1.70, Nucleated RBC % 0, Sodium 138, Potassium 2.8 L, Chloride 102, Carbon Dioxide 27.0, Anion Gap 9, BUN 16, Creatinine 1.05, Estim Creat Clear Calc 80.49, Est GFR (MDRD) Af Amer 93, Est GFR (MDRD) Non-Af 77, BUN/Creatinine Ratio 15.2, Glucose 109 H, Calcium 8.3 L, Magnesium 2.7 H, Total Bilirubin 1.00, Direct Bilirubin 0.26, AST 17, ALT 31, Alkaline Phosphatase 55, Total Protein 7.0, Albumin 3.2, Globulin 3.8, Lipase 36 06/04/24 08:06: WBC 11.4 H, RBC 4.16 L, Hgb 13.2, Hct 37.6 L, MCV 90.4, MCH 31.7, MCHC 35.1 D, RDW Std Deviation 39.8, RDW Coeff of Rafita 12.1, Plt Count 226, MPV 9.7, Immature Gran % (Auto) 0.600, Neut % (Auto) 78.3 H, Lymph % (Auto) 12.2 L, [place] % (Auto) 7.6, Eos % (Auto) 1.1, Baso % (Auto) 0.2, Absolute Neuts (auto) 8.9 H, Absolute Lymphs (auto) 1.39, Nucleated RBC % 0, Sodium 137, P otassium 3.2 L, Chloride 105, Carbon Dioxide 25.0, Anion Gap 7, BUN 16, Creatinine 1.00, Estim Creat Clear Calc 84.49, Est GFR (MDRD) Af Amer 98, Est GFR (MDRD) Non-Af 81, BUN/Creatinine Ratio 16.0, Glucose 97, Calcium 8.1 L, T otal Bilirubin 1.10 H, AST 13 L, ALT 29, Alkaline Phosphatase 49, Total Protein 6.8, Albumin 2.9 L, Globulin 3.9, Albumin/Globulin Ratio 0.7 L Radiography Diagnostic Testing: Radiology Impression Abdomen/Pelvis CT 06/04/24 00:21 IMPRESSION: 1. Acute diverticulitis involving the distal sigmoid colon with adjacent contained air and loculated fluid collection measuring 4.5 cm likely related to an abscess. There is significant adjacent mesenteric inflammatory stranding. 2. Fluid-filled loops of large bowel with scattered air-fluid levels without obstruction. 3. Bilateral parapelvic renal cysts or hydronephrosis however limited evaluation without delayed post-contrast images. Bilateral kidneys enhance homogeneously and bilateral ureters demonstrate a normal course and caliber. 4. Enlarged prostate gland. Correlation with serum PSA is recommended. 5. Additional findings as above. One or more dose reduction techniques were used (e.g., Automated exposure control, adjustment of the mA and/or kV according to patient size, use of iterative reconstruction technique). Reading Location: [facility] Physical Exam Narrative Seen and examined. Patient has mild RLQ abdominal pain. Passing flatus. He had liquid brown stool in the morning. His stomach was gurgling in the morning but quite now. No fever today Physical exam General: Alert, Oriented x3, Cooperative HEENT: Atraumatic, PERRLA, EOMI, Normocephalic Oral: No Gingival or Mucosal Lesions/ Ulcerations Neck: Supple, No JVD, Negative Carotid Bruits Chest wall/Lungs: Air entry diminished in bilateral lung bases. No crepitation/rhonchi Cardiovascular: Regular rate, Regular Rhythm, Normal S1, Normal S2, No M/G/R Abdomen: Bowel Sounds Present, Soft, Non Tender, Non-Distended : No dysuria. No renal angle tenderness. No suprapubic tenderness. Extremities: No edema, Capillary Refill Less than 3 Seconds Skin: No rashes, No breakdown Musculoskeletal: No Tenderness to Palpation of Joints or Extremities Neurological: Cranial nerves II-XII grossly intact, DTR 2+/4. No acute focal neurological deficit. Psych/Mental Status: Normal Affect, Appropriate. Assessment & Plan Assessment/Plan (1) Diverticulitis of intestine with abscess: PLAN: Plan 58-year-old gentleman was admitted with lower abdominal pain started on Monday. Prior to that he had nausea vomiting and diarrhea about a week ago thinking of some stomach bug. Then he started having constipation. Patient also to various oral laxatives, enema magnesium citrate for constipation on Monday and yesterday. CT abdomen shows small abscess 4.5 cm x 1.6 x 2.3 cm. 1. Acute diverticulitis of colon with abscess: CT abdomen was individually reviewed and shows diverticulitis involving the distal sigmoid colon with abscess of about 4.5 cm. Abscess is not amenable for drainage as per the surgeon. If pain gets worse probably due to laxatives. Currently does not have abdominal pain. Colonoscopy was negative as per the patient in 2019 On IV antibiotics. Leukocytosis improved 2. Hypokalemia: Potassium was 2.8, magnesium 2.7. Repeat test shows potassium 3.2 still low. Continue potassium replacement. Serum phosphorus level ordered for tomorrow AM. 3. Hypertrophic obstructive cardiomyopathy, septal hypertrophy: 2D echo: 12/04/2023 with normal LV size, LV systolic function normal, LV EF 60%, moderate LVH, mild focal AV calcification. Continue losartan diltiazem HCTZ. Last cardiology visit was 11/03/2023 4. Hypertension and dyslipidemia: Blood pressure is is acceptable limit. Avoid hypotension. 5. Other comorbidities include obstructive sleep apnea, allergic rhinitis: Continue home regimen of fluticasone and loratadine. CPAP at night 6. Obesity: Grade 1 BMI 30.6 kg/m?. Weight loss recommended. Nutrition consult DVT prophylaxis: SCDs. Laboratory Results 06/04/24 00:35: WBC 13.3 H, RBC 4.15 L, Hgb 13.7, Hct 36.7 L, MCV 88.4, MCH 33.0 H, MCHC 37.3 H, RDW Std Deviation 38.5, RDW Coeff of Rafita 11.9, Plt Count 232, MPV 9.6, Immature Gran % (Auto) 0.600, Neut % (Auto) 78.1 H, Lymph % (Auto) 12.8 L, [place] % (Auto) 7.7, Eos % (Auto) 0.5, Baso % (Auto) 0.3, Absolute Neuts (auto) 10.3 H, Absolute Lymphs (auto) 1.70, Nucleated RBC % 0, Sodium 138, Potassium 2.8 L, Chloride 102, Carbon Dioxide 27.0, Anion Gap 9, BUN 16, Creatinine 1.05, Estim Creat Clear Calc 80.49, Est GFR (MDRD) Af Amer 93, Est GFR (MDRD) Non-Af 77, BUN/Creatinine Ratio 15.2, Glucose 109 H, Calcium 8.3 L, Magnesium 2.7 H, Total Bilirubin 1.00, Direct Bilirubin 0.26, AST 17, ALT 31, Alkaline Phosphatase 55, Total Protein 7.0, Albumin 3.2, Globulin 3.8, Lipase 36 06/04/24 08:06: WBC 11.4 H, RBC 4.16 L, Hgb 13.2, Hct 37.6 L, MCV 90.4, MCH 31.7, MCHC 35.1 D, RDW Std Deviation 39.8, RDW Coeff of Rafita 12.1, Plt Count 226, MPV 9.7, Immature Gran % (Auto) 0.600, Neut % (Auto) 78.3 H, Lymph % (Auto) 12.2 L, [place] % (Auto) 7.6, Eos % (Auto) 1.1, Baso % (Auto) 0.2, Absolute Neuts (auto) 8.9 H, Absolute Lymphs (auto) 1.39, Nucleated RBC % 0, Sodium 137, P otassium 3.2 L, Chloride 105, Carbon Dioxide 25.0, Anion Gap 7, BUN 16, Creatinine 1.00, Estim Creat Clear Calc 84.49, Est GFR (MDRD) Af Amer 98, Est GFR (MDRD) Non-Af 81, BUN/Creatinine Ratio 16.0, Glucose 97, Calcium 8.1 L, T otal Bilirubin 1.10 H, AST 13 L, ALT 29, Alkaline Phosphatase 49, Total Protein 6.8, Albumin 2.9 L, Globulin 3.9, Albumin/Globulin Ratio 0.7 L . Charges/Coding Visit Charges Inpatient E&M: 09353 Subs Hosp L2
--- NOTE | 2024-06-04 15:48 | CASEMGMT ---
CARLOS BARDALES Assessment Face to Face with patient for initial transition planning/care coordination assessment. CARLOS BARDALES introduced self and role at [facility], pt voices understanding. Pt is A&Ox4 and is resting comfortably in bed and is calm. Care providers, pharmacy, and demographics verified. Admitting dx: Acute Diverticulitis LACE Strata: 1 PCP: Wendie Louise Specialists: MARY GRACE Preferred Pharmacy: [facility] Insurance: [employer] [facility] Prescription Benefit: Pt states yes and denies concerns LNOK: Anna (Daughter) Living Arrangements: Pt lives alone in a 3 story home with 3 steps to enter the home ADLs/IADLs: Ind Transportation: Self, denies concerns DME: CPAP @ [facility] with no additional oxygen. Denies all other DME uses or needs HHC/SNF: Denies Hx or needs Pt?s goal: Home Plan: Home, no needs. Pt states that he is completely independent and denies concerns going home once medically ready. Pt states that he feels safe returning home alone at the time of DC and denies the need for HH, CCN, or OP Tx. Pt denies further questions at this time. Tifafni Vivar RN, CM
[2024-06-04] MEDS: oxyCODONE 5 MG Tablet PO (16:21)
[2024-06-04] MEDS: 0.9% Saline Lock 10 ML Syringe IV (22:00)
[2024-06-04] MEDS: Acetaminophen 325 MG Tablet 650 MG PO (22:15)
[2024-06-04] MEDS: Menthol/Lanolin/Calamine/Znox 113 GM Tube 1 APPLIC TOPICAL (22:17)
[2024-06-05 04:17] VITALS: BP 145/76; PULSE 64; RESP 18; TEMP 36.6; O2SAT 100
[2024-06-05 04:24] VITALS: BMI 30.2
[2024-06-05] MEDS: Piperacil/Tazobactam 3.375 GM in 0.9% Normal Saline (50mL MB+) 50 ML IV (04:24)
[2024-06-05 06:24] LABS: Absolute Lymphocyte Count 1.68 X10^3/uL (0.83-4.51); Absolute Neutrophil Count 6.7 X10^3/uL (2.0-7.7); Basophil# 0.05 X10^3/uL; Basophil% 0.5 % (0-1); Eosinophil# 0.29 X10^3/uL; Hematocrit 38.8 % (40-54); Hemoglobin 13.4 g/dL (13.0-16.5); Lymphocyte # 1.68 X10^3/ul (0.83-4.51); Lymphocyte % 17.5 % (19-41); Mean Corp Hgb Conc 34.5 g/dL (32-36); Mean Corpuscular Hgb 31.6 pg (27.0-32.0); Mean Corpuscular Volume 91.5 fL (80-94); Mean Platelet Vol. 9.9 fl (6.2-12.0); Monocyte# 0.82 X10^3/uL; Monocyte% 8.6 % (0-10); NRBC Flagged by Analyzer 0 % (0-5); Neutrophil # 6.71 X10^3/uL (2.7-7.7); Platelet Count 248 K/mm3 (150-450); RBC Distribution Width CV 12.3 % (11.6-14.6); Red Blood Count 4.24 M/mm3 (4.6-6.2); White Blood Count 9.6 K/mm3 (4.4-11.0)
[2024-06-05 06:48] LABS: Anion Gap 8 (5-15); BUN 13 mg/dL (7-18); BUN/Creat Ratio 11.6 RATIO (10-20); Calcium,Total 8.6 mg/dL (8.5-10.1); Chloride 104 mmol/L (98-107); Creatinine, Serum 1.12 mg/dL (0.70-1.30); EST Glomerular Filtration Rate 71 mL/min (>60); Est Glom Filt Rate - Afr Amer 86 mL/min (>60); Estimated Creatinine Clearance 74.99 ml/min; Glucose 81 mg/dL (74-106); Potassium 3.3 mmol/L (3.5-5.1); Sodium Level 138 mmol/L (136-145)
[2024-06-05 08:02] VITALS: BP 179/87; PULSE 77; RESP 18; TEMP 37.1; O2SAT 99
[2024-06-05] MEDS: hydroCHLOROthiazide 25 MG Tablet PO (08:08)
[2024-06-05] MEDS: Losartan Potassium 100 MG Tablet PO (08:08)
[2024-06-05] MEDS: Loratadine 10 MG Tablet PO (08:08)
[2024-06-05] MEDS: dilTIAZem CD 180 MG Capsule PO ×2 (08:08→20:37)
[2024-06-05] MEDS: Fluticasone 0.05% 1 SPRAY NASAL.SRY 2 SPRAY NASAL (08:09)
[2024-06-05] MEDS: Menthol/Lanolin/Calamine/Znox 113 GM Tube 1 APPLIC TOPICAL ×2 (08:10→20:37)
[2024-06-05 08:14] VITALS: O2SAT 94
[2024-06-05] MEDS: Acetaminophen 325 MG Tablet 650 MG PO ×2 (08:22→22:08)
--- NOTE | 2024-06-05 09:18 | PCM.PN.SRG ---
Subjective Subjective Patient evaluated walking in his room. he noted having a bowel movement with some tenderness. He denies any nausea, vomiting. He is tolerating clear liquids withoth pain. He notes a little cramping. Objective Data Objective Data Vital Signs: Vital Signs Temp Pulse Resp BP Pulse Ox O2 Del Method 98.7 F 77 18 179/87 H 94 Room Air 06/05/24 08:02 06/05/24 08:02 06/05/24 08:02 06/05/24 08:02 06/05/24 08:14 06/05/24 08:14 Oxygen Delivery Method Room Air Weight: 192 lb 14.472 oz Body Mass Index (BMI) 30.2 Intake & Output: Intake and Output for Last 24 Hours 06/03/24 06/04/24 06/05/24 23:59 23:59 23:59 Intake Total 3366.67 / 3566.67 250 / 250 Balance 3366.67 / 3566.67 250 / 250 Lab / Micro Data 06/05/24 04:53 06/05/24 04:53 Labs: Laboratory Results - last 24 hr 06/05/24 04:53: WBC 9.6, RBC 4.24 L, Hgb 13.4, Hct 38.8 L, MCV 91.5, MCH 31.6, MCHC 34.5, RDW Std Deviation 41.0, RDW Coeff of Rafita 12.3, Plt Count 248, MPV 9.9, Immature Gran % (Auto) 0.400, Neut % (Auto) 70.0, Lymph % (Auto) 17.5 L, [place] % (Auto) 8.6, Eos % (Auto) 3.0, Baso % (Auto) 0.5, Absolute Neuts (auto) 6.7, Absolute Lymphs (auto) 1.68, Nucleated RBC % 0, Sodium 138, Potassium 3.3 L, Chloride 104, Carbon Dioxide 26.0, Anion Gap 8, BUN 13, Creatinine 1.12, Estim Creat Clear Calc 74.99, Est GFR (MDRD) Af Amer 86, Est GFR (MDRD) Non-Af 71, BUN/Creatinine Ratio 11.6, Glucose 81, Calcium 8.6 Physical Exam GI GI Narrative: Abdomen (patient laying in bed)- soft, nontender, positive bowel sounds. Assessment & Plan Assessment/Plan (1) Diverticulitis of intestine with abscess: QUALIFIERS: Diverticulitis site: large intestine Diverticulitis bleeding: without bleeding Qualified Code(s): K57.20 - Diverticulitis of large intestine with perforation and abscess without bleeding PLAN: I am following this patient in conjunction with Dr. Chand in Dr. Maher's absence. He has independently evaluated this patient. Labs reviewed. WBC is normal today at 9.6 Repeat labs tomorrow morning Plan to transition patient to oral antibiotics today and if he tolerates plan for discharge tomorrow Increase diet to full liquids, if tolerates will increase to transition diet around dinnertime No surgical intervention being planned at this time Discussed with patient that a repeat CT scan will occur in the future, likely next week as an outpatient We will continue to monitor this patient Charges/Coding Visit Charges Inpatient E&M: 06645 Subs Hosp L1
--- NOTE | 2024-06-05 09:49 | PN.HOSP_ITS ---
Reason for Visit Reason for Visit: Diagnoses Diverticulitis of intestine, part unspecified, with perforation and abscess without bleeding (06/04/24) Objective Data Objective Data Vital Signs: Vital Signs Temp Pulse Resp BP Pulse Ox O2 Del Method 98.7 F 77 18 179/87 H 94 Room Air 06/05/24 08:02 06/05/24 08:02 06/05/24 08:02 06/05/24 08:02 06/05/24 08:14 06/05/24 08:14 Oxygen Delivery Method Room Air Weight: 192 lb 14.472 oz Body Mass Index (BMI) 30.2 Intake & Output: Intake and Output for Last 24 Hours 06/03/24 06/04/24 06/05/24 23:59 23:59 23:59 Intake Total 3366.67 / 3566.67 300 / 300 Balance 3366.67 / 3566.67 300 / 300 Lab / Micro Data 06/05/24 04:53 06/05/24 04:53 Labs: Laboratory Results - last 24 hr 06/05/24 04:53: WBC 9.6, RBC 4.24 L, Hgb 13.4, Hct 38.8 L, MCV 91.5, MCH 31.6, MCHC 34.5, RDW Std Deviation 41.0, RDW Coeff of Rafita 12.3, Plt Count 248, MPV 9.9, Immature Gran % (Auto) 0.400, Neut % (Auto) 70.0, Lymph % (Auto) 17.5 L, [place] % (Auto) 8.6, Eos % (Auto) 3.0, Baso % (Auto) 0.5, Absolute Neuts (auto) 6.7, Absolute Lymphs (auto) 1.68, Nucleated RBC % 0, Sodium 138, Potassium 3.3 L , Chloride 104, Carbon Dioxide 26.0, Anion Gap 8, BUN 13, Creatinine 1.12, Estim Creat Clear Calc 74.99, Est GFR (MDRD) Af Amer 86, Est GFR (MDRD) Non-Af 71, BUN/Creatinine Ratio 11.6, Glucose 81, Calcium 8.6 Physical Exam Narrative Seen and examined. Patient abdominal pain has almost resolved or minimal. Passing flatus. Had small brownish stool in the morning. Denies halle blood. No fever Physical exam General: Alert, Oriented x3, Cooperative HEENT: Atraumatic, PERRLA, EOMI, Normocephalic Oral: No Gingival or Mucosal Lesions/ Ulcerations Neck: Supple, No JVD, Negative Carotid Bruits Chest wall/Lungs: Air entry diminished in bilateral lung bases. No crepitation/rhonchi Cardiovascular: Regular rate, Regular Rhythm, Normal S1, Normal S2, No M/G/R Abdomen: Bowel Sounds good, Soft, Non Tender, Non-Distended : No dysuria. No renal angle tenderness. No suprapubic tenderness. Extremities: No edema, Capillary Refill Less than 3 Seconds Skin: No rashes, No breakdown Musculoskeletal: No Tenderness to Palpation of Joints or Extremities Neurological: Cranial nerves II-XII grossly intact, DTR 2+/4. No acute focal neurological deficit. Psych/Mental Status: Normal Affect, Appropriate. Assessment & Plan Assessment/Plan (1) Diverticulitis of intestine with abscess: QUALIFIERS: Diverticulitis bleeding: without bleeding D iverticulitis site: large intestine Qualified Code(s): K57.20 - Diverticulitis of large intestine with perforation and abscess without bleeding PLAN: Plan 58-year-old gentleman was admitted with lower abdominal pain started on Monday. Prior to that he had nausea vomiting and diarrhea about a week ago thinking of some stomach bug. Then he started having constipation. Patient also to various oral laxatives, enema magnesium citrate for constipation on Monday and yesterday. CT abdomen shows small abscess 4.5 cm x 1.6 x 2.3 cm. 1. Acute diverticulitis of colon with abscess: CT abdomen was individually reviewed and shows diverticulitis involving the distal sigmoid colon with abscess of about 4.5 cm. Abscess is not amenable for drainage as per the surgeon. If pain gets worse probably due to laxatives. Currently does not have abdominal pain. Colonoscopy was negative as per the patient in 2019 On IV antibiotics. Leukocytosis improved 06/06: Leukocytosis resolved. Diet advanced to full liquid. 2. Hypokalemia: Potassium was 2.8, magnesium 2.7. Repeat test shows potassium 3.2 still low. Continue potassium replacement. Serum phosphorus level ordered for tomorrow AM. 06/05: Mild hypokalemia K3.3. Potassium replacement ordered. Magnesium 2.7. Mild hyperbilirubinemia, TB 1.1 probably due to infection. Transaminases are normal. ALP normal. 3. Hypertrophic obstructive cardiomyopathy, septal hypertrophy: 2D echo: 12/04/2023 with normal LV size, LV systolic function normal, LV EF 60%, moderate LVH, mild focal AV calcification. Continue losartan diltiazem HCTZ. Last cardiology visit was 11/03/2023 4. Hypertension and dyslipidemia: Blood pressure is is acceptable limit. Avoid hypotension. 5. Other comorbidities include obstructive sleep apnea, allergic rhinitis: Continue home regimen of fluticasone and loratadine. CPAP at night 6. Obesity: Grade 1 BMI 30.6 kg/m?. Weight loss recommended. Nutrition consult DVT prophylaxis: SCDs. Enoxaparin 40 mg subcu daily . Charges/Coding Visit Charges Inpatient E&M: 42081 Subs Hosp L2
[2024-06-05] MEDS: Pantoprazole Sodium 40 MG in 0.9% Normal Saline (100mL MB+) 100 ML 330 MG IV ×2 (10:20→20:35)
[2024-06-05] MEDS: Amox/Clavulanate 875 MG Tablet PO ×2 (10:20→20:36)
[2024-06-05 15:02] VITALS: BP 138/87; PULSE 80; RESP 18; TEMP 37; O2SAT 98
[2024-06-05 20:32] VITALS: BP 157/86; PULSE 70; RESP 16; TEMP 36.6; O2SAT 99
[2024-06-05] MEDS: Temazepam 15 MG Capsule PO (22:08)
[2024-06-06 02:59] VITALS: BP 119/62; PULSE 64; RESP 16; TEMP 36.8; O2SAT 99
[2024-06-06 04:48] LABS: Absolute Lymphocyte Count 1.83 X10^3/uL (0.83-4.51); Absolute Neutrophil Count 6.1 X10^3/uL (2.0-7.7); Basophil# 0.06 X10^3/uL; Basophil% 0.7 % (0-1); Eosinophil# 0.24 X10^3/uL; Eosinophils% 2.7 % (0-5); Hematocrit 37.3 % (40-54); Hemoglobin 13.4 g/dL (13.0-16.5); Lymphocyte # 1.83 X10^3/ul (0.83-4.51); Lymphocyte % 20.5 % (19-41); Mean Corp Hgb Conc 35.9 g/dL (32-36); Mean Corpuscular Hgb 32.1 pg (27.0-32.0); Mean Corpuscular Volume 89.4 fL (80-94); Mean Platelet Vol. 9.4 fl (6.2-12.0); Monocyte# 0.66 X10^3/uL; Monocyte% 7.4 % (0-10); NRBC Flagged by Analyzer 0 % (0-5); Neutrophil % 68.1 % (47-70); Platelet Count 265 K/mm3 (150-450); RBC Distribution Width CV 11.9 % (11.6-14.6); RBC Distribution Width SD 38.5 fl (35.1-43.9); Red Blood Count 4.17 M/mm3 (4.6-6.2); White Blood Count 8.9 K/mm3 (4.4-11.0)
[2024-06-06 05:06] LABS: Anion Gap 8 (5-15); BUN 12 mg/dL (7-18); BUN/Creat Ratio 11.1 RATIO (10-20); Calcium,Total 8.7 mg/dL (8.5-10.1); Chloride 105 mmol/L (98-107); Creatinine, Serum 1.08 mg/dL (0.70-1.30); EST Glomerular Filtration Rate 74 mL/min (>60); Est Glom Filt Rate - Afr Amer 90 mL/min (>60); Estimated Creatinine Clearance 77.77 ml/min; Glucose 91 mg/dL (74-106); Potassium 3.2 mmol/L (3.5-5.1); Sodium Level 139 mmol/L (136-145)
[2024-06-06 05:50] VITALS: BMI 30.7
[2024-06-06] MEDS: Senna/Docusate Sodium 1 Tablet 2 TABLET PO ×2 (06:39→21:52)
--- NOTE | 2024-06-06 06:47 | PN.SURG_ITS ---
Subjective Subjective Patient resting comfortably in bed this morning. He denies any significant overnight issues or problems but does state that he has been having slightly more cramping in his abdomen this morning. This is especially the case with trying to have a bowel movement. He states it has been several days since his last decent bowel movement. He denies any fevers or chills. He has been tolerating diet Objective Data Objective Data Vital Signs: Vital Signs Temp Pulse Resp BP Pulse Ox O2 Del Method 98.3 F 64 16 119/62 99 Room Air 06/06/24 02:59 06/06/24 02:59 06/06/24 02:59 06/06/24 02:59 06/06/24 02:59 06/06/24 03:39 Oxygen Delivery Method Room Air Weight: 196 lb 3.382 oz Body Mass Index (BMI) 30.7 Intake & Output: Intake and Output for Last 24 Hours 06/04/24 06/05/24 06/06/24 23:59 23:59 23:59 Intake Total 3366.67 / 3566.67 1600 / 1600 Balance 3366.67 / 3566.67 1600 / 1600 Lab / Micro Data 06/06/24 04:15 06/06/24 04:15 Labs: Laboratory Results - last 24 hr 06/05/24 04:53: Sodium 138, Potassium 3.3 L, Chloride 104, Carbon Dioxide 26.0, Anion Gap 8, BUN 13, Creatinine 1.12, Estim Creat Clear Calc 74.99, Est GFR (MDRD) Af Amer 86, Est GFR (MDRD) Non-Af 71, BUN/Creatinine Ratio 11.6, Glucose 81, Calcium 8.6 06/06/24 04:15: WBC 8.9, RBC 4.17 L, Hgb 13.4, Hct 37.3 L, MCV 89.4, MCH 32.1 H, MCHC 35.9, RDW Std Deviation 38.5, RDW Coeff of Rafita 11.9, Plt Count 265, MPV 9.4, Immature Gran % (Auto) 0.600, Neut % (Auto) 68.1, Lymph % (Auto) 20.5, [place] % (Auto) 7.4, Eos % (Auto) 2.7, Baso % (Auto) 0.7, Absolute Neuts (auto) 6.1, Absolute Lymphs (auto) 1.83, Nucleated RBC % 0, Sodium 139, Potassium 3.2 L, Chloride 105, Carbon Dioxide 26.0, Anion Gap 8, BUN 12, Creatinine 1.08, Estim Creat Clear Calc 77.77, Est GFR (MDRD) Af Amer 90, Est GFR (MDRD) Non-Af 74, BUN/Creatinine Ratio 11.1, Glucose 91, Calcium 8.7 Physical Exam Const oriented x3 and no apparent distress GI GI Narrative: Abdomen is soft and nondistended. Minimal left lower quadrant tenderness to palpation. No rebound or guarding Assessment & Plan Assessment/Plan (1) Diverticulitis of intestine with abscess: QUALIFIERS: Diverticulitis site: large intestine Diverticulitis bleeding: without bleeding Qualified Code(s): K57.20 - Diverticulitis of large intestine with perforation and abscess without bleeding PLAN: Plan The patient is a 58-year-old male admitted for sigmoid diverticulitis with abscess. The abscess is not amenable to percutaneous drainage based on location. Instead he is being treated with antibiotics. Will advance to a low residue diet. Plan is for him to undergo a repeat CT scan as an outpatient and follow-up with Dr. Maher shortly thereafter
[2024-06-06 07:17] VITALS: O2SAT 97
[2024-06-06 08:30] VITALS: BP 155/88; PULSE 69; RESP 18; TEMP 36.8; O2SAT 100
[2024-06-06] MEDS: Pantoprazole Sodium 40 MG in 0.9% Normal Saline (100mL MB+) 100 ML 330 MG IV ×2 (09:08→21:53)
[2024-06-06] MEDS: Enoxaparin 40 MG/0.4 ML Syringe SC (09:09)
[2024-06-06] MEDS: dilTIAZem CD 180 MG Capsule PO ×2 (09:09→21:52)
[2024-06-06] MEDS: Amox/Clavulanate 875 MG Tablet PO ×2 (09:09→21:52)
[2024-06-06] MEDS: Losartan Potassium 100 MG Tablet PO (09:09)
[2024-06-06] MEDS: Fluticasone 0.05% 1 SPRAY NASAL.SRY 2 SPRAY NASAL (09:10)
[2024-06-06] MEDS: Potassium Chloride Oral Tablet 20 MEQ 60 MEQ PO (09:10)
[2024-06-06] MEDS: Loratadine 10 MG Tablet PO (09:10)
[2024-06-06] MEDS: hydroCHLOROthiazide 25 MG Tablet PO (09:10)
[2024-06-06] MEDS: Menthol/Lanolin/Calamine/Znox 113 GM Tube 1 APPLIC TOPICAL ×2 (09:11→21:53)
--- NOTE | 2024-06-06 12:39 | PCM.PN.HOSP ---
Reason for Visit Reason for Visit: Diagnoses Diverticulitis of large intestine with perforation and abscess without bleeding (06/04/24) Diverticulitis of intestine, part unspecified, with perforation and abscess without bleeding (06/04/24) Subjective Subjective Saw patient at bedside this morning. Patient is well-appearing, was sitting up comfortably in bedside chair, conversing normally and in no acute distress. He has been walking around the room without issue. Has very minimal left lower quadrant abdominal pain currently. His main concern is that he has not had a bowel movement yet. However, his abdomen has been soft and nontender and he has been tolerating a diet without issue. Denies any fevers or chills. No other acute concerns this morning. Objective Data Objective Data Vital Signs: Vital Signs Temp Pulse Resp BP Pulse Ox O2 Del Method 98.3 F 69 18 155/88 H 100 Room Air 06/06/24 08:30 06/06/24 08:30 06/06/24 08:30 06/06/24 08:30 06/06/24 08:30 06/06/24 08:30 Oxygen Delivery Method Room Air Weight: 89 kg Body Mass Index (BMI) 30.7 Intake & Output: Intake and Output for Last 24 Hours 06/04/24 06/05/24 06/06/24 23:59 23:59 23:59 Intake Total 3366.67 / 3566.67 1600 / 1600 110 / 110 Balance 3366.67 / 3566.67 1600 / 1600 110 / 110 Lab / Micro Data 06/06/24 04:15 06/06/24 04:15 Labs: Laboratory Results - last 24 hr 06/06/24 04:15: WBC 8.9, RBC 4.17 L, Hgb 13.4, Hct 37.3 L, MCV 89.4, MCH 32.1 H, MCHC 35.9, RDW Std Deviation 38.5, RDW Coeff of Rafita 11.9, Plt Count 265, MPV 9.4, Immature Gran % (Auto) 0.600, Neut % (Auto) 68.1, Lymph % (Auto) 20.5, [place] % (Auto) 7.4, Eos % (Auto) 2.7, Baso % (Auto) 0.7, Absolute Neuts (auto) 6.1, Absolute Lymphs (auto) 1.83, Nucleated RBC % 0, Sodium 139, Potassium 3.2 L, Chloride 105, Carbon Dioxide 26.0, Anion Gap 8, BUN 12, Creatinine 1.08, Estim Creat Clear Calc 77.77, Est GFR (MDRD) Af Amer 90, Est GFR (MDRD) Non-Af 74, BUN/Creatinine Ratio 11.1, Glucose 91, Calcium 8.7 Physical Exam Const alert, oriented x3 and no apparent distress Constitutional Narrative: Pleasant middle-age male, class I obesity, sitting up comfortably in bedside chair, conversing normally, in no acute distress. General Appearance: cooperative and comfortable HEENT normocephalic, head/scalp atraumatic, hearing grossly normal bilaterally, nasal mucous membranes and turbinates normal and moist oral mucous membranes Eyes PERRL, EOMs intact bilaterally and conjunctivae normal Neck full ROM Chest inspection of chest normal Resp normal respiratory effort, normal air movement, no use of accessory muscles and clear to auscultation bilaterally Cardio regular rate, regular rhythm, no murmurs and peripheral pulses 2+ throughout GI GI Narrative: Mild tenderness to palpation noted in left lower quadrant. Abdomen otherwise soft and nondistended with normal bowel sounds. Back/Spine normal ROM Extremity normal to inspection, full ROM and no pedal edema Skin no rashes or lesions noted Psych mental status grossly normal Assessment & Plan Assessment/Plan (1) Diverticulitis of intestine with abscess: QUALIFIERS: Diverticulitis site: large intestine Diverticulitis bleeding: without bleeding Qualified Code(s): K57.20 - Diverticulitis of large intestine with perforation and abscess without bleeding PLAN: Plan Patient is a 58-year-old male who presented [facility] ED on 06/04/2024 with abdominal pain and fevers with chills. 1. Acute diverticulitis of colon with abscess ? Surgery following. CT abdomen pelvis on admit showed acute diverticulitis of distal sigmoid colon with adjacent loculated fluid collection measuring 4.5 cm consistent with abscess, along with significant adjacent mesenteric inflammatory stranding. Per surgery, abscess not amenable to percutaneous drainage based on location. Treated with IV antibiotics and patient with improvement in abdominal pain and fever/chills, now transitioned to p.o. antibiotics. Surgery advancing diet and patient tolerating this well. Still awaiting bowel movement at this time. Per surgery, current plan is to undergo repeat CT scan as an outpatient with surgery follow-up in the office. Will be okay for discharge home once cleared by surgery. 2. Hypokalemia ? Repleting as needed. Chronic medical conditions: ? Class I obesity: BMI 30 on admit. Complicates hospital course, care and prognosis. ? History of hypertrophic obstructive cardiomyopathy, hypertension, hyperlipidemia: Stable. Continue home diltiazem, hydrochlorothiazide, and losartan. ? SHAY: Continue CPAP at night. ? Seasonal allergies: Continue home loratadine. DVT prophylaxis: Lovenox CODE STATUS: Full code, verified Expected disposition: Home, TBD Total clinical time spent by myself addressing the patient's medical issues, reviewing all the data, and collaborating with patient's care team: 35 minutes. Charges/Coding Visit Charges Inpatient E&M: 48910 Subs Hosp L2
[2024-06-06] MEDS: Polyethylene Glycol 3350 17 GM PACKET PO (12:58)
[2024-06-06 16:30] VITALS: BP 189/82; PULSE 80; RESP 18; TEMP 37.1; O2SAT 100
[2024-06-06 21:49] VITALS: BP 164/87; PULSE 80; RESP 18; TEMP 37.2; O2SAT 97
[2024-06-06] MEDS: Temazepam 15 MG Capsule PO (21:53)
[2024-06-06] MEDS: Acetaminophen 325 MG Tablet 650 MG PO (21:59)
[2024-06-07 03:50] VITALS: BMI 30.2
[2024-06-07 04:10] VITALS: BP 154/71; PULSE 67; RESP 18; TEMP 36.8; O2SAT 97
[2024-06-07 07:55] LABS: Anion Gap 7 (5-15); BUN 13 mg/dL (7-18); BUN/Creat Ratio 12.1 RATIO (10-20); Calcium,Total 8.9 mg/dL (8.5-10.1); Chloride 107 mmol/L (98-107); Creatinine, Serum 1.07 mg/dL (0.70-1.30); EST Glomerular Filtration Rate 75 mL/min (>60); Est Glom Filt Rate - Afr Amer 91 mL/min (>60); Estimated Creatinine Clearance 78.58 ml/min; Glucose 109 mg/dL (74-106); Potassium 3.7 mmol/L (3.5-5.1); Sodium Level 138 mmol/L (136-145)
[2024-06-07 08:18] VITALS: O2SAT 97
[2024-06-07 08:26] VITALS: BP 155/90; PULSE 68; RESP 18; TEMP 36.8; O2SAT 95
[2024-06-07] MEDS: Pantoprazole Sodium 40 MG in 0.9% Normal Saline (100mL MB+) 100 ML 330 MG IV (09:23)
[2024-06-07] MEDS: Amox/Clavulanate 875 MG Tablet PO (09:23)
--- NOTE | 2024-06-07 09:25 | PCM.PN.SRG ---
Subjective Subjective Patient was seen this morning on rounds. He was initially in the bathroom having a bowel movement. He states his abdomen feels great and he is not having any further abdominal pain. He is hopeful that he can go home today. He is not having any further abdominal cramping as he was yesterday Objective Data Objective Data Vital Signs: Vital Signs Temp Pulse Resp BP Pulse Ox O2 Del Method 98.2 F 68 18 155/90 H 95 Room Air 06/07/24 08:26 06/07/24 08:26 06/07/24 08:26 06/07/24 08:26 06/07/24 08:26 06/07/24 08:26 Oxygen Delivery Method Room Air Weight: 193 lb 5.526 oz Body Mass Index (BMI) 30.2 Intake & Output: Intake and Output for Last 24 Hours 06/05/24 06/06/24 06/07/24 23:59 23:59 23:59 Intake Total 1600 / 1600 770 / 770 Balance 1600 / 1600 770 / 770 Lab / Micro Data 06/06/24 04:15 06/07/24 06:24 Labs: Laboratory Results - last 24 hr 06/07/24 06:24: Sodium 138, Potassium 3.7, Chloride 107, Carbon Dioxide 24.0, Anion Gap 7, BUN 13, Creatinine 1.07, Estim Creat Clear Calc 78.58, Est GFR (MDRD) Af Amer 91, Est GFR (MDRD) Non-Af 75, BUN/Creatinine Ratio 12.1, Glucose 109 H, Calcium 8.9 Physical Exam Narrative He is alert and oriented x 3. He is in no acute distress. Abdomen is soft nontender nondistended. He has no significant tenderness to palpation in the left lower quadrant. Certainly no rebound or guarding. Assessment & Plan Assessment/Plan (1) Diverticulitis of intestine with abscess: QUALIFIERS: Diverticulitis site: large intestine Diverticulitis bleeding: without bleeding Qualified Code(s): K57.20 - Diverticulitis of large intestine with perforation and abscess without bleeding PLAN: Plan The patient is a 58-year-old male who was admitted for sigmoid diverticulitis with abscess. This abscess was not amenable to percutaneous drainage based on location. He has been treated with IV antibiotics and seems to be resolving nicely. All of his abdominal pain has resolved. He has produced a bowel movement. He is okay for discharge from a surgical standpoint. Patient is in agreement with this plan. I did speak with his daughter as well and she also was in agreement. Plan is for outpatient CT scan next week. This was scheduled by our physician assistant merchandise manager yesterday. Patient will also follow-up with Dr. Maher the following week.
[2024-06-07] MEDS: 0.9% Saline Lock 10 ML Syringe IV (09:28)
[2024-06-07] MEDS: Loratadine 10 MG Tablet PO (09:37)
[2024-06-07] MEDS: hydroCHLOROthiazide 25 MG Tablet PO (09:37)
[2024-06-07] MEDS: Fluticasone 0.05% 1 SPRAY NASAL.SRY 2 SPRAY NASAL (09:39)
--- NOTE | 2024-06-07 09:58 | PCM.DC.SUM ---
Providers Date of Admission: 06/04/24 Date of Discharge: 06/07/24 Primary Care Physician: Dr. Wendie Louise MD Consultations 06/04/24 03:42 Consult: General Surgery Routine Consulting Provider: Vanessa Maher Reason for Consult: Diverticulitis with abscess EMERGENT Consult: No MD Notified: Yes Date Notified: 06/04/24 Time Notified: 02:44 Method of Notification: ED Physician Initiated Reason For Visit: ACUTE DIVERTICULITIS Diagnosis Discharge Diagnosis (1) Diverticulitis of intestine with abscess: Status: Acute Code(s): K57.80 - Diverticulitis of intestine, part unspecified, with perforation and abscess without bleeding Qualifiers: Diverticulitis bleeding: without bleeding Diverticulitis site: large intestine Qualified Code(s): K57.20 - Diverticulitis of large intestine with perforation and abscess without bleeding Medications at Discharge Home Medications fluticasone propionate 50 mcg/actuation nasal spray,suspension (Allergy Relief (fluticasone)) 2 spray intranasal DAILY 02/05/18 multivitamin 1 tab PO DAILY 09/15/20 cpap 03/28/22 cholecalciferol (vitamin D3) 50 mcg (2,000 unit) capsule 50 mcg PO DAILY 10/30/23 loratadine 10 mg tablet (Claritin) 10 mg PO DAILY 10/30/23 krill 1,000 mg-omega-3 230 mg-dha 60 no-jpx-hroacaach-astaxan capsule (MegaRed Terreton-3 Krill Oil) 1 cap PO BID #180 caps 12/05/23 sildenafil (pulm.hypertension) 20 mg tablet 20 mg PO .COMPLEX PRN sexual activity #30 tabs 04/22/24 hydrochlorothiazide 25 mg tablet 25 mg PO DAILY #90 tabs 05/16/24 losartan 100 mg tablet 100 mg PO DAILY #90 tabs 05/16/24 diltiazem HCl 180 mg capsule,extended release 24 hr, controlled (DILT-XR) 180 mg PO BID 06/04/24 amoxicillin 875 mg-potassium clavulanate 125 mg tablet 1 tab PO BID 4 days #8 tabs 06/07/24 Hospital Course Operations None Procedures - (CT abdomen pelvis) Summary of Care Provided Minutes Spent on Discharge: 35 Hospital Course: Patient is a 58-year-old male who presented [facility] ED on 06/04/2024 with abdominal pain and fevers with chills. Hospital course as noted below. Patient discharged home in stable condition on 06/07. 1. Acute diverticulitis of colon with abscess ? Surgery followed. CT abdomen pelvis on admit showed acute diverticulitis of distal sigmoid colon with adjacent loculated fluid collection measuring 4.5 cm consistent with abscess, along with significant adjacent mesenteric inflammatory stranding. Per surgery, abscess not amenable to percutaneous drainage based on location. Treated with IV antibiotics and patient with improvement in abdominal pain and fever/chills. Advanced diet per surgery recommendations and tolerated without issue. Had good bowel movement on day of discharge. Okay for discharge home on 06/07 with plan for repeat CT scan and outpatient surgery follow-up in the next week. Discharged on p.o. antibiotics to complete 7-day course of antibiotics total. 2. Hypokalemia ? Repleted as needed. Chronic medical conditions: ? Class I obesity: BMI 30 on admit. Complicated hospital course, care and prognosis. ? History of hypertrophic obstructive cardiomyopathy, hypertension, hyperlipidemia: Stable. Continue home diltiazem, hydrochlorothiazide, and losartan. ? SHAY: Continue CPAP at night. ? Seasonal allergies: Continue home loratadine. Total clinical time spent by myself addressing the patient's medical issues, reviewing all the data, and collaborating with patient's care team: 35 minutes. Physical Exam Const alert, oriented x3 and no apparent distress Constitutional Narrative: Pleasant middle-age male, class I obesity, sitting up comfortably in bedside chair, conversing normally, in no acute distress. Stable. General Appearance: cooperative and comfortable HEENT normocephalic, head/scalp atraumatic, hearing grossly normal bilaterally, nasal mucous membranes and turbinates normal and moist oral mucous membranes Eyes PERRL, EOMs intact bilaterally and conjunctivae normal Neck full ROM Chest inspection of chest normal Resp normal respiratory effort, normal air movement, no use of accessory muscles and clear to auscultation bilaterally Cardio regular rate, regular rhythm, no murmurs and peripheral pulses 2+ throughout GI normal to inspection, nondistended, normoactive bowel sounds, soft to palpation, non-tender and non-distended Back/Spine normal ROM Extremity normal to inspection, full ROM and no pedal edema Skin no rashes or lesions noted Psych mental status grossly normal Weight / BMI Weight Weight: 87.7 kg Body Mass Index (BMI) 30.2 ABG / Lab / Microbiology Data 06/06/24 04:15 06/07/24 06:24 Laboratory: Laboratory Results - last 24 hr 06/07/24 06:24: Sodium 138, Potassium 3.7, Chloride 107, Carbon Dioxide 24.0, Anion Gap 7, BUN 13, Creatinine 1.07, Estim Creat Clear Calc 78.58, Est GFR (MDRD) Af Amer 91, Est GFR (MDRD) Non-Af 75, BUN/Creatinine Ratio 12.1, Glucose 109 H, Calcium 8.9 D/C Instructions DC O2, CPAP, BIPAP Needs Home O2 Discharge instructions: No Meaningful Use Info Meaningful Use Meaningful Use Diagnoses (Choose all that apply): None applicable Ischemic Stroke Statin Dosing Therapy Reference: STATIN DOSE THERAPY REFERENCE: * Patients > 75 years receive moderate or high dose statin therapy. * Patients 75 years or YOUNGER should receive HIGH intensity statin dose unless contraindicated. You will be required to document reason for non-treatment if statin daily dose does not meet guidelines. HIGH DOSE STATIN THERAPY DAILY Atorvastatin > than or = to 40 mg Rosuvastatin > than or = to 20 mg Amlodipine + Atorvastatin > than or = to 2.5/40 mg Ezetimibe + Simvastatin 10/80 mg Simvastatin 80mg Discharge Plan Admission Admit Date/Time: 06/04/24 02:43 Primary Reason for Your Visit: abdominal pain Attending Provider: Danny Lagunas Primary Care Provider: Wendie Louise Consulting Providers: Vanessa Maher; Adina Parikh; Colten Shaw Instructions Additional Instructions / Restrictions: Repeat CT scan of ab/pel as an outpatient is scheduled for next 06/13 at 4 pm. You will follow-up with Dr. Maher on Wednesday 06/14. Continue on a low residue diet until follow-up Take 4 more days of Augmentin to complete 7 day course of antibiotics Discharge Orders/Prescriptions Prescriptions: New amoxicillin-pot clavulanate 875-125 mg Tablet 1 tab PO BID 4 Days Qty: 8 0RF Continued fluticasone propionate [Allergy Relief (fluticasone)] 50 mcg/actuation spray,suspension 2 spray INTRANASAL DAILY multivitamin Tablet 1 tab PO DAILY (DME) cpap See Rx Instructions .Route .MEDSUPPLY Rx Instructions: setting of 12 cholecalciferol (vitamin D3) 50 mcg (2,000 unit) capsule 50 mcg PO DAILY loratadine [Claritin] 10 mg tablet 10 mg PO DAILY diltiazem HCl [DILT-XR] 180 mg capsule,ext.rel 24h degradable 180 mg PO BID [id number] [MegaRed Terreton-3 Krill Oil] 1,000-230-60 mg capsule 1 cap PO BID Qty: 180 3RF sildenafil (pulm.hypertension) 20 mg tablet 20 mg PO .COMPLEX PRN (Reason: sexual activity) Qty: 30 1RF Rx Instructions: One tablet daily as needed. hydrochlorothiazide 25 mg tablet 25 mg PO DAILY Qty: 90 0RF losartan 100 mg tablet 100 mg PO DAILY Qty: 90 0RF Referrals / Follow Up: Wendie Louise MD [Primary Care Provider] - Vanessa Maher MD [Med Staff - Active Staff] - 06/14/24 Disposition Disposition (needs filled in before D/C Order can be placed): Home, Self Care Charges/Coding Visit Charges Inpatient E&M: 55849 Disch Hosp >30min
[2024-06-07] MEDS: Losartan Potassium 100 MG Tablet PO (10:18)
[2024-06-07] MEDS: dilTIAZem CD 180 MG Capsule PO (10:19)
--- NOTE | 2024-06-07 11:55 | CASEMGMT ---
CARLOS BARDALES note: Discharge order is in. CARLOS BARDALES to room. Pt up ad quinton in room. He denies having any discharge needs/concerns. He is aware Rx has been sent to [facility]
[2024-06-07 12:15] VITALS: BP 152/78; PULSE 74; RESP 18; TEMP 36.9; O2SAT 95
== END 2024-06-07 12:27 | disposition home or self-care (01) | DRG 392 ==
LOC: ED 06-04 02:35 → MS3 06-04 04:10 → MS2 06-04 11:48
PROVIDERS: Physician Assistant; Admitting Provider Family Medicine; Emergency Provider Emergency Medicine; PCP Internal Medicine; Referring Provider Family Medicine; Visit Provider Hospitalist
DX: K57.20 Diverticulitis of large intestine with perforation and abscess without bleeding (principal); I42.1 Obstructive hypertrophic cardiomyopathy; I10 Essential (primary) hypertension; Z68.30 Body mass index [BMI] 30.0-30.9, adult; G47.33 Obstructive sleep apnea (adult) (pediatric); E78.5 Hyperlipidemia, unspecified; E87.6 Hypokalemia; J30.2 Other seasonal allergic rhinitis; E66.811 Obesity, class 1; Z79.899 Other long term (current) drug therapy
CPT/HCPCS: 36415; 74177; 80048; 80053; 80076; 83690; 83735; 85025; 99284; Q9967; A4216; J2405

== ENCOUNTER → 2024-06-12 | Outpatient (CLI) | payer SELFPAY ==
[2024-06-12 08:37] LABS: Absolute Lymphocyte Count 2.52 X10^3/uL (0.83-4.51); Absolute Neutrophil Count 3.7 X10^3/uL (2.0-7.7); Basophil# 0.05 X10^3/uL; Basophil% 0.7 % (0-1); Eosinophil# 0.23 X10^3/uL; Eosinophils% 3.2 % (0-5); Hematocrit 42.1 % (40-54); Hemoglobin 14.8 g/dL (13.0-16.5); Lymphocyte # 2.52 X10^3/ul (0.83-4.51); Lymphocyte % 35.4 % (19-41); Mean Corp Hgb Conc 35.2 g/dL (32-36); Mean Corpuscular Hgb 31.6 pg (27.0-32.0); Mean Platelet Vol. 9.1 fl (6.2-12.0); Monocyte# 0.59 X10^3/uL; Monocyte% 8.3 % (0-10); NRBC Flagged by Analyzer 0 % (0-5); Neutrophil # 3.69 X10^3/uL (2.7-7.7); Neutrophil % 51.8 % (47-70); Platelet Count 360 K/mm3 (150-450); RBC Distribution Width SD 39.1 fl (35.1-43.9); Red Blood Count 4.68 M/mm3 (4.6-6.2); White Blood Count 7.1 K/mm3 (4.4-11.0)
[2024-06-12 09:02] LABS: Vitamin D,25 Hydroxy 34.4 ng/mL
[2024-06-12 09:08] LABS: ALB/GLOB Ratio 0.8 RATIO (0.9-2.4); AST(SGOT) 20 U/L (15-37); Alanine Aminotransfer ALT/SGPT 44 U/L (16-61); Albumin, Serum 3.4 g/dL (3.2-5.0); Alkaline Phosphatase 63 U/L (45-117); Anion Gap 5 (5-15); BUN 26 mg/dL (7-18); BUN/Creat Ratio 21.3 RATIO (10-20); Calcium,Total 9.1 mg/dL (8.5-10.1); Chloride 108 mmol/L (98-107); Cholesterol 119 mg/dL (200); Creatinine, Serum 1.22 mg/dL (0.70-1.30); EST Glomerular Filtration Rate 65 mL/min (>60); Est Glom Filt Rate - Afr Amer 78 mL/min (>60); Globulin 4.2 g/dL (2.2-4.2); Glucose 94 mg/dL (74-106); High Density Lipoprotein 36 mg/dL; Potassium 3.7 mmol/L (3.5-5.1); Protein, Total 7.6 g/dL (6.4-8.2); Sodium Level 139 mmol/L (136-145); Triglycerides 210 mg/dL; Very Low Density Lipoprotein 42 mg/dL (5-40)
== END | disposition home or self-care (01) ==
LOC: LAB 08:11
PROVIDERS: PCP Internal Medicine; Referring Provider Internal Medicine; Visit Provider Internal Medicine
DX: E88.810 Metabolic syndrome (principal); I42.1 Obstructive hypertrophic cardiomyopathy; E55.9 Vitamin D deficiency, unspecified; E78.1 Pure hyperglyceridemia; E78.5 Hyperlipidemia, unspecified; G47.33 Obstructive sleep apnea (adult) (pediatric); Z99.89 Dependence on other enabling machines and devices
CPT/HCPCS: 36415; 80053; 80061; 82306; 84443; 85025

== ENCOUNTER → 2024-06-13 | Outpatient (CLI) | payer SELFPAY ==
--- NOTE | 2024-06-13 15:50 | CT_ITS ---
EXAM: CT Abdomen and Pelvis With Intravenous Contrast CLINICAL INDICATION: TECHNIQUE: Axial computed tomography images of the abdomen and pelvis with intravenous contrast. This CT exam was performed using one or more of the following dose reduction techniques: automated exposure control, adjustment of the mA and/or kV according to patient size, and/or use of iterative reconstruction technique. COMPARISON: No relevant prior studies available. FINDINGS: LUNG BASES: Unremarkable. No mass. No consolidation. ABDOMEN: LIVER: Hepatomegaly with fatty infiltration. GALLBLADDER AND BILE DUCTS: Unremarkable. No calcified stones. No ductal dilation. PANCREAS: Unremarkable. No mass. No ductal dilation. SPLEEN: Unremarkable. No splenomegaly. ADRENALS: Unremarkable. No mass. KIDNEYS AND URETERS: Simple bilateral renal cysts. No stones within either kidney. No hydronephrosis. STOMACH AND BOWEL: Scattered diverticula in the colon. There is mucosal thickening in the sigmoid colon with surrounding inflammation consistent with acute diverticulitis. No abscess. Fecal retention in the colon consistent with constipation. No obstruction. PELVIS: APPENDIX: No findings to suggest acute appendicitis. BLADDER: Unremarkable. No mass. REPRODUCTIVE: Unremarkable as visualized. ABDOMEN and PELVIS: INTRAPERITONEAL SPACE: Unremarkable. No free air. No significant fluid collection. BONES/JOINTS: No acute fracture. No dislocation. SOFT TISSUES: Umbilical hernia containing fat. Inguinal hernias bilaterally. VASCULATURE: Scattered calcified atherosclerotic disease of aorta. No abdominal aortic aneurysm. LYMPH NODES: Unremarkable. No enlarged lymph nodes. CT/Abdomen/Pelvis WITH Contrast IMPRESSION: 1. Scattered diverticula in the colon. There is mucosal thickening in the sig moid colon with surrounding inflammation consistent with acute diverticulitis. No abscess. 2. Hepatomegaly with fatty infiltration. 3. Fecal retention in the colon consistent with constipation. 4. Umbilical hernia containing fat. 5. No obstructive uropathy. Reading [facility]
== END | disposition home or self-care (01) ==
PROVIDERS: PCP Internal Medicine; Referring Provider Physician Assistant; Visit Provider Physician Assistant
DX: K57.20 Diverticulitis of large intestine with perforation and abscess without bleeding (principal)
CPT/HCPCS: 74177; Q9967

== ENCOUNTER → 2024-06-20 | Outpatient (CLI) | payer SELFPAY ==
--- NOTE | 2024-06-20 08:28 | CT_ITS ---
PROCEDURE: CT ABDOMEN AND PELVIS WITH CONTRAST REASON FOR EXAM: RECHECKED DIVERTICULITIS WITH ABSCESS. TECHNIQUE: Contiguous axial scans of 3.75 mm slice thicknesses. Sagittal and coronal reconstruction images were obtained. One or more dose reduction techniques were used (e.g., automated exposure control, adjustment of mA and/or kv according to patient size, use of iterative reconstruction technique). IV CONTRAST: Isovue-300. 95 mL. COMPARISON: CT abdomen and pelvis dated 06/04/2024. FINDINGS: Lung bases: Clear Liver: Unremarkable. Gallbladder: Unremarkable. Spleen: Unremarkable. Pancreas: Unremarkable. Adrenals: Unremarkable. Kidneys: Bilateral parapelvic cysts, stable. Bladder: Unremarkable. Reproductive Organs: Fgcl-ml-bosntlhe prostatomegaly. Prostate gland calcification. Bowel: Small hiatal hernia. Interval improvement in the diverticular colitis in the associated inflammatory changes and/or abscess. Appendix: Normal. Lymph nodes: No suspicious lymph node enlargement. Vasculature: Major vascular structures are unremarkable. Peritoneum / Retroperitoneum: No ascites. No free air. Abdominal wall: Bilateral fat containing inguinal hernias. Bones: Multilevel spondylosis. CT/Abdomen/Pelvis WITH Contrast IMPRESSION: 1. Improving sigmoid diverticulitis as detailed above. 2. Prostatomegaly with signs of chronic prostatitis. 3. Bilateral parapelvic cysts. 4. Small stationary hiatal hernia. Reading Location: [facility]
== END | disposition home or self-care (01) ==
LOC: CT 08:24
PROVIDERS: PCP Internal Medicine; Referring Provider Surgery; Visit Provider Surgery
DX: K57.20 Diverticulitis of large intestine with perforation and abscess without bleeding (principal)
CPT/HCPCS: 74177; Q9967

== ENCOUNTER → 2024-07-23 | Outpatient (CLI) | payer SELFPAY ==
--- NOTE | 2024-07-23 12:18 | CT_ITS ---
EXAM: CT Abdomen and Pelvis With Intravenous Contrast CLINICAL INDICATION: DIVERTICULITIS W/ ABSCESS TECHNIQUE: Axial computed tomography images of the abdomen and pelvis with intravenous contrast. This CT exam was performed using one or more of the following dose reduction techniques: automated exposure control, adjustment of the mA and/or kV according to patient size, and/or use of iterative reconstruction technique. COMPARISON: CT Abdomen Pelvis dated 06/20/2024 large fatty liver FINDINGS: LUNG BASES: Unremarkable. No mass. No consolidation. ABDOMEN: LIVER: Unremarkable. No mass. GALLBLADDER AND BILE DUCTS: Unremarkable. No calcified stones. No ductal dilation. PANCREAS: Unremarkable. No mass. No ductal dilation. SPLEEN: Unremarkable. No splenomegaly. ADRENALS: Unremarkable. No mass. KIDNEYS AND URETERS: Bilateral renal cysts, stable. No hydronephrosis. STOMACH AND BOWEL: Scattered diverticula in the colon. There is mucosal thickening in the sigmoid colon with surrounding inflammation consistent with acute diverticulitis. No abscess. Constipation with suggestion of fecal impaction of the rectum. No obstruction. PELVIS: APPENDIX: No findings to suggest acute appendicitis. BLADDER: Unremarkable. No mass. REPRODUCTIVE: Unremarkable as visualized. ABDOMEN and PELVIS: INTRAPERITONEAL SPACE: Unremarkable. No free air. No significant fluid collection. BONES/JOINTS: No acute fracture. No dislocation. SOFT TISSUES: Bilateral inguinal hernias. VASCULATURE: Unremarkable. No abdominal aortic aneurysm. LYMPH NODES: Unremarkable. No enlarged lymph nodes. CT/Abdomen/Pelvis WITH Contrast IMPRESSION: 1. Scattered diverticula in the colon. There is mucosal thickening in the sig moid colon with surrounding inflammation consistent with acute diverticulitis. No abscess. 2. Constipation with suggestion of fecal impaction of the rectum. 3. Bilateral inguinal hernias. Reading [facility]
== END | disposition home or self-care (01) ==
LOC: CT 09:53
PROVIDERS: PCP Internal Medicine; Referring Provider Surgery; Visit Provider Surgery
DX: K57.20 Diverticulitis of large intestine with perforation and abscess without bleeding (principal)
CPT/HCPCS: 74177; Q9967

== ENCOUNTER → 2024-12-24 | Outpatient (CLI) | payer OTHER, SELFPAY ==
--- NOTE | 2024-12-24 13:47 | ECHOD_ITS ---
Reason For Study Reason For Study: HCM Procedure This was a 2D Doppler, Color Flow transthoracic echocardiogram. Myocardial strain analysis was performed in this exam to aid in the assessment of cardiac function. Exam performed in department. Left Ventricle Normal LV size. Moderate eccentric left ventricular hypertrophy. The left ventricular ejection fraction is 60 %. Stage 1 diastolic dysfunction. No regional wall motion abnormalities noted. Right Ventricle Normal RV size. Normal systolic function. Atria Normal left atrium. Normal right atrium. Mitral Valve Normal mitral valve. Tricuspid Valve Normal tricuspid valve. Aortic Valve Trisinus/trileaflet aortic valve. Pulmonic Valve Normal pulmonic valve. Great Vessels Normal aortic root. The pulmonary artery is normal size. Inferior vena cava collapse with respiration. Pericardium/Pleural No pericardial effusion. MMode/2D Measurements & Calculations LVIDd: 4.8 cm IVSd: 1.6 cm LVOT diam: 2.2 cm LVIDs: 3.0 cm LVPWd: 1.1 cm LVOT area: 3.8 cm2 RVDd: 3.3 cm FS: 36.6 % CO(Teich): 4.3 l/min asc Aorta Diam: 3.5 cm LAV(MOD- bp): 63.7 ml LAV(MOD- bp) Indexed: 31.8 ml/m2 LAV(MOD- sp2): 71.4 ml LAV(MOD- sp4): 54.5 ml CO(MOD- sp4): 2.5 l/min LVAd ap4: 25.4 cm2 LVAd ap2: 23.2 cm2 SV(MOD- sp4): 40.9 ml LVLd ap4: 7.6 cm LVLd ap2: 7.8 cm EDV(MOD-sp4): 69.8 ml EDV(MOD-sp2): 57.5 ml SI(MOD- sp4): 20.5 ml/m2 EDV(sp4-el): 72.3 ml EDV(sp2-el): 59.0 ml LVAs ap4: 14.5 cm2 LVAs ap2: 12.9 cm2 LVLs ap4: 6.5 cm LVLs ap2: 6.9 cm ESV(MOD-sp4): 28.9 ml ESV(MOD-sp2): 21.7 ml ESV(sp4-el): 27.5 ml ESV(sp2-el): 20.6 ml EF(MOD-sp4): 58.6 % EF(MOD-sp2): 62.2 % EF(sp4-el): 61.9 % SV(MOD-sp2): 35.8 ml SV(sp4-el): 44.8 ml Ao sinus diam: 3.6 cm SI(MOD-sp2): 17.9 ml/m2 Ao ST Junction: 3.0 cm LA dimension(2D): 4.4 cm LA A4 area: 19.0 cm2 TAPSE: 2.6 cm RA A4 area: 10.9 cm2 Time Measurements MV dec time: 0.20 sec Doppler Measurements & Calculations MV E max kyle: 61.2 cm/sec Lat Peak E' Kyle: 12.6 cm/sec Med Peak E' Kyle: 5.9 cm/sec MV A max kyle: 65.1 cm/sec E/E' lat: 4.9 E/E' med: 10.4 MV E/A: 0.94 MV dec slope: 306.6 cm/sec2 Ao V2 max: 176.6 cm/sec LV V1 max: 155.6 cm/sec Ao max P.5 mmHg LV V1 max P.7 mmHg Ao V2 mean: 122.5 cm/sec LV V1 mean P.1 mmHg Ao mean P.0 mmHg LV V1 mean: 119.9 cm/sec Ao V2 VTI: 37.9 cm LV V1 VTI: 31.1 cm AV (velocity ratio): 0.82 ROSALIO(I,D): 3.1 cm2 ROSALIO(V,D): 3.4 cm2 CO(LVOT): 7.2 l/min PA V2 max: 114.6 cm/sec SV(LVOT): 119.2 ml ECHO/Echo Complete Interpretation Summary Normal LV size. The left ventricular ejection fraction is 60 %. Moderate eccentric left ventricular hypertrophy. Stage 1 diastolic dysfunction. Ordering Physician: Lety Joseph Referring Physician: Wendie Louise M.D. Performed By: Tracey Puckett RDCS
--- OUTSIDE RECORDS SUMMARY | 2024-12-24 21:28 | XMS RPT_ITS | CCD ---
Author Organization [facility] Care Team Providers Care Tapper Bit Name Role Phone PCP, NONE Unavailable Unavailable LESIA KINCAID Unavailable Unavailable Dr. Parker Villavicencio Primary Care Provider [phone] Dr. Parker Villavicencio Referring Provider [phone] Opal CRESPO PA Lety Thompson Attending Provider Dr. Parker Villavicencio Primary Care Provider [phone] Dr. Parker Villavicencio Referring Provider [phone] ZKA Barr Attending Provider Dr. Wendie Louise Primary Care Provider Dr. Wendie Louise Attending Provider Dr. Wendie Louise Primary Care Provider Dr. Wendie Louise Referring Provider ZAK Steele Attending Provider ZAK Ortiz Attending Provider Dr. Flako Adam Attending Provider Dr. Wendie Louise Primary Care Provider Dr. Wendie Louise Referring Provider ZAK Steele Attending Provider Dr. Wendie Louise Attending Provider Dr. Wendie Louise MD Primary Care Provider Dr. Josué Valdez DO Emergency Provider Dr. Adina Parikh MD Admit Provider Dr. Adina Parikh MD Referring Provider Kati WATKINS, Dr. Adina Urban Other Provider Gunnar WATKINS, Dr. Mendez Other Provider Bebo WALTON, Dr. Delgado Attending Provider Colin WATKINS, Dr. Abel Other Provider Gunnar WATKINS, Dr. Mendez Attending Provider Cathy ANTONY, Rhea Attending Provider Colin WATKINS, Dr. Abel Attending Provider Fran WATKINS, Dr. Ifeanyi Castro Attending Provider Bebo WALTON, Dr. Delgado Other Provider Dani WATKINS, Dr. Pressley Attending Provider Dani WATKINS, Dr. Pressley Referring Provider Cathy ANTONY, Rhea Referring Provider Gunnar WATKINS, Dr. Mendez Referring Provider Dani WATKINS, Dr. Pressley Primary Care Provider Gunnar WATKINS, Dr. Mendez Attending Provider Gunnar WATKINS, Dr. Mendez Referring Provider Dani WATKINS, Dr. Pressley Referring Provider Fran WATKINS, Dr. Ifeanyi Castro Attending Provider Lety Ortiz Attending Provider Dani, Wendie Primary Care Unavailable Robotham, Vanessa Attending Unavailable Dani, Wendie Referring Unavailable Ifeanyi Peters Attending Unavailable Dani, Wendie Referring Unavailable Dani, Wendie Primary Care Unavailable Cathy CRESPO Amanda Attending Unavailable Morgna PA, Rhea Referring Unavailable Dani, Wendie Primary Care Unavailable Cathy CRESPO Amanda Attending Unavailable Adina Parikh Referring Unavailable Adina Parikh Admitting Unavailable Robotham, Vanessa Consulting Unavailable Dani, Wendie Primary Care Unavailable Adina Parikh Consulting Unavailable Colten Shaw Consulting Unavailable Robotham, Vanessa Attending Unavailable Dani, Wendie Referring Unavailable Dani, Wendie Primary Care Unavailable Dani, Wendie Primary Care Unavailable Dani, Wendie Attending Unavailable Dani, Wendie Primary Care Unavailable Robotham, Vanessa Attending Unavailable Robotham, Vanessa Referring Unavailable Robotham, Vanessa Attending Unavailable Robotham, Vanessa Referring Unavailable Dani, Wendie Primary Care Unavailable Lety Ortiz Attending Unavail able Dani, Wendie Referring Unavailable Dani, Wendie Primary Care Unavailable Lety Ortiz Attending Unavail able Lety Ortiz Referring Unavail able Dani, Wendie Primary Care Unavailable Dani, Wendie Attending Unavailable Dani, Wendie Referring Unavailable Dani, Wendie Primary Care Unavailable Adina Parikh L Referring Unavailable Adina Parikh Admitting Unavailable Robotham, Vanessa Consulting Unavailable Danny Lagunas Attending Unavailable Dani, Wendie Primary Care Unavailable Adina Parikh L Consulting Unavailable Colin, Colten Consulting Unavailable Lety Ortiz Attending Unavail able Opal CRESPO, Lety Thompson Referring Unavail able Dani, Wendie Primary Care Unavailable Robotham, Vanessa Attending Unavailable Dani, Wendie Referring Unavailable Dani, Wendie Primary Care Unavailable Colin, Colten Attending Unavailable Ifeanyi Peters Attending Unavailable Danny Lagunas Attending Unavailable Danny Lagunas Consulting Unavailable Adina Parikh Attending Unavailable Gunnar, Vanessa Attending Unavailable Allergies Allergy Classification Reported Allergen(s) Allergy Type Date of Onset Reaction(s) Facility (2 sources) cat dander; Translations: [cat dander] Allergy to substance Shortness of breath [facility] Medications Current Medications Medication Drug Class(es) Dates Sig (Normalized) Sig (Original) cetirizine hydrochloride 10 mg oral tablet (1 source) Histamine-1 Receptor Antagonist Start: 11-13-2024 take 1 tablet by mouth every other week as needed Cetirizine (Zyrtec) 10 mg tablet Active 10 mg PO .COMPLEX as needed November 13, 2024 12:00am 10 mg orally Daily every other week, alternating with claritin PRN; cholecalciferol 0.05 mg oral capsule (2 sources) Vitamin D Start: 10-30-2023 take 1 capsule by mouth once daily Cholecalciferol (Vitamin D3) 50 mcg (2,000 unit) capsule Active 50 ug PO DAILY October 30, 2023 12:00am cpap (6 sources) Start: 03-28-2022 cpap Active 0 .Route .MEDSUPPLY March 28, 2022 12:00am setting of 12 Start: 03-28-2022 cpap Active 0 .Route .MEDSUPPLY March 28, 2022 1:00am setting of 12 Start: 03-28-2022 cpap Active 0 .ROUTE .MEDSUPPLY March 28, 2022 12:00am setting of 12 24 hr dilTIAZem hydrochloride 180 mg extended release oral capsule (13 sources) Calcium Channel Mirian Start: 06-04-2024 End: 08-05-2024 take 1 capsule by mouth twice daily Diltiazem Hcl (Dilt-Xr) 180 mg capsule,ext.rel 24h degradable Active 180 mg PO TWICE A DAY 180 0 August 05, 2024 12:12pm Start: 07-26-2022 End: 08-07-2023 take 1 capsule by mouth twice daily Diltiazem Hcl 180 mg capsule,extended release 24hr Discontinued 180 mg PO TWICE A DAY 60 July 26, 2022 9:52am August 07, 2023 2:23pm fluticasone propionate 0.05 mg/actuat metered dose nasal spray (9 sources) Corticosteroid Start: 02-05-2018 End: 08-05-2024 Fluticasone Propionate (Allergy Relief (Fluticasone)) 50 mcg/actuation spray,suspension Active 2 NMA INTRANASAL DAILY 16 August 05, 2024 12:27pm Start: 02-05-2018 Fluticasone Pr opionate (Allergy Relief (Fluticasone)) 50 mcg/actuation spray,suspension Active 2 SPRAY INTRANASAL DAILY February 04, 2018 11:00pm hydroCHLOROthiazide 25 mg oral tablet (20 sources) Thiazide Diuretic Start: 04-03-2018 End: 11-04-2024 take 1 tablet by mouth once daily Hydrochlorothiazide 25 mg tablet Active 25 mg PO DAILY 90 November 04, 2024 7:25am Start: 05-12-2017 End: 12-04-2017 take 1 tablet by mouth once daily Hydrochlorothiazide 25 mg tablet Discontinued 25 mg PO daily May 12, 2017 1:00am December 04, 2017 4:30pm Njvcj-Ca-7-Vas-Vdl-Fjlxpek-A st (Megared Sheridan-3 Krill Oil) 1,000-230-60 mg capsule (11 sources) Start: 10-04-2024 take 3 capsules by mouth twice daily Bsnzl-Zb-4-Kdz-Ttx-Zgaeyhj-Ast (Megared Sheridan-3 Krill Oil) 1,000-230-60 mg capsule Active 1 NMA PO TWICE A DAY 180 October 04, 2024 11:07am Start: 07-30-2024 End: 10-04-2024 take 3 capsules by mouth twice daily Mrcbr-Sx-6-Tcy-Kdl-Liwiobu-Ast (Megared Sheridan-3 Krill Oil) 1,000-230-60 mg capsule Discontinued 1 NMA PO TWICE A DAY 180 July 30, 2024 12:46pm October 04, 2024 11:07am Start: 12-05-2023 End: 07-30-2024 take 3 capsules by mouth twice daily Eafyh-Wt-6-Wpu-Xll-Mdexyhw-Ast (Megared Sheridan-3 Krill Oil) 1,000-230-60 mg capsule Discontinued 1 NMA PO TWICE A DAY 180 December 05, 2023 4:34pm July 30, 2024 12:46pm Start: 12-05-2023 take 3 capsules by mouth twice daily Jmnes-Cu-3-Jvl-Dcv-Kmpxftl-Ast (Megared Sheridan-3 Krill Oil) 1,000-230-60 mg capsule Active 1 NMA PO TWICE A DAY 180 December 05, 2023 4:34pm Start: 12-05-2023 End: 12-05-2023 take 3 capsules by mouth twice daily Kapjb-Oj-2-Hes-Egl-Rkgmpwb-Ast (Megared Sheridan-3 Krill Oil) 1,000-230-60 mg capsule Discontinued 1 NMA PO TWICE A DAY 180 December 05, 2023 11:29am December 05, 2023 4:34pm Start: 12-05-2023 End: 12-05-2023 take 3 capsules by mouth twice daily Irusq-Nm-6-Gcl-Lci-Lnxsklp-Ast (Megared Sheridan-3 Krill Oil) 1,000-230-60 mg capsule Discontinued 1 NMA PO TWICE A DAY 180 December 05, 2023 11:29am December 05, 2023 4:34pm Start: 08-30-2023 End: 12-05-2023 take 3 capsules by mouth once daily Huleh-Ri-0-Qeu-Cvi-Otujbyi-Ast (Megared Sheridan-3 Krill Oil) 1,000-230-60 mg capsule Discontinued 1 NMA PO DAILY August 30, 2023 9:31am December 05, 2023 11:30am Start: 08-30-2023 End: 12-05-2023 take 3 capsules by mouth once daily Sviyd-Sy-7-Vri-Ksi-Hjspbsp-Ast (Megared Sheridan-3 Krill Oil) 1,000-230-60 mg capsule Discontinued 1 NMA PO DAILY August 30, 2023 9:31am December 05, 2023 11:30am Start: 05-19-2023 End: 08-30-2023 take 3 capsules by mouth once daily Duoxp-Gh-5-Hja-Gnl-Knlypst-Ast (Megared Sheridan-3 Krill Oil) 1,000-230-60 mg capsule Discontinued 1 NMA PO DAILY May 19, 2023 1:00am August 30, 2023 9:31am Start: 05-19-2023 End: 08-30-2023 take 3 capsules by mouth once daily Urbfw-Zr-5-Koa-Hsb-Bbbaqod-Ast (Megared Sheridan-3 Krill Oil) 1,000-230-60 mg capsule Discontinued 1 NMA PO DAILY May 19, 2023 1:00am August 30, 2023 9:31am Start: 05-19-2023 Ujllc-Ni-6-Dha -Ksu-Ndkhkee-Vat (Megared Sheridan-3 Krill Oil) 1,000-230-60 mg capsule Active 1 CAP PO DAILY May 19, 2023 12:00am loratadine 10 mg oral tablet (3 sources) Start: 11-13-2024 take 1 tablet by mouth every other week Loratadine (Claritin) 10 mg tablet Active 10 mg PO .COMPLEX November 13, 2024 8:41am 10 mg orally daily every other week. Alternate with zyrtec; Start: 10-30-2023 End: 11-13-2024 take 1 tablet by mouth once daily Loratadine (Claritin) 10 mg tablet Discontinued 10 mg PO DAILY October 30, 2023 12:00am November 13, 2024 8:42am losartan potassium 100 mg oral tablet (20 sources) Angiotensin 2 Receptor Mirian Start: 04-03-2018 End: 11-04-2024 take 1 tablet by mouth once daily Losartan 100 mg tablet Active 100 mg PO DAILY 90 November 04, 2024 7:25am Multivitamin preparation (6 sources) Start: 09-15-2020 take 1 tablet by mouth once daily Multivitamin Active 1 TABLET PO DAILY September 15, 2020 1:41pm Start: 09-15-2020 take 1 tablet by stacey th once daily Multivitamin Active 1 TABLET PO DAILY September 15, 2020 12:00am Start: 09-15-2020 take 1 tablet by stacey th once daily Multivitamin Active 1 TABLET PO DAILY September 14, 2020 11:00pm Multivitamin tablet (2 sources) Start: 09-15-2020 Multivitamin tablet Active 1 {tbl} PO DAILY September 15, 2020 12:00am sildenafil 20 mg oral tablet (20 sources) Phosphodiesterase 5 Inhibitor Start: 04-05-2022 End: 07-30-2024 take 1 tablet by mouth once daily as needed Sildenafil (Pulm.Hypertensio n) 20 mg tablet Active 20 mg PO .COMPLEX as needed for sexual activity 30 July 30, 2024 12:46pm One tablet daily as needed. Start: 03-28-2022 End: 04-05-2022 Sildenafil (Pulm.Hypertensio n) 20 mg tablet Discontinued 20 mg PO .COMPLEX as needed March 28, 2022 1:00am April 05, 2022 3:05pm 20 mg orally prn 2-5 tabs PRN; administer doses at least 4-6 hours apart Completed/Discontinued Medications Medication Drug Class(es) Dates Sig (Normalized) Sig (Original) acetaminophen 325 mg / HYDROcodone bitartrate 5 mg oral tablet (8 sources) Opioid Agonist Start: 04-01-2018 End: 04-04-2018 Hydrocodone-Acetami nophen 1 TABLET tablet Discontinued 1 {tbl} PO EVERY 6 HOURS NEEDED as needed for Pain 12 3 0 April 01, 2018 1:00am April 03, 2018 1:00am April 04, 2018 1:06am Traumatic rupture of quadriceps tendon Strain of unspecified quadriceps muscle, fascia and tendon, initial encounter Start: 04-01-2018 End: 04-04-2018 take 1 tablet by mouth every six hours as needed Hydrocodone-Acetaminophen Discontinued 1 TABLET PO EVERY 6 HOURS NEEDED 12 3 April 01, 2018 12:00am April 04, 2018 12:06am amoxicillin 500 mg oral tablet (14 sources) Penicillin-class Antibacterial Start: 07-11-2023 End: 10-30-2023 take 2 tablets by mouth twice daily Amoxicillin 500 mg tablet Discontinued 1000 mg PO TWICE A DAY 40 0 July 11, 2023 12:00am October 30, 2023 8:51am Start: 03-27-2023 End: 04-06-2023 take 1 capsule by mouth three times daily Amoxicillin 500 mg capsule Discontinued 500 mg PO THREE TIMES A DAY 30 10 March 27, 2023 1:00am April 05, 2023 1:00am April 06, 2023 1:05am Start: 12-27-2022 End: 01-06-2023 take 1 capsule by mouth three times daily Amoxicillin 500 mg capsule Discontinued 500 mg PO THREE TIMES A DAY 30 10 December 27, 2022 12:00am January 05, 2023 12:00am January 06, 2023 12:03am Start: 09-21-2022 End: 10-01-2022 take 1 capsule by mouth three times daily Amoxicillin 500 mg capsule Discontinued 500 mg PO THREE TIMES A DAY 30 10 September 21, 2022 12:00am September 30, 2022 12:00am October 01, 2022 12:12am amoxicillin 875 mg / clavulanate 125 mg oral tablet (20 sources) Penicillin-class Antibacterial Start: 08-12-2024 End: 11-13-2024 take 1 tablet by mouth twice daily Amoxicillin-Pot Clavulanate 875-125 mg tablet Discontinued 1 {tbl} PO Q12H 14 7 0 August 12, 2024 12:00am November 13, 2024 8:39am take one tablet by mouth twice daily for one week Start: 07-23-2024 End: 07-30-2024 take 1 tablet by mouth twice daily Amoxicillin-Pot Clavulanate 875-125 mg tablet Discontinued 1 {tbl} PO TWICE A DAY 14 7 0 July 23, 2024 12:00am July 29, 2024 12:00am July 30, 2024 12:08am take one tablet by mouth twice daily for one week Start: 06-07-2024 End: 07-10-2024 Amoxicillin-Pot Clavulanate 875-125 mg tablet Discontinued 1 {tbl} PO TWICE A DAY 28 0 June 21, 2024 1:00am July 10, 2024 12:59pm Start: 12-19-2021 End: 03-28-2022 Amoxicillin-Pot Clavulanate 875-125 mg tablet Discontinued 1 {tbl} PO Q12H 14 0 December 19, 2021 12:00am March 28, 2022 10:19am Start: 12-19-2021 End: 03-28-2022 take 1 tablet by mouth every twelve hours Amoxicillin-Pot Clavulanate Discontinued 1 TABLET PO Q12H 14 December 18, 2021 11:00pm March 28, 2022 9:19am Start: 04-16-2021 End: 04-26-2021 Amoxicillin-Pot Clavulanate (Augmentin) 875-125 mg tablet Discontinued 1 {tbl} PO Q12H 20 10 0 April 16, 2021 1:00am April 25, 2021 1:00am April 26, 2021 1:01am Acute sinusitis, unspecified aspirin 81 mg delayed release oral tablet (8 sources) Platelet Aggregation Inhibitor, Nonsteroidal Anti-inflammatory Drug Start: 05-12-2017 End: 03-28-2022 take 1 tablet by mouth once daily Aspirin (Adult Aspirin Regimen) 81 mg tablet,delayed release (DR/EC) Discontinued 81 mg PO daily May 12, 2017 1:00am March 28, 2022 10:19am azithromycin 250 mg oral tablet (3 sources) Macrolide Antimicrobial Start: 03-29-2023 End: 10-30-2023 Azithromycin 250 mg tablet Discontinued 0 PO .COMPLEX 6 0 March 29, 2023 1:00am October 30, 2023 8:51am For 250 mg dose pack: take 500 mg today (day 1), then 250 mg for 4 days (days 2-5) PO Start: 03-29-2023 Azithromycin A ctive 0 PO .COMPLEX 6 March 29, 2023 12:00am For 250 mg dose pack: take 500 mg today (day 1), then 250 mg for 4 days (days 2-5) PO Diltiazem 2% / Lidocaine 5% Ointment (Compound) (6 sources) Start: 09-04-2020 End: 03-15-2021 Diltiazem 2% / Lidocaine 5% Ointment (Compound) Discontinued 0 .ROUTE .MEDSUPPLY 1 September 04, 2020 8:41am March 15, 2021 11:01am As directed Start: 09-04-2020 End: 03-15-2021 Diltiazem 2% / Lidocaine 5% Ointment (Compound) Discontinued 0 .ROUTE .MEDPPLY 1 September 04, 2020 12:00am March 15, 2021 11:01am As directed Start: 09-04-2020 End: 03-15-2021 Diltiazem 2% / Lidocaine 5% Ointment (Compound) [facility] September 03, 2020 11:00pm March 15, 2021 10:01am As directed Diltiazem 2% / Lidocaine 5% Ointment (Compound) ointment (2 sources) Start: 09-04-2020 End: 03-15-2021 Diltiazem 2% / Lidocaine 5% Ointment (Compound) ointment Discontinued 0 .ROUTE .MEDPPLY 1 0 September 04, 2020 12:00am March 15, 2021 11:01am As directed Start: 09-04-2020 End: 03-15-2021 Diltiazem 2% / Lidocaine 5% Ointment (Compound) ointment Discontinued 0 .ROUTE .MEDSUPPLY 1 September 04, 2020 12:00am March 15, 2021 11:01am As directed fenofibrate 200 mg oral capsule (20 sources) Peroxisome Proliferator Receptor alpha Agonist Start: 03-11-2020 End: 12-21-2020 take 1 capsule by mouth once daily Fenofibrate Micronized 200 mg capsule Discontinued 200 mg PO DAILY 90 4 March 11, 2020 10:09am December 21, 2020 9:18am Start: 05-12-2017 End: 03-11-2020 take 1 tablet by mouth once daily Fenofibrate Nanocrystallized (Tricor) 48 mg tablet Discontinued 48 mg PO daily May 12, 2017 1:00am March 11, 2020 10:07am hydroCHLOROthiazide 25 mg / valsartan 160 mg oral tablet (8 sources) Thiazide Diuretic, Angiotensin 2 Receptor Mirian Start: 06-16-2015 End: 05-12-2017 Valsartan-Hydrochlorothiazid e 1 TABLET tablet Discontinued 1 {tbl} PO DAILY June 16, 2015 1:00am May 12, 2017 5:24pm Start: 06-16-2015 End: 05-12-2017 take 1 tablet by mouth once daily Valsartan-Hydrochlorothiazide Discontinu ed 1 TABLET PO DAILY June 16, 2015 12:00am May 12, 2017 4:24pm icosapent ethyl 1000 mg oral capsule (8 sources) Start: 12-21-2020 End: 03-15-2021 Icosapent Ethyl (Vascepa) 1 gram capsule Discontinued 2 g PO TWICE A DAY 360 3 December 21, 2020 12:00am March 15, 2021 11:02am AIDE 600 mg (2 sources) Start: 06-04-2024 End: 06-04-2024 take 600 mg by mouth once daily AIDE 600 mg Discontinued 600 mg PO DAILY June 04, 2024 1:00am June 04, 2024 5:16am mirtazapine 15 mg oral tablet (8 sources) Start: 09-15-2020 End: 03-15-2021 take 1 tablet by mouth at bedtime Mirtazapine 15 mg tablet Discontinued 15 mg PO AT BEDTIME September 15, 2020 12:00am March 15, 2021 11:01am oxyCODONE hydrochloride 5 mg oral tablet (8 sources) Opioid Agonist Start: 04-04-2018 End: 04-09-2018 take 5-10 mg by mouth every four hours as needed for pain Oxycodone 5 MG tablet Discontinued 5 - 10 mg PO EVERY 4 HOURS NEEDED as needed for Pain 40 5 0 April 04, 2018 1:00am April 08, 2018 1:00am April 09, 2018 1:08am Other acute postprocedural pain potassium chloride 10 meq extended release oral capsule (13 sources) Start: 09-14-2021 End: 03-29-2023 take 1 capsule by mouth once daily Potassium Chloride 10 mEq capsule, extended release Discontinued 10 meq PO DAILY 90 3 May 19, 2022 3:59pm March 29, 2023 10:53am rosuvastatin calcium 20 mg oral tablet (20 sources) HMG-CoA Reductase Inhibitor Start: 07-15-2020 End: 10-27-2022 take 1 tablet by mouth once daily Rosuvastatin 20 mg tablet Discontinued 20 mg PO DAILY 90 August 29, 2022 10:19am October 27, 2022 9:30am test 180 (8 sources) Start: 12-21-2020 End: 03-15-2021 test 180 Discontinued PO December 21, 2020 8:50am March 15, 2021 11:01am Start: 12-21-2020 End: 03-15-2021 test 180 Discontinued PO 0 A ugust 2020 12:00am March 15, 2021 11:01am Start: 12-21-2020 End: 03-15-2021 test 180 Discontinued PO Nov us2020 12:00am March 15, 2021 11:01am Start: 12-21-2020 End: 03-15-2021 test 180 Discontinued PO Nov us2020 11:00pm March 15, 2021 10:01am valsartan 320 mg oral tablet (8 sources) Angiotensin 2 Receptor Mirian Start: 05-12-2017 End: 12-11-2017 take 1 tablet by mouth once daily Valsartan (Diovan) 320 mg tablet Discontinued 320 mg PO daily May 12, 2017 1:00am December 11, 2017 10:34am 24 hr verapamil hydrochloride 180 mg extended release oral capsule (20 sources) Calcium Channel Mirian Start: 10-18-2021 End: 07-26-2022 take 1 capsule by mouth twice daily Verapamil 180 mg capsule,ext rel. pellets 24 hr Discontinued 180 mg PO TWICE A DAY 180 May 19, 2022 4:00pm July 26, 2022 9:47am Start: 12-04-2018 End: 10-18-2021 take 1 capsule by mouth twice daily Verapamil 120 mg capsule,ext rel. pellets 24 hr Discontinued 120 mg PO TWICE A DAY 180 3 July 16, 2021 4:23pm October 18, 2021 8:20am Start: 04-03-2018 End: 12-04-2018 take 1 tablet by mouth twice daily Verapamil 120 mg tablet Discontinued 120 mg PO TWICE A DAY 180 December 03, 2018 3:42pm December 04, 2018 9:13am Start: 05-15-2017 End: 12-05-2017 take 1 tablet by mouth twice daily Verapamil 120 mg tablet Discontinued 120 mg PO TWICE A DAY 180 3 December 04, 2017 11:51am December 05, 2017 11:15am Start: 06-16-2015 End: 05-15-2017 take 1 tablet by mouth once daily Verapamil 120 MG tablet Discontinued 120 mg PO DAILY June 16, 2015 1:00am May 15, 2017 12:41pm zolpidem tartrate 10 mg oral tablet (16 sources) gamma-Aminobutyric Acid-ergic Agonist Start: 02-05-2018 End: 03-08-2019 take 1 tablet by mouth at bedtime as needed for sleep Zolpidem (Ambien) 10 mg tablet Discontinued 10 mg PO AT BEDTIME as needed for Sleep February 05, 2018 12:00am March 08, 2019 9:55am Start: 05-12-2017 End: 05-15-2017 take 1 tablet by mouth at bedtime as needed Zolpidem (Ambien) 10 mg tablet Discontinued 10 mg PO BEDTIME as needed May 12, 2017 1:00am May 15, 2017 12:41pm Problems Active Problems Problem Classification Problem Date Documented Date Episodic/Chronic Anal and rectal conditions (8 sources) Anal fissure; Translations: [Anal fissure, unspecified] 09-04-2020 Episodic Conditions associated with dizziness or vertigo (1 source) Conditions associated with dizziness or vertigo Onset: 06-22-2017 Disorders of lipid metabolism (20 sources) Hypertriglyceridemia; Translations: [Pure hyperglyceridemia] Onset: 06-17-2024 Chronic Diverticulosis and diverticulitis (11 sources) Diverticulitis of intestine; Translations: [Diverticulitis of intestine, part unspecified, with perforation and abscess without bleeding] Onset: 06-12-2024 06-05-2024 Chronic Essential hypertension (20 sources) Essential hypertension; Translations: [Essential (primary) hypertension] Onset: 11-13-2024 Chronic Immunizations and screening for infectious disease (5 sources) Contact with and (suspected) exposure to other viral communicable diseases; Translations: [Contact with or suspected exposure to other viral communicable disease] 12-27-2022 Episodic Open wounds of extremities (8 sources) Laceration of thigh; Translations: [Laceration without foreign body, left thigh, initial encounter] 07-12-2020 Episodic Other connective tissue disease (8 sources) Pain in lower limb; Translations: [Pain in right leg] 03-06-2019 Episodic Other lower respiratory disease (8 sources) Dyspnea on exertion; Translations: [Dyspnea, unspecified] 09-07-2021 Episodic Other lower respiratory disease (2 sources) Dyspnea, unspecified; Translations: [Other respiratory abnormalities] Episodic Other nutritional; endocrine; and metabolic disorders (7 sources) Insulin resistance; Translations: [Metabolic syndrome] 03-28-2022 Chronic Other nutritional; endocrine; and metabolic disorders (2 sources) Metabolic syndrome; Translations: [Dysmetabolic syndrome X] Onset: 06-26-2024 Chronic Other upper respiratory disease (8 sources) Respiratory tract congestion; Translations: [Nasal congestion] 05-07-2021 Episodic Other upper respiratory infections (8 sources) Chronic sinusitis; Translations: [Chronic sinusitis, unspecified] 05-07-2021 Chronic Other upper respiratory infections (20 sources) Acute sinusitis; Translations: [Acute sinusitis, unspecified] Episodic Janene-; endo-; and myocarditis; cardiomyopathy (except that caused by tuberculosis or sexually transmitted disease) (20 sources) Hypertrophic obstructive cardiomyopathy; Translations: [Obstructive hypertrophic cardiomyopathy] Onset: 06-17-2024 Chronic Residual codes; unclassified (9 sources) Obstructive sleep apnea syndrome; Translations: [Obstructive sleep apnea (adult) (pediatric)] 03-08-2019 Chronic Residual codes; unclassified (3 sources) Obstructive sleep apnea (adult) (pediatric); Translations: [Obstructive sleep apnea (adult)(pediatric)] Onset: 06-17-2024 Chronic Residual codes; unclassified (1 source) Dependence on other enabling machines and devices; Translations: [Dependence on other enabling machines and devices] Onset: 06-17-2024 Chronic Sprains and strains (8 sources) Rupture of quadriceps tendon; Translations: [Strain of left quadriceps muscle, fascia and tendon, initial encounter] 04-02-2018 Episodic Unclassified (1 source) Acute nasopharyngitis [common cold] / J00(ICD-10) Onset: 06-22-2017 Past or Other Problems Problem Classification Problem Date Documented Da te Episodic/Chronic Abdominal pain (4 sources) Right flank pain; Translations: [Unspecified abdominal pain] Onset: 06-17-2024 10-30-2023 Episodic Conditions associated with dizziness or vertigo (1 source) Dizziness and giddiness; Translations: [Dizziness and giddiness] Onset: 06-22-2017 Episodic Other screening for suspected conditions (not mental disorders or infectious disease) (1 source) Encounter for screening for malignant neoplasm of prostate; Translations: [Encounter for screening for malignant neoplasm of prostate] Onset: 06-17-2024 Episodic Results Test Name Value Interpretation Reference Range Facility Cardiology Visit Reporton Cardiology Visit Report [facility] [address] [place] [address] OFFICE VISIT Date of Service: 11/13/24 MR#: [id number] Acct: [id number] Name: GEORGIA THORPE Jr. Rep #: [id number] : 1965 Provider: ZAK Raymundo Age/Sex: 58/M Location: [facility] Status: Signed HPI HPI History of Present Illness Details: GEORGIA THORPE, is a 57 year old white male who presents to the office today for outpatient cardiovascular follow-up. He has a history of HCM, hypertension and hyperlipidemia. He does use his CPAP routinely. From a cardiac standpoint, patient is doing well. He does not have any chest discomfort/heaviness /tightness. His exercise tolerance is stable for his age. He walks 2 miles without problems. He does not have any worsening symptoms of shortness of breath. He denies any PND. He does not have any orthopnea. He does not have any symptoms of congestive heart failure. He does not have any palpitations that he is aware of. He does not have any lightheadedness or dizziness. He does not have any near-syncope or syncope. He does not have any lower extremity edema. He does not have any symptoms of claudication. His BP has been on the higher end. He would like to start mediations for dyslexia. Intake Vital Signs 11/03/23 08:46 06/17/24 09:57 11/13/24 08:25 Height 5 ft 7 in 5 ft 7 in 5 ft 7 in Weight: 195 lb BMI 30.5 BP 120/74 Blood Pressure Location Lt brachial Position Sitting Respiration 16 Pulse 59 L Pulse Source NIBP Intake Visit Reasons: 1 Y FU Pulp Grinder Required: No Is patient in pain?: No Allergies cat dander Allergy (Verified 11/13/24 08:38) Shortness of breath Medications ???Medication ???Instructions ???Recorded ???Confirmed ???Type multivitamin 1 tab PO DAILY 09/15/20 11/13/24 H istory cpap 03/28/22 08/15/24 History cholecalciferol (vitamin D3) 50 50 mcg PO DAILY 10/30/23 11/13/24 History mcg (2,000 unit) capsule sildenafil (pulm.hypertension) 20 20 mg PO .COMPLEX PRN sexual 05/2511/13/24 Rx mg tablet activity #30 tabs diltiazem HCl 180 mg 180 mg PO BID #180 caps 08/05/24 0 11/13/24 Rx capsule,extended release 24 hr, controlled (DILT-XR) fluticasone propionate 50 2 spray intranasal DAILY #16 grams 08/05/24 11/13/24 Rx mcg/actuation nasal spray,suspension (Allergy Relief (fluticasone)) krill 1,000 mg-omega-3 230 mg-dha 1 cap PO BID #180 caps 10/04/24 0 11/13/24 Rx 60 hh-cpk-ouwiicbme-ast axan capsule (MegaRed [place]-3 Krill Oil) hydrochlorothiazide 25 mg tablet 25 mg PO DAILY #90 tabs 11/04/24 0 11/13/24 Rx losartan 100 mg tablet 100 mg PO DAILY #90 tabs 11/04/24 11/13/24 Rx cetirizine 10 mg tablet (Zyrtec) 10 mg PO .COMPLEX PRN 11/13/24 History loratadine 10 mg tablet (Claritin) 10 mg PO .COMPLEX 11/13/2411/13 History Ejection fraction %: 60 Have you fallen in the past year?: No PFSH Medical History Contact with and (suspected) exposure to other viral communicable diseases Acute maxillary sinusitis, unspecified Seizure Dyspnea on exertion Hypertension Recent surgical procedure on lower extremity SHAY on CPAP Hypertrophic obstructive cardiomyopathy Essential hypertension Segmental and somatic dysfunction of pelvic region Segmental and somatic dysfunction of thoracic region Segmental and somatic dysfunction of lumbar region Leg pain, bilateral Asymmetric septal hypertrophy Hypertriglyceridemia Allergic rhinitis Erectile dysfunction Hyperlipidemia Surgical History History of rotator cuff surgery History of left heart catheterization Hx of sinus surgery Family History Father CAD (coronary artery disease) Hypertension Aunt Cancer Mother No problems noted. Social History household members: none Smoking Status: Never smoker alcohol intake: current alcohol intake frequency: a few times a week Alcohol type: beer substance use type: does not use caffeine: Yes Type: carbonated beverages and coffee Number of servings: 2 what type of physical activity do you participate in: none seatbelt use: always do you feel safe at home: Yes ROS Const Const: Negative for fatigue or weakness Eyes Eyes: Negative for change in vision ENT ENT: Negative for dizziness or balance problems Cardio Chest Pain: No Palpitations: No Edema: None Resp Respiratory: Negative for SOB with activity, SOB at rest or SOB orthopnea SOB lying down GI GI: Negative nausea or heartburn Musc Musc: Negative for balance problems Neuro Ne (more content not included)... [facility] Surgery Visit Reporton 08-15 Surgery Visit Report [facility] [address] [place] [address] OFFICE VISIT Date of Service: 08/15/24 MR#: [id number] Acct: [id number] Name: GEORGIA THORPE Jr. Rep #: [id number] : 1965 Provider: Dr. Ifeanyi garcia MD Age/Sex: 58/M Location: [facility] Status: Signed Intake Vital Signs 06/17/24 09:57 08/15/24 08:16 Height 5 ft 7 in BP 119/76 Blood Pressure Location Rt brachial Position Sitting Respiration 17 Pulse 78 Pulse Source Monitor Temp 97.2 F L Temp Source Temporal Pulse Oximetry (%) 97 Oxygen Delivery Method room air Intake Visit Reasons: TR PT- F/U DIVERTICULITIS Chief Complaint: diverticulitis check up Is patient in pain?: Yes (left abdomen, says it is sore.) Allergies cat dander Allergy (Verified 08/15/24 08:17) Shortness of breath Medications ???Medication ???Instructions ???Recorded ???Confirmed ???Type multivitamin 1 tab PO DAILY 09/15/20 08/15/24 H istory cpap 03/28/22 08/15/24 History cholecalciferol (vitamin D3) 50 50 mcg PO DAILY 10/30/23 08/15/24 History mcg (2,000 unit) capsule loratadine 10 mg tablet (Claritin) 10 mg PO DAILY 10/30/23 08/15/24 History krill 1,000 mg-omega-3 230 mg-dha 1 cap PO BID #180 caps 07/30/24 0 08/15/24 Rx 60 em-yiw-lwkorwwnd-ast axan capsule (MegaRed [place]-3 Krill Oil) sildenafil (pulm.hypertension) 20 20 mg PO .COMPLEX PRN sexual 05/2508/15/24 Rx mg tablet activity #30 tabs diltiazem HCl 180 mg 180 mg PO BID #180 caps 08/05/24 0 08/15/24 Rx capsule,extended release 24 hr, controlled (DILT-XR) fluticasone propionate 50 2 spray intranasal DAILY #16 grams 08/05/24 08/15/24 Rx mcg/actuation nasal spray,suspension (Allergy Relief (fluticasone)) hydrochlorothiazide 25 mg tablet 25 mg PO DAILY #90 tabs 08/05/24 0 08/15/24 Rx amoxicillin 875 mg-potassium 1 tab PO Q12H 7 days #14 tabs 07/3008/15/24 Rx clavulanate 125 mg tablet losartan 100 mg tablet 100 mg PO DAILY #90 tabs 08/12/24 08/15/24 Rx PFSH Medical History Contact with and (suspected) exposure to other viral communicable diseases Acute maxillary sinusitis, unspecified Seizure Dyspnea on exertion Hypertension Recent surgical procedure on lower extremity SHAY on CPAP Hypertrophic obstructive cardiomyopathy Essential hypertension Segmental and somatic dysfunction of pelvic region Segmental and somatic dysfunction of thoracic region Segmental and somatic dysfunction of lumbar region Leg pain, bilateral Asymmetric septal hypertrophy Hypertriglyceridemia Allergic rhinitis Erectile dysfunction Hyperlipidemia Surgical History History of rotator cuff surgery History of left heart catheterization Hx of sinus surgery Family History Father CAD (coronary artery disease) Hypertension Aunt Cancer Mother No problems noted. Social History household members: none Smoking Status: Never smoker alcohol intake: current alcohol intake frequency: a few times a week Alcohol type: beer substance use type: does not use caffeine: Yes Type: carbonated beverages and coffee Number of servings: 2 what type of physical activity do you participate in: none seatbelt use: always do you feel safe at home: Yes HPI HPI HPI: The patient is a 58-year-old male with a history of diverticulitis and abscess treated back in June of this year. He was hospitalized for this and has undergone several CAT scans since June to document resolution of his abscess. He was doing well up until earlier this week when he states that he had a recurrence of left lower quadrant pain. He denied any fevers or chills. He called our office and we placed him on antibiotics. He returns today for follow-up visit. He states that he is doing much better. The pain is still somewhat present but is significantly diminished. He denies any fevers or chills. No nausea or vomiting. ROS General General: No weight change, appetite, fatigue, colon cancer, breast cancer or weakness HEENT HEENT: No difficulty swallowing, eye injury, eye surgery, swollen glands or hoarseness Endo Endocrine: No thyroid disease, diabetes mellitus, thyroid cancer, Hair loss, heat intolerance or cold intolerance Skin Skin: No rash or changing moles Musc Musculoskeletal: No back problems, arthritis, rheumatoid arthritis, gout or joint pain Cardio Cardiovascular: Yes high blood pressure; No murmur, pacemaker, heart disease, atrial fibrillation, heart attack, heart stent, palpitations, shortness of breath with exertion or chest pain Psych Psychiatric: No de (more content not included)... [facility] Abdomen/Pelvis WITH Contrast on 07-23-2024 Abdomen/Pelvis WITH Contrast [facility] [address] [place] [address] Abdomen/Pelvis WITH Contrast MR#: [id number] Acct: [id number] Name: GEORGIA THORPE Jr. Rep #: [id number] : 1965 M 58 From: Parker Joseph MD PCP: Dr. Wendie Louise MD Status: REG CLI Study: Abdomen/Pelvis WITH Contrast Date of Exam: Exam# [id number] Ordering Dr: Vanessa Maher MD EXAM: CT Abdomen and Pelvis With Intravenous Contrast CLINICAL INDICATION: DIVERTICULITIS W/ ABSCESS TECHNIQUE: Axial computed tomography images of the abdomen and pelvis with intravenous contrast. This CT exam was performed using one or more of the following dose reduction techniques: automated exposure control, adjustment of the mA and/or kV according to patient size, and/or use of iterative reconstruction technique. COMPARISON: CT Abdomen Pelvis dated 06/20/2024 large fatty liver FINDINGS: LUNG BASES: Unremarkable. No mass. No consolidation. ABDOMEN: LIVER: Unremarkable. No mass. GALLBLADDER AND BILE DUCTS: Unremarkable. No calcified stones. No ductal dilation. PANCREAS: Unremarkable. No mass. No ductal dilation. SPLEEN: Unremarkable. No splenomegaly. ADRENALS: Unremarkable. No mass. KIDNEYS AND URETERS: Bilateral renal cysts, stable. No hydronephrosis. STOMACH AND BOWEL: Scattered diverticula in the colon. There is mucosal thickening in the sigmoid colon with surrounding inflammation consistent with acute diverticulitis. No abscess. Constipation with suggestion of fecal impaction of the rectum. No obstruction. PELVIS: APPENDIX: No findings to suggest acute appendicitis. BLADDER: Unremarkable. No mass. REPRODUCTIVE: Unremarkable as visualized. ABDOMEN and PELVIS: INTRAPERITONEAL SPACE: Unremarkable. No free air. No significant fluid collection. BONES/JOINTS: No acute fracture. No dislocation. SOFT TISSUES: Bilateral inguinal hernias. VASCULATURE: Unremarkable. No abdominal aortic aneurysm. LYMPH NODES: Unremarkable. No enlarged lymph nodes. CT/Abdomen/Pelvis WITH Contrast IMPRESSION: 1. Scattered diverticula in the colon. There is mucosal thickening in the sigmoid colon with surrounding inflammation consistent with acute diverticulitis. No abscess. 2. Constipation with suggestion of fecal impaction of the rectum. 3. Bilateral inguinal hernias. Reading Location: [facility] CC: Dr. Wendie Louise MD; Dr. Vanessa Maher MD Judicial Law Clerk: Signed [facility] Surgery Visit Reporton 07-11 Surgery Visit Report [facility] [address] [place] [address]. [address] [place] [address] OFFICE VISIT Date of Service: 07/10/24 MR#: [id number] Acct: [id number] Name: GEORGIA THORPE Jr. Rep #: [id number] : 1965 Provider: Dr. Vanessa norton MD Age/Sex: 58/M Location: [facility] Status: Signed Intake Vital Signs 06/17/24 09:57 Height 5 ft 7 in Weight: 197 lb BMI 30.8 BP 126/69 H Blood Pressure Location Lt brachial Position Sitting Pulse 87 Pulse Source Monitor Temp 98.7 F Temp Source Temporal Pulse Oximetry (%) 93 Oxygen Delivery Method room air Intake Visit Reasons: DIVERTICULITIS CHECK UP Chief Complaint: diverticulitis check up Allergies cat dander Allergy (Verified 07/10/24 12:58) Shortness of breath Medications ???Medication ???Instructions ???Recorded ???Confirmed ???Type fluticasone propionate 50 2 spray intranasal DAILY 02/05/18 07/10/24 History mcg/actuation nasal spray,suspension (Allergy Relief (fluticasone)) multivitamin 1 tab PO DAILY 09/15/20 07/10/24 H istory cpap 03/28/22 07/10/24 History cholecalciferol (vitamin D3) 50 50 mcg PO DAILY 10/30/23 07/10/24 History mcg (2,000 unit) capsule loratadine 10 mg tablet (Claritin) 10 mg PO DAILY 10/30/23 07/10/24 History krill 1,000 mg-omega-3 230 mg-dha 1 cap PO BID #180 caps 12/05/23 0 07/10/24 Rx 60 dn-caj-glebokhfy-ast axan capsule (MegaRed [place]-3 Krill Oil) sildenafil (pulm.hypertension) 20 20 mg PO .COMPLEX PRN sexual 04/0107/10/24 Rx mg tablet activity #30 tabs hydrochlorothiazide 25 mg tablet 25 mg PO DAILY #90 tabs 05/16/24 0 07/10/24 Rx losartan 100 mg tablet 100 mg PO DAILY #90 tabs 05/16/24 07/10/24 Rx diltiazem HCl 180 mg 180 mg PO BID 06/04/24 07/10/24 Hi story capsule,extended release 24 hr, controlled (DILT-XR) PFSH Medical History Contact with and (suspected) exposure to other viral communicable diseases Acute maxillary sinusitis, unspecified Seizure Dyspnea on exertion Hypertension Recent surgical procedure on lower extremity SHAY on CPAP Hypertrophic obstructive cardiomyopathy Essential hypertension Segmental and somatic dysfunction of pelvic region Segmental and somatic dysfunction of thoracic region Segmental and somatic dysfunction of lumbar region Leg pain, bilateral Asymmetric septal hypertrophy Hypertriglyceridemia Allergic rhinitis Erectile dysfunction Hyperlipidemia Surgical History History of rotator cuff surgery History of left heart catheterization Hx of sinus surgery Family History Father CAD (coronary artery disease) Hypertension Aunt Cancer Mother No problems noted. Social History household members: none Smoking Status: Never smoker alcohol intake: current alcohol intake frequency: a few times a week Alcohol type: beer substance use type: does not use caffeine: Yes Type: carbonated beverages and coffee Number of servings: 2 what type of physical activity do you participate in: none seatbelt use: always do you feel safe at home: Yes HPI HPI HPI: 58-year-old male presents for follow-up status post hospitalization for diverticulitis with an abscess. Patient has completed his antibiotics. Patient denies any abdominal pain nausea vomiting. Patient is still tolerating low fiber diet. Exam Const General: cooperative, healthy appearing, comfortable and no acute distress HENMT Head: normocephalic and atraumatic Neck Neck: supple Resp Effort Inspection: normal respiratory effort Cardio Rate: regular rate GI Inspection: non-distended Palpation: soft and nontender Skin General: no rashes or lesions noted Neuro General: CN's II-XI intact bilaterally Extrem General: normal to inspection Psych Mental Status: mental status grossly normal Attitude: cooperative Assessment and Plan Assessment and Plan (1) Diverticulitis of intestine with abscess: Status: Acute Qualifiers: Diverticulitis site: large intestine Diverticulitis bleeding: without bleeding Qualified Code(s): K57.20 - Diverticulitis of large intestine with perforation and abscess without bleeding Orders: Orders Abdomen/Pelvis WITH Contrast 07/10/24 K57.20 - Diverticulitis of large intestine with perforation and abscess without bleeding Plan Will plan to repeat CT abdomen pelvis. Will call patient with results. Have patient continue low fiber diet currently. Patient is agreeable with plan. Vanessa Maher M.D. Pager: [phone] [facility] [address] [place] [address], [facility], [address] [facility] (more content not included)... [facility] Surgery Visit Reporton 06-21 Surgery Visit Report [facility] [address] [place] [address] OFFICE VISIT Date of Service: 06/21/24 MR#: [id number] Acct: [id number] Name: GEORGIA THORPE JrMichela Rep #: [id number] : 1965 Provider: Dr. Vanessa norton MD Age/Sex: 58/M Location: [facility] Status: Signed Intake Vital Signs 06/14/24 13:04 06/17/24 09:57 Height 5 ft 7 in 5 ft 7 in Weight: 197 lb BMI 30.8 BP 126/69 H Blood Pressure Location Lt brachial Position Sitting Pulse 87 Pulse Source Monitor Temp 98.7 F Temp Source Temporal Pulse Oximetry (%) 93 Oxygen Delivery Method room air Intake Visit Reasons: DISCUSS CT RESULTS Chief Complaint: Discuss CT Pulp Grinder Required: No Is patient in pain?: No Allergies cat dander Allergy (Verified 06/21/24 12:58) Shortness of breath Medications ???Medication ???Instructions ???Recorded ???Confirmed ???Type fluticasone propionate 50 2 spray intranasal DAILY 02/05/18 06/21/24 History mcg/actuation nasal spray,suspension (Allergy Relief (fluticasone)) multivitamin 1 tab PO DAILY 09/15/20 06/21/24 H istory cpap 03/28/22 06/21/24 History cholecalciferol (vitamin D3) 50 50 mcg PO DAILY 10/30/23 06/21/24 History mcg (2,000 unit) capsule loratadine 10 mg tablet (Claritin) 10 mg PO DAILY 10/30/23 06/21/24 History krill 1,000 mg-omega-3 230 mg-dha 1 cap PO BID #180 caps 12/05/23 0 06/21/24 Rx 60 ve-thx-xuubuwkxw-ast axan capsule (MegaRed [place]-3 Krill Oil) sildenafil (pulm.hypertension) 20 20 mg PO .COMPLEX PRN sexual 04/0106/21/24 Rx mg tablet activity #30 tabs hydrochlorothiazide 25 mg tablet 25 mg PO DAILY #90 tabs 05/16/24 0 06/21/24 Rx losartan 100 mg tablet 100 mg PO DAILY #90 tabs 05/16/24 06/21/24 Rx diltiazem HCl 180 mg 180 mg PO BID 06/04/24 06/21/24 Hi story capsule,extended release 24 hr, controlled (DILT-XR) amoxicillin 875 mg-potassium 1 tab PO BID #28 tabs 06/21/24 Rx clavulanate 125 mg tablet Have you fallen in the past year?: No PFSH Medical History Contact with and (suspected) exposure to other viral communicable diseases Acute maxillary sinusitis, unspecified Seizure Dyspnea on exertion Hypertension Recent surgical procedure on lower extremity SHAY on CPAP Hypertrophic obstructive cardiomyopathy Essential hypertension Segmental and somatic dysfunction of pelvic region Segmental and somatic dysfunction of thoracic region Segmental and somatic dysfunction of lumbar region Leg pain, bilateral Asymmetric septal hypertrophy Hypertriglyceridemia Allergic rhinitis Erectile dysfunction Hyperlipidemia Surgical History History of rotator cuff surgery History of left heart catheterization Hx of sinus surgery Family History Father CAD (coronary artery disease) Hypertension Aunt Cancer Mother No problems noted. Social History household members: none Smoking Status: Never smoker alcohol intake: current alcohol intake frequency: a few times a week Alcohol type: beer substance use type: does not use caffeine: Yes Type: carbonated beverages and coffee Number of servings: 2 what type of physical activity do you participate in: none seatbelt use: always do you feel safe at home: Yes HPI HPI HPI: 58-year-old male presents for follow-up status post hospitalization for diverticulitis with an abscess. Patient did have a repeat CAT scan yesterday was improvement in the area of abscess/inflammation . Patient denies any abdominal pain???still on antibiotics???Augmen tin. Patient tolerating low fiber diet having bowel function. Exam Const General: cooperative, healthy appearing, comfortable and no acute distress HENMT Head: normocephalic and atraumatic Neck Neck: supple Resp Effort Inspection: normal respiratory effort Cardio Rate: regular rate GI Inspection: non-distended Palpation: soft and nontender Skin General: no rashes or lesions noted Neuro General: CN's II-XI intact bilaterally Extrem General: normal to inspection Psych Mental Status: mental status grossly normal Attitude: cooperative Assessment and Plan Assessment and Plan (1) Diverticulitis of intestine with abscess: Status: Acute Qualifiers: Diverticulitis site: large intestine Diverticulitis bleeding: without bleeding Qualified Code(s): K57.20 - Diverticulitis of large intestine with perforation and abscess without bleeding Medications: New amoxicillin-pot clavulanate 875-125 mg 1 TAB PO BID 28 tabs 0RF Plan Reviewed CT abdomen pelvis patient abscess area/i (more content not included)... [facility] Abdomen/Pelvis WITH Contrast on 06-20-2024 Abdomen/Pelvis WITH Contrast [facility] [address] [place] [address] Abdomen/Pelvis WITH Contrast MR#: [id number] Acct: [id number] Name: GEORGIA THORPE Jr. Rep #: [id number] : 1965 M 58 From: Wyatt Mock MD PCP: Dr. Wendie Louise MD Status: REG CLI Study: Abdomen/Pelvis WITH Contrast Date of Exam: Exam# [id number] Ordering Dr: Vanessa Maher MD PROCEDURE: CT ABDOMEN AND PELVIS WITH CONTRAST REASON FOR EXAM: RECHECKED DIVERTICULITIS WITH ABSCESS. TECHNIQUE: Contiguous axial scans of 3.75 mm slice thicknesses. Sagittal and coronal reconstruction images were obtained. One or more dose reduction techniques were used (e.g., automated exposure control, adjustment of mA and/or kv according to patient size, use of iterative reconstruction technique). IV CONTRAST: Isovue-300. 95 mL. COMPARISON: CT abdomen and pelvis dated 06/04/2024. FINDINGS: Lung bases: Clear Liver: Unremarkable. Gallbladder: Unremarkable. Spleen: Unremarkable. Pancreas: Unremarkable. Adrenals: Unremarkable. Kidneys: Bilateral parapelvic cysts, stable. Bladder: Unremarkable. Reproductive Organs: Woqr-ya-luhdwdqj prostatomegaly. Prostate gland calcification. Bowel: Small hiatal hernia. Interval improvement in the diverticular colitis in the associated inflammatory changes and/or abscess. Appendix: Normal. Lymph nodes: No suspicious lymph node enlargement. Vasculature: Major vascular structures are unremarkable. Peritoneum / Retroperitoneum: No ascites. No free air. Abdominal wall: Bilateral fat containing inguinal hernias. Bones: Multilevel spondylosis. CT/Abdomen/Pelvis WITH Contrast IMPRESSION: 1. Improving sigmoid diverticulitis as detailed above. 2. Prostatomegaly with signs of chronic prostatitis. 3. Bilateral parapelvic cysts. 4. Small stationary hiatal hernia. Reading Location: [facility] CC: Dr. Wendie Louise MD; Dr. Vanessa Maher MD Judicial Law Clerk: Signed [facility] MR/BMS.[facility] 06-17-2024 MR/BMS.[facility] [address] [place] [address] OFFICE VISIT Date of Service: 06/17/24 MR#: [id number] Acct: [id number] Name: GEORGIA THORPE JrMichela Rep #: [id number] : 1965 Provider: Dr. Wendie hughes MD Age/Sex: 58/M Location: [facility] Status: Signed Intake Vital Signs 06/04/24 12:40 06/14/24 13:04 06/17/24 09:57 Height 5 ft 7 in 5 ft 7 in 5 ft 7 in Weight: 194 lb 4 oz 197 lb BMI 30.4 30.8 BP 137/83 H 126/69 H Blood Pressure Location Rt brachial Lt brachial Position Sitting Sitting Respiration 18 Pulse 74 87 Pulse Source Monitor Monitor Temp 97.6 F L 98.7 F Temp Source Temporal Temporal Pulse Oximetry (%) 100 93 Oxygen Delivery Method room air room air Intake Visit Reasons: Rt Side Pain Pulp Grinder Required: No Accompanied by: Self Is patient in pain?: Yes (Right side) Pain scale (1-10): 2 Allergies cat dander Allergy (Verified 06/17/24 09:53) Shortness of breath Medications ???Medication ???Instructions ???Recorded ???Confirmed ???Type fluticasone propionate 50 2 spray intranasal DAILY 02/05/18 06/17/24 History mcg/actuation nasal spray,suspension (Allergy Relief (fluticasone)) multivitamin 1 tab PO DAILY 09/15/20 06/17/24 H istory cpap 03/28/22 06/17/24 History cholecalciferol (vitamin D3) 50 50 mcg PO DAILY 10/30/23 06/17/24 History mcg (2,000 unit) capsule loratadine 10 mg tablet (Claritin) 10 mg PO DAILY 10/30/23 06/17/24 History krill 1,000 mg-omega-3 230 mg-dha 1 cap PO BID #180 caps 12/05/23 0 06/17/24 Rx 60 gu-iev-kcgdlsiew-ast axan capsule (MegaRed [place]-3 Krill Oil) sildenafil (pulm.hypertension) 20 20 mg PO .COMPLEX PRN sexual 04/0106/17/24 Rx mg tablet activity #30 tabs hydrochlorothiazide 25 mg tablet 25 mg PO DAILY #90 tabs 05/16/24 0 06/17/24 Rx losartan 100 mg tablet 100 mg PO DAILY #90 tabs 05/16/24 06/17/24 Rx diltiazem HCl 180 mg 180 mg PO BID 06/04/24 06/17/24 Hi story capsule,extended release 24 hr, controlled (DILT-XR) amoxicillin 875 mg-potassium 1 tab PO BID #14 tabs 06/14/24 Rx clavulanate 125 mg tablet PFSH Medical History Contact with and (suspected) exposure to other viral communicable diseases Acute maxillary sinusitis, unspecified Seizure Dyspnea on exertion Hypertension Recent surgical procedure on lower extremity SHAY on CPAP Hypertrophic obstructive cardiomyopathy Essential hypertension Segmental and somatic dysfunction of pelvic region Segmental and somatic dysfunction of thoracic region Segmental and somatic dysfunction of lumbar region Leg pain, bilateral Asymmetric septal hypertrophy Hypertriglyceridemia Allergic rhinitis Erectile dysfunction Hyperlipidemia Surgical History History of rotator cuff surgery History of left heart catheterization Hx of sinus surgery Family History Father CAD (coronary artery disease) Hypertension Aunt Cancer Mother No problems noted. Social History household members: none Smoking Status: Never smoker alcohol intake: current alcohol intake frequency: a few times a week Alcohol type: beer substance use type: does not use caffeine: Yes Type: carbonated beverages and coffee Number of servings: 2 what type of physical activity do you participate in: none seatbelt use: always do you feel safe at home: Yes HPI HPI Details: GEORGIA THORPE, is a 58 M who presents to the office today for follow-up. 58-year-old gentleman who has a history of hypertrophic obstructive cardiac, essential hypertension, SHAY on CPAP, elevated triglycerides who presents today in follow-up. He is currently on HCTZ 25 mg daily, losartan 100 mg daily, vitamin D, diltiazem 180 mg p.o. twice daily. Most of those medications are managed through cardiology. He since I have been seen in the last few years, has made a lot of strides forward, dietary kaiser. He is doing much better, through dietary pattern changes in terms of his overall health although he recently developed an episode of constipation, alongside of acute diverticulitis. He presented to the emergency room and was admitted. Sigmoid colon diverticulitis, with small area of fluid collection. He had been on antibiotics, subsequently discharged and has been doing pretty well since. He did have follow-up with surgery. He did not require any surgical intervention or drainage. Just treating with antibiotics. He states he is pretty much back to his usual although there was still a little bit of inflammation, fluid and trace of air at the site so they are doing a follow-up CT later this week. Prior to t (more content not included)... Normal [facility] Surgery Visit Reporton 06-14 Surgery Visit Report [facility] [address] [place] [address] OFFICE VISIT Date of Service: 06/14/24 MR#: [id number] Acct: [id number] Name: GEORGIA THORPE JrMichela Rep #: [id number] : 1965 Provider: Dr. Vanessa norton MD Age/Sex: 58/M Location: [facility] Status: Signed Intake Vital Signs 06/04/24 12:40 06/14/24 13:04 Height 5 ft 7 in 5 ft 7 in Weight: 194 lb 4 oz BMI 30.4 BP 137/83 H Blood Pressure Location Rt brachial Position Sitting Respiration 18 Pulse 74 Pulse Source Monitor Temp 97.6 F L Temp Source Temporal Pulse Oximetry (%) 100 Oxygen Delivery Method room air Intake Visit Reasons: HOSPITAL F/U- DIVERTICULITIS Chief Complaint: Hospital f/u- DIVERTICULITIS Is patient in pain?: No Allergies cat dander Allergy (Verified 06/14/24 13:05) Shortness of breath Medications ???Medication ???Instructions ???Recorded ???Confirmed ???Type fluticasone propionate 50 2 spray intranasal DAILY 02/05/18 06/14/24 History mcg/actuation nasal spray,suspension (Allergy Relief (fluticasone)) multivitamin 1 tab PO DAILY 09/15/20 06/14/24 H istory cpap 03/28/22 06/14/24 History cholecalciferol (vitamin D3) 50 50 mcg PO DAILY 10/30/23 06/14/24 History mcg (2,000 unit) capsule loratadine 10 mg tablet (Claritin) 10 mg PO DAILY 10/30/23 06/14/24 History krill 1,000 mg-omega-3 230 mg-dha 1 cap PO BID #180 caps 12/05/23 0 06/14/24 Rx 60 ol-mqo-igazpzwgw-ast axan capsule (MegaRed [place]-3 Krill Oil) sildenafil (pulm.hypertension) 20 20 mg PO .COMPLEX PRN sexual 04/0106/14/24 Rx mg tablet activity #30 tabs hydrochlorothiazide 25 mg tablet 25 mg PO DAILY #90 tabs 05/16/24 0 06/14/24 Rx losartan 100 mg tablet 100 mg PO DAILY #90 tabs 05/16/24 06/14/24 Rx diltiazem HCl 180 mg 180 mg PO BID 06/04/24 06/14/24 Hi story capsule,extended release 24 hr, controlled (DILT-XR) amoxicillin 875 mg-potassium 1 tab PO BID #14 tabs 06/14/24 Rx clavulanate 125 mg tablet [facility] Medical History Contact with and (suspected) exposure to other viral communicable diseases Acute maxillary sinusitis, unspecified Seizure Dyspnea on exertion Hypertension Recent surgical procedure on lower extremity SHAY on CPAP Hypertrophic obstructive cardiomyopathy Essential hypertension Segmental and somatic dysfunction of pelvic region Segmental and somatic dysfunction of thoracic region Segmental and somatic dysfunction of lumbar region Leg pain, bilateral Asymmetric septal hypertrophy Hypertriglyceridemia Allergic rhinitis Erectile dysfunction Hyperlipidemia Surgical History History of rotator cuff surgery History of left heart catheterization Hx of sinus surgery Family History Father CAD (coronary artery disease) Hypertension Aunt Cancer Mother No problems noted. Social History household members: none Smoking Status: Never smoker alcohol intake: current alcohol intake frequency: a few times a week Alcohol type: beer substance use type: does not use caffeine: Yes Type: carbonated beverages and coffee Number of servings: 2 what type of physical activity do you participate in: none seatbelt use: always do you feel safe at home: Yes HPI HPI HPI: 58-year-old male presents for follow-up status post hospitalization for diverticulitis with an abscess. Patient did have a repeat CAT scan yesterday report states no abscess but still some changes of diverticulitis. Did personally review this report there is still an area of fluid collection with minimal fluid outside the bowel where the previous abscess was. Patient denies any abdominal pain did complete a total of 7 days of Augmentin. Patient tolerating low fiber diet having bowel function. ROS General General: No weight change, appetite, fatigue, colon cancer, breast cancer or weakness HEENT HEENT: No difficulty swallowing, eye injury, eye surgery, swollen glands or hoarseness Endo Endocrine: No thyroid disease, diabetes mellitus, thyroid cancer, Hair loss, heat intolerance or cold intolerance Skin Skin: No rash or changing moles Musc Musculoskeletal: No back problems, arthritis, rheumatoid arthritis, gout or joint pain Cardio Cardiovascular: Yes high blood pressure; No murmur, pacemaker, heart disease, atrial fibrillation, heart attack, heart stent, palpitations, shortness of breat with exertion or chest pain Psych Psychiatric: No depression, anxiety or hearing voices Resp Respiratory: No shortness of breath, Yes sleep apnea, No (more content not included)... Normal [facility] Abdomen/Pelvis WITH Contrast on 06-13-2024 Abdomen/Pelvis WITH Contrast [facility] [address] [place] [address] Abdomen/Pelvis WITH Contrast MR#: [id number] Acct: [id number] Name: GEORGIA THORPE Jr. Rep #: [id number] : 1965 M 58 From: Parker Joseph MD PCP: Dr. Wendie Louise MD Status: REG CLI Study: Abdomen/Pelvis WITH Contrast Date of Exam: Exam# [id number] Ordering Dr: Rhea Morgan A-Bean EXAM: CT Abdomen and Pelvis With Intravenous Contrast CLINICAL INDICATION: TECHNIQUE: Axial computed tomography images of the abdomen and pelvis with intravenous contrast. This CT exam was performed using one or more of the following dose reduction techniques: automated exposure control, adjustment of the mA and/or kV according to patient size, and/or use of iterative reconstruction technique. COMPARISON: No relevant prior studies available. FINDINGS: LUNG BASES: Unremarkable. No mass. No consolidation. ABDOMEN: LIVER: Hepatomegaly with fatty infiltration. GALLBLADDER AND BILE DUCTS: Unremarkable. No calcified stones. No ductal dilation. PANCREAS: Unremarkable. No mass. No ductal dilation. SPLEEN: Unremarkable. No splenomegaly. ADRENALS: Unremarkable. No mass. KIDNEYS AND URETERS: Simple bilateral renal cysts. No stones within either kidney. No hydronephrosis. STOMACH AND BOWEL: Scattered diverticula in the colon. There is mucosal thickening in the sigmoid colon with surrounding inflammation consistent with acute diverticulitis. No abscess. Fecal retention in the colon consistent with constipation. No obstruction. PELVIS: APPENDIX: No findings to suggest acute appendicitis. BLADDER: Unremarkable. No mass. REPRODUCTIVE: Unremarkable as visualized. ABDOMEN and PELVIS: INTRAPERITONEAL SPACE: Unremarkable. No free air. No significant fluid collection. BONES/JOINTS: No acute fracture. No dislocation. SOFT TISSUES: Umbilical hernia containing fat. Inguinal hernias bilaterally. VASCULATURE: Scattered calcified atherosclerotic disease of aorta. No abdominal aortic aneurysm. LYMPH NODES: Unremarkable. No enlarged lymph nodes. CT/Abdomen/Pelvis WITH Contrast IMPRESSION: 1. Scattered diverticula in the colon. There is mucosal thickening in the sigmoid colon with surrounding inflammation consistent with acute diverticulitis. No abscess. 2. Hepatomegaly with fatty infiltration. 3. Fecal retention in the colon consistent with constipation. 4. Umbilical hernia containing fat. 5. No obstructive uropathy. Reading Location: [facility] CC: CASSIA Morgan; Dr. Wendie Louise MD Judicial Law Clerk: Signed Normal [facility] 79-VS-Acudfct DOrdered By: Wilmar Louise on 06-12-2024 Vitamin D 25-Hydroxy 34.4 ng/mL [facility] Comment on above: Vitamin D 25(OH) Sta tus Range Deficiency <20 ng/mL (50nmol/L) Insufficiency 20 - 30 ng/mL (50 - 75 nmol/L) Sufficiency 30 - 100 ng/mL (75 - 250 nmol/L) Toxicity >100 ng/mL (>250 nmol/L) Absolute neutrophil countOrd ered By: Wendie Louise on 06-12-2024 Neutrophils (Bld) [#/Vol] 3.7 10*3/uL 2.0-7.7 [facility] Albumin to globulin ratioOrd ered By: Wendie Louise on 06-12-2024 Albumin/Globulin [Mass ratio] 0.8 {ratio} Low 0.9-2.4 [facility] Basophil percentageOrdered B y: Wendie Louise on 06-12-2024 Basophils/100 WBC (Bld) 0.7 % 0-1 [facility] Bilirubin, totalOrdered By: Wendie Louise on 06-12-2024 Bilirubin [Mass/Vol] 0.40 mg/dL 0.20-1.00 [facility] Comment on above: For patients on eltr ombopag therapy, use of Dimension [place] TBIL is not recommended. Blood urea nitrogen (BUN)/cr eatinine ratioOrdered By: Wendie Louise on 06-12-2024 Urea nitrogen/Creatinine [Mass ratio] 21.3 mg/mg High 10-20 [facility] CBC W/Diff, Automatedon 06-01 Absolute Lymph 2.52 X10 3/uL Normal 0.83-4.51 [facility] Comment on above: Performed By: #### L 500.2500, L100.0100 #### [facility] [address] [place], [address] Absolute Neut 3.7 X10 3/uL Normal 2.0-7.7 [facility] Comment on above: Performed By: #### L 500.2500, L100.0100 #### [facility] [address] [place], [address] Basophils/100 WBC (Bld) 0.7 % Normal 0-1 [facility] Comment on above: Performed By: #### L 500.2500, L100.0100 #### [facility] [address] [place], [address] Eosinophils/100 WBC (Bld) 3.2 % Normal 0-5 [facility] Comment on above: Performed By: #### L 500.2500, L100.0100 #### [facility] [address] [place], [address] Erythrocyte distribution width (RBC) [Ratio] 12.0 % Normal 11.6-14.6 [facility] Comment on above: Performed By: #### L 500.2500, L100.0100 #### [facility] [address] [place], [address] Hematocrit (Bld) [Volume fraction] 42.1 % Normal 40-54 [facility] Comment on above: Performed By: #### L 500.2500, L100.0100 #### [facility] [address] [place], [address] Hemoglobin (Bld) [Mass/Vol] 14.8 g/dL Normal 13.0-16.5 [facility] Comment on above: Performed By: #### L 500.2500, L100.0100 #### [facility] [address] [place], [address] IG% 0.600 Normal 0.0-0.9 [facility] Comment on above: Result Comment: IG% - Immature Granulocytes (promyelocytes, myelocytes and metamyelocytes) > 1% indicates that a LEFT SHIFT is Present. Performed By: #### L 500.2500, L100.0100 #### [facility] [address] [place], [address] Lymphocytes/100 WBC (Bld) 35.4 % Normal 19-41 [facility] Comment on above: Performed By: #### L 500.2500, L100.0100 #### [facility] [address] [place], [address] MCH (RBC) [Entitic mass] 31.6 pg Normal 27.0-32.0 [facility] Comment on above: Performed By: #### L 500.2500, L100.0100 #### [facility] [address] [place], [address] MCHC (RBC) [Mass/Vol] 35.2 g/dL Normal 32-36 [facility] Comment on above: Performed By: #### L 500.2500, L100.0100 #### [facility] [address] [place], [address] MCV (RBC) [Entitic vol] 90.0 fL Normal 80-94 [facility] Comment on above: Performed By: #### L 500.2500, L100.0100 #### [facility] [address] [place], [address] Monocytes/100 WBC (Bld) 8.3 % Normal 0-10 [facility] Comment on above: Performed By: #### L 500.2500, L100.0100 #### [facility] [address] [place], [address] Neutrophils/100 WBC (Bld) 51.8 % Normal 47-70 [facility] Comment on above: Performed By: #### L 500.2500, L100.0100 #### [facility] [address] [place], [address] Nucleated RBC (Bld) [#/Vol] 0 10*3/uL Normal 0-5 [facility] Comment on above: Performed By: #### L 500.2500, L100.0100 #### [facility] [address] [place], [address] Platelet mean volume (Bld) [Entitic vol] 9.1 fL Normal 6.2-12.0 [facility] Comment on above: Performed By: #### L 500.2500, L100.0100 #### [facility] [address] [place], [address] Platelets (Bld) [#/Vol] 360 10*3/uL Normal 150-450 [facility] Comment on above: Performed By: #### L 500.2500, L100.0100 #### [facility] [address] [place], [address] RBC (Bld) [#/Vol] 4.68 10*6/uL Normal 4.6-6.2 [facility] Comment on above: Performed By: #### L 500.2500, L100.0100 #### [facility] [address] [place], [address] RDW SD 39.1 fl Normal 35.1-43.9 [facility] Comment on above: Performed By: #### L 500.2500, L100.0100 #### [facility] [address] [place], [address] WBC (Bld) [#/Vol] 7.1 10*3/uL Normal 4.4-11.0 [facility] Comment on above: Performed By: #### L 500.2500, L100.0100 #### [facility] [address] [place], [address] Carbon dioxide measurementOr dered By: Wendie Louise on 06-12-2024 CO2 [Moles/Vol] 26.0 mmol/L 21.0-32.0 [facility] Chloride measurementOrdered By: Wendie Louise on 06-12-2024 Chloride [Moles/Vol] 108 mmol/L High 98-107 [facility] Comprehensive Metabolic Prof ilon 06-12-2024 Albumin [Mass/Vol] 3.4 g/dL Normal 3.2-5.0 [facility] Comment on above: Performed By: #### L 500.2500, L100.0100 #### [facility] [address] [place], [address] Albumin/Globulin [Mass ratio] 0.8 {ratio} Low 0.9-2.4 [facility] Comment on above: Performed By: #### L 500.2500, L100.0100 #### [facility] [address] [place], [address] ALK P 63 U/L Normal 45-117 [facility] Comment on above: Performed By: #### L 500.2500, L100.0100 #### [facility] [address] [place], [address] ALT [Catalytic activity/Vol] 44 U/L Normal 16-61 [facility] Comment on above: Performed By: #### L 500.2500, L100.0100 #### [facility] [address] [place], [address] AST [Catalytic activity/Vol] 20 U/L Normal 15-37 [facility] Comment on above: Performed By: #### L 500.2500, L100.0100 #### [facility] [address] [place], [address] Bilirubin [Mass/Vol] 0.40 mg/dL Normal 0.20-1.00 [facility] Comment on above: Result Comment: For patients on eltrombopag therapy, use of Dimension [place] TBIL is not recommended. Performed By: #### L 500.2500, L100.0100 #### [facility] [address] [place], [address] BUN/CRE 21.3 RATIO High 10-20 [facility] Comment on above: Performed By: #### L 500.2500, L100.0100 #### [facility] [address] [place], [address] CA,Total 9.1 mg/dL Normal 8.5-10.1 [facility] Comment on above: Performed By: #### L 500.2500, L100.0100 #### [facility] [address] [place], [address] Chloride [Moles/Vol] 108 mmol/L High 98-107 [facility] Comment on above: Performed By: #### L 500.2500, L100.0100 #### [facility] [address] [place], [address] CO2 [Moles/Vol] 26.0 mmol/L Normal 21.0-32.0 [facility] Comment on above: Performed By: #### L 500.2500, L100.0100 #### [facility] [address] [place], [address] Creatinine [Mass/Vol] 1.22 mg/dL Normal 0.70-1.30 [facility] Comment on above: Result Comment: The validity of the calculated GFR GFRAA in patients over 70 years has not been determined. Clinical correlation is essential. Performed By: #### L 500.2500, L100.0100 #### [facility] [address] [place], [address] EST GFR - AA 78 mL/min Normal >60 [facility] Comment on above: Result Comment: Afri can [place] GFR Calc Performed By: #### L 500.2500, L100.0100 #### [facility] [address] [place], [address] GAP 5 Normal 5-15 [facility] Comment on above: Performed By: #### L 500.2500, L100.0100 #### [facility] [address] [place], [address] GFR/1.73 sq M.predicted among non-blacks MDRD (S/P/Bld) [Vol rate/Area] 65 mL/min/{1.73_m2} Normal >60 [facility] Comment on above: Result Comment: Non- GFR Calc Performed By: #### L 500.2500, L100.0100 #### [facility] [address] [place], [address] Globulin (S) [Mass/Vol] 4.2 g/dL Normal 2.2-4.2 [facility] Comment on above: Performed By: #### L 500.2500, L100.0100 #### [facility] [address] [place], [address] Glucose [Mass/Vol] 94 mg/dL Normal 74-106 [facility] Comment on above: Performed By: #### L 500.2500, L100.0100 #### [facility] [address] [place], [address] Potassium [Moles/Vol] 3.7 mmol/L Normal 3.5-5.1 [facility] Comment on above: Performed By: #### L 500.2500, L100.0100 #### [facility] [address] [place], [address] Sodium [Moles/Vol] 139 mmol/L Normal 136-145 [facility] Comment on above: Performed By: #### L 500.2500, L100.0100 #### [facility] [address] [place], [address] T PROT 7.6 g/dL Normal 6.4-8.2 [facility] Comment on above: Performed By: #### L 500.2500, L100.0100 #### [facility] [address] [place], [address] Urea nitrogen [Mass/Vol] 26 mg/dL High 7-18 [facility] Comment on above: Performed By: #### L 500.2500, L100.0100 #### [facility] [address] [place], [address] Eosinophil percentageOrdered By: Wendie Louise on 06-12-2024 Eosinophils/100 WBC (Bld) 3.2 % 0-5 [facility] Erythrocyte distribution wid th ratioOrdered By: Wendie Louise on 06-12-2024 Erythrocyte distribution width (RBC) [Ratio] 12.0 % 11.6-14.6 [facility] Erythrocyte distribution wid th standard deviationOrdered By: Wendie Louise on 06-12-2024 Erythrocyte distribution width (RBC) [Entitic vol] 39.1 fL 35.1-43.9 [facility] Estimated glomerular filtrat ion rate (GFR) AmericanOrdered By: Wendie Louise on 06-12-2024 Estimated GFR (MDRD) Amer 78 mL/min >60 [facility] Comment on above: GFR Calc Glomerular filtration rate ( GFR) estimationOrdered By: Wendie Louise on 06-12-2024 Estimated GFR (MDRD) Non-Af Amer 65 mL/min >60 [facility] Comment on above: Non- GFR Calc Glucose measurementOrdered B y: Wendie Louise on 06-12-2024 Glucose [Mass/Vol] 94 mg/dL 74-106 [facility] Hematocrit Auto (Bld) [Volum e fraction]Ordered By: Wendie Louise on 06-12-2024 Hematocrit (Bld) [Volume fraction] 42.1 % 40-54 [facility] Hemoglobin measurementOrdere d By: Wendie Louise on 06-12-2024 Hemoglobin (Bld) [Mass/Vol] 14.8 g/dL 13.0-16.5 [facility] High density lipoprotein (HD L) measurementOrdered By: Wendie Louise on 06-12-2024 Cholesterol in HDL [Mass/Vol] 36 mg/dL Low >40 [facility] Comment on above: The drugs N-Acetylcy steine and Metamizole may falsely depress this assay. Reference Range HDL <40 mg/dL Low HDL Cholesterol HDL >or= 60 mg/dL High HDL Cholesterol Immature granulocytes/100 WB C Auto (Bld)Ordered By: Wendie Louise on 06-12-2024 Immature granulocytes/100 WBC (Bld) 0.600 % 0.0-0.9 [facility] Comment on above: IG% - Immature Granu locytes (promyelocytes, myelocytes and metamyelocytes) > 1% indicates that a LEFT SHIFT is Present. Laboratory - Chemistry and C hemistry - challengeOrdered By: Wendie Louise on 06-12-2024 AST [Catalytic activity/Vol] 20 U/L 15-37 [facility] Lipid Profileon 06-12-2024 Cholesterol [Mass/Vol] 119 mg/dL Normal 200 [facility] Comment on above: Result Comment: <200 mg/dL Desirable 200-240 mg/dL Borderline >240 mg/dL High Risk Performed By: #### L 500.2500, L100.0100 #### [facility] [address] [place], [address] Cholesterol in HDL [Mass/Vol] 36 mg/dL Low [facility] Comment on above: Result Comment: The drugs N-Acetylcysteine and Metamizole may falsely depress this assay. Reference Range HDL <40 mg/dL Low HDL Cholesterol HDL >or= 60 mg/dL High HDL Cholesterol Performed By: #### L 500.2500, L100.0100 #### [facility] [address] [place], [address] Cholesterol in LDL [Mass/Vol] 41 mg/dL Normal 0-130 [facility] Comment on above: Performed By: #### L 500.2500, L100.0100 #### [facility] [address] [place], [address] Cholesterol in VLDL [Mass/Vol] 42 mg/dL High 5-40 [facility] Comment on above: Performed By: #### L 500.2500, L100.0100 #### [facility] [address] [place], [address] Triglyceride [Mass/Vol] 210 mg/dL High [facility] Comment on above: Result Comment: The drugs N-Acetylcysteine and Metamizole may falsely depress this assay. Serum Triglycerides Reference Interval Normal <150 mg/dL Borderline high 150 - 199 mg/dL High 200 - 499 mg/dL Very High > or = 500 mg/dL Performed By: #### L 500.2500, L100.0100 #### [facility] [address] [place], [address] Low density lipoprotein (LDL ) cholesterol measurementOrdered By: Wendie Louise on 06-12-2024 Cholesterol in LDL [Mass/Vol] 41 mg/dL 0-130 [facility] Lymphocytes Auto (Unsp spec) [#/Vol]Ordered By: Wendie Louise on 06-12-2024 Lymphocytes (Bld) [#/Vol] 2.52 10*3/uL 0.83-4.51 [facility] Lymphocytes/100 WBC Auto (Un sp spec)Ordered By: Wendie Louise on 06-12-2024 Lymphocytes/100 WBC (Bld) 35.4 % 19-41 [facility] MCV (mean corpuscular volume ) determinationOrdered By: Wendie Louise on 06-12-2024 MCV (RBC) [Entitic vol] 90.0 fL 80-94 [facility] Mean corpuscular hemoglobin (MCH) determinationOrdered By: Wendie Louise on 06-12-2024 MCH (RBC) [Entitic mass] 31.6 pg 27.0-32.0 [facility] Mean corpuscular hemoglobin concentration (MCHC) determinationOrdered By: Wendie Louise on 06-12-2024 MCHC (RBC) [Mass/Vol] 35.2 g/dL 32-36 [facility] Mean platelet volume determi nationOrdered By: Wendie Louise on 06-12-2024 Platelet mean volume (Bld) [Entitic vol] 9.1 fL 6.2-12.0 [facility] Monocyte percentageOrdered B y: Wendie Louise on 06-12-2024 Monocytes/100 WBC (Bld) 8.3 % 0-10 [facility] Neutrophil percentageOrdered By: Wendie Louise on 06-12-2024 Neutrophils/100 WBC (Bld) 51.8 % 47-70 [facility] Nucleated red blood cell per centageOrdered By: Wendie Louise on 06-12-2024 Nucleated RBC/100 WBC (Bld) [Ratio] 0 % 0-5 [facility] Platelet countOrdered By: Edda Louise on 06-12-2024 Platelets (Bld) [#/Vol] 360 10*3/uL 150-450 [facility] Potassium measurementOrdered By: Wendie Louise on 06-12-2024 Potassium [Moles/Vol] 3.7 mmol/L 3.5-5.1 [facility] RBC Auto (Bld) [#/Vol]Ordere d By: Wendie Louise on 06-12-2024 RBC (Bld) [#/Vol] 4.68 10*6/uL 4.6-6.2 [facility] Serum anion gap measurementO rdered By: Wendie Louise on 06-12-2024 Anion gap [Moles/Vol] 5 mmol/L 5-15 [facility] Serum globulin measurementOr dered By: Wendie Louise on 06-12-2024 Globulin (S) [Mass/Vol] 4.2 g/dL 2.2-4.2 [facility] Serum or plasma alanine watts otransferase (ALT) measurementOrdered By: Wendie Louise on 06-12-2024 ALT [Catalytic activity/Vol] 44 U/L 16-61 [facility] Serum or plasma albumin chiara urement (mass/volume)Ordered By: Wendie Louise on 06-12-2024 Albumin [Mass/Vol] 3.4 g/dL 3.2-5.0 [facility] Serum or plasma alkaline jason sphatase measurementOrdered By: Wendie Louise on 06-12-2024 ALP [Catalytic activity/Vol] 63 U/L 45-117 [facility] Serum or plasma calcium chiara urement (mass/volume)Ordered By: Wendie Louise on 06-12-2024 Calcium [Mass/Vol] 9.1 mg/dL 8.5-10.1 [facility] Serum or plasma cholesterol measurement (mass/volume)Ordered By: Wendie Louise on 06-12-2024 Cholesterol [Mass/Vol] 119 mg/dL <200 [facility] Comment on above: <200 mg/dL Desirable 200-240 mg/dL Borderline >240 mg/dL High Risk Serum or plasma creatinine m easurement (mass/volume)Ordered By: Wendie Louise on 06-12-2024 Creatinine [Mass/Vol] 1.22 mg/dL 0.70-1.30 [facility] Comment on above: The validity of the calculated GFR & GFRAA in patients over 70 years has not been determined. Clinical correlation is essential. Serum or plasma urea nitroge n measurement (mass/volume)Ordered By: Wendie Louise on 06-12-2024 Urea nitrogen [Mass/Vol] 26 mg/dL High 7-18 [facility] Sodium levelOrdered By: Rica Louise on 06-12-2024 Sodium [Moles/Vol] 139 mmol/L 136-145 [facility] TSH QnOrdered By: Wendie Laughlin hner on 06-12-2024 Thyroid Stimulating Hormone (TSH) 1.820 uIU/mL 0.358-3.740 [facility] Thyroid Stim Hormone (TSH)on 06-12-2024 TSH 1.820 uIU/mL Normal 0.358-3.740 [facility] Comment on above: Performed By: #### L 500.2500, L100.0100 #### [facility] [address] [place], [place] [address]nik. [place], [place], [id number] Total proteinOrdered By: Camilla Louise on 06-12-2024 Protein [Mass/Vol] 7.6 g/dL 6.4-8.2 [facility] Triglycerides measurementOrd ered By: Wendie Louise on 06-12-2024 Triglyceride [Mass/Vol] 210 mg/dL High <199 [facility] Comment on above: The drugs N-Acetylcy steine and Metamizole may falsely depress this assay.Serum Triglycerides Reference Interval Normal <150 mg/dL Borderline high 150 - 199 mg/dL High 200 - 499 mg/dL Very High > or = 500 mg/dL Very low density lipoprotein (VLDL) cholesterol measurementOrdered By: Wendie Louise on 06-12-2024 VLDL Cholesterol 42 mg/dL High 5-40 [facility] Vitamin D,25 Hydroxyon 06-12 Vitamin D 25-OH 34.4 ng/mL Normal [facility] Comment on above: Result Comment: Faye min D 25(OH) Status Range Deficiency <20 ng/mL (50nmol/L) Insufficiency 20 - 30 ng/mL (50 - 75 nmol/L) Sufficiency 30 - 100 ng/mL (75 - 250 nmol/L) Toxicity >100 ng/mL (>250 nmol/L) Performed By: #### L 500.2500, L100.0100 #### [facility] [address] [place], [address] White blood cell (WBC) count Ordered By: Wendie Louise on 06-12-2024 WBC (Bld) [#/Vol] 7.1 10*3/uL 4.4-11.0 [facility] Basic Metabolic Profile (BMP )on 06-10-2024 BUN Normal 7-18 [facility] Comment on above: Result Comment: Canc elled via OM: Order cancelled - Patient discharged Performed By: #### L 500.2500 #### [facility] [address] [place], [address] BUN/CRE Normal 10-20 [facility] Comment on above: Result Comment: Canc elled via OM: Order cancelled - Patient discharged Performed By: #### L 500.2500 #### [facility] [address] [place], [address] CA,Total Normal 8.5-10.1 [facility] Comment on above: Result Comment: Canc elled via OM: Order cancelled - Patient discharged Performed By: #### L 500.2500 #### [facility] [address] [place], [address] CL Normal 98-107 [facility] Comment on above: Result Comment: Canc elled via OM: Order cancelled - Patient discharged Performed By: #### L 500.2500 #### [facility] [address] [place], [address] CO2 Normal 21.0-32.0 [facility] Comment on above: Result Comment: Canc elled via OM: Order cancelled - Patient discharged Performed By: #### L 500.2500 #### [facility] [address] [place], [address] CREAT,SERUM Normal 0.70-1.30 [facility] Comment on above: Result Comment: Canc elled via OM: Order cancelled - Patient discharged Performed By: #### L 500.2500 #### [facility] [address] [place], [address] EST GFR Normal >60 [facility] Comment on above: Result Comment: Canc elled via OM: Order cancelled - Patient discharged Performed By: #### L 500.2500 #### [facility] [address] [place], [address] EST GFR - AA Normal >60 [facility] Comment on above: Result Comment: Canc elled via OM: Order cancelled - Patient discharged Performed By: #### L 500.2500 #### [facility] [address] [place], [address] GAP Normal 5-15 [facility] Comment on above: Result Comment: Canc elled via OM: Order cancelled - Patient discharged Performed By: #### L 500.2500 #### [facility] [address] [place], [address] GLU Normal 74-106 [facility] Comment on above: Result Comment: Canc elled via OM: Order cancelled - Patient discharged Performed By: #### L 500.2500 #### [facility] [address] [place], [address] Potassium Normal 3.5-5.1 [facility] Comment on above: Result Comment: Canc elled via OM: Order cancelled - Patient discharged Performed By: #### L 500.2500 #### [facility] [address] [place], [address] Basic Metabolic Profile (BMP) Normal 136-145 [facility] Comment on above: Result Comment: Canc elled via OM: Order cancelled - Patient discharged Performed By: #### L 500.2500 #### [facility] [address] [place], [address] CBC-Complete Blood Cnt No Di ffon 06-10-2024 HCT Normal 40-54 [facility] Comment on above: Result Comment: Canc elled via OM: Order cancelled - Patient discharged Performed By: #### L 500.2500, L100.0100 #### [facility] [address] [place], [address] HGB Normal 13.0-16.5 [facility] Comment on above: Result Comment: Canc elled via OM: Order cancelled - Patient discharged Performed By: #### L 500.2500, L100.0100 #### [facility] [address] [place], [address] MCH Normal 27.0-32.0 [facility] Comment on above: Result Comment: Canc elled via OM: Order cancelled - Patient discharged Performed By: #### L 500.2500, L100.0100 #### [facility] [address] [place], [address] MCHC Normal 32-36 [facility] Comment on above: Result Comment: Canc elled via OM: Order cancelled - Patient discharged Performed By: #### L 500.2500, L100.0100 #### [facility] [address] [place], [address] MCV Normal 80-94 [facility] Comment on above: Result Comment: Canc elled via OM: Order cancelled - Patient discharged Performed By: #### L 500.2500, L100.0100 #### [facility] [address] [place], [address] PLT Normal 150-450 [facility] Comment on above: Result Comment: Canc elled via OM: Order cancelled - Patient discharged Performed By: #### L 500.2500, L100.0100 #### [facility] [address] [place], [address] RBC Normal 4.6-6.2 [facility] Comment on above: Result Comment: Canc elled via OM: Order cancelled - Patient discharged Performed By: #### L 500.2500, L100.0100 #### [facility] [address] [place], [address] RDW CV Normal 11.6-14.6 [facility] Comment on above: Result Comment: Canc elled via OM: Order cancelled - Patient discharged Performed By: #### L 500.2500, L100.0100 #### [facility] [address] [place], [address] RDW SD Normal 35.1-43.9 [facility] Comment on above: Result Comment: Canc elled via OM: Order cancelled - Patient discharged Performed By: #### L 500.2500, L100.0100 #### [facility] [address] [place], [address] WBC Normal 4.4-11.0 [facility] Comment on above: Result Comment: Canc elled via OM: Order cancelled - Patient discharged Performed By: #### L 500.2500, L100.0100 #### [facility] [address] [place], [address] Basic Metabolic Profile (BMP )on 06-09-2024 BUN Normal 7-18 [facility] Comment on above: Result Comment: Canc elled via OM: Order cancelled - Patient discharged Performed By: #### L 500.2500, L100.0100 #### [facility] [address] [place], [address] BUN/CRE Normal 10-20 [facility] Comment on above: Result Comment: Canc elled via OM: Order cancelled - Patient discharged Performed By: #### L 500.2500, L100.0100 #### [facility] [address] [place], [address] CA,Total Normal 8.5-10.1 [facility] Comment on above: Result Comment: Canc elled via OM: Order cancelled - Patient discharged Performed By: #### L 500.2500, L100.0100 #### [facility] [address] [place], [address] CL Normal 98-107 [facility] Comment on above: Result Comment: Canc elled via OM: Order cancelled - Patient discharged Performed By: #### L 500.2500, L100.0100 #### [facility] [address] [place], [address] CO2 Normal 21.0-32.0 [facility] Comment on above: Result Comment: Canc elled via OM: Order cancelled - Patient discharged Performed By: #### L 500.2500, L100.0100 #### [facility] [address] [place], [address] CREAT,SERUM Normal 0.70-1.30 [facility] Comment on above: Result Comment: Canc elled via OM: Order cancelled - Patient discharged Performed By: #### L 500.2500, L100.0100 #### [facility] [address] [place], [address] EST GFR Normal >60 [facility] Comment on above: Result Comment: Canc elled via OM: Order cancelled - Patient discharged Performed By: #### L 500.2500, L100.0100 #### [facility] [address] [place], [address] EST GFR - AA Normal >60 [facility] Comment on above: Result Comment: Canc elled via OM: Order cancelled - Patient discharged Performed By: #### L 500.2500, L100.0100 #### [facility] [address] [place], [address] GAP Normal 5-15 [facility] Comment on above: Result Comment: Canc elled via OM: Order cancelled - Patient discharged Performed By: #### L 500.2500, L100.0100 #### [facility] [address] [place], [address] GLU Normal 74-106 [facility] Comment on above: Result Comment: Canc elled via OM: Order cancelled - Patient discharged Performed By: #### L 500.2500, L100.0100 #### [facility] [address] [place], [address] Potassium Normal 3.5-5.1 [facility] Comment on above: Result Comment: Canc elled via OM: Order cancelled - Patient discharged Performed By: #### L 500.2500, L100.0100 #### [facility] [address] [place], [address] Basic Metabolic Profile (BMP) Normal 136-145 [facility] Comment on above: Result Comment: Canc elled via OM: Order cancelled - Patient discharged Performed By: #### L 500.2500, L100.0100 #### [facility] [address] [place], [address] Basic Metabolic Profile (BMP )on 06-08-2024 BUN Normal 7-18 [facility] Comment on above: Result Comment: Canc elled via OM: Order cancelled - Patient discharged Performed By: #### L 500.2500 #### [facility] [address] [place], [address] BUN/CRE Normal 10-20 [facility] Comment on above: Result Comment: Canc elled via OM: Order cancelled - Patient discharged Performed By: #### L 500.2500 #### [facility] [address] [place], [address] CA,Total Normal 8.5-10.1 [facility] Comment on above: Result Comment: Canc elled via OM: Order cancelled - Patient discharged Performed By: #### L 500.2500 #### [facility] [address] [place], [address] CL Normal 98-107 [facility] Comment on above: Result Comment: Canc elled via OM: Order cancelled - Patient discharged Performed By: #### L 500.2500 #### [facility] [address] [place], [address] CO2 Normal 21.0-32.0 [facility] Comment on above: Result Comment: Canc elled via OM: Order cancelled - Patient discharged Performed By: #### L 500.2500 #### [facility] [address] [place], [address] CREAT,SERUM Normal 0.70-1.30 [facility] Comment on above: Result Comment: Canc elled via OM: Order cancelled - Patient discharged Performed By: #### L 500.2500 #### [facility] [address] [place], [address] EST GFR Normal >60 [facility] Comment on above: Result Comment: Canc elled via OM: Order cancelled - Patient discharged Performed By: #### L 500.2500 #### [facility] [address] [place], [address] EST GFR - AA Normal >60 [facility] Comment on above: Result Comment: Canc elled via OM: Order cancelled - Patient discharged Performed By: #### L 500.2500 #### [facility] [address] [place], [address] GAP Normal 5-15 [facility] Comment on above: Result Comment: Canc elled via OM: Order cancelled - Patient discharged Performed By: #### L 500.2500 #### [facility] [address] [place], [address] GLU Normal 74-106 [facility] Comment on above: Result Comment: Canc elled via OM: Order cancelled - Patient discharged Performed By: #### L 500.2500 #### [facility] [address] [place], [address] Potassium Normal 3.5-5.1 [facility] Comment on above: Result Comment: Canc elled via OM: Order cancelled - Patient discharged Performed By: #### L 500.2500 #### [facility] [address] [place], [address] Basic Metabolic Profile (BMP) Normal 136-145 [facility] Comment on above: Result Comment: Canc elled via OM: Order cancelled - Patient discharged Performed By: #### L 500.2500 #### [facility] [address] [place], [address] CBC-Complete Blood Cnt No Di ffon 06-08-2024 HCT Normal 40-54 [facility] Comment on above: Result Comment: Canc elled via OM: Order cancelled - Patient discharged Performed By: #### L 500.2500, L100.0100 #### [facility] [address] [place], [address] HGB Normal 13.0-16.5 [facility] Comment on above: Result Comment: Canc elled via OM: Order cancelled - Patient discharged Performed By: #### L 500.2500, L100.0100 #### [facility] [address] [place], [address] MCH Normal 27.0-32.0 [facility] Comment on above: Result Comment: Canc elled via OM: Order cancelled - Patient discharged Performed By: #### L 500.2500, L100.0100 #### [facility] [address] [place], [address] MCHC Normal 32-36 [facility] Comment on above: Result Comment: Canc elled via OM: Order cancelled - Patient discharged Performed By: #### L 500.2500, L100.0100 #### [facility] [address] [place], [address] MCV Normal 80-94 [facility] Comment on above: Result Comment: Canc elled via OM: Order cancelled - Patient discharged Performed By: #### L 500.2500, L100.0100 #### [facility] [address] [place], [address] PLT Normal 150-450 [facility] Comment on above: Result Comment: Canc elled via OM: Order cancelled - Patient discharged Performed By: #### L 500.2500, L100.0100 #### [facility] [address] [place], [address] RBC Normal 4.6-6.2 [facility] Comment on above: Result Comment: Canc elled via OM: Order cancelled - Patient discharged Performed By: #### L 500.2500, L100.0100 #### [facility] [address] [place], [address] RDW CV Normal 11.6-14.6 [facility] Comment on above: Result Comment: Canc elled via OM: Order cancelled - Patient discharged Performed By: #### L 500.2500, L100.0100 #### [facility] [address] [place], [address] RDW SD Normal 35.1-43.9 [facility] Comment on above: Result Comment: Canc elled via OM: Order cancelled - Patient discharged Performed By: #### L 500.2500, L100.0100 #### [facility] [address] [place], [address] WBC Normal 4.4-11.0 [facility] Comment on above: Result Comment: Canc elled via OM: Order cancelled - Patient discharged Performed By: #### L 500.2500, L100.0100 #### [facility] [address] [place], [address] Basic Metabolic Profile (BMP )on 06-07-2024 BUN/CRE 12.1 RATIO Normal 10-20 [facility] Comment on above: Performed By: #### L 500.2500, L100.0100 #### [facility] [address] [place], [address] CA,Total 8.9 mg/dL Normal 8.5-10.1 [facility] Comment on above: Performed By: #### L 500.2500, L100.0100 #### [facility] [address] [place], [address] Chloride [Moles/Vol] 107 mmol/L Normal 98-107 [facility] Comment on above: Performed By: #### L 500.2500, L100.0100 #### [facility] [address] [place], [address] CO2 [Moles/Vol] 24.0 mmol/L Normal 21.0-32.0 [facility] Comment on above: Performed By: #### L 500.2500, L100.0100 #### [facility] [address] [place], [address] Creatinine [Mass/Vol] 1.07 mg/dL Normal 0.70-1.30 [facility] Comment on above: Result Comment: The validity of the calculated GFR GFRAA in patients over 70 years has not been determined. Clinical correlation is essential. Performed By: #### L 500.2500, L100.0100 #### [facility] [address] [place], [address] ECRCL 78.58 ml/min Normal [facility] Comment on above: Performed By: #### L 500.2500, L100.0100 #### [facility] [address] [place], [address] EST GFR - AA 91 mL/min Normal >60 [facility] Comment on above: Result Comment: Afri can [place] GFR Calc Performed By: #### L 500.2500, L100.0100 #### [facility] [address] [place], [address] GAP 7 Normal 5-15 [facility] Comment on above: Performed By: #### L 500.2500, L100.0100 #### [facility] [address] [place], [address] GFR/1.73 sq M.predicted among non-blacks MDRD (S/P/Bld) [Vol rate/Area] 75 mL/min/{1.73_m2} Normal >60 [facility] Comment on above: Result Comment: Non- GFR Calc Performed By: #### L 500.2500, L100.0100 #### [facility] [address] [place], [address] Glucose [Mass/Vol] 109 mg/dL High 74-106 [facility] Comment on above: Result Comment: Fast ing Glucose result from 100 to 125 mg/dL suggests IMPAIRED HOMEOSTASIS per A.D.A. criteria. Performed By: #### L 500.2500, L100.0100 #### [facility] [address] [place], [address] Potassium [Moles/Vol] 3.7 mmol/L Normal 3.5-5.1 [facility] Comment on above: Performed By: #### L 500.2500, L100.0100 #### [facility] [address] [place], [address] Sodium [Moles/Vol] 138 mmol/L Normal 136-145 [facility] Comment on above: Performed By: #### L 500.2500, L100.0100 #### [facility] [address] [place], [address] Urea nitrogen [Mass/Vol] 13 mg/dL Normal 7-18 [facility] Comment on above: Performed By: #### L 500.2500, L100.0100 #### [facility] [address] [place], [address] Blood urea nitrogen (BUN)/cr eatinine ratioOrdered By: Danny Lagunas on 06-07-2024 Urea nitrogen/Creatinine [Mass ratio] 12.1 mg/mg 10-20 [facility] Carbon dioxide measurementOr dered By: Danny Lagunas on 06-07-2024 CO2 [Moles/Vol] 24.0 mmol/L 21.0-32.0 [facility] Chloride measurementOrdered By: Danny Lagunas on 06-07-2024 Chloride [Moles/Vol] 107 mmol/L 98-107 [facility] Discharge Instructionon Discharge Instruction [facility] Medical Records Department [address] [place] [address] Instructions for Home/Discharge Instructions 06/07/24 0957 MR#: [id number] Acct: [id number] Name: GEORGIA HTORPE Jr. Rep #: [id number] : 1965 58 From: Danny Lagunas DO PCP: Dr. Wendie Louise MD Status:ADM IN Discharge Instructions Diet Discharge Diet: No restrictions DC O2, CPAP, BIPAP needs Home O2 Discharge instructions: No Dressing / Incision Discharge Activity: No Restrictions Follow Up Care Test Results: Test results from this visit will be discussed in further detail at your follow-up appointment, if applicable. Discharge Plan Admission Admit Date/Time: 06/04/24 02:43 Primary Reason for Your Visit: abdominal pain Attending Provider: Danny Lagunas Primary Care Provider: Wendie Louise Consulting Providers: Vanessa Maher; Adina Parikh; Colten Shaw Instructions Additional Instructions / Restrictions: Repeat CT scan of ab/pel as an outpatient is scheduled for next 06/13 at 4 pm. You will follow-up with Dr. Maher on Wednesday 06/14. Continue on a low residue diet until follow-up Take 4 more days of Augmentin to complete 7 day course of antibiotics Discharge Orders/Prescriptions Prescriptions: New amoxicillin-pot clavulanate 875-125 mg Tablet 1 tab PO BID 4 Days Qty: 8 0RF Continued fluticasone propionate [Allergy Relief (fluticasone)] 50 mcg/actuation spray,suspension 2 spray INTRANASAL DAILY multivitamin Tablet 1 tab PO DAILY (DME) cpap See Rx Instructions .Route .MEDSUPPLY Rx Instructions: setting of 12 cholecalciferol (vitamin D3) 50 mcg (2,000 unit) capsule 50 mcg PO DAILY loratadine [Claritin] 10 mg tablet 10 mg PO DAILY diltiazem HCl [DILT-XR] 180 mg capsule,ext.rel 24h degradable 180 mg PO BID fmfrw-su-3-dha-epa-p hospho-ast [MegaRed [place]-3 Krill Oil] 1,000-230-60 mg capsule 1 cap PO BID Qty: 180 3RF sildenafil (pulm.hypertension) 20 mg tablet 20 mg PO .COMPLEX PRN (Reason: sexual activity) Qty: 30 1RF Rx Instructions: One tablet daily as needed. hydrochlorothiazide 25 mg tablet 25 mg PO DAILY Qty: 90 0RF losartan 100 mg tablet 100 mg PO DAILY Qty: 90 0RF Referrals / Follow Up: Wendie Louise MD [Primary Care Provider] - Vanessa Maher MD [Med Staff - Active Staff] - 06/14/24 Disposition Disposition (needs filled in before D/C Order can be placed): Home, Self Care 06/07/24 1005 Danny Lagunas DO CC: Dr. Adina Parikh MD; Dr. Wendie Louise MD; Dr. Colten Shaw MD; Dr. Vanessa Maher MD Signed Normal [facility] Estimated glomerular filtrat ion rate (GFR) AmericanOrdered By: Danny Lagunas on 06-07-2024 Estimated GFR (MDRD) Amer 91 mL/min >60 [facility] Comment on above: GFR Calc Estimation of creatinine abril aranceOrdered By: Danny Lagunas on 06-07-2024 Estimated Creatinine Clearance Calc 78.58 ml/min [facility] Glomerular filtration rate ( GFR) estimationOrdered By: Danny Lagunas on 06-07-2024 Estimated GFR (MDRD) Non-Af Amer 75 mL/min >60 [facility] [facility] Comment on above: Non- GFR Calc Glucose measurementOrdered B y: Danny Lagunas on 06-07-2024 Glucose [Mass/Vol] 109 mg/dL High 74-106 [facility] Comment on above: Fasting Glucose resu lt from 100 to 125 mg/dL suggests IMPAIRED HOMEOSTASIS per A.D.A. criteria. Potassium measurementOrdered By: Danny Lagunas on 06-07-2024 Potassium [Moles/Vol] 3.7 mmol/L 3.5-5.1 [facility] Serum anion gap measurementO rdered By: Danny Lagunas on 06-07-2024 Anion gap [Moles/Vol] 7 mmol/L 5-15 [facility] Serum or plasma calcium chiara urement (mass/volume)Ordered By: Danny Lagunas on 06-07-2024 Calcium [Mass/Vol] 8.9 mg/dL 8.5-10.1 [facility] Serum or plasma creatinine m easurement (mass/volume)Ordered By: Danny Laugnas on 06-07-2024 Creatinine [Mass/Vol] 1.07 mg/dL 0.70-1.30 [facility] Comment on above: The validity of the calculated GFR & GFRAA in patients over 70 years has not been determined. Clinical correlation is essential. Serum or plasma urea nitroge n measurement (mass/volume)Ordered By: Danny Lagunas on 06-07-2024 Urea nitrogen [Mass/Vol] 13 mg/dL 7-18 [facility] Sodium levelOrdered By: Uriel arsensaul Lagunas on 06-07-2024 Sodium [Moles/Vol] 138 mmol/L 136-145 [facility] Absolute neutrophil countOrd ered By: Rheagrace Morgan on 06-06-2024 Neutrophils (Bld) [#/Vol] 6.1 10*3/uL 2.0-7.7 [facility] Basic Metabolic Profile (BMP )on 06-06-2024 BUN/CRE 11.1 RATIO Normal 10-20 [facility] Comment on above: Performed By: #### L 500.2500, L100.0100 #### [facility] [address] [place], [address] CA,Total 8.7 mg/dL Normal 8.5-10.1 [facility] Comment on above: Performed By: #### L 500.2500, L100.0100 #### [facility] [address] [place], [address] Chloride [Moles/Vol] 105 mmol/L Normal 98-107 [facility] Comment on above: Performed By: #### L 500.2500, L100.0100 #### [facility] [address] [place], [address] CO2 [Moles/Vol] 26.0 mmol/L Normal 21.0-32.0 [facility] Comment on above: Performed By: #### L 500.2500, L100.0100 #### [facility] [address] [place], [address] Creatinine [Mass/Vol] 1.08 mg/dL Normal 0.70-1.30 [facility] Comment on above: Result Comment: The validity of the calculated GFR GFRAA in patients over 70 years has not been determined. Clinical correlation is essential. Performed By: #### L 500.2500, L100.0100 #### [facility] [address] [place], [address] ECRCL 77.77 ml/min Normal [facility] Comment on above: Performed By: #### L 500.2500, L100.0100 #### [facility] [address] [place], [address] EST GFR - AA 90 mL/min Normal >60 [facility] Comment on above: Result Comment: Afri can [place] GFR Calc Performed By: #### L 500.2500, L100.0100 #### [facility] [address] [place], [address] GAP 8 Normal 5-15 [facility] Comment on above: Performed By: #### L 500.2500, L100.0100 #### [facility] [address] [place], [address] GFR/1.73 sq M.predicted among non-blacks MDRD (S/P/Bld) [Vol rate/Area] 74 mL/min/{1.73_m2} Normal >60 [facility] Comment on above: Result Comment: Non- GFR Calc Performed By: #### L 500.2500, L100.0100 #### [facility] [address] [place], [address] Glucose [Mass/Vol] 91 mg/dL Normal 74-106 [facility] Comment on above: Performed By: #### L 500.2500, L100.0100 #### [facility] [address] [place], [address] Potassium [Moles/Vol] 3.2 mmol/L Low 3.5-5.1 [facility] Comment on above: Performed By: #### L 500.2500, L100.0100 #### [facility] [address] [place], [address] Sodium [Moles/Vol] 139 mmol/L Normal 136-145 [facility] Comment on above: Performed By: #### L 500.2500, L100.0100 #### [facility] [address] [place], [address] Urea nitrogen [Mass/Vol] 12 mg/dL Normal 7-18 [facility] Comment on above: Performed By: #### L 500.2500, L100.0100 #### [facility] [address] [place], [address] Basophil percentageOrdered B y: Rhea Morgan on 06-06-2024 Basophils/100 WBC (Bld) 0.7 % 0-1 [facility] CBC W/Diff, Automatedon Absolute Lymph 1.83 X10 3/uL Normal 0.83-4.51 [facility] Comment on above: Performed By: #### L 500.2500, L100.0100 #### [facility] [address] [place], [address] Absolute Neut 6.1 X10 3/uL Normal 2.0-7.7 [facility] Comment on above: Performed By: #### L 500.2500, L100.0100 #### [facility] [address] [place], [address] Basophils/100 WBC (Bld) 0.7 % Normal 0-1 [facility] Comment on above: Performed By: #### L 500.2500, L100.0100 #### [facility] [address] [place], [address] Eosinophils/100 WBC (Bld) 2.7 % Normal 0-5 [facility] Comment on above: Performed By: #### L 500.2500, L100.0100 #### [facility] [address] [place], [address] Erythrocyte distribution width (RBC) [Ratio] 11.9 % Normal 11.6-14.6 [facility] Comment on above: Performed By: #### L 500.2500, L100.0100 #### [facility] [address] [place], [address] Hematocrit (Bld) [Volume fraction] 37.3 % Low 40-54 [facility] Comment on above: Performed By: #### L 500.2500, L100.0100 #### [facility] [address] [place], [address] Hemoglobin (Bld) [Mass/Vol] 13.4 g/dL Normal 13.0-16.5 [facility] Comment on above: Performed By: #### L 500.2500, L100.0100 #### [facility] [address] [place], [address] IG% 0.600 Normal 0.0-0.9 [facility] Comment on above: Result Comment: IG% - Immature Granulocytes (promyelocytes, myelocytes and metamyelocytes) > 1% indicates that a LEFT SHIFT is Present. Performed By: #### L 500.2500, L100.0100 #### [facility] [address] [place], [address] Lymphocytes/100 WBC (Bld) 20.5 % Normal 19-41 [facility] Comment on above: Performed By: #### L 500.2500, L100.0100 #### [facility] [address] [place], [address] MCH (RBC) [Entitic mass] 32.1 pg High 27.0-32.0 [facility] Comment on above: Performed By: #### L 500.2500, L100.0100 #### [facility] [address] [place], [address] MCHC (RBC) [Mass/Vol] 35.9 g/dL Normal 32-36 [facility] Comment on above: Performed By: #### L 500.2500, L100.0100 #### [facility] [address] [place], [address] MCV (RBC) [Entitic vol] 89.4 fL Normal 80-94 [facility] Comment on above: Performed By: #### L 500.2500, L100.0100 #### [facility] [address] [place], [address] Monocytes/100 WBC (Bld) 7.4 % Normal 0-10 [facility] Comment on above: Performed By: #### L 500.2500, L100.0100 #### [facility] [address] [place], [address] Neutrophils/100 WBC (Bld) 68.1 % Normal 47-70 [facility] Comment on above: Performed By: #### L 500.2500, L100.0100 #### [facility] [address] [place], [address] Nucleated RBC (Bld) [#/Vol] 0 10*3/uL Normal 0-5 [facility] Comment on above: Performed By: #### L 500.2500, L100.0100 #### [facility] [address] [place], [address] Platelet mean volume (Bld) [Entitic vol] 9.4 fL Normal 6.2-12.0 [facility] Comment on above: Performed By: #### L 500.2500, L100.0100 #### [facility] [address] [place], [address] Platelets (Bld) [#/Vol] 265 10*3/uL Normal 150-450 [facility] Comment on above: Performed By: #### L 500.2500, L100.0100 #### [facility] [address] [place], [address] RBC (Bld) [#/Vol] 4.17 10*6/uL Low 4.6-6.2 [facility] Comment on above: Performed By: #### L 500.2500, L100.0100 #### [facility] [address] [place], [address] RDW SD 38.5 fl Normal 35.1-43.9 [facility] Comment on above: Performed By: #### L 500.2500, L100.0100 #### [facility] [address] [place], [address] WBC (Bld) [#/Vol] 8.9 10*3/uL Normal 4.4-11.0 [facility] Comment on above: Performed By: #### L 500.2500, L100.0100 #### [facility] [address] [place], [address] Eosinophil percentageOrdered By: Rhea Morgan on 06-06-2024 Eosinophils/100 WBC (Bld) 2.7 % 0-5 [facility] Erythrocyte distribution wid th ratioOrdered By: Rhea Morgan on 06-06-2024 Erythrocyte distribution width (RBC) [Ratio] 11.9 % 11.6-14.6 [facility] Erythrocyte distribution wid th standard deviationOrdered By: Rhea Morgan on 06-06-2024 Erythrocyte distribution width (RBC) [Entitic vol] 38.5 fL 35.1-43.9 [facility] Hematocrit Auto (Bld) [Volum e fraction]Ordered By: Rhea Morgan on 06-06-2024 Hematocrit (Bld) [Volume fraction] 37.3 % Low 40-54 [facility] Hemoglobin measurementOrdere d By: Rhea Morgan on 06-06-2024 Hemoglobin (Bld) [Mass/Vol] 13.4 g/dL 13.0-16.5 [facility] Immature granulocytes/100 WB C Auto (Bld)Ordered By: Rhea Morgan on 06-06-2024 Immature granulocytes/100 WBC (Bld) 0.600 % 0.0-0.9 [facility] Comment on above: IG% - Immature Granu locytes (promyelocytes, myelocytes and metamyelocytes) > 1% indicates that a LEFT SHIFT is Present. Lymphocytes Auto (Unsp spec) [#/Vol]Ordered By: Rhea Morgan on 06-06-2024 Lymphocytes (Bld) [#/Vol] 1.83 10*3/uL 0.83-4.51 [facility] Lymphocytes/100 WBC Auto (Un sp spec)Ordered By: Rhea Morgan on 06-06-2024 Lymphocytes/100 WBC (Bld) 20.5 % 19-41 [facility] MCV (mean corpuscular volume ) determinationOrdered By: Rhea Morgan on 06-06-2024 MCV (RBC) [Entitic vol] 89.4 fL 80-94 [facility] Mean corpuscular hemoglobin (MCH) determinationOrdered By: Reha Morgan on 06-06-2024 MCH (RBC) [Entitic mass] 32.1 pg High 27.0-32.0 [facility] Mean corpuscular hemoglobin concentration (MCHC) determinationOrdered By: Rhea Morgan on 06-06-2024 MCHC (RBC) [Mass/Vol] 35.9 g/dL 32-36 [facility] Mean platelet volume determi nationOrdered By: Rhea Morgan on 06-06-2024 Platelet mean volume (Bld) [Entitic vol] 9.4 fL 6.2-12.0 [facility] Monocyte percentageOrdered B y: Rhea Morgan on 06-06-2024 Monocytes/100 WBC (Bld) 7.4 % 0-10 [facility] Neutrophil percentageOrdered By: Rhea oMrgan on 06-06-2024 Neutrophils/100 WBC (Bld) 68.1 % 47-70 [facility] Nucleated red blood cell per centageOrdered By: Rhea Morgan on 06-06-2024 Nucleated RBC/100 WBC (Bld) [Ratio] 0 % 0-5 [facility] Platelet countOrdered By: Manolo Morgan on 06-06-2024 Platelets (Bld) [#/Vol] 265 10*3/uL 150-450 [facility] RBC Auto (Bld) [#/Vol]Ordere d By: Rhea Morgan on 06-06-2024 RBC (Bld) [#/Vol] 4.17 10*6/uL Low 4.6-6.2 [facility] White blood cell (WBC) count Ordered By: Rhea Morgan on 06-06-2024 WBC (Bld) [#/Vol] 8.9 10*3/uL 4.4-11.0 [facility] Basic Metabolic Profile (BMP )on 06-05-2024 BUN/CRE 11.6 RATIO Normal 10-20 [facility] Comment on above: Performed By: #### L 500.2500, L100.0100 #### [facility] [address] [place], [address] CA,Total 8.6 mg/dL Normal 8.5-10.1 [facility] Comment on above: Performed By: #### L 500.2500, L100.0100 #### [facility] [address] [place], [address] Chloride [Moles/Vol] 104 mmol/L Normal 98-107 [facility] Comment on above: Performed By: #### L 500.2500, L100.0100 #### [facility] [address] [place], [address] CO2 [Moles/Vol] 26.0 mmol/L Normal 21.0-32.0 [facility] Comment on above: Performed By: #### L 500.2500, L100.0100 #### [facility] [address] [place], [address] Creatinine [Mass/Vol] 1.12 mg/dL Normal 0.70-1.30 [facility] Comment on above: Result Comment: The validity of the calculated GFR GFRAA in patients over 70 years has not been determined. Clinical correlation is essential. Performed By: #### L 500.2500, L100.0100 #### [facility] [address] [place], [address] ECRCL 74.99 ml/min Normal [facility] Comment on above: Performed By: #### L 500.2500, L100.0100 #### [facility] [address] [place], [address] EST GFR - AA 86 mL/min Normal >60 [facility] Comment on above: Result Comment: Afri can [place] GFR Calc Performed By: #### L 500.2500, L100.0100 #### [facility] [address] [place], [address] GAP 8 Normal 5-15 [facility] Comment on above: Performed By: #### L 500.2500, L100.0100 #### [facility] [address] [place], [address] GFR/1.73 sq M.predicted among non-blacks MDRD (S/P/Bld) [Vol rate/Area] 71 mL/min/{1.73_m2} Normal >60 [facility] Comment on above: Result Comment: Non- GFR Calc Performed By: #### L 500.2500, L100.0100 #### [facility] [address] [place], [address] Glucose [Mass/Vol] 81 mg/dL Normal 74-106 [facility] Comment on above: Performed By: #### L 500.2500, L100.0100 #### [facility] [address] [place], [address] Potassium [Moles/Vol] 3.3 mmol/L Low 3.5-5.1 [facility] Comment on above: Performed By: #### L 500.2500, L100.0100 #### [facility] [address] [place], [address] Sodium [Moles/Vol] 138 mmol/L Normal 136-145 [facility] Comment on above: Performed By: #### L 500.2500, L100.0100 #### [facility] [address] [place], [address] Urea nitrogen [Mass/Vol] 13 mg/dL Normal 7-18 [facility] Comment on above: Performed By: #### L 500.2500, L100.0100 #### [facility] [address] [place], [address] CBC W/Diff, Automatedon 02-0 5-202 Absolute Lymph 1.68 X10 3/uL Normal 0.83-4.51 [facility] Comment on above: Performed By: #### L 500.2500, L100.0100 #### [facility] [address] [place], [address] Absolute Neut 6.7 X10 3/uL Normal 2.0-7.7 [facility] Comment on above: Performed By: #### L 500.2500, L100.0100 #### [facility] [address] [place], [address] Basophils/100 WBC (Bld) 0.5 % Normal 0-1 [facility] Comment on above: Performed By: #### L 500.2500, L100.0100 #### [facility] [address] [place], [address] Eosinophils/100 WBC (Bld) 3.0 % Normal 0-5 [facility] Comment on above: Performed By: #### L 500.2500, L100.0100 #### [facility] [address] [place], [address] Erythrocyte distribution width (RBC) [Ratio] 12.3 % Normal 11.6-14.6 [facility] Comment on above: Performed By: #### L 500.2500, L100.0100 #### [facility] [address] [place], [address] Hematocrit (Bld) [Volume fraction] 38.8 % Low 40-54 [facility] Comment on above: Performed By: #### L 500.2500, L100.0100 #### [facility] [address] [place], [address] Hemoglobin (Bld) [Mass/Vol] 13.4 g/dL Normal 13.0-16.5 [facility] Comment on above: Performed By: #### L 500.2500, L100.0100 #### [facility] [address] [place], [address] IG% 0.400 Normal 0.0-0.9 [facility] Comment on above: Result Comment: IG% - Immature Granulocytes (promyelocytes, myelocytes and metamyelocytes) > 1% indicates that a LEFT SHIFT is Present. Performed By: #### L 500.2500, L100.0100 #### [facility] [address] [place], [address] Lymphocytes/100 WBC (Bld) 17.5 % Low 19-41 [facility] Comment on above: Performed By: #### L 500.2500, L100.0100 #### [facility] [address] [place], [address] MCH (RBC) [Entitic mass] 31.6 pg Normal 27.0-32.0 [facility] Comment on above: Performed By: #### L 500.2500, L100.0100 #### [facility] [address] [place], [address] MCHC (RBC) [Mass/Vol] 34.5 g/dL Normal 32-36 [facility] Comment on above: Performed By: #### L 500.2500, L100.0100 #### [facility] [address] [place], [address] MCV (RBC) [Entitic vol] 91.5 fL Normal 80-94 [facility] Comment on above: Performed By: #### L 500.2500, L100.0100 #### [facility] [address] [place], [address] Monocytes/100 WBC (Bld) 8.6 % Normal 0-10 [facility] Comment on above: Performed By: #### L 500.2500, L100.0100 #### [facility] [address] [place], [address] Neutrophils/100 WBC (Bld) 70.0 % Normal 47-70 [facility] Comment on above: Performed By: #### L 500.2500, L100.0100 #### [facility] [address] [place], [address] Nucleated RBC (Bld) [#/Vol] 0 10*3/uL Normal 0-5 [facility] Comment on above: Performed By: #### L 500.2500, L100.0100 #### [facility] [address] [place], [address] Platelet mean volume (Bld) [Entitic vol] 9.9 fL Normal 6.2-12.0 [facility] Comment on above: Performed By: #### L 500.2500, L100.0100 #### [facility] [address] [place], [address] Platelets (Bld) [#/Vol] 248 10*3/uL Normal 150-450 [facility] Comment on above: Performed By: #### L 500.2500, L100.0100 #### [facility] [address] [place], [address] RBC (Bld) [#/Vol] 4.24 10*6/uL Low 4.6-6.2 [facility] Comment on above: Performed By: #### L 500.2500, L100.0100 #### [facility] [address] [place], [address] RDW SD 41.0 fl Normal 35.1-43.9 [facility] Comment on above: Performed By: #### L 500.2500, L100.0100 #### [facility] [address] [place], [address] WBC (Bld) [#/Vol] 9.6 10*3/uL Normal 4.4-11.0 [facility] Comment on above: Performed By: #### L 500.2500, L100.0100 #### [facility] [address] [place], [address] Abdomen/Pelvis W IV Cont ONL Yon 06-04-2024 Abdomen/Pelvis W IV Cont ONLY [facility] [address] [facility] [address] Abdomen/Pelvis W IV Cont ONLY MR#: [id number] Acct: [id number] Name: GEORGIA THORPE JrMichela Rep #: [id number] : 1965 M 58 From: [facility] DO PCP: Dr. Wendie Louise MD Status: PRE ER Study: Abdomen/Pelvis W IV Cont ONLY Date of Exam: Exam# [id number] Ordering Dr: Josué Valdez DO PROCEDURE: ABDOMEN/PELVIS W IV CONT ONLY REASON FOR EXAM: Constipation. TECHNIQUE: Abdomen and pelvis CT with intravenous contrast. COMPARISON: None. FINDINGS: Lung bases are clear. Coronary artery calcifications are identified. The liver, spleen, gallbladder, pancreas, biliary system, and adrenal glands are unremarkable. Abdominal aorta demonstrates a normal caliber with mild atherosclerotic calcifications. There is a small fat containing umbilical hernia. Bilateral kidneys enhance homogeneously. There is suggestion of bilateral parapelvic renal cysts versus hydronephrosis. No hydroureters are present bilaterally. Urinary bladder is smoothly contoured. Prostate gland is enlarged measuring 5.9 x 4.3 cm with calcifications and results in mild mass effect on the posterior base of the urinary bladder. Colonic diverticulosis is identified. There is acute diverticulitis involving the distal sigmoid colon with adjacent pericolonic inflammatory stranding. There is an adjacent loculated fluid collection which contains air measuring approximately 4.5 x 1.6 x 2.3 cm likely relating to an abscess. No free air is present. There are fat containing bilateral inguinal hernias. Fluid-filled loops of large bowel are present without obstruction. Small bowel demonstrates a normal caliber. No free fluid is seen. Evaluation of the osseous structures demonstrates no acute findings. Degenerative changes are present. CT/Abdomen/Pelvis W IV Cont ONLY IMPRESSION: 1. Acute diverticulitis involving the distal sigmoid colon with adjacent contained air and loculated fluid collection measuring 4.5 cm likely related to an abscess. There is significant adjacent mesenteric inflammatory stranding. 2. Fluid-filled loops of large bowel with scattered air-fluid levels without obstruction. 3. Bilateral parapelvic renal cysts or hydronephrosis however limited evaluation without delayed post-contrast images. Bilateral kidneys enhance homogeneously and bilateral ureters demonstrate a normal course and caliber. 4. Enlarged prostate gland. Correlation with serum PSA is recommended. 5. Additional findings as above. One or more dose reduction techniques were used (e.g., Automated exposure control, adjustment of the mA and/or kV according to patient size, use of iterative reconstruction technique). Reading [facility] CC: Dr. Wendie Louise MD; Josué Valdez DO Judicial Law Clerk: Signed Normal [facility] Albumin to globulin ratioOrd ered By: Adina Parikh on 06-04-2024 Albumin/Globulin [Mass ratio] 0.7 {ratio} Low 0.9-2.4 [facility] Basic Metabolic Profile (BMP )on 06-04-2024 BUN/CRE 15.2 RATIO Normal 10-20 [facility] Comment on above: Performed By: #### L 500.2500, L501.2450, L501.5200, L500.3400, L100.0100 #### [facility] [address] [place], [address] CA,Total 8.3 mg/dL Low 8.5-10.1 [facility] Comment on above: Performed By: #### L 500.2500, L501.2450, L501.5200, L500.3400, L100.0100 #### [facility] [address] [place], [address] Chloride [Moles/Vol] 102 mmol/L Normal 98-107 [facility] Comment on above: Performed By: #### L 500.2500, L501.2450, L501.5200, L500.3400, L100.0100 #### [facility] [address] [place], [address] CO2 [Moles/Vol] 27.0 mmol/L Normal 21.0-32.0 [facility] Comment on above: Performed By: #### L 500.2500, L501.2450, L501.5200, L500.3400, L100.0100 #### [facility] [address] [place], [address] Creatinine [Mass/Vol] 1.05 mg/dL Normal 0.70-1.30 [facility] Comment on above: Result Comment: The validity of the calculated GFR GFRAA in patients over 70 years has not been determined. Clinical correlation is essential. Performed By: #### L 500.2500, L501.2450, L501.5200, L500.3400, L100.0100 #### [facility] [address] [place], [address] ECRCL 80.49 ml/min Normal [facility] Comment on above: Performed By: #### L 500.2500, L501.2450, L501.5200, L500.3400, L100.0100 #### [facility] [address] [place], [address] EST GFR - AA 93 mL/min Normal >60 [facility] Comment on above: Result Comment: Afri can [place] GFR Calc Performed By: #### L 500.2500, L501.2450, L501.5200, L500.3400, L100.0100 #### [facility] [address] [place], [address] GAP 9 Normal 5-15 [facility] Comment on above: Performed By: #### L 500.2500, L501.2450, L501.5200, L500.3400, L100.0100 #### [facility] [address] [place], [address] GFR/1.73 sq M.predicted among non-blacks MDRD (S/P/Bld) [Vol rate/Area] 77 mL/min/{1.73_m2} Normal >60 [facility] Comment on above: Result Comment: Non- GFR Calc Performed By: #### L 500.2500, L501.2450, L501.5200, L500.3400, L100.0100 #### [facility] [address] [place], [address] Glucose [Mass/Vol] 109 mg/dL High 74-106 [facility] Comment on above: Result Comment: Fast ing Glucose result from 100 to 125 mg/dL suggests IMPAIRED HOMEOSTASIS per A.D.A. criteria. Performed By: #### L 500.2500, L501.2450, L501.5200, L500.3400, L100.0100 #### [facility] [address] [place], [address] Potassium [Moles/Vol] 2.8 mmol/L Low 3.5-5.1 [facility] Comment on above: Performed By: #### L 500.2500, L501.2450, L501.5200, L500.3400, L100.0100 #### [facility] [address] [place], [address] Sodium [Moles/Vol] 138 mmol/L Normal 136-145 [facility] Comment on above: Performed By: #### L 500.2500, L501.2450, L501.5200, L500.3400, L100.0100 #### [facility] [address] [place], [address] Urea nitrogen [Mass/Vol] 16 mg/dL Normal 7-18 [facility] Comment on above: Performed By: #### L 500.2500, L501.2450, L501.5200, L500.3400, L100.0100 #### [facility] [address] [place], [address] Bilirubin directOrdered By: Josué Valdez on 06-04-2024 Bilirubin.direct [Mass/Vol] 0.26 mg/dL 0.00-0.30 [facility] Bilirubin, totalOrdered By: Adina Parikh on 06-04-2024 Bilirubin [Mass/Vol] 1.10 mg/dL High 0.20-1.00 [facility] Comment on above: For patients on eltr ombopag therapy, use of Dimension [place] TBIL is not recommended. CBC W/Diff, Automatedon Absolute Lymph 1.39 X10 3/uL Normal 0.83-4.51 [facility] Comment on above: Performed By: #### L 500.2500, L100.0100 #### [facility] [address] [place], [address] Absolute Neut 8.9 X10 3/uL High 2.0-7.7 [facility] Comment on above: Performed By: #### L 500.2500, L100.0100 #### [facility] [address] [place], [address] Basophils/100 WBC (Bld) 0.2 % Normal 0-1 [facility] Comment on above: Performed By: #### L 500.2500, L100.0100 #### [facility] [address] [place], [address] Eosinophils/100 WBC (Bld) 1.1 % Normal 0-5 [facility] Comment on above: Performed By: #### L 500.2500, L100.0100 #### [facility] [address] [place], [address] Erythrocyte distribution width (RBC) [Ratio] 12.1 % Normal 11.6-14.6 [facility] Comment on above: Performed By: #### L 500.2500, L100.0100 #### [facility] [address] [place], [address] Hematocrit (Bld) [Volume fraction] 37.6 % Low 40-54 [facility] Comment on above: Performed By: #### L 500.2500, L100.0100 #### [facility] [address] [place], [address] Hemoglobin (Bld) [Mass/Vol] 13.2 g/dL Normal 13.0-16.5 [facility] Comment on above: Performed By: #### L 500.2500, L100.0100 #### [facility] [address] [place], [address] IG% 0.600 Normal 0.0-0.9 [facility] Comment on above: Result Comment: IG% - Immature Granulocytes (promyelocytes, myelocytes and metamyelocytes) > 1% indicates that a LEFT SHIFT is Present. Performed By: #### L 500.2500, L100.0100 #### [facility] [address] [place], [address] Lymphocytes/100 WBC (Bld) 12.2 % Low 19-41 [facility] Comment on above: Performed By: #### L 500.2500, L100.0100 #### [facility] [address] [place], [address] MCH (RBC) [Entitic mass] 31.7 pg Normal 27.0-32.0 [facility] Comment on above: Performed By: #### L 500.2500, L100.0100 #### [facility] [address] [place], [address] MCHC (RBC) [Mass/Vol] 35.1 g/dL Normal 32-36 [facility] Comment on above: Performed By: #### L 500.2500, L100.0100 #### [facility] [address] [place], [address] MCV (RBC) [Entitic vol] 90.4 fL Normal 80-94 [facility] Comment on above: Performed By: #### L 500.2500, L100.0100 #### [facility] [address] [place], [address] Monocytes/100 WBC (Bld) 7.6 % Normal 0-10 [facility] Comment on above: Performed By: #### L 500.2500, L100.0100 #### [facility] [address] [place], [address] Neutrophils/100 WBC (Bld) 78.3 % High 47-70 [facility] Comment on above: Performed By: #### L 500.2500, L100.0100 #### [facility] [address] [place], [address] Nucleated RBC (Bld) [#/Vol] 0 10*3/uL Normal 0-5 [facility] Comment on above: Performed By: #### L 500.2500, L100.0100 #### [facility] [address] [place], [address] Platelet mean volume (Bld) [Entitic vol] 9.7 fL Normal 6.2-12.0 [facility] Comment on above: Performed By: #### L 500.2500, L100.0100 #### [facility] [address] [place], [address] Platelets (Bld) [#/Vol] 226 10*3/uL Normal 150-450 [facility] Comment on above: Performed By: #### L 500.2500, L100.0100 #### [facility] [address] [place], [address] RBC (Bld) [#/Vol] 4.16 10*6/uL Low 4.6-6.2 [facility] Comment on above: Performed By: #### L 500.2500, L100.0100 #### [facility] [address] [place], [address] RDW SD 39.8 fl Normal 35.1-43.9 [facility] Comment on above: Performed By: #### L 500.2500, L100.0100 #### [facility] [address] [place], [address] WBC (Bld) [#/Vol] 11.4 10*3/uL High 4.4-11.0 [facility] Comment on above: Performed By: #### L 500.2500, L100.0100 #### [facility] [address] [place], [address] Absolute Lymph 1.70 X10 3/uL Normal 0.83-4.51 [facility] Comment on above: Performed By: #### L 500.2500, L501.2450, L501.5200, L500.3400, L100.0100 #### [facility] [address] [place], [address] Absolute Neut 10.3 X10 3/uL High 2.0-7.7 [facility] Comment on above: Performed By: #### L 500.2500, L501.2450, L501.5200, L500.3400, L100.0100 #### [facility] [address] [place], [address] Basophils/100 WBC (Bld) 0.3 % Normal 0-1 [facility] Comment on above: Performed By: #### L 500.2500, L501.2450, L501.5200, L500.3400, L100.0100 #### [facility] [address] [place], [address] Eosinophils/100 WBC (Bld) 0.5 % Normal 0-5 [facility] Comment on above: Performed By: #### L 500.2500, L501.2450, L501.5200, L500.3400, L100.0100 #### [facility] [address] [place], [address] Erythrocyte distribution width (RBC) [Ratio] 11.9 % Normal 11.6-14.6 [facility] Comment on above: Performed By: #### L 500.2500, L501.2450, L501.5200, L500.3400, L100.0100 #### [facility] [address] [place], [address] Hematocrit (Bld) [Volume fraction] 36.7 % Low 40-54 [facility] Comment on above: Performed By: #### L 500.2500, L501.2450, L501.5200, L500.3400, L100.0100 #### [facility] [address] [place], [address] Hemoglobin (Bld) [Mass/Vol] 13.7 g/dL Normal 13.0-16.5 [facility] Comment on above: Performed By: #### L 500.2500, L501.2450, L501.5200, L500.3400, L100.0100 #### [facility] [address] [place], [address] IG% 0.600 Normal 0.0-0.9 [facility] Comment on above: Result Comment: IG% - Immature Granulocytes (promyelocytes, myelocytes and metamyelocytes) > 1% indicates that a LEFT SHIFT is Present. Performed By: #### L 500.2500, L501.2450, L501.5200, L500.3400, L100.0100 #### [facility] [address] [place], [address] Lymphocytes/100 WBC (Bld) 12.8 % Low 19-41 [facility] Comment on above: Performed By: #### L 500.2500, L501.2450, L501.5200, L500.3400, L100.0100 #### [facility] [address] [place], [address] MCH (RBC) [Entitic mass] 33.0 pg High 27.0-32.0 [facility] Comment on above: Performed By: #### L 500.2500, L501.2450, L501.5200, L500.3400, L100.0100 #### [facility] [address] [place], [address] MCHC (RBC) [Mass/Vol] 37.3 g/dL High 32-36 [facility] Comment on above: Performed By: #### L 500.2500, L501.2450, L501.5200, L500.3400, L100.0100 #### [facility] [address] [place], [address] MCV (RBC) [Entitic vol] 88.4 fL Normal 80-94 [facility] Comment on above: Performed By: #### L 500.2500, L501.2450, L501.5200, L500.3400, L100.0100 #### [facility] [address] [place], [address] Monocytes/100 WBC (Bld) 7.7 % Normal 0-10 [facility] Comment on above: Performed By: #### L 500.2500, L501.2450, L501.5200, L500.3400, L100.0100 #### [facility] [address] [place], [address] Neutrophils/100 WBC (Bld) 78.1 % High 47-70 [facility] Comment on above: Performed By: #### L 500.2500, L501.2450, L501.5200, L500.3400, L100.0100 #### [facility] [address] [place], [address] Nucleated RBC (Bld) [#/Vol] 0 10*3/uL Normal 0-5 [facility] Comment on above: Performed By: #### L 500.2500, L501.2450, L501.5200, L500.3400, L100.0100 #### [facility] [address] [place], [address] Platelet mean volume (Bld) [Entitic vol] 9.6 fL Normal 6.2-12.0 [facility] Comment on above: Performed By: #### L 500.2500, L501.2450, L501.5200, L500.3400, L100.0100 #### [facility] [address] [place], [address] Platelets (Bld) [#/Vol] 232 10*3/uL Normal 150-450 [facility] Comment on above: Performed By: #### L 500.2500, L501.2450, L501.5200, L500.3400, L100.0100 #### [facility] [address] [place], [address] RBC (Bld) [#/Vol] 4.15 10*6/uL Low 4.6-6.2 [facility] Comment on above: Performed By: #### L 500.2500, L501.2450, L501.5200, L500.3400, L100.0100 #### [facility] [address] [place], [address] RDW SD 38.5 fl Normal 35.1-43.9 [facility] Comment on above: Performed By: #### L 500.2500, L501.2450, L501.5200, L500.3400, L100.0100 #### [facility] [address] [place], [address] WBC (Bld) [#/Vol] 13.3 10*3/uL High 4.4-11.0 [facility] Comment on above: Performed By: #### L 500.2500, L501.2450, L501.5200, L500.3400, L100.0100 #### [facility] [address] [place], [address] Comprehensive Metabolic Prof ilon 06-04-2024 Albumin [Mass/Vol] 2.9 g/dL Low 3.2-5.0 [facility] Comment on above: Performed By: #### L 500.2500, L100.0100 #### [facility] [address] [place], [address] Albumin/Globulin [Mass ratio] 0.7 {ratio} Low 0.9-2.4 [facility] Comment on above: Performed By: #### L 500.2500, L100.0100 #### [facility] [address] [place], [address] ALK P 49 U/L Normal 45-117 [facility] Comment on above: Performed By: #### L 500.2500, L100.0100 #### [facility] [address] [place], [address] ALT [Catalytic activity/Vol] 29 U/L Normal 16-61 [facility] Comment on above: Performed By: #### L 500.2500, L100.0100 #### [facility] [address] [place], [address] AST [Catalytic activity/Vol] 13 U/L Low 15-37 [facility] Comment on above: Performed By: #### L 500.2500, L100.0100 #### [facility] [address] [place], [address] Bilirubin [Mass/Vol] 1.10 mg/dL High 0.20-1.00 [facility] Comment on above: Result Comment: For patients on eltrombopag therapy, use of Dimension [place] TBIL is not recommended. Performed By: #### L 500.2500, L100.0100 #### [facility] [address] [place], [address] BUN/CRE 16.0 RATIO Normal 10-20 [facility] Comment on above: Performed By: #### L 500.2500, L100.0100 #### [facility] [address] [place], [address] CA,Total 8.1 mg/dL Low 8.5-10.1 [facility] Comment on above: Performed By: #### L 500.2500, L100.0100 #### [facility] [address] [place], [address] Chloride [Moles/Vol] 105 mmol/L Normal 98-107 [facility] Comment on above: Performed By: #### L 500.2500, L100.0100 #### [facility] [address] [place], [address] CO2 [Moles/Vol] 25.0 mmol/L Normal 21.0-32.0 [facility] Comment on above: Performed By: #### L 500.2500, L100.0100 #### [facility] [address] [place], [address] Creatinine [Mass/Vol] 1.00 mg/dL Normal 0.70-1.30 [facility] Comment on above: Result Comment: The validity of the calculated GFR GFRAA in patients over 70 years has not been determined. Clinical correlation is essential. Performed By: #### L 500.2500, L100.0100 #### [facility] [address] [place], [address] ECRCL 84.49 ml/min Normal [facility] Comment on above: Performed By: #### L 500.2500, L100.0100 #### [facility] [address] [place], [address] EST GFR - AA 98 mL/min Normal >60 [facility] Comment on above: Result Comment: Afri can [place] GFR Calc Performed By: #### L 500.2500, L100.0100 #### [facility] [address] [place], [address] GAP 7 Normal 5-15 [facility] Comment on above: Performed By: #### L 500.2500, L100.0100 #### [facility] [address] [place], [address] GFR/1.73 sq M.predicted among non-blacks MDRD (S/P/Bld) [Vol rate/Area] 81 mL/min/{1.73_m2} Normal >60 [facility] Comment on above: Result Comment: Non- GFR Calc Performed By: #### L 500.2500, L100.0100 #### [facility] [address] [place], [address] Globulin (S) [Mass/Vol] 3.9 g/dL Normal 2.2-4.2 [facility] Comment on above: Performed By: #### L 500.2500, L100.0100 #### [facility] [address] [place], [address] Glucose [Mass/Vol] 97 mg/dL Normal 74-106 [facility] Comment on above: Performed By: #### L 500.2500, L100.0100 #### [facility] [address] [place], [address] Potassium [Moles/Vol] 3.2 mmol/L Low 3.5-5.1 [facility] Comment on above: Performed By: #### L 500.2500, L100.0100 #### [facility] [address] [place], [address] Sodium [Moles/Vol] 137 mmol/L Normal 136-145 [facility] Comment on above: Performed By: #### L 500.2500, L100.0100 #### [facility] [address] [place], [address] T PROT 6.8 g/dL Normal 6.4-8.2 [facility] Comment on above: Performed By: #### L 500.2500, L100.0100 #### [facility] [address] [place], [address] Urea nitrogen [Mass/Vol] 16 mg/dL Normal 7-18 [facility] Comment on above: Performed By: #### L 500.2500, L100.0100 #### [facility] [address] [place], [address] Consultation - Surgicalon Consultation - Surgical [facility] Medical Records Department [address] [place] [address] Consultation - Surgical 06/04/24 0726 MR#: [id number] Acct: [id number] Name: GEORGIA THORPE Rep #: [id number] : 1965 58 From: Vanessa Maher MD PCP: Dr. Wendie [place] MD Status:ADM IN Location: [facility] [place] Assessment Plan Assessment/Plan (1) Diverticulitis of intestine with abscess: PLAN: Plan Review CT abdomen pelvis personally and with the patient. Also discussed with daughter over the phone. Patient's abscess is not in a location that is amenable to drainage also small enough that antibiotics should help. Will plan to repeat CAT scan in a couple days to verify improvement. Currently patient does not have any pain on my exam on palpation. White blood count is improved from 13-11. Will continue IV Zosyn. Okay for clears today and will not advance today. Patient is aware that if the pain gets worse or increased white blood count or fever may need more emergent surgery. Otherwise we will plan for conservative management. I will be gone after today and Dr. Chand will be following. Vanessa Maher M.D. Pager: [phone] [facility] [address] [place] [address], [facility], [address] [place] [address] Office: [phone] HPI Consult Data Date of Consult: 06/04/24 HPI Narrative HPI Narrative: GEORGIA THORPE, is a 58 M who presents due to lower abdominal pain. Patient started having pain on Monday. Patient thought was constipated did take various bowel regimen including oral laxative, enemas, magnesium citrate. Patient did take the laxatives on Monday as well as yesterday. Patient has had some liquid stool since then. Patient presented to the ER and had a CT abdomen pelvis showed small abscess 4.5 cm x 1.6 x 2.3 cm this is not amenable to drainage upon my review of CT due to location. Patient states that the pain was worse when he was having a bowel movement or likely due to laxatives. Currently denies any abdominal pain even with palpation. Patient's white blood cell count is 11 down from 13. Patient has never had a history of diverticulitis previously, no abdominal surgeries. Patient had a colonoscopy around 2019 negative per patient. [facility] Medical History Contact with and (suspected) exposure to other viral communicable diseases Acute maxillary sinusitis, unspecified Seizure Dyspnea on exertion Hypertension Recent surgical procedure on lower extremity SHAY on CPAP Hypertrophic obstructive cardiomyopathy Essential hypertension Segmental and somatic dysfunction of pelvic region Segmental and somatic dysfunction of thoracic region Segmental and somatic dysfunction of lumbar region Leg pain, bilateral Asymmetric septal hypertrophy Hypertriglyceridemia Allergic rhinitis Erectile dysfunction Hyperlipidemia Home Medications ???Medication ???Instructions ???Recorded ???Last Taken ???Type fluticasone propionate 50 2 spray intranasal DAILY 02/05/18 Unknown History mcg/actuation nasal spray,suspension (Allergy Relief (fluticasone)) multivitamin 1 tab PO DAILY 09/15/20 Unknown Hi story cpap 03/28/22 Unknown History cholecalciferol (vitamin D3) 50 50 mcg PO DAILY 10/30/23 Unknown H istory mcg (2,000 unit) capsule loratadine 10 mg tablet (Claritin) 10 mg PO DAILY 10/30/23 Unknown History krill 1,000 mg-omega-3 230 mg-dha 1 cap PO BID #180 caps 12/05/23 U nknown Rx 60 xe-rmp-tlunkpeak-ast axan capsule (MegaRed [place]-3 Krill Oil) sildenafil (pulm.hypertension) 20 20 mg PO .COMPLEX PRN sexual 04/01 07/22 Unknown Rx mg tablet activity #30 tabs hydrochlorothiazide 25 mg tablet 25 mg PO DAILY #90 tabs 05/16/24 U nknown Rx losartan 100 mg tablet 100 mg PO DAILY #90 tabs 05/16/24 Unknown Rx diltiazem HCl 180 mg 180 mg PO BID 06/04/24 Unknown His tory capsule,extended release 24 hr, controlled (DILT-XR) Allergy/AdvReac Type Severity Reaction Status Date / Time cat dander Allergy Shortness Verified 06/03/24 22:49 of breath Family History Father CAD (coronary artery disease) Hypertension Aunt Cancer Mother No problems noted. Surgical History History of rotator cuff surgery History of left heart catheterization Hx of sinus surgery Social History household members: none Smoking Status: Never smoker alcohol intake: current alcohol intake frequency: a few times a week Alcohol type: beer substance use type: does not use caffeine: Yes Type: carbonated beverages and coffee Number of servings: 2 what type of physical activity do you participate in: (more content not included)... Normal [facility] Emergency Department Summary on 06-04-2024 Emergency Department Summary [facility] Medical Records Department [address] [place] [address] Emergency Department Summary 06/04/24 MR#: [id number] Acct: [id number] Name: GEORGIA THORPE Rep #: [id number] : 1965 58 From: Josué Valdez DO PCP: Dr. Wendie Louise MD Status:ADM IN Location: [facility] [place] HPI History of Present Illness Chief Complaint: Constipation Informant: patient Narrative Narrative: Patient is a 58-year-old male with past medical history of hypertension hyperlipidemia and SHAY. He states roughly a week or so ago he had the stomach bug with bouts of nausea vomiting and diarrhea. He states the symptoms improved/resolved but then he developed constipation which he reports is not normal for him. He states that he has tried multiple doses of MiraLAX and even magnesium citrate and an enema and is only passing brown water. He states that the symptoms have been present for the past 3 to 4 days but do not seem to be improving and secondary to this he presents to the hospital for evaluation [facility] Medical History Contact with and (suspected) exposure to other viral communicable diseases Acute maxillary sinusitis, unspecified Seizure Dyspnea on exertion Hypertension Recent surgical procedure on lower extremity SHAY on CPAP Hypertrophic obstructive cardiomyopathy Essential hypertension Segmental and somatic dysfunction of pelvic region Segmental and somatic dysfunction of thoracic region Segmental and somatic dysfunction of lumbar region Leg pain, bilateral Asymmetric septal hypertrophy Hypertriglyceridemia Allergic rhinitis Erectile dysfunction Hyperlipidemia Home Medications ???Medication ???Instructions ???Recorded ???Last Taken ???Type fluticasone propionate 50 2 spray intranasal DAILY 02/05/18 Unknown History mcg/actuation nasal spray,suspension (Allergy Relief (fluticasone)) multivitamin 1 tab PO DAILY 09/15/20 Unknown Hi story cpap 03/28/22 Unknown History cholecalciferol (vitamin D3) 50 50 mcg PO DAILY 10/30/23 Unknown H istory mcg (2,000 unit) capsule loratadine 10 mg tablet (Claritin) 10 mg PO DAILY 10/30/23 Unknown History krill 1,000 mg-omega-3 230 mg-dha 1 cap PO BID #180 caps 12/05/23 U nknown Rx 60 uw-rea-ssleyonbt-ast axan capsule (MegaRed [place]-3 Krill Oil) sildenafil (pulm.hypertension) 20 20 mg PO .COMPLEX PRN sexual 04/01 07/22 Unknown Rx mg tablet activity #30 tabs hydrochlorothiazide 25 mg tablet 25 mg PO DAILY #90 tabs 05/16/24 U nknown Rx losartan 100 mg tablet 100 mg PO DAILY #90 tabs 05/16/24 Unknown Rx diltiazem HCl 180 mg 180 mg PO BID 06/04/24 Unknown His tory capsule,extended release 24 hr, controlled (DILT-XR) Allergy/AdvReac Type Severity Reaction Status Date / Time cat dander Allergy Shortness Verified 06/03/24 22:49 of breath Family History (Updated 06/04/24 @ 02:[address] Adina Parikh MD) Father CAD (coronary artery disease) Hypertension Aunt Cancer Mother No problems noted. Surgical History History of rotator cuff surgery History of left heart catheterization Hx of sinus surgery Social History (Updated 06/04/24 @ 02:[address] Adina Parikh MD) household members: none Smoking Status: Never smoker alcohol intake: current alcohol intake frequency: a few times a week Alcohol type: beer substance use type: does not use caffeine: Yes Type: carbonated beverages and coffee Number of servings: 2 what type of physical activity do you participate in: none seatbelt use: always do you feel safe at home: Yes ROS ROS ED Constitutional Constitutional ED: Denies chills or fever(s) ENT ENT ED: Denies sore throat Cardiovascular Cardiovascular: Denies chest pain Respiratory/Chest Respiratory/Chest: Denies cough or dyspnea Gastrointestinal Gastrointestinal: Reports abdominal pain and diarrhea; Denies nausea or vomiting Genitourinary Genitourinary ED: Denies dysuria Musculoskeletal Musculoskeletal: Denies myalgias Integumentary Denies rash Neurologic Neurologic: Denies headache(s) Hematologic/Lymphati c Hematologic/Lymphati c: Denies easy bleeding or easy bruising EXAM Physical Exam Const Vital Signs: 06/03/24 22:48 06/04/24 00:48 06/04/24 02:00 Temperature 98.2 F 98.4 F Temperature Source Oral Pulse Rate 87 59 L 72 Respiratory Rate 16 12 12 Blood Pressure 158/84 H 135/78 H 146/80 H Blood Pressure Mean 108 97 102 Pulse Ox 98 98 98 Oxygen Delivery Method Room Air Room Air 06/04/24 02:09 Temperature 98.4 F Temperature Source Oral Pulse Rate 72 Respiratory Rate 18 Blood Pressure 146/80 H Blood Pressure Mean 102 Pulse Ox 99 (more content not included)... Normal [facility] H AND P Exam - Hospitaliston 06-04-2024 H&P Exam - Hospitalist [facility] Medical Records Department [address] [place] [address] H P Exam - Hospitalist 06/04/24 0243 MR#: [id number] Acct: [id number] Name: GEORGIA THORPE Jr. Rep #: [id number] : 1965 58 From: Adina Parikh MD PCP: Dr. Wendie Louise MD Status:ADM IN Location: [address] HPI - General General Date of Admission: 06/04/24 Date of Service: 06/04/24 Chief Complaint: Abdominal pain, fever, chills. HPI Narrative The patient is a 58-year-old male with past medical history obesity, seizure disorder, SHAY on CPAP, hypertension, hyperlipidemia, allergic rhinitis, hypertrophic obstructive cardiomyopathy who presents to the [facility] ED on 06/04/24 with history of onset lower abdominal discomfort described as sharp stabbing, dull aching and cramping noted to be intermittent starting the Monday prior to current presentation rated 10 out of 10 in severity at its worst although lessening to near 1-2 out of 10 at times with no nausea or emesis but onset of fevers or chills not improving prompting eventual ED evaluation to be cautious in addition to associated constipation although he did report he would run to the bathroom with a cramping and would have some liquid but this was primarily water he noted. He did report approximately 1.5 weeks prior to this he had a gastrointestinal illness with nausea/emesis/diarrh ea but it had seemed to resolve. Workup in the ED included T98.2, heart rate 87, BP 158/84, respiratory rate 16, 90% on room air with most recent repeat assessment heart rate 59, BP 135/70, respiratory rate 12, 98% on room air, CBC with WBC 13.3, human 13.7, platelet 232 with left shift, CMP with potassium 2.8, glucose 109, calcium 8.3, magnesium 2.7, hepatic profile unremarkable, CT abdomen pelvis with IV contrast with acute diverticulitis involving the distal sigmoid colon with adjacent contained air and loculated fluid collection measuring 4.5 cm likely related to an abscess with significant adjacent mesenteric inflammatory stranding, fluid-filled loops of large bowel with scattered air-fluid levels without obstruction, bilateral Pelvic renal cyst or hydronephrosis however limited evaluation without delayed postcontrast images, bilateral kidneys enhance homogeneously and bilateral ureters demonstrate a normal course and caliber, enlarged prostate gland. In the ED patient administered potassium 40 mill equivalent IV x 1, Zosyn 3.375 g IV x 1, Zofran 4 mg IV x 1, morphine 4 mg IV x 1 as well as 1 L normal saline. ED discussed case with general surgeon Dr. Maher. [facility] Medical History Contact with and (suspected) exposure to other viral communicable diseases Acute maxillary sinusitis, unspecified Seizure Dyspnea on exertion Hypertension Recent surgical procedure on lower extremity SHAY on CPAP Hypertrophic obstructive cardiomyopathy Essential hypertension Segmental and somatic dysfunction of pelvic region Segmental and somatic dysfunction of thoracic region Segmental and somatic dysfunction of lumbar region Leg pain, bilateral Asymmetric septal hypertrophy Hypertriglyceridemia Allergic rhinitis Erectile dysfunction Hyperlipidemia Home Medications ???Medication ???Instructions ???Recorded ???Last Taken ???Type fluticasone propionate 50 2 spray intranasal DAILY 02/05/18 Unknown History mcg/actuation nasal spray,suspension (Allergy Relief (fluticasone)) multivitamin 1 tab PO DAILY 09/15/20 Unknown Hi story cpap 03/28/22 Unknown History cholecalciferol (vitamin D3) 50 50 mcg PO DAILY 10/30/23 Unknown H istory mcg (2,000 unit) capsule loratadine 10 mg tablet (Claritin) 10 mg PO DAILY 10/30/23 Unknown History krill 1,000 mg-omega-3 230 mg-dha 1 cap PO BID #180 caps 12/05/23 U nknown Rx 60 tu-kmw-rgdoepmdn-ast axan capsule (MegaRed [place]-3 Krill Oil) sildenafil (pulm.hypertension) 20 20 mg PO .COMPLEX PRN sexual 04/01 07/22 Unknown Rx mg tablet activity #30 tabs hydrochlorothiazide 25 mg tablet 25 mg PO DAILY #90 tabs 05/16/24 U nknown Rx losartan 100 mg tablet 100 mg PO DAILY #90 tabs 05/16/24 Unknown Rx diltiazem HCl 180 mg 180 mg PO BID 06/04/24 Unknown His tory capsule,extended release 24 hr, controlled (DILT-XR) Allergy/AdvReac Type Severity Reaction Status Date / Time cat dander Allergy Shortness Verified 06/03/24 22:49 of breath Family History Father CAD (coronary artery disease) Hypertension Aunt Cancer Mother No problems noted. Surgical History History of rotator cuff surgery History of left heart catheterization Hx of sinus surgery Social History househo (more content not included)... Normal [facility] - Chemistry and C hemistry - challengeOrdered By: Adina Parikh on 06-04-2024 AST [Catalytic activity/Vol] 13 U/L Low 15-37 [facility] Lipaseon 06-04-2024 Lipase [Catalytic activity/Vol] 36 U/L Normal 13-75 [facility] Comment on above: Result Comment: Clau jones note: LIPASE revised reference range effective 22. New Lipase methodology. Expected to produce lower values than the previous assay method. NEW Reference Range: 13 - 75 U/L Performed By: #### L 500.2500, L501.2450, L501.5200, L500.3400, L100.0100 #### [facility] [address] [facility] [place], [place], [id number] Lipase measurementOrdered By : Josué Valdez on 06-04-2024 Lipase [Catalytic activity/Vol] 36 U/L 13-75 [facility] Comment on above: Please note:LIPASE r evised reference range effective 22. New Lipase methodology. Expected to produce lower values than the previous assay method. NEW Reference Range: 13 - 75 U/L Liver Profileon 06-04-2024 Albumin [Mass/Vol] 3.2 g/dL Normal 3.2-5.0 [facility] Comment on above: Performed By: #### L 500.2500, L501.2450, L501.5200, L500.3400, L100.0100 #### [facility] [address] [place], [address] ALK P 55 U/L Normal 45-117 [facility] Comment on above: Performed By: #### L 500.2500, L501.2450, L501.5200, L500.3400, L100.0100 #### [facility] [address] [place], [address] ALT [Catalytic activity/Vol] 31 U/L Normal 16-61 [facility] Comment on above: Performed By: #### L 500.2500, L501.2450, L501.5200, L500.3400, L100.0100 #### [facility] [address] [place], [address] AST [Catalytic activity/Vol] 17 U/L Normal 15-37 [facility] Comment on above: Performed By: #### L 500.2500, L501.2450, L501.5200, L500.3400, L100.0100 #### [facility] [address] [place], [address] Bilirubin [Mass/Vol] 1.00 mg/dL Normal 0.20-1.00 [facility] Comment on above: Result Comment: For patients on eltrombopag therapy, use of Dimension [place] TBIL is not recommended. Performed By: #### L 500.2500, L501.2450, L501.5200, L500.3400, L100.0100 #### [facility] [address] [place], [address] Bilirubin.direct [Mass/Vol] 0.26 mg/dL Normal 0.00-0.30 [facility] Comment on above: Performed By: #### L 500.2500, L501.2450, L501.5200, L500.3400, L100.0100 #### [facility] [address] [place], [address] Globulin (S) [Mass/Vol] 3.8 g/dL Normal 2.2-4.2 [facility] Comment on above: Performed By: #### L 500.2500, L501.2450, L501.5200, L500.3400, L100.0100 #### [facility] [address] [place], [address] T PROT 7.0 g/dL Normal 6.4-8.2 [facility] Comment on above: Performed By: #### L 500.2500, L501.2450, L501.5200, L500.3400, L100.0100 #### [facility] [address] [place], [address] Magnesiumon 06-04-2024 Magnesium [Mass/Vol] 2.7 mg/dL High 1.6-2.6 [facility] Comment on above: Performed By: #### L 500.2500, L501.2450, L501.5200, L500.3400, L100.0100 #### [facility] [address] [place], [address] Magnesium measurementOrdered By: oJsué Valdez on 06-04-2024 Magnesium [Mass/Vol] 2.7 mg/dL High 1.6-2.6 [facility] Serum globulin measurementOr dered By: Adina Parikh on 06-04-2024 Globulin (S) [Mass/Vol] 3.9 g/dL 2.2-4.2 [facility] Serum or plasma alanine watts otransferase (ALT) measurementOrdered By: Adina Parikh on 06-04-2024 ALT [Catalytic activity/Vol] 29 U/L 16-61 [facility] Serum or plasma albumin chiara urement (mass/volume)Ordered By: Adina Parikh on 06-04-2024 Albumin [Mass/Vol] 2.9 g/dL Low 3.2-5.0 [facility] Serum or plasma alkaline jason sphatase measurementOrdered By: Adina Parikh on 06-04-2024 ALP [Catalytic activity/Vol] 49 U/L 45-117 [facility] Total proteinOrdered By: Darshana Parikh on 06-04-2024 Protein [Mass/Vol] 6.8 g/dL 6.4-8.2 [facility] Absolute lymphocyte countOrd ered By: Wendie Arriagachner on 06-06-2023 Lymphocytes Auto (Unsp spec) [#/Vol] 2.51 10*3/uL 0.83-4.51 [facility] Automated lymphocyte count a s percentage of total leukocytesOrdered By: Wendie Louise on 06-06-2023 Lymphocytes/100 WBC Auto (Unsp spec) 38.7 % 19-41 [facility] Basophil percentageOrdered B y: Wendie Louise on 06-06-2023 Basophils/100 WBC (Bld) 0.6 % 0-1 [facility] Bilirubin [Mass/Vol] 0.70 mg/dL 0.20-1.00 [facility] Comment on above: For patients on eltr ombopag therapy, use of Dimension [place] TBIL is not recommended. Chloride [Moles/Vol] 104 mmol/L 98-107 [facility] Cholesterol [Mass/Vol] 184 mg/dL <200 [facility] Comment on above: <200 mg/dL Desirable 200-240 mg/dL Borderline >240 mg/dL High Risk Eosinophils/100 WBC (Bld) 2.2 % 0-5 [facility] Glucose [Mass/Vol] 108 mg/dL 74-106 [facility] Comment on above: Fasting Glucose resu lt from 100 to 125 mg/dL suggests IMPAIRED HOMEOSTASIS per A.D.A. criteria. Hemoglobin (Bld) [Mass/Vol] 15.1 g/dL 13.0-16.5 [facility] Monocytes/100 WBC (Bld) 8.5 % 0-10 [facility] Neutrophils (Bld) [#/Vol] 3.2 10*3/uL 2.0-7.7 [facility] Neutrophils/100 WBC (Bld) 49.4 % 47-70 [facility] Potassium [Moles/Vol] 3.5 mmol/L 3.5-5.1 [facility] Protein [Mass/Vol] 7.4 g/dL 6.4-8.2 [facility] Sodium [Moles/Vol] 134 mmol/L 136-145 [facility] Triglyceride [Mass/Vol] 160 mg/dL <199 [facility] Comment on above: The drugs N-Acetylcy steine and Metamizole may falsely depress this assay.Serum Triglycerides Reference Interval Normal <150 mg/dL Borderline high 150 - 199 mg/dL High 200 - 499 mg/dL Very High > or = 500 mg/dL WBC (Bld) [#/Vol] 6.5 10*3/uL 4.4-11.0 [facility] Determination of erythrocyte mean corpuscular volume (MCV)Ordered By: Wendie Louise on 06-06-2023 MCV (RBC) [Entitic vol] 92.4 fL 80-94 [facility] Direct bilirubinOrdered By: Wendie Louise on 06-06-2023 Bilirubin.direct [Mass/Vol] 0.18 mg/dL 0.00-0.30 [facility] Erythrocyte distribution wid th ratioOrdered By: Wendie Louise on 06-06-2023 Erythrocyte distribution width (RBC) [Ratio] 12.4 % 11.6-14.6 [facility] Erythrocyte distribution wid th standard deviationOrdered By: Wendie Louise on 06-06-2023 Erythrocyte distribution width (RBC) [Entitic vol] 41.4 fL 35.1-43.9 [facility] Hematocrit Auto (Bld) [Volum e fraction]Ordered By: Wendie Louise on 06-06-2023 Hematocrit (Bld) [Volume fraction] 42.8 % 40-54 [facility] Immature granulocytes/100 WB C Auto (Bld)Ordered By: Wendie Louise on 06-06-2023 Immature granulocytes/100 WBC (Bld) 0.600 % 0.0-0.9 [facility] Comment on above: IG% - Immature Granu locytes (promyelocytes, myelocytes and metamyelocytes) > 1% indicates that a LEFT SHIFT is Present. Laboratory - Chemistry and C hemistry - challengeOrdered By: Wendie Louise on 06-06-2023 Albumin/Globulin [Mass ratio] 1.2 {ratio} 0.9-2.4 [facility] ALP [Catalytic activity/Vol] 66 U/L 45-117 [facility] ALT [Catalytic activity/Vol] 41 U/L 16-61 [facility] Cholesterol in HDL [Mass/Vol] 45 mg/dL >40 [facility] Comment on above: The drugs N-Acetylcy steine and Metamizole may falsely depress this assay. Reference Range HDL <40 mg/dL Low HDL Cholesterol HDL >or= 60 mg/dL High HDL Cholesterol Cholesterol in LDL [Mass/Vol] 107 mg/dL 0-130 [facility] CO2 [Moles/Vol] 27.0 mmol/L 21.0-32.0 [facility] Globulin (S) [Mass/Vol] 3.4 g/dL 2.2-4.2 [facility] Urea nitrogen/Creatinine [Mass ratio] 17.7 mg/mg 10-20 [facility] - Hematology and Cell countsOrdered By: Wendie Louise on 06-06-2023 MCH (RBC) [Entitic mass] 32.6 pg 27.0-32.0 [facility] MCHC (RBC) [Mass/Vol] 35.3 g/dL 32-36 [facility] Nucleated RBC/100 WBC (Bld) [Ratio] 0 % 0-5 [facility] Platelet mean volume (Bld) [Entitic vol] 9.4 fL 6.2-12.0 [facility] Platelets (Bld) [#/Vol] 223 10*3/uL 150-450 [facility] No Panel InformationOrdered By: Wendie Louise on 06-06-2023 Estimated GFR (MDRD) Amer 77 mL/min >60 [facility] Comment on above: GFR Calc Estimated GFR (MDRD) Non-Af Amer 64 mL/min >60 [facility] Comment on above: Non- GFR Calc Prostate Specific Antigen Screen 1.22 ng/mL 0.00-4.00 [facility] Comment on above: This test was perfor med using the TPSA assay method for the[facility] system. Values obtained with differentassay methods cannot be used interchangably.When changing PSA assays in the course of monitoring apatient, additional sequential testing should be carriedout to confirm baseline values. Vitamin D 25-Hydroxy 29.0 ng/mL [facility] Comment on above: Vitamin D 25(OH) Sta tus Range Deficiency <20 ng/mL (50nmol/L) Insufficiency 20 - 30 ng/mL (50 - 75 nmol/L) Sufficiency 30 - 100 ng/mL (75 - 250 nmol/L) Toxicity >100 ng/mL (>250 nmol/L) VLDL Cholesterol 32 mg/dL 5-40 [facility] RBC Auto (Bld) [#/Vol]Ordere d By: Wendie Louise on 06-06-2023 RBC (Bld) [#/Vol] 4.63 10*6/uL 4.6-6.2 [facility] Serum or plasma calcium chiara urement (mass/volume)Ordered By: Wendie Louise on 06-06-2023 Calcium [Mass/Vol] 8.8 mg/dL 8.5-10.1 [facility] Serum or plasma creatinine m easurement (mass/volume)Ordered By: Wendie Louise on 06-06-2023 Creatinine [Mass/Vol] 1.24 mg/dL 0.70-1.30 [facility] Comment on above: The validity of the calculated GFR & GFRAA in patients over 70 years has not been determined. Clinical correlation is essential. Serum or plasma thyroid stim ulating hormone (TSH) measurement (units/volume)Ordered By: Wendie Louise on 06-06-2023 TSH Qn 2.20 uIU/mL 0.358-3.74 [facility] Serum or plasma urea nitroge n measurement (mass/volume)Ordered By: Wendie Louise on 06-06-2023 Urea nitrogen [Mass/Vol] 22 mg/dL 7-18 [facility] Thin prep Papanicolaou smear with manual screeningOrdered By: Wendie Louise on 06-06-2023 Thin prep Papanicolaou smear with manual screening 4.0 g/dL 3.2-5.0 [facility] Thin prep Papanicolaou smear with manual screening 24 U/L 15-37 [facility] Thin prep Papanicolaou smear with manual screening 3 5-15 [facility] Whole blood hemoglobin A1c/t otal hemoglobin ratio (mass fraction)Ordered By: Wendie Louise on 06-06-2023 HbA1c (Bld) [Mass fraction] 4.6 % 3.8-5.6 [facility] Comment on above: Normal < 5.7 % Predi abetic 5.7 - 6.4 % Diabetic >or= 6.5 % Please note range changes. Laboratory - Microbiology an d Antimicrobial susceptibilityon 12-27-2022 SARS-CoV-2 (COVID-19) RNA MICHELE+probe Ql (Unsp spec) Not detected [facility] No Panel Informationon 12-27 Influenza Types A,B Rapid (Clinic) Not detected [facility] Basophil percentageOrdered B y: Fabian Diaz on 10-10-2022 Bilirubin [Mass/Vol] 0.80 mg/dL 0.20-1.00 [facility] Comment on above: For patients on eltr ombopag therapy, use of Dimension [place] TBIL is not recommended. Cholesterol [Mass/Vol] 80 mg/dL <200 [facility] Comment on above: <200 mg/dL Desirable 200-240 mg/dL Borderline >240 mg/dL High Risk Protein [Mass/Vol] 7.5 g/dL 6.4-8.2 [facility] Triglyceride [Mass/Vol] 95 mg/dL <199 [facility] Comment on above: The drugs N-Acetylcy steine and Metamizole may falsely depress this assay.Serum Triglycerides Reference Interval Normal <150 mg/dL Borderline high 150 - 199 mg/dL High 200 - 499 mg/dL Very High > or = 500 mg/dL Direct bilirubinOrdered By: Fabian Diaz on 10-10-2022 Bilirubin.direct [Mass/Vol] 0.22 mg/dL 0.00-0.30 [facility] - Chemistry and C hemistry - challengeOrdered By: Fabian Diaz on 10-10-2022 ALP [Catalytic activity/Vol] 72 U/L 45-117 [facility] ALT [Catalytic activity/Vol] 51 U/L 16-61 [facility] Globulin (S) [Mass/Vol] 3.3 g/dL 2.2-4.2 [facility] Serum or plasma albumin chiara urement (mass/volume)Ordered By: Fabian Diaz on 10-10-2022 Albumin [Mass/Vol] 4.2 g/dL 3.2-5.0 [facility] Serum or plasma cholesterol in HDL measurement (mass/volume)Ordered By: Fabian Diaz on 10-10-2022 Cholesterol in HDL [Mass/Vol] 39 mg/dL >40 [facility] Comment on above: The drugs N-Acetylcy steine and Metamizole may falsely depress this assay. Reference Range HDL <40 mg/dL Low HDL Cholesterol HDL >or= 60 mg/dL High HDL Cholesterol Serum or plasma cholesterol in VLDL measurement (mass/volume)Ordered By: Fabian Diaz on 10-10-2022 Cholesterol in VLDL [Mass/Vol] 19 mg/dL 5-40 [facility] Serum or plasma low density lipoprotein (LDL) cholesterol measurement (mass/volume)Ordered By: Fabian Diaz on 10-10-2022 Cholesterol in LDL [Mass/Vol] 22 mg/dL 0-130 [facility] Thin prep Papanicolaou smear with manual screeningOrdered By: Fabian Diaz on 10-10-2022 Thin prep Papanicolaou smear with manual screening 29 U/L 15-37 [facility] Absolute lymphocyte counton 03-28-2022 Lymphocytes Auto (Unsp spec) [#/Vol] 1.98 10*3/uL 0.83-4.51 [facility] Work Phone: Basophil percentageon 2021 Basophils/100 WBC (Bld) 0.4 % 0-1 [facility] Work Phone: Bilirubin [Mass/Vol] 0.80 mg/dL 0.20-1.00 [facility] Work Phone: Comment on above: For patients on eltr ombopag therapy, use of Dimension [place] TBIL is not recommended. Chloride [Moles/Vol] 103 mmol/L 98-107 [facility] Work Phone: Cholesterol [Mass/Vol] 147 mg/dL <200 [facility] Work Phone: Comment on above: <200 mg/dL Desirable 200-240 mg/dL Borderline >240 mg/dL High Risk Eosinophils/100 WBC (Bld) 2.6 % 0-5 [facility] Work Phone: Glucose [Mass/Vol] 96 mg/dL 74-106 [facility] Work Phone: Neutrophils (Bld) [#/Vol] 4.1 10*3/uL 2.0-7.7 [facility] Work Phone: Neutrophils/100 WBC (Bld) 59.2 % 47-70 [facility] Work Phone: Potassium [Moles/Vol] 3.8 mmol/L 3.5-5.1 [facility] Work Phone: Protein [Mass/Vol] 7.9 g/dL 6.4-8.2 [facility] Work Phone: Sodium [Moles/Vol] 137 mmol/L 136-145 [facility] Work Phone: Triglyceride [Mass/Vol] 298 mg/dL <199 [facility] Work Phone: Comment on above: The drugs N-Acetylcy steine and Metamizole may falsely depress this assay.Serum Triglycerides Reference Interval Normal <150 mg/dL Borderline high 150 - 199 mg/dL High 200 - 499 mg/dL Very High > or = 500 mg/dL WBC (Bld) [#/Vol] 6.9 10*3/uL 4.4-11.0 [facility] Work Phone: Blood erythrocytes count (nu mber/volume)on 03-28-2022 RBC (Bld) [#/Vol] 5.09 10*6/uL 4.6-6.2 [facility] Work Phone: Blood hemoglobin measurement (mass/volume)on 03-28-2022 Hemoglobin (Bld) [Mass/Vol] 16.7 g/dL 13.0-16.5 [facility] Work Phone: Blood lymphocytes/100 leukoc yteson 03-28-2022 Lymphocytes/100 WBC (Bld) 28.8 % 19-41 [facility] Work Phone: [phone] Blood monocytes/100 leukocyt eson 03-28-2022 Monocytes/100 WBC (Bld) 8.6 % 0-10 [facility] Work Phone: Blood platelet mean volumeon 03-28-2022 Platelet mean volume (Bld) [Entitic vol] 9.8 fL 6.2-12.0 [facility] Work Phone: Determination of erythrocyte mean corpuscular volume (MCV)on 03-28-2022 MCV (RBC) [Entitic vol] 92.7 fL 80-94 [facility] Work Phone: Hematocrit Auto (Bld) [Volum e fraction]on 03-28-2022 Hematocrit (Bld) [Volume fraction] 47.2 % 40-54 [facility] Work Phone: Laboratory - Chemistry and C hemistry - challengeon 03-28-2022 ALP [Catalytic activity/Vol] 75 U/L 45-117 [facility] Work Phone: ALT [Catalytic activity/Vol] 59 U/L 16-61 [facility] Work Phone: CO2 [Moles/Vol] 25.0 mmol/L 21.0-32.0 [facility] Work Phone: Globulin (S) [Mass/Vol] 3.7 g/dL 2.2-4.2 [facility] Work Phone: Urea nitrogen/Creatinine [Mass ratio] 20.9 mg/mg 10-20 [facility] Work Phone: Laboratory - Hematology and Cell countson 03-28-2022 Erythrocyte distribution width (RBC) [Entitic vol] 42.4 fL 35.1-43.9 [facility] Work Phone: Erythrocyte distribution width (RBC) [Ratio] 12.5 % 11.6-14.6 [facility] Work Phone: Immature granulocytes/100 WBC (Bld) 0.400 % 0.0-0.9 [facility] Work Phone: Comment on above: IG% - Immature Granu locytes (promyelocytes, myelocytes and metamyelocytes) > 1% indicates that a LEFT SHIFT is Present. MCH (RBC) [Entitic mass] 32.8 pg 27.0-32.0 [facility] Work Phone: Nucleated RBC/100 WBC (Bld) [Ratio] 0 % 0-5 [facility] Work Phone: MCHC Auto (RBC) [Mass/Vol]on 03-28-2022 MCHC (RBC) [Mass/Vol] 35.4 g/dL 32-36 [facility] Work Phone: No Panel Informationon 03-28 Estimated GFR (MDRD) Amer 84 mL/min >60 [facility] Work Phone: Comment on above: GFR Calc Estimated GFR (MDRD) Non-Af Amer 70 mL/min >60 [facility] Work Phone: Comment on above: Non- GFR Calc Insulin Level 19.1 mU/L 2.6-37.6 [facility] Work Phone: Thyroid Stimulating Hormone (TSH) 3.16 uIU/mL 0.358-3.74 [facility] Work Phone: Vitamin D 25-Hydroxy 26.4 ng/mL [facility] Work Phone: Comment on above: Vitamin D 25(OH) Sta tus Range Deficiency <20 ng/mL (50nmol/L) Insufficiency 20 - 30 ng/mL (50 - 75 nmol/L) Sufficiency 30 - 100 ng/mL (75 - 250 nmol/L) Toxicity >100 ng/mL (>250 nmol/L) Platelets bldon 03-28-2022 Platelets (Bld) [#/Vol] 197 10*3/uL 150-450 [facility] Work Phone: Serum or plasma albumin chiara urement (mass/volume)on 03-28-2022 Albumin [Mass/Vol] 4.2 g/dL 3.2-5.0 [facility] Work Phone: Serum or plasma albumin/glob ulin mass ratioon 03-28-2022 Albumin/Globulin [Mass ratio] 1.1 {ratio} 0.9-2.4 [facility] Work Phone: Serum or plasma calcium chiara urement (mass/volume)on 03-28-2022 Calcium [Mass/Vol] 9.2 mg/dL 8.5-10.1 [facility] Work Phone: Serum or plasma cholesterol in HDL measurement (mass/volume)on 03-28-2022 Cholesterol in HDL [Mass/Vol] 44 mg/dL >40 [facility] Work Phone: Comment on above: The drugs N-Acetylcy steine and Metamizole may falsely depress this assay. Reference Range HDL <40 mg/dL Low HDL Cholesterol HDL >or= 60 mg/dL High HDL Cholesterol Serum or plasma cholesterol in VLDL measurement (mass/volume)on 03-28-2022 Cholesterol in VLDL [Mass/Vol] 60 mg/dL 5-40 [facility] Work Phone: Serum or plasma creatinine m easurement (mass/volume)on 03-28-2022 Creatinine [Mass/Vol] 1.15 mg/dL 0.70-1.30 [facility] Work Phone: Comment on above: The validity of the calculated GFR & GFRAA in patients over 70 years has not been determined. Clinical correlation is essential. Serum or plasma low density lipoprotein (LDL) cholesterol measurement (mass/volume)on 03-28-2022 Cholesterol in LDL [Mass/Vol] 43 mg/dL 0-130 [facility] Work Phone: Serum or plasma urea nitroge n measurement (mass/volume)on 03-28-2022 Urea nitrogen [Mass/Vol] 24 mg/dL 7-18 [facility] Work Phone: Thin prep Papanicolaou smear with manual screeningon 03-28-2022 Thin prep Papanicolaou smear with manual screening 24 U/L 15-37 [facility] Work Phone: Thin prep Papanicolaou smear with manual screening 9 5-15 [facility] Work Phone: Whole blood hemoglobin A1c/t otal hemoglobin ratio (mass fraction)on 03-28-2022 HbA1c (Bld) [Mass fraction] 4.8 % 3.8-5.6 [facility] Work Phone: Comment on above: Normal < 5.7 % Predi abetic 5.7 - 6.4 % Diabetic >or= 6.5 % Please note range changes. No Panel Informationon 12-19 POC SARS CoV-2 Antigen Negative [facility] Work Phone: Basophil percentageon 2021 Chloride [Moles/Vol] 105 mmol/L 98-107 [facility] Work Phone: Cholesterol [Mass/Vol] 129 mg/dL <200 [facility] Work Phone: Comment on above: <200 mg/dL Desirable 200-240 mg/dL Borderline >240 mg/dL High Risk Glucose [Mass/Vol] 91 mg/dL 74-106 [facility] Work Phone: Potassium [Moles/Vol] 3.8 mmol/L 3.5-5.1 [facility] Work Phone: Sodium [Moles/Vol] 139 mmol/L 136-145 [facility] Work Phone: Triglyceride [Mass/Vol] 277 mg/dL [facility] Work Phone: Comment on above: The drugs N-Acetylcy steine and Metamizole may falsely depress this assay.Serum Triglycerides Reference Interval Normal <150 mg/dL Borderline high 150 - 199 mg/dL High 200 - 499 mg/dL Very High > or = 500 mg/dL Laboratory - Chemistry and C hemistry - challengeon 09-29-2021 CO2 [Moles/Vol] 27.0 mmol/L 21.0-32.0 [facility] Work Phone: Urea nitrogen/Creatinine [Mass ratio] 19.7 mg/mg 10-20 [facility] Work Phone: No Panel Informationon 09-29 Estimated GFR (MDRD) Amer 72 mL/min >60 [facility] Work Phone: Comment on above: GFR Calc Estimated GFR (MDRD) Non-Af Amer 60 mL/min >60 [facility] Work Phone: Comment on above: Non- GFR Calc Serum or plasma calcium chiara urement (mass/volume)on 09-29-2021 Calcium [Mass/Vol] 8.7 mg/dL 8.5-10.1 [facility] Work Phone: Serum or plasma cholesterol in HDL measurement (mass/volume)on 09-29-2021 Cholesterol in HDL [Mass/Vol] 34 mg/dL [facility] Work Phone: Comment on above: The drugs N-Acetylcy steine and Metamizole may falsely depress this assay. Reference Range HDL <40 mg/dL Low HDL Cholesterol HDL >or= 60 mg/dL High HDL Cholesterol Serum or plasma cholesterol in VLDL measurement (mass/volume)on 09-29-2021 Cholesterol in VLDL [Mass/Vol] 55 mg/dL 5-40 [facility] Work Phone: Serum or plasma creatinine m easurement (mass/volume)on 09-29-2021 Creatinine [Mass/Vol] 1.32 mg/dL 0.70-1.30 [facility] Work Phone: Comment on above: The validity of the calculated GFR & GFRAA in patients over 70 years has not been determined. Clinical correlation is essential. Serum or plasma low density lipoprotein (LDL) cholesterol measurement (mass/volume)on 09-29-2021 Cholesterol in LDL [Mass/Vol] 40 mg/dL 0-130 [facility] Work Phone: Serum or plasma urea nitroge n measurement (mass/volume)on 09-29-2021 Urea nitrogen [Mass/Vol] 26 mg/dL 7-18 [facility] Work Phone: Thin prep Papanicolaou smear with manual screeningon 09-29-2021 Thin prep Papanicolaou smear with manual screening 7 5-15 [facility] Work Phone: Absolute lymphocyte counton 09-14-2021 Lymphocytes Auto (Unsp spec) [#/Vol] 2.82 10*3/uL 0.83-4.51 [facility] Work Phone: Basophil percentageon 2021 Basophils/100 WBC (Bld) 0.6 % 0-1 [facility] Work Phone: Bilirubin [Mass/Vol] 0.50 mg/dL 0.20-1.00 [facility] Work Phone: Comment on above: For patients on eltr ombopag therapy, use of Dimension [place] TBIL is not recommended. Chloride [Moles/Vol] 105 mmol/L 98-107 [facility] Work Phone: Cholesterol [Mass/Vol] 130 mg/dL <200 [facility] Work Phone: Comment on above: <200 mg/dL Desirable 200-240 mg/dL Borderline >240 mg/dL High Risk Eosinophils/100 WBC (Bld) 3.5 % 0-5 [facility] Work Phone: Glucose [Mass/Vol] 102 mg/dL 74-106 [facility] Work Phone: Comment on above: Fasting Glucose resu lt from 100 to 125 mg/dL suggests IMPAIRED HOMEOSTASIS per A.D.A. criteria. Neutrophils (Bld) [#/Vol] 3.4 10*3/uL 2.0-7.7 [facility] Work Phone: Neutrophils/100 WBC (Bld) 46.7 % 47-70 [facility] Work Phone: Potassium [Moles/Vol] 3.2 mmol/L 3.5-5.1 [facility] Work Phone: Protein [Mass/Vol] 6.7 g/dL 6.4-8.2 [facility] Work Phone: Sodium [Moles/Vol] 142 mmol/L 136-145 [facility] Work Phone: Triglyceride [Mass/Vol] 365 mg/dL [facility] Work Phone: Comment on above: The drugs N-Acetylcy steine and Metamizole may falsely depress this assay.Serum Triglycerides Reference Interval Normal <150 mg/dL Borderline high 150 - 199 mg/dL High 200 - 499 mg/dL Very High > or = 500 mg/dL WBC (Bld) [#/Vol] 7.2 10*3/uL 4.4-11.0 [facility] Work Phone: Blood erythrocytes count (nu mber/volume)on 09-14-2021 RBC (Bld) [#/Vol] 4.82 10*6/uL 4.6-6.2 [facility] Work Phone: Blood hemoglobin measurement (mass/volume)on 09-14-2021 Hemoglobin (Bld) [Mass/Vol] 15.6 g/dL 13.0-16.5 [facility] Work Phone: Blood lymphocytes/100 leukoc yteson 09-14-2021 Lymphocytes/100 WBC (Bld) 39.2 % 19-41 [facility] Work Phone: Blood monocytes/100 leukocyt eson 09-14-2021 Monocytes/100 WBC (Bld) 9.9 % 0-10 [facility] Work Phone: Blood platelet mean volumeon 09-14-2021 Platelet mean volume (Bld) [Entitic vol] 9.4 fL 6.2-12.0 [facility] Work Phone: Determination of erythrocyte mean corpuscular volume (MCV)on 09-14-2021 MCV (RBC) [Entitic vol] 91.1 fL 80-94 [facility] Work Phone: Direct bilirubinon 2 Bilirubin.direct [Mass/Vol] 0.13 mg/dL 0.00-0.30 [facility] Work Phone: Hematocrit Auto (Bld) [Volum e fraction]on 09-14-2021 Hematocrit (Bld) [Volume fraction] 43.9 % 40-54 [facility] Work Phone: Laboratory - Chemistry and C hemistry - challengeon 09-14-2021 ALP [Catalytic activity/Vol] 75 U/L 45-117 [facility] Work Phone: ALT [Catalytic activity/Vol] 57 U/L 16-61 [facility] Work Phone: [phone] CO2 [Moles/Vol] 31.0 mmol/L 21.0-32.0 [facility] Work Phone: [phone] Globulin (S) [Mass/Vol] 3.0 g/dL 2.2-4.2 [facility] Work Phone: [phone] Urea nitrogen/Creatinine [Mass ratio] 18.5 mg/mg 10-20 [facility] Work Phone: Laboratory - Hematology and Cell countson 09-14-2021 Erythrocyte distribution width (RBC) [Entitic vol] 39.2 fL 35.1-43.9 [facility] Work Phone: [phone] Erythrocyte distribution width (RBC) [Ratio] 11.9 % 11.6-14.6 [facility] Work Phone: [phone] Immature granulocytes/100 WBC (Bld) 0.100 % 0.0-0.9 [facility] Work Phone: Comment on above: IG% - Immature Granu locytes (promyelocytes, myelocytes and metamyelocytes) > 1% indicates that a LEFT SHIFT is Present. MCH (RBC) [Entitic mass] 32.4 pg 27.0-32.0 [facility] Work Phone: Nucleated RBC/100 WBC (Bld) [Ratio] 0 % 0-5 [facility] Work Phone: [phone] MCHC Auto (RBC) [Mass/Vol]on 09-14-2021 MCHC (RBC) [Mass/Vol] 35.5 g/dL 32-36 [facility] Work Phone: No Panel Informationon 09-14 Estimated GFR (MDRD) Amer 77 mL/min >60 [facility] Work Phone: Comment on above: GFR Calc Estimated GFR (MDRD) Non-Af Amer 64 mL/min >60 [facility] Work Phone: Comment on above: Non- GFR Calc Platelets bldon 09-14-2021 Platelets (Bld) [#/Vol] 173 10*3/uL 150-450 [facility] Work Phone: Serum or plasma albumin chiara urement (mass/volume)on 09-14-2021 Albumin [Mass/Vol] 3.7 g/dL 3.2-5.0 [facility] Work Phone: Serum or plasma calcium chiara urement (mass/volume)on 09-14-2021 Calcium [Mass/Vol] 8.5 mg/dL 8.5-10.1 [facility] Work Phone: Serum or plasma cholesterol in HDL measurement (mass/volume)on 09-14-2021 Cholesterol in HDL [Mass/Vol] 32 mg/dL [facility] Work Phone: Comment on above: The drugs N-Acetylcy steine and Metamizole may falsely depress this assay. Reference Range HDL <40 mg/dL Low HDL Cholesterol HDL >or= 60 mg/dL High HDL Cholesterol Serum or plasma cholesterol in VLDL measurement (mass/volume)on 09-14-2021 Cholesterol in VLDL [Mass/Vol] 73 mg/dL 5-40 [facility] Work Phone: Serum or plasma creatinine m easurement (mass/volume)on 09-14-2021 Creatinine [Mass/Vol] 1.24 mg/dL 0.70-1.30 [facility] Work Phone: Comment on above: The validity of the calculated GFR & GFRAA in patients over 70 years has not been determined. Clinical correlation is essential. Serum or plasma low density lipoprotein (LDL) cholesterol measurement (mass/volume)on 09-14-2021 Cholesterol in LDL [Mass/Vol] 25 mg/dL 0-130 [facility] Work Phone: Serum or plasma urea nitroge n measurement (mass/volume)on 09-14-2021 Urea nitrogen [Mass/Vol] 23 mg/dL -18 [facility] Work Phone: Thin prep Papanicolaou smear with manual screeningon 09-14-2021 Thin prep Papanicolaou smear with manual screening 22 U/L 15-37 [facility] Work Phone: Thin prep Papanicolaou smear with manual screening 6 5-15 [facility] Work Phone: CNOVon 10-16-2020 CNOV Office Visit (LAURA) GEORGIA THORPE ([id number]) 1965 M Date Time Provider Department 10/16/20 10:15 AM VICENTA DUMAS During your visit today, we recorded the following information about you: Temperature Pulse Respiration Blood pressure 97.1 degrees 64/minute 20/minute 149/79 Weight 94.4 kg Kenny Merrill MD 10/16/2020 1:12 PM Signed COLORECTAL SURGERY New Patient Visit October 15, 2020 Chief Complaint: anal fissure History of Present Illness: Georgia Thorpe is a 54 year old year old male last seen at OSH 09/04/2020 with diagnosed anal fissure. C/o of rectal bleeding with some BM. Describes blood on tissue as well as in toilet. Denies rectal bleeding w/o BMs. He also complains of sharp anal pain, this is most common after bowel movements. She is not constipated, he has regular soft bowel movements. He has seen a surgeon a few months ago and has been prescribed diltiazem?lidocaine cream to the anus, this has somewhat helped with his symptoms. Presented with year-long problem of a rectal tag and pain itching burning with intermittent bleeding. His most recent colonoscopy apparently was by Dr. Shaheed Valdivia 1 year ago. The patient said that since that procedure he had increased difficulty. He did not receive any diagnosis from Dr. Valdivia as far as etiology to his problem other than notify the patient that he had hemorrhoids. The patient states the he has always had a small tag but that its been progressively enlarging. He thought that this was hemorrhoid disease and that the tag was part of that issue. No past medical history on file. No past surgical history on file. No current outpatient medications on file. No current facility-administere d medications for this visit. ALLERGIES Not on File Review of Systems / PACC screen: Do you have difficulty climbing a full flight of stairs without feeling short of breath? no Do you require oxygen for your breathing or have your gone to an emergency department because of breathing problems? no Are you on dialysis or have you been told that your kidneys do not work well as they should? no Do have an implanted cardiac device (pacemaker, defibrillator etc.) that has not been checked in the last 6 months? no Have you had an organ transplant? no Have you been told that you had excessive bleeding during surgical procedures or do you take blood thinning medications other than aspirin? no Have you ever had a heart attack, heart stents/surgery, valve problems, or other heart problems? no Have you had a stroke, seizures, or unexplained loss of consciousness? no Do you have a neurologic condition like Parkinson's disease or multiple sclerosis? no Have you or a blood relative had a life-threatening reaction to anesthesia? no Do you have cirrhosis of the liver or other liver disease? no Have you had a blood clot within the past year? no Do you take insulin or other injections for diabetes? no Do you have sleep apnea or have you been told you may have sleep apnea? yes CPAP Do you have other implanted devices (deep brain stimulator, spinal cord stimulator, etc.)? no Physical Exam: There were no vitals taken for this visit. General Appearance: Well appearing, alert, in no acute distress, well-hydrated, well nourished. Lungs: Unlabored on room air Heart: Negative findings: PMI normal Edema: no Abdomen: Normal abdominal exam, Abdomen soft, non-tender. Bowel sounds normal. No masses, organomegaly Anorectal: Perianal skin is intact. No erythema, induration or excoriation. Posterior midline small chronic fissure. 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 Data Reviewed: Colonoscopy to the cecum 09/12/2019 Impression: A 53 y/o with previous history of colon polyps. No polyps seen in this exam - I have discussed Georgia Thorpe's treatment plan and/or results with patient. The risks, benefits and anticipated outcomes of the several proposed procedures, the risks and benefits of the alternatives to the procedure and the roles and tasks of the personnel to be involved were discussed with the patient and the patient consents to the procedure and agrees to proceed. I explained the surgical procedure and potential findings extensively using also anatomic charts and answered all related questions. Treatment plan: Prescribed lidocaine and nifedipine creams for topical therapy. Return to clinic in 6 weeks if continues to have aphasia, will plan for EUA and Botox injection of the sphincter at that time I have seen and evaluated the patient and discussed the case with the (more content not included)... Normal [facility] HISTORY PHYSICALon HISTORY PHYSICAL HNO ID: [id number] Author: Kenny Merrill MD Service: ? Author Type: Resident Type: HANDP Filed: 10/17/2020 12:16 PM Note Text: COLORECTAL SURGERY New Patient Visit October 15, 2020 Chief Complaint: anal fissure History of Present Illness: Georgia Thorpe is a 54 year old year old male last seen at OSH 09/04/2020 with diagnosed anal fissure. C/o of rectal bleeding with some BM. Describes blood on tissue as well as in toilet. Denies rectal bleeding w/o BMs. He also complains of sharp anal pain, this is most common after bowel movements. She is not constipated, he has regular soft bowel movements. He has seen a surgeon a few months ago and has been prescribed diltiazem?lidocaine cream to the anus, this has somewhat helped with his symptoms. Presented with year-long problem of a rectal tag and pain itching burning with intermittent bleeding. His most recent colonoscopy apparently was by Dr. Shaheed Valdivia 1 year ago. The patient said that since that procedure he had increased difficulty. He did not receive any diagnosis from Dr. Valdivia as far as etiology to his problem other than notify the patient that he had hemorrhoids. The patient states the he has always had a small tag but that its been progressively enlarging. He thought that this was hemorrhoid disease and that the tag was part of that issue. No past medical history on file. No past surgical history on file. No current outpatient medications on file. No current facility-administere d medications for this visit. ALLERGIES Not on File Review of Systems / PACC screen: Do you have difficulty climbing a full flight of stairs without feeling short of breath? no Do you require oxygen for your breathing or have your gone to an emergency department because of breathing problems? no Are you on dialysis or have you been told that your kidneys do not work well as they should? no Do have an implanted cardiac device (pacemaker, defibrillator etc.) that has not been checked in the last 6 months? no Have you had an organ transplant? no Have you been told that you had excessive bleeding during surgical procedures or do you take blood thinning medications other than aspirin? no Have you ever had a heart attack, heart stents/surgery, valve problems, or other heart problems? no Have you had a stroke, seizures, or unexplained loss of consciousness? no Do you have a neurologic condition like Parkinson's disease or multiple sclerosis? no Have you or a blood relative had a life-threatening reaction to anesthesia? no Do you have cirrhosis of the liver or other liver disease? no Have you had a blood clot within the past year? no Do you take insulin or other injections for diabetes? no Do you have sleep apnea or have you been told you may have sleep apnea? yes CPAP Do you have other implanted devices (deep brain stimulator, spinal cord stimulator, etc.)? no Physical Exam: There were no vitals taken for this visit. General Appearance: Well appearing, alert, in no acute distress, well-hydrated, well nourished. Lungs: Unlabored on room air Heart: Negative findings: PMI normal Edema: no Abdomen: Normal abdominal exam, Abdomen soft, non-tender. Bowel sounds normal. No masses, organomegaly Anorectal: Perianal skin is intact. No erythema, induration or excoriation. Posterior midline small chronic fissure. 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 Data Reviewed: Colonoscopy to the cecum 09/12/2019 Impression: A 53 y/o with previous history of colon polyps. No polyps seen in this exam - I have discussed Georgia Thorpe's treatment plan and/or results with patient. The risks, benefits and anticipated outcomes of the several proposed procedures, the risks and benefits of the alternatives to the procedure and the roles and tasks of the personnel to be involved were discussed with the patient and the patient consents to the procedure and agrees to proceed. I explained the surgical procedure and potential findings extensively using also anatomic charts and answered all related questions. Treatment plan: Prescribed lidocaine and nifedipine creams for topical therapy. Return to clinic in 6 weeks if continues to have aphasia, will plan for EUA and Botox injection of the sphincter at that time I have seen and evaluated the patient and discussed the case with the resident physician. I agree with the assessment and plan as documented in the resident?s note. I spent 45 minutes in the visit, with more than 50% of the total [id number] time of the visit in counseling / coordination of care. Vicenta Dumas MD [facility] Colorectal Surgery Risk o (more content not included)... Normal [facility] Vital Signs Date Time Vital Sign Value Performing Clinician Nuno beltrán 11-13-2024 08:25-0400 Body height 170.[address] Wendie Louise MD Work Phone: [facility] 11-13-2024 08:25-0400 Body mass index (BMI) [Ratio] 30.5 kg/m2 Dr. Wendie Louise MD Work Phone: [facility] 11-13-2024 08:25-0400 Body weight 88.[address] Wendie Louise MD Work Phone: [facility] 11-13-2024 08:25-0400 Diastolic blood pressure 74 mm[Hg] Dr. Wendie Louise MD Work Phone: [facility] 11-13-2024 08:25-0400 Heart rate 59 /min Dr. Wendie Louise MD Work Phone: [facility] 11-13-2024 08:25-0400 Respiratory rate 16 /min Dr. Wendie Louise MD Work Phone: [facility] 11-13-2024 08:25-0400 Systolic blood pressure 120 mm[Hg] Dr. Wendie Louise MD Work Phone: [facility] 08-15-2024 08:16-0400 Body temperature 97.2 [degF] Dr. Wendie Louise MD Work Phone: [facility] 08-15-2024 08:16-0400 Diastolic blood pressure 76 mm[Hg] Dr. Wendie Louise MD Work Phone: [facility] 08-15-2024 08:16-0400 Heart rate 78 /min Dr. Wendie Louise MD Work Phone: [facility] 08-15-2024 08:16-0400 Respiratory rate 17 /min Dr. Wendie Louise MD Work Phone: [facility] 08-15-2024 08:16-0400 SaO2% (BldA) [Mass fraction] 97 % Dr. Wendie Louise MD Work Phone: [facility] 08-15-2024 08:16-0400 Systolic blood pressure 119 mm[Hg] Dr. Wendie Louise MD Work Phone: [facility] 06-17-2024 09:57-0500 Body height 170.[address] Wendie Louise MD Work Phone: [facility] 06-17-2024 09:57-0500 Body mass index (BMI) [Ratio] 30.8 kg/m2 Dr. Wendie Louise MD Work Phone: [facility] 06-17-2024 09:57-0500 Body temperature 98.7 [degF] Dr. Wendie Louise MD Work Phone: [facility] 06-17-2024 09:57-0500 Body weight 89.[address] Wendie Louise MD Work Phone: [facility] 06-17-2024 09:57-0500 Diastolic blood pressure 69 mm[Hg] Dr. Wendie Louise MD Work Phone: [facility] 06-17-2024 09:57-0500 Heart rate 87 /min Dr. Wendie Louise MD Work Phone: [facility] 06-17-2024 09:57-0500 SaO2% (BldA) [Mass fraction] 93 % Dr. Wendie Louise MD Work Phone: [facility] 06-17-2024 09:57-0500 Systolic blood pressure 126 mm[Hg] Dr. Wendie Louise MD Work Phone: [facility] 06-14-2024 13:04-0500 Body mass index (BMI) [Ratio] 30.4 kg/m2 Dr. Wendie Louise MD Work Phone: [facility] 06-14-2024 13:04-0500 Body temperature 97.6 [degF] Dr. Wendie Louise MD Work Phone: [facility] 06-14-2024 13:04-0500 Body weight 88.[address] Wendie Louise MD Work Phone: [facility] 06-14-2024 13:04-0500 Diastolic blood pressure 83 mm[Hg] Dr. Wendie Louise MD Work Phone: [facility] 06-14-2024 13:04-0500 Heart rate 74 /min Dr. Wendie Louise MD Work Phone: [facility] 06-14-2024 13:04-0500 Respiratory rate 18 /min Dr. Wendie Louise MD Work Phone: [facility] 06-14-2024 13:04-0500 SaO2% (BldA) [Mass fraction] 100 % Dr. Wendie Louise MD Work Phone: [facility] 06-14-2024 13:04-0500 Systolic blood pressure 137 mm[Hg] Dr. Wendie Louise MD Work Phone: [facility] 06-07-2024 12:15-0500 Body temperature 98.4 [degF] Dr. Wendie Louise MD Work Phone: [facility] 06-07-2024 12:15-0500 Diastolic blood pressure 78 mm[Hg] Dr. Wendie Louise MD Work Phone: [phone] [place] [address] 06-07-2024 12:15-0500 Heart rate 74 /min Dr. Wendie Louise MD Work Phone: [phone] [place] [address] 06-07-2024 12:15-0500 Respiratory rate 18 /min Dr. Wendie Louise MD Work Phone: [facility] 06-07-2024 12:15-0500 SaO2% (BldA) [Mass fraction] 95 % Dr. Wendie Louise MD Work Phone: [facility] 06-07-2024 12:15-0500 Systolic blood pressure 152 mm[Hg] Dr. Wendie Louise MD Work Phone: [facility] 06-07-2024 03:50-0500 Body mass index (BMI) [Ratio] 30.2 kg/m2 Dr. Wendie Louise MD Work Phone: [facility] 06-07-2024 03:50-0500 Body weight 87.[address] Wendie Louise MD Work Phone: [facility] 03-29-2023 09:52-0500 Body height 170.[address] Wendie Louise Work Phone: [facility] 03-29-2023 09:52-0500 Body mass index (BMI) [Ratio] 32.1 kg/m2 Dr. Wendie Louise Work Phone: [facility] 03-29-2023 09:52-0500 Body temperature 98.4 [degF] Dr. Wendie Louise Work Phone: [facility] 03-29-2023 09:52-0500 Body weight 92.[address] Wendie Louise Work Phone: [facility] 03-29-2023 09:52-0500 Diastolic blood pressure 85 mm[Hg] Dr. Wendie Louise Work Phone: [facility] 03-29-2023 09:52-0500 Heart rate 77 /min Dr. Wendie Louise Work Phone: [facility] 03-29-2023 09:52-0500 Respiratory rate 16 /min Dr. Wendie Louise Work Phone: [facility] 03-29-2023 09:52-0500 SaO2% (BldA) [Mass fraction] 97 % Dr. Wendie Louise Work Phone: [facility] 03-29-2023 09:52-0500 Systolic blood pressure 143 mm[Hg] Dr. Wendie Louise Work Phone: [facility] 03-27-2023 08:19-0500 Diastolic blood pressure 87 mm[Hg] Dr. Wendie Louise Work Phone: [facility] 03-27-2023 08:19-0500 Systolic blood pressure 152 mm[Hg] Dr. Wendie Louise Work Phone: [facility] 03-27-2023 08:18-0500 Body temperature 98.6 [degF] Dr. Wendie Louise Work Phone: [facility] 03-27-2023 08:18-0500 Heart rate 63 /min Dr. Wendie Louise Work Phone: [facility] 03-27-2023 08:18-0500 Respiratory rate 18 /min Dr. Wendie Louise Work Phone: [facility] 03-27-2023 08:18-0500 SaO2% (BldA) [Mass fraction] 97 % Dr. Wendie Louise Work Phone: [facility] 12-27-2022 12:39-0400 Body temperature 98.2 [degF] Dr. Wendie Louise Work Phone: [facility] 12-27-2022 12:39-0400 Diastolic blood pressure 74 mm[Hg] Dr. Wendie Louise Work Phone: [facility] 12-27-2022 12:39-0400 Heart rate 58 /min Dr. Wendie Louise Work Phone: [facility] 12-27-2022 12:39-0400 Respiratory rate 14 /min Dr. Wendie Louise Work Phone: [facility] 12-27-2022 12:39-0400 SaO2% (BldA) [Mass fraction] 98 % Dr. Wendie Louise Work Phone: [facility] 12-27-2022 12:39-0400 Systolic blood pressure 112 mm[Hg] Dr. Wendie Louise Work Phone: [facility] 10-27-2022 09:01-0400 Body height 170.[address] Wendie Louise Work Phone: [facility] 10-27-2022 09:01-0400 Body mass index (BMI) [Ratio] 30.5 kg/m2 Dr. Wendie Louise Work Phone: [facility] 10-27-2022 09:01-0400 Body weight 88.[address] Wendie Louise Work Phone: [facility] 10-27-2022 09:01-0400 Diastolic blood pressure 70 mm[Hg] Dr. Wendie Louise Work Phone: [facility] 10-27-2022 09:01-0400 Heart rate 50 /min Dr. Wendie Louise Work Phone: [facility] 10-27-2022 09:01-0400 Respiratory rate 18 /min Dr. Wendie Louise Work Phone: [facility] 10-27-2022 09:01-0400 SaO2% (BldA) [Mass fraction] 99 % Dr. Wendie Louise Work Phone: [facility] 10-27-2022 09:01-0400 Systolic blood pressure 115 mm[Hg] Dr. Wendie Louise Work Phone: [facility] 09-21-2022 12:42-0400 Body height 170.[address] Wendie Louise Work Phone: [facility] 09-21-2022 12:42-0400 Body mass index (BMI) [Ratio] 30.7 kg/m2 Dr. Wendie Louise Work Phone: [facility] 09-21-2022 12:42-0400 Body temperature 97.6 [degF] Dr. Wendie Louise Work Phone: [facility] 09-21-2022 12:42-0400 Body weight 89.[address] Wendie Louise Work Phone: [facility] 09-21-2022 12:42-0400 Diastolic blood pressure 68 mm[Hg] Dr. Wendie Louise Work Phone: [facility] 09-21-2022 12:42-0400 Heart rate 60 /min Dr. Wendie Louise Work Phone: [facility] 09-21-2022 12:42-0400 Respiratory rate 16 /min Dr. eWndie Louise Work Phone: [facility] 09-21-2022 12:42-0400 SaO2% (BldA) [Mass fraction] 98 % Dr. Wendie Louise Work Phone: [facility] 09-21-2022 12:42-0400 Systolic blood pressure 122 mm[Hg] Dr. Wendie Louise Work Phone: [facility] 03-28-2022 09:16-0500 Body temperature 98.1 [degF] Dr. Parker Villavicencio Work Phone: [facility] Work Phone: 03-28-2022 09:16-0500 Body weight 98.[address] Parker Villavicencio Work Phone: [facility] Work Phone: 03-28-2022 09:16-0500 Diastolic blood pressure 91 mm[Hg] Dr. Parker Villavicencio Work Phone: [facility] Work Phone: 03-28-2022 09:16-0500 Heart rate 70 /min Dr. Parker Villavicencio Work Phone: [facility] Work Phone: 03-28-2022 09:16-0500 Respiratory rate 16 /min Dr. Parker Villavicencio Work Phone: [facility] Work Phone: 03-28-2022 09:16-0500 SaO2% (BldA) [Mass fraction] 98 % Dr. Parker Villavicencio Work Phone: [facility] Work Phone: 03-28-2022 09:16-0500 Systolic blood pressure 151 mm[Hg] Dr. Parker Villavicencio Work Phone: [facility] Work Phone: 12-19-2021 09:18-0400 Body temperature 98.3 [degF] Dr. Parker Villavicencio Work Phone: [facility] Work Phone: 12-19-2021 09:18-0400 Diastolic blood pressure 70 mm[Hg] Dr. Parker Villavicencio Work Phone: [facility] Work Phone: 12-19-2021 09:18-0400 Heart rate 74 /min Dr. Parker Villavicencio Work Phone: [facility] Work Phone: 12-19-2021 09:18-0400 Respiratory rate 14 /min Dr. Parker Villavicencio Work Phone: [facility] Work Phone: 12-19-2021 09:18-0400 SaO2% (BldA) [Mass fraction] 97 % Dr. Parker Villavicencio Work Phone: [facility] Work Phone: 12-19-2021 09:18-0400 Systolic blood pressure 136 mm[Hg] Dr. Parker Villavicencio Work Phone: [facility] Work Phone: 09-07-2021 14:00-0400 Body height 170.[address] Parker Villavicencio Work Phone: [facility] Work Phone: 09-07-2021 14:00-0400 Body mass index (BMI) [Ratio] 34.1 kg/m2 Dr. Parker Villavicencio Work Phone: [facility] Work Phone: 09-07-2021 14:00-0400 Body weight 98.[address] Parker Villavicencio Work Phone: [facility] Work Phone: 09-07-2021 14:00-0400 Diastolic blood pressure 73 mm[Hg] Dr. Parker Villavicencio Work Phone: [facility] Work Phone: 09-07-2021 14:00-0400 Heart rate 67 /min Dr. Parker Villavicencio Work Phone: [facility] Work Phone: 09-07-2021 14:00-0400 Respiratory rate 16 /min Dr. Parker Villavicencio Work Phone: [facility] Work Phone: 09-07-2021 14:00-0400 Systolic blood pressure 145 mm[Hg] Dr. Parker Villavicencio Work Phone: [facility] Work Phone: Encounters Encounter Date Encounter Type Care Provider Facility Start: 12-24-2024 ambulatory Lety CRESPO Facility:[facility] Start: 11-13-2024 End: 11-13-2024 Patient encounter procedure Lety CRESPO -[facility] Work Phone: Start: 11-13-2024 End: 11-13-[address] Wendie Louise MD Work Phone: -[facility] Start: 08-15-2024 End: 08-15-[address] Ifeanyi Peters MD -[facility] Work Phone: Start: 08-15-2024 End: 08-15-2024 ambulatory Ifeanyi Peters Facility:[facility] Start: 07-23-2024 End: 07-23-[address] Wendie Louise MD Work Phone: [facility] Work Phone: Start: 07-23-2024 End: 07-23-[address] Vanessa Maher MD -[facility] Work Phone: Start: 07-23-2024 End: 07-23-2024 ambulatory Vanessa Maher Facility:[facility] Start: 07-10-2024 End: 07-10-[address] Vanessa Maher MD -[facility] Work Phone: Start: 07-10-2024 End: 07-10-2024 ambulatory Vanessa Maher Facility:[facility] Start: 06-21-2024 End: 06-21-[address] Vanessa Maher MD -[facility] Work Phone: Start: 06-21-2024 End: 06-21-2024 ambulatory Vanessa Maher Facility:[facility] Start: 06-20-2024 End: 06-20-[address] Vanessa Maher MD -Cat Scan, [facility] Work Phone: Start: 06-20-2024 End: 06-20-2024 ambulatory [facility] Facility:[facility] Start: 06-17-2024 End: 06-17-[address] Wendie Louise MD -[facility] Work Phone: Start: 06-17-2024 End: 06-17-2024 ambulatory [facility] Facility:[facility] Start: 06-14-2024 End: 06-14-[address] Vanessa Maher MD -[facility] Work Phone: Start: 06-14-2024 End: 06-14-2024 ambulatory [facility] Facility:[facility] Start: 06-13-2024 End: 06-13-2024 Patient encounter procedure Rhea CRESPO-C -Cat Scan, [facility] Work Phone: Start: 06-13-2024 End: 06-13-2024 ambulatory Rhea CRESPO Facility:[facility] Start: 06-12-2024 End: 06-12-[address] Wendie Louise MD -Laboratory Work Phone: Start: 06-12-2024 End: 06-12-2024 ambulatory Wendie [facility] Facility:[facility] Start: 06-07-2024 Non-patient / Non-visit Dr. Schneider [facility] Work Phone: Start: 06-06-2024 Non-patient / Non-visit Dr. Schneider [facility] Work Phone: Start: 06-06-2024 Non-patient / Non-visit Dr. Ifeanyi Peters MD -[facility] Start: 06-05-2024 Non-patient / Non-visit Dr. Colten Shaw MD -[facility] Work Phone: Start: 06-04-2024 Non-patient / Non-visit Dr. Amrit Maher MD -[facility] Start: 06-04-2024 ambulatory Rhea Reina lity:[facility] Start: 06-04-2024 End: 06-07-2024 Evaluation and management of inpatient Dr. Danny Lagunas DO -[facility] Work Phone: Start: 06-06-2023 End: 06-06-[address] Wendie Louise Work Phone: [facility] Work Phone: Start: 06-06-2023 End: 06-06-[address] Wendie Louise Work Phone: [facility] Work Phone: Start: 03-29-2023 End: 03-29-[address] Wendie Louise Work Phone: [facility] Work Phone: Start: 03-27-2023 End: 03-27-[address] Wendie Louise Work Phone: [facility] Work Phone: Start: 12-29-2022 Non-patient / Non-visit Dr. Edda Louise Work Phone: [facility] Start: 12-29-2022 End: 12-29-[address] Wendie Louise Work Phone: [facility] Work Phone: Start: 12-29-2022 End: 12-29-[address] Wendie Louise Work Phone: [facility] Work Phone: Start: 12-27-2022 End: 12-27-[address] Wendie Louise Work Phone: [facility] Work Phone: Start: 10-27-2022 End: 10-27-[address] Wendie Louise Work Phone: [facility] Work Phone: Start: 10-10-2022 End: 10-10-[address] Wendie Louise Work Phone: [facility] Work Phone: Start: 10-10-2022 End: 10-10-[address] Wendie Louise Work Phone: [facility] Start: 09-21-2022 End: 09-21-[address] Wendie Louise Work Phone: [facility] Start: 03-28-2022 End: 03-28-[address] Parker Villavicencio Work Phone: [facility] Work Phone: Start: 03-28-2022 End: 03-28-[address] Parker Villavicencio Work Phone: [facility] Start: 03-28-2022 End: 03-28-[address] Parker Villavicencio Work Phone: [facility] Start: 12-19-2021 End: 12-19-[address] Parker Villavicencio Work Phone: [facility] Start: 09-29-2021 End: 09-29-[address] Parker Villavicencio Work Phone: [facility] Start: 09-14-2021 End: 09-14-[address] Parker Villavicencio Work Phone: [facility] Start: 09-07-2021 End: 09-07-[address] Parker Villavicencio Work Phone: [facility] Start: 06-22-2017 Ambulatory NONE PCP Facility:[facility] Procedures Date Procedure Procedure Detail Performing Clinician Start: 07-23-2024 Computed tomography of abdomen and pelvis with contrast Dr. Wendie Louise MD Work Phone: Start: 06-20-2024 Computed tomography of abdomen and pelvis with contrast Dr. Wendie Louise MD Work Phone: Start: 06-13-2024 Computed tomography of abdomen and pelvis with contrast Dr. Wendie Louise MD Work Phone: Start: 06-04-2024 Computed tomography of abdomen and pelvis with intravenous contrast Dr. Wendie Louise MD Work Phone: Plan of Treatment Date Care Activity Detail Author Start: 06-07-2024 Patient discharge [facility] Start: 06-07-2024 [facility] Start: 06-05-2024 Application of inter mittent pneumatic compression device [facility] Start: 06-04-2024 Following clinical p athway protocol [facility] Start: 06-04-2024 Assessment of risk o f venous thromboembolism [facility] Start: 06-04-2024 [facility] positive [facility] Start: 06-04-2024 Inhalation therapy procedure [facility] Start: 06-04-2024 Insertion of cathete r into peripheral vein [facility] Start: 06-04-2024 Introduction of urinary catheter [facility] Start: 06-04-2024 Measuring intake and output [facility] Start: 06-04-2024 Providing care accor ding to standard [facility] Start: 06-04-2024 Provision of activity privileges [facility] Start: 06-04-2024 Referral to general surgeon [facility] Start: 06-04-2024 Referral to service [facility] Start: 06-04-2024 [facility] Start: 06-04-2024 Admission procedure [facility] CT angiography of co ronary arteries [facility] Lipid 1996 panel - S niko or Plasma [facility] Patient referral [facility] Work Phone: Prostate specific an tigen measurement [facility] Payers Date Payer Category Payer Unknown [id number] 2024 Unknown [id number] 2024 Self-pay [id number] 2015 Unknown [id number] Unknown [id number] Unknown [id number] 2.16.8 [id number] Unknown [id number] 2.16.8 [id number] Unknown [id number] 2.16.8 40.1.277550.3.579.2.462 Unknown [id number] 2.16.8 40.1.445512.3.579.2.462 Unknown [id number] 2.16.8 40.1.302005.3.579.2.462 Unknown [id number] 2.16.8 40.1.762937.3.579.2.462 Unknown [id number] 2.16.8 40.1.612970.3.579.2.462 Unknown [id number] 2.16.8 40.1.547029.3.579.2.462 Unknown [id number] 2.16.8 40.1.268740.3.579.2.462 Unknown [id number] 2.16.8 40.1.360881.3.579.2.462 Unknown [id number] 2.16.8 40.1.446184.3.579.2.462 Unknown [id number] 2.16.8 40.1.020014.3.579.2.462 Unknown [id number] 2.16.8 40.1.782196.3.579.2.462 Unknown [id number] 2.16.8 40.1.913683.3.579.2.462 Unknown [id number] 2.16.8 40.1.775389.3.579.2.462 Unknown [id number] 2.16.8 40.1.138641.3.579.2.462 Unknown [id number] 2.16.8 40.1.236895.3.579.2.462 Unknown [id number] 2.16.8 40.1.760718.3.579.2.462 Unknown [id number] 2.16.8 40.1.614733.3.579.2.462 Unknown [id number] 2.16.8 40.1.034738.3.579.2.462 Unknown [id number] 2.16.8 40.1.135041.3.579.2.462 Social History Date Type Detail Facility Start: 09-07-2021 End: 03-29-2023 Tobacco smoking status NHIS Unknown if ever smoked [facility] Start: 1965 Sex Assigned At Male [facility] Start: [facility]04-20[facility] Start: 07-28-2024 Sex Male (finding) [facility] Goals Date Patient Goal Desired Activity /State Functional Status Date Assessment Result Facility 06-07-2024 Functional status Ambulates;Up ad quinton [facility] Work Phone: Mental Status Date Assessment Result Facility 06-07-2024 Cognitive function Voice/Name [facility] Work Phone: Evaluation note 08-15-2024 Note Date & Type Note Facility 08-15-2024 Evaluation note Diagnosis Onset Date Resolution Diverticulitis of intestine with abscess acute July, 2025 8:11am Asymmetric septal hypertrophy chronic November 13, 2024 8:22am Essential hypertension chronic Ju 2024 8:22am [facility] Work Phone: Radiology Diagnostic study note 07-23-2024 Note Date & Type Note Facility 07-23-2024 Radiology Diagnostic study note [facility] Imaging Services [address] [place] [address] Abdomen/Pelvis WITH Contrast MR#: [id number] Acct: [id number] Name: GEORGIA THORPE Jr. Rep #: [id number] : 1965 M 58 From: Breonna Joseph MD PCP: Dr. Wendie Louise MD Status: REG CLI Study:Abdomen/Pelvis WITH Contrast Date of Ex am: 07/23/24 Exam# [id number] Ordering Dr: Vnaessa Maher MD EXAM: CT Abdomen and Pelvis With Intravenous Contrast CLINICAL INDICATION: DIVERTICULITIS W/ ABSCESS TECHNIQUE: Axial computed tomography images of the abdomen and pelvis with intravenous contrast. This CT exam was performed using one or more of the following dose reduction techniques: automated exposure control, adjustment of the mA and/or kV according to patient size, and/or use of iterative reconstruction technique. COMPARISON: CT Abdomen Pelvis dated 06/20/2024 large fatty liver FINDINGS: LUNG BASES: Unremarkable. No mass. No consolidation. ABDOMEN: LIVER: Unremarkable. No mass. GALLBLADDER AND BILE DUCTS: Unremarkable. No calcified stones. No ductal dilation. PANCREAS: Unremarkable. No mass. No ductal dilation. SPLEEN: Unremarkable. No splenomegaly. ADRENALS: Unremarkable. No mass. KIDNEYS AND URETERS: Bilateral renal cysts, stable. No hydronephrosis. STOMACH AND BOWEL: Scattered diverticula in the colon. There is mucosal thickening in the sigmoid colon with surrounding inflammation consistent with acute diverticulitis. No abscess. Constipation with suggestion of fecal impaction of the rectum. No obstruction. PELVIS: APPENDIX: No findings to suggest acute appendicitis. BLADDER: Unremarkable. No mass. REPRODUCTIVE: Unremarkable as visualized. ABDOMEN and PELVIS: INTRAPERITONEAL SPACE: Unremarkable. No free air. No significant fluid collection. BONES/JOINTS: No acute fracture. No dislocation. SOFT TISSUES: Bilateral inguinal hernias. VASCULATURE: Unremarkable. No abdominal aortic aneurysm. LYMPH NODES: Unremarkable. No enlarged lymph nodes. CT/Abdomen/Pelvis WITH Contrast IMPRESSION: 1. Scattered diverticula in the colon. There is mucosal thickening in the sigmoid colon with surrounding inflammation consistent with acute diverticulitis. No abscess. 2. Constipation with suggestion of fecal impaction of the rectum. 3. Bilateral inguinal hernias. Reading Location: [facility] CC: Dr. Wendie Louise MD; Dr. Vanessa Maher MD ~ Judicial Law Clerk: Signed [facility] Discharge summary note 06-07-2024 Note Date & Type Note Facility 06-07-2024 Note [facility] Records Department [address] [place] [address] Discharge Summary 06/07/24 0958 MR#: [id number] Acct: [id number] Name: GEORGIA THORPE Jr. Rep #: [id number] : 1965 58 From: Danny Lagunas DO PCP: Dr. Wendie Louise MD Status:DIS IN Location: [id number] Providers Date of Admission: 06/04/24 Date of Discharge: 06/07/24 Primary Care Physician: Dr. Wendie Louise MD Consultations 06/04/24 03:42 Consult: General Surgery Routine Consulting Provider: Vanessa Maher Reason for Consult: Diverticulitis with abscess EMERGENT Consult: No MD Notified: Yes Date Notified: 06/04/24 Time Notified: 02:44 Method of Notification: ED Physician Initiated Reason For Visit: ACUTE DIVERTICULITIS Diagnosis Discharge Diagnosis (1) Diverticulitis of intestine with abscess: Status: Acute Code(s): K57.80 - Diverticulitis of intestine, part unspecified, with perforation and abscess without bleeding Qualifiers: Diverticulitis bleeding: without bleeding Diverticulitis site: large intestine Qualified Code(s): K57.20 - Diverticulitis of large intestine with perforation and abscess without bleeding Medications at Discharge Home Medications fluticasone propionate 50 mcg/actuation nasal spray,suspension (Allergy Relief (fluticasone)) 2 spray intranasal DAILY 02/05/18 multivitamin 1 tab PO DAILY 09/15/20 cpap 03/28/22 cholecalciferol (vitamin D3) 50 mcg (2,000 unit) capsule 50 mcg PO DAILY 10/30/23 loratadine 10 mg tablet (Claritin) 10 mg PO DAILY 10/30/23 krill 1,000 mg-omega-3 230 mg-dha 60 tx-mqe-xleprvadr-astaxan capsule (MegaRed [place]-3 Krill Oil) 1 cap PO BID #180 caps 12/05/23 sildenafil (pulm.hypertension) 20 mg tablet 20 mg PO .COMPLEX PRN sexual activity #30 tabs 04/22/24 hydrochlorothiazide 25 mg tablet 25 mg PO DAILY #90 tabs 05/16/24 losartan 100 mg tablet 100 mg PO DAILY #90 tabs 05/16/24 diltiazem HCl 180 mg capsule,extended release 24 hr, controlled (DILT-XR) 180 mg PO BID 06/04/24 amoxicillin 875 mg-potassium clavulanate 125 mg tablet 1 tab PO BID 4 days #8 tabs 06/07/24 Hospital Course Operations None Procedures - (CT abdomen pelvis) Summary of Care Provided Minutes Spent on Discharge: 35 Hospital Course: Patient is a 58-year-old male who presented [facility] ED on 06/04/2024 with abdominal pain and fevers with chills. Hospital course as noted below. Patient discharged home in stable condition on 06/07. 1. Acute diverticulitis of colon with abscess ??? Surgery followed. CT abdomen pelvis on admit showed acute diverticulitis of distal sigmoid colon with adjacent loculated fluid collection measuring 4.5 cm consistent with abscess, along with significant adjacent mesenteric inflammatory stranding. Per surgery, abscess not amenable to percutaneous drainage based on location. Treated with IV antibiotics and patient with improvement in abdominal pain and fever/chills. Advanced diet per surgery recommendations and tolerated without issue. Had good bowel movement on day of discharge. Okay for discharge home on 06/07 with plan for repeat CT scan and outpatient surgery follow-up in the next week. Discharged on p.o. antibiotics to complete 7-day course of antibiotics total. 2. Hypokalemia ??? Repleted as needed. Chronic medical conditions: ??? Class I obesity: BMI 30 on admit. Complicated hospital course, care and prognosis. ??? History of hypertrophic obstructive cardiomyopathy, hypertension, hyperlipidemia: Stable. Continue home diltiazem, hydrochlorothiazide, and losartan. ??? SHAY: Continue CPAP at night. ??? Seasonal allergies: Continue home loratadine. Total clinical time spent by myself addressing the patient's medical issues, reviewing all the data, and collaborating with patient's care team: 35 minutes. Physical Exam Const alert, oriented x3 and no apparent distress Constitutional Narrative: Pleasant middle-age male, class I obesity, sitting up comfortably in bedside chair, conversing normally, in no acute distress. Stable. General Appearance: cooperative and comfortable HEENT normocephalic, head/scalp atraumatic, hearing grossly normal bilaterally, nasal mucous membranes and turbinates normal and moist oral mucous membranes Eyes PERRL, EOMs intact bilaterally and conjunctivae normal Neck full ROM Chest inspection of chest normal Resp normal respiratory effort, normal air movement, no use of accessory muscles and clear to auscultation bilaterally Cardio regular rate, regular rhythm, no murmurs and peripheral pulses 2+ throughout GI normal to inspection, nondistended, normoactive bowel sounds, soft to palpation, non-tender and non- distended Back/Spine normal ROM Extremity normal to inspection, full ROM and no pedal edema Skin no rashes or lesions noted Psych mental status g (more content not included)... [facility] Evaluation note 06-04-2024 Note Date & Type Note Facility 06-04-2024 Evaluation note Diagnosis Onset Date Resolution Diverticulitis of intestine with abscess acute June 04, 2024 2:43am Diverticulitis of intestine with abscess acute June 14, 2024 12:54pm Diverticulitis of intestine with abscess acute June 17, 2024 9:51am Right flank pain acute June 17, 2024 9:51am Essential hypertension chronic Fe bru2024 9:51am Hyperlipidemia chronic June 012024 9:51am Hypertrophic obstructive cardiomyopathy chronic June 17, 2 025 9:51am SHAY on CPAP chronic June 9:51am Diverticulitis of intestine with abscess acute June 21, 2024 12:53pm Diverticulitis of intestine with abscess acute June 12:54pm [facility] Work Phone: Evaluation note Note Date & Type Note Facility Evaluation note Diagnosis Onset Date Dyspnea on exertion acute Essential hypertension chron ic Hyperlipidemia chronic Hypertrophic obstructive cardiomyopathy chronic [facility] Work Phone: Evaluation note Note Date & Type Note Facility Evaluation note Diagnosis Onset Date Acute sinusitis acute Insulin resistance acute Essential hypertension chron ic Hyperlipidemia chronic Hypertriglyceridemia chronic Hypertrophic obstructive cardiomyopathy chronic SHAY on CPAP chronic [facility] Work Phone: Evaluation note Note Date & Type Note Facility Evaluation note Diagnosis Onset Date Acute maxillary sinusitis, unspecified acute [facility] Work Phone: Evaluation note Note Date & Type Note Facility Evaluation note Diagnosis Onset Date Acute maxillary sinusitis, unspecified acute Essential hypertension chron ic Hyperlipidemia chronic Hypertriglyceridemia chronic Hypertrophic obstructive cardiomyopathy chronic Acute maxillary sinusitis, unspecified acute Contact with and (suspected) exposure to other viral communicable diseases acute [facility] Work Phone: Evaluation note Note Date & Type Note Facility Evaluation note Diagnosis Onset Date Acute maxillary sinusitis, unspecified acute Acute maxillary sinusitis, unspecified acute Insulin resistance acute Hyperlipidemia chronic Hypertriglyceridemia chronic Hypertrophic obstructive cardiomyopathy chronic SHAY on CPAP [facility] Work Phone: Reason for referral (narrative) Note Date & Type Note Facility Reason for referral (narrative) No reason for referral information available [facility] Work Phone: Summary Purpose Family History No Family History Records Found Relationship Condition Age at Onset Recorded Date/T marti father Coronary artery disease Unknown Hypertension Unknown aunt Malignant neoplasm Unknown Advance Directives No Advanced Directives Records Found Advance Directive Response Recorded Date/ Time Advance Directives No June 7:21am Living Will No July 11, 2020 1:55pm Power of Hand Assembler No July 11 1:55pm Advance Directive Response Recorded Date/ Time Advance Directives No June 6:21am Living Will No July 11, 2020 12:55pm Power of Hand Assembler No July 11 12:55pm Advance Directive Response Recorded Date/ Time Living Will No June 04 5:12am Do you have a Healthcare Power of Hand Assembler? No June 04, 2024 5:12am Advance Directives No October 26 10:00am Advance Directive Response Recorded Date/ Time Living Will No October 27, 2023 10:00am Do you have a Healthcare Power of Hand Assembler? No October 27, 2023 10:00am Advance Directives No October 26 10:00am Chief Complaint and Reason for Visit Chief Complaint SOB WALKING 9 [place] Reason for Visit Dyspnea on exertion Essential hypertension Hyperlipidemia Hypertrophic obstructive cardiomyopathy Chief Complaint SOB WALKING 9 [place] EORDERS Reason for Visit Dyspnea on exertion Essential hypertension Hyperlipidemia Hypertrophic obstructive cardiomyopathy Chief Complaint CONCERN FOR SINUS IN FECTION Establish Care E ORDERS Reason for Visit Acute sinusitis Insulin resistance Essential hypertension Hyperlipidemia Hypertriglyceridemia Hypertrophic obstructive cardiomyopathy SHAY on CPAP Chief Complaint SINUS INFECTION NEED ORDER/APPT 10/27/22 Reason for Visit Acute maxillary sinu sitis, unspecified Chief Complaint SINUS INFECTION NEED ORDER/APPT 10/27/22 6 M FU SORE THROAT/CONCERN FOR SINUS INF OBSTRUCTIVE HYPERTROPHIC CARDIOMYOPATHY, HCM Reason for Visit Acute maxillary sinu sitis, unspecified Essential hypertension Hyperlipidemia Hypertriglyceridemia Hypertrophic obstructive cardiomyopathy Acute maxillary sinusitis, unspecified Contact with and (suspected) exposure to other viral communicable diseases Chief Complaint Sinus infection Annual 2 [employer] Reason for Visit Acute maxillary sinu sitis, unspecified Acute maxillary sinusitis, unspecified Insulin resistance Hyperlipidemia Hypertriglyceridemia Hypertrophic obstructive cardiomyopathy SHAY on CPAP Chief Complaint Admit Date ACUTE DIVERTICULITIS June 04, 2024 2:43am ACUTE DIVERTICULITIS June 04, 2024 7:26am ACUTE DIVERTICULITIS June 05, 2024 9:18am ACUTE DIVERTICULITIS June 05, 2024 9:49am ACUTE DIVERTICULITIS June 06, 2024 6:47am ACUTE DIVERTICULITIS June 06, 2024 12:39pm ACUTE DIVERTICULITIS June 07, 2024 9:25am ACUTE DIVERTICULITIS June 07, 2024 9:58am DIVERTICULITIS WITH ABSCESS June 3:47pm HOSPITAL F/U- DIVERTICULITIS June 142024 12:54pm Rt Side Pain June 17, 2024 9:51am DIVERTICULITIS WITH ABSCESS June 8:23am DISCUSS CT RESULTS June 21, 2024 12:53pm DIVERTICULITIS CHECK UP July 10, 2024 12:54pm DIVERTICULITIS, PO & IV July 23, 2024 9:52am Reason for Visit Admit Date Diverticulitis of intestine with abscess June 04, 2024 2:43am Diverticulitis of intestine with abscess June 14, 2024 12:54pm Diverticulitis of intestine with abscess June 17, 2024 9:51am Right flank pain June 17, 2024 9:51am Essential hypertension June 17 9:51am Hyperlipidemia June 17, 2024 9:51am Hypertrophic obstructive cardiomyopathy June 17, 2024 9:51am SHAY on CPAP June 17, 2024 9:51am Diverticulitis of intestine with abscess June 21, 2024 12:53pm Diverticulitis of intestine with abscess July 10, 2024 12:54pm Chief Complaint Admit Date DIVERTICULITIS, PO & IV July 23, 2024 9:52am TR PT- F/U DIVERTICULITIS August 15 8:11am 1 Y FU November 13, 2024 8:22 am Reason for Visit Admit Date Diverticulitis of intestine with abscess August 15, 2024 8:11am Asymmetric septal hypertrophy November 13, 2024 8:22am Essential hypertension November 13, 2024 8 :22am Additional Source Comments (unrecognized sect ion and content) No Status Records FoundNo Status Records FoundNo Status Records Found INFORMATION SOURCE (unrecogn ized section and content) DATE CREATED AUTHOR 10/20/2017 [facility] DATE CREATED AUTHOR AUTHOR'S ORGANIZ ATION 06/02/2021 [facility] DATE CREATED AUTHOR AUTHOR'S ORGANIZ ATION 12/22/2024 [facility] Care Teams (unrecognized sec tion and content) Team Status: Active Member Role Status Dates Dr. Parker Villavicencio DO Family Provider Active Dr. Wendie Louise MD Primary Care Provider Active Team Status: Inactive Member Role Status Dates Dr. Wendie Louise MD Primary Care Provider, Referri ng Provider Active Ifeanyi CRESPO, PA Attending Provider Active Team Status: Inactive Member Role Status Dates Dr. Wendie Louise MD Primary Care Provider Active Lety Joseph PA, PA Attending Provider, Referr ing Provider Active Team Status: Inactive Member Role Status Dates Dr. Wendie Louise MD Primary Care Provider, Referri ng Provider Active Lety CRESPO, PA Attending Provider Active Team Status: Active Member Role Status Dates Dr. Wendie Louise MD Primary Care Provider Active Dr. Flako Adam MD Attending Provider Active Team Status: Inactive Member Role Status Dates Dr. Wendie Louise MD Primary Care Provider, Attendi ng Provider Active Team Status: Inactive Member Role Status Dates Dr. Wendie Louise MD Primary Care Pro vider, Attending Provider, Referring Provider Active Lety Joseph PA, PA Other Provider Active Team Status: Active Member Role Status Dates Dr. Wendie Louise MD Primary Care Provider Active Team Status: Inactive Member Role Status Dates Dr. Wendie Louise MD Primary Care Provider Active Start: June 04, 2024 End: June 07, 2024 Dr. Josué Valdez DO Emergency Provider Active Start: June 04, 2024 End: June 07, 2024 Dr. Adina Parikh MD Admit Provider Active St art: June 04, 2024 End: June 07, 2024 Dr. Adina Parikh MD Referring Provider Active Start: June 04, 2024 End: June 07, 2024 Dr. Adina Parikh MD Other Provider Active St art: June 04, 2024 End: June 07, 2024 Dr. Vanessa Maher MD Other Provider Active S tart: June 04, 2024 End: June 07, 2024 Dr. Danny Lagunas DO Attending Provider Active Start: June 04, 2024 End: June 07, 2024 Dr. Colten Shaw MD Other Provider Active Sta rt: June 04, 2024 End: June 07, 2024 Team Status: Active Member Role Status Dates Dr. Wendie Louise MD Primary Care Provider Active Start: June 04, 2024 Dr. Josué Valdez DO Emergency Provider Active Start: June 04, 2024 Dr. Adina Parikh MD Admit Provider Active St art: June 04, 2024 Dr. Adina Parikh MD Referring Provider Active Start: June 04, 2024 Dr. Adina Parikh MD Other Provider Active St art: June 04, 2024 Dr. Vanessa Maher MD Attending Provider Active Start: June 04, 2024 Dr. Vanessa Maher MD Other Provider Active S tart: June 04, 2024 Dr. Colten Shaw MD Other Provider Active Sta rt: June 04, 2024 Team Status: Active Member Role Status Dates Dr. Wendie Louise MD Primary Care Provider Active Start: June 05, 2024 Dr. Josué Valdez DO Emergency Provider Active Start: June 05, 2024 Dr. Adina Parikh MD Admit Provider Active St art: June 05, 2024 Dr. Adina Parikh MD Referring Provider Active Start: June 05, 2024 Dr. Adina Parikh MD Other Provider Active St art: June 05, 2024 Dr. Vanessa Maher MD Other Provider Active S tart: June 05, 2024 Dr. Colten Shaw MD Other Provider Active Sta rt: June 05, 2024 Rhea CRESPO PA-C Attending Provider Active Start: June 05, 2024 Team Status: Active Member Role Status Dates Dr. Wendie Louise MD Primary Care Provider Active Start: June 05, 2024 Dr. Josué Valdez DO Emergency Provider Active Start: June 05, 2024 Dr. Adina Parikh MD Admit Provider Active St art: June 05, 2024 Dr. Adina Parikh MD Other Provider Active St art: June 05, 2024 Dr. Vanessa Maher MD Other Provider Active S tart: June 05, 2024 Dr. Colten Shaw MD Attending Provider Active Start: June 05, 2024 Dr. Colten Shaw MD Other Provider Active Sta rt: June 05, 2024 Team Status: Active Member Role Status Dates Dr. eWndie Louise MD Primary Care Provider Active Start: June 06, 2024 Dr. Josué Valdez DO Emergency Provider Active Start: June 06, 2024 Dr. Adina Parikh MD Admit Provider Active St art: June 06, 2024 Dr. Adina Parikh MD Referring Provider Active Start: June 06, 2024 Dr. Adina Parikh MD Other Provider Active St art: June 06, 2024 Dr. Vanessa Maher MD Other Provider Active S tart: June 06, 2024 Dr. Colten Shaw MD Other Provider Active Sta rt: June 06, 2024 Dr. Ifeanyi Peters MD Attending Provider Active Start: June 06, 2024 Team Status: Active Member Role Status Dates Dr. Wendie Louise MD Primary Care Provider Active Start: June 06, 2024 Dr. Josué Valdez DO Emergency Provider Active Start: June 06, 2024 Dr. Adina Parikh MD Admit Provider Active St art: June 06, 2024 Dr. Adina Parikh MD Other Provider Active St art: June 06, 2024 Dr. Vanessa Maher MD Other Provider Active S tart: June 06, 2024 Dr. Danny Lagunas DO Attending Provider Active Start: June 06, 2024 Dr. Danny Lagunas DO Other Provider Active Start: June 06, 2024 Dr. Colten Shaw MD Other Provider Active Sta rt: June 06, 2024 Team Status: Active Member Role Status Dates Dr. Wendie Louise MD Primary Care Provider Active Start: June 07, 2024 Dr. Josué Valdez DO Emergency Provider Active Start: June 07, 2024 Dr. Adina Parikh MD Admit Provider Active St art: June 07, 2024 Dr. Adina Parikh MD Referring Provider Active Start: June 07, 2024 Dr. Adina Parikh MD Other Provider Active St art: June 07, 2024 Dr. Vanessa Maher MD Other Provider Active S tart: June 07, 2024 Dr. Danny Lagunas DO Other Provider Active Start: June 07, 2024 Dr. Colten Shaw MD Other Provider Active Sta rt: June 07, 2024 Dr. Ifeanyi Peters MD Attending Provider Active Start: June 07, 2024 Team Status: Active Member Role Status Dates Dr. Wendie Louise MD Primary Care Provider Active Start: June 07, 2024 Dr. Josué Valdez DO Emergency Provider Active Start: June 07, 2024 Dr. Adina Parikh MD Admit Provider Active St art: June 07, 2024 Dr. Adina Parikh MD Other Provider Active St art: June 07, 2024 Dr. Vanessa Maher MD Other Provider Active S tart: June 07, 2024 Dr. Danny Lagunas DO Attending Provider Active Start: June 07, 2024 Dr. Danny Lagunas DO Other Provider Active Start: June 07, 2024 Dr. Colten Shaw MD Other Provider Active Sta rt: June 07, 2024 Team Status: Inactive Member Role Status Dates Dr. Wendie Louise MD Primary Care Provider Active Start: June 12, 2024 End: June 12, 2024 Dr. Wendie Louise MD Attending Provider Active Start: June 12, 2024 End: June 12, 2024 Dr. Wendie Louise MD Referring Provider Active Start: June 12, 2024 End: June 12, 2024 Team Status: Inactive Member Role Status Dates Dr. Wendie Louise MD Primary Care Provider Active Start: June 13, 2024 End: June 13, 2024 Rhea CRESPO PA-C Attending Provider Active Start: June 13, 2024 End: June 13, 2024 Rhea CRESPO PA-C Referring Provider Active Start: June 13, 2024 End: June 13, 2024 Team Status: Inactive Member Role Status Dates Dr. Wendie Louise MD Primary Care Provider Active Start: June 14, 2024 End: June 14, 2024 Dr. Wendie Louise MD Referring Provider Active Start: June 14, 2024 End: June 14, 2024 Dr. Vanessa Maher MD Attending Provider Active Start: June 14, 2024 End: June 14, 2024 Team Status: Inactive Member Role Status Dates Dr. Wendie Louise MD Primary Care Provider Active Start: June 17, 2024 End: June 17, 2024 Dr. Wendie Louise MD Attending Provider Active Start: June 17, 2024 End: June 17, 2024 Team Status: Inactive Member Role Status Dates Dr. Wendie Louise MD Primary Care Provider Active Start: June 20, 2024 End: June 20, 2024 Dr. Vanessa Maher MD Attending Provider Active Start: June 20, 2024 End: June 20, 2024 Dr. Vanessa Maher MD Referring Provider Active Start: June 20, 2024 End: June 20, 2024 Team Status: Inactive Member Role Status Dates Dr. Wendie Louise MD Primary Care Provider Active Start: June 21, 2024 End: June 21, 2024 Dr. Wendie Louise MD Referring Provider Active Start: June 21, 2024 End: June 21, 2024 Dr. Vanessa Maher MD Attending Provider Active Start: June 21, 2024 End: June 21, 2024 Team Status: Inactive Member Role Status Dates Dr. Wendie Louise MD Primary Care Provider Active Start: July 10, 2024 End: July 10, 2024 Dr. Wendie Louise MD Referring Provider Active Start: July 10, 2024 End: July 10, 2024 Dr. Vanessa Maher MD Attending Provider Active Start: July 10, 2024 End: July 10, 2024 Team Status: Inactive Member Role Status Dates Dr. Wendie Louise MD Primary Care Provider Active Start: July 23, 2024 End: July 23, 2024 Dr. Vanessa Maher MD Attending Provider Active Start: July 23, 2024 End: July 23, 2024 Dr. Vanessa Maher MD Referring Provider Active Start: July 23, 2024 End: July 23, 2024 Team Status: Active Member Role/Relationship Status Dates Dr. Wendie Louise MD Primary Care Provider Active Team Status: Inactive Member Role/Relationship Status Dates Dr. Wendie Louise MD Primary Care Provider Active Start: July 23, 2024 End: July 23, 2024 Dr. Vanessa Maher MD Attending Provider Active Start: July 23, 2024 End: July 23, 2024 Dr. Vanessa Maher MD Referring Provider Active Start: July 23, 2024 End: July 23, 2024 Team Status: Inactive Member Role/Relationship Status Dates Dr. Wendie Louise MD Primary Care Provider Active Start: August 15, 2024 End: August 15, 2024 Dr. Wendie Louise MD Referring Provider Active Start: August 15, 2024 End: August 15, 2024 Dr. Ifeanyi Peters MD Attending Provider Active Start: August 15, 2024 End: August 15, 2024 Team Status: Inactive Member Role/Relationship Status Dates Dr. Wendie Louise MD Primary Care Provider Active Start: November 13, 2024 End: November 13, 2024 Dr. Wendie Louise MD Referring Provider Active Start: November 13, 2024 End: November 13, 2024 Lety CRESPO, PA Attending Provider Active Start: November 13, 2024 End: November 13, 2024 FOR RECORDS PERTAINING TO PATIENTS WHO ARE [...] BE BASED ON THE PRIMARY CLINICAL RECORDS. [facility]. provides no warranty or guarantee of the accuracy or completeness of information in this document.
== END | disposition home or self-care (01) ==
LOC: CVS 13:47
PROVIDERS: PCP Internal Medicine; Referring Provider Physician Assistant Medical; Visit Provider Physician Assistant Medical
DX: I10 Essential (primary) hypertension (principal); I42.2 Other hypertrophic cardiomyopathy
CPT/HCPCS: 93306

== ENCOUNTER 2025-02-16 19:47 | Emergency (ER) | payer OTHER, SELFPAY ==
[2025-02-16 19:47] VITALS: BP 145/81; PULSE 66; RESP 18; TEMP 36.6; O2SAT 96; BMI 30.7
[2025-02-16 22:20] VITALS: PULSE 68; RESP 16
[2025-02-16 22:21] VITALS: BP 145/81; PULSE 68; RESP 16; TEMP 36.6; O2SAT 96
== END 2025-02-16 22:22 | disposition home or self-care (01) ==
PROVIDERS: Emergency Provider Emergency Medicine; PCP Internal Medicine; Visit Provider Emergency Medicine
DX: S80.02XA Contusion of left knee, initial encounter (principal); I42.1 Obstructive hypertrophic cardiomyopathy; W01.198A Fall on same level from slipping, tripping and stumbling with subsequent striking against other object, initial encounter; I10 Essential (primary) hypertension; E78.5 Hyperlipidemia, unspecified; Z79.82 Long term (current) use of aspirin; Z79.899 Other long term (current) drug therapy
CPT/HCPCS: 73564; 99282

== ENCOUNTER → 2025-03-12 | Outpatient (CLI) | payer OTHER, SELFPAY ==
[2025-03-12 09:17] LABS: Hematocrit 42.4 % (40-54); Hemoglobin 15.5 g/dL (13.0-16.5); Immature Granulocytes Count 0.020 X10^3/uL (0.0-0.0); Mean Corp Hgb Conc 36.6 g/dL (32-36); Mean Corpuscular Volume 89.5 fL (80-94); Mean Platelet Vol. 9.5 fl (6.2-12.0); NRBC Flagged by Analyzer 0 % (0-5); Platelet Count 208 K/mm3 (150-450); RBC Distribution Width CV 12.5 % (11.6-14.6); RBC Distribution Width SD 41.3 fl (35.1-43.9); Red Blood Count 4.74 M/mm3 (4.6-6.2); White Blood Count 7.6 K/mm3 (4.4-11.0)
[2025-03-12 09:55] LABS: AST(SGOT) 20 U/L (<=37); Alanine Aminotransfer ALT/SGPT 24 U/L (<=46); Albumin, Serum 4.3 g/dL (3.4-4.8); Alkaline Phosphatase 73 U/L (40-129); Anion Gap 10 (5-15); BUN 29 mg/dL (4-19); BUN/Creat Ratio 26.1 RATIO (10-20); Calcium,Total 9.0 mg/dL (7.6-11.0); Carbon Dioxide 24.2 mmol/L (21.0-32.0); Chloride 105 mmol/L (98-108); Cholesterol 170 mg/dL (<=200); Globulin 2.9 g/dL (2.2-4.2); Glucose 99 mg/dL (70-99); Low Density Lipoprotein Calc. 95 mg/dL; PSA,Total - Annual Screen 1.55 ng/mL (0.02-4.00); Potassium 4.2 mmol/L (3.3-5.1); Triglycerides 209 mg/dL; Very Low Density Lipoprotein 42 mg/dL (5-40); Vitamin B12 607 pg/mL (180-914); Vitamin D,25 Hydroxy 32.0 ng/mL (30-100); cholesterol:hdl ratio screen 4.33
== END | disposition home or self-care (01) ==
PROVIDERS: PCP Internal Medicine; Referring Provider Internal Medicine; Visit Provider Internal Medicine
DX: Z13.220 Encounter for screening for lipoid disorders (principal); E88.810 Metabolic syndrome; I42.1 Obstructive hypertrophic cardiomyopathy; R93.1 Abnormal findings on diagnostic imaging of heart and coronary circulation; I10 Essential (primary) hypertension; G47.33 Obstructive sleep apnea (adult) (pediatric); Z99.89 Dependence on other enabling machines and devices; E78.1 Pure hyperglyceridemia; E78.5 Hyperlipidemia, unspecified
CPT/HCPCS: 36415; 80053; 80061; 82306; 82607; 83036; 84153; 84443; 85025; G0103

== ENCOUNTER → 2025-04-11 | Outpatient (CLI) | payer OTHER, SELFPAY ==
--- OUTSIDE RECORDS SUMMARY | 2025-04-11 06:33 | XMS RPT_ITS | CCD ---
Author Organization [facility] Care Team Providers Care Transition Assistant Name Role Phone PCP, NONE Unavailable Unavailable LESIA KINCAID Unavailable Unavailable Dr. Parker Villavicencio Primary Care Provider [phone] Dr. Parker Villavicencio Referring Provider ZAK Ortiz Attending Provider Dr. Parker Villavicencio Primary Care Provider [phone] Dr. Parker Villavicencio Referring Provider ZAK Barr Attending Provider [phone] Wendie Louise Primary Care Provider Dr. Wendie Louise Attending Provider Dr. Wenide Louise Primary Care Provider Dr. Wendie Louise Referring Provider ZAK Steele Attending Provider ZAK Ortiz Attending Provider Dr. Flako Adam Attending Provider Dr. Wendie Louise Primary Care Provider Dr. Wendie Louise Referring Provider ZAK Steele Attending Provider Dr. Wendie Louise Attending Provider Dr. Wendie Louise MD Primary Care Provider [phone] Dr. Josué Valdez DO Emergency Provider [phone] Kati WATKINS, Dr. Adina Urban Admit Provider Kati WATKINS, Dr. Adina Urban Referring Provider Kati WATKINS, Dr. Adina Urban Other Provider Gunnar WATKINS, Dr. Mendez Other Provider Bebo WALTON, Dr. Delgado Attending Provider Colin WATKINS, Dr. Abel Other Provider Gunnar WATKINS, Dr. Mendez Attending Provider Cathy ANTONY, Rhea Attending Provider Colin WATKINS, Dr. Abel Attending Provider Fran WATKINS, Dr. Ifeanyi Castro Attending Provider Bebo WALTON, Dr. Delgdao Other Provider Dani WATKINS, Dr. Pressley Attending Provider Dani WATKINS, Dr. Pressley Referring Provider Rhea Morgan PA-C Referring Provider Gunnar WATKINS, Dr. Mendez Referring Provider Dr. Wendie Louise MD Primary Care Provider Gunnar WATKINS, Dr. Mendez Attending Provider Gunnar WATKINS, Dr. Mendez Referring Provider Dr. Wendie Louise MD Referring Provider Dr. Ifeanyi Peters MD Attending Provider Lety Ortiz Attending Provider Dr. Wendie Louise MD Primary Care Provider Dr. Wendie Louise MD Referring Provider Lety Ortiz Referring Provider Jair WATKINS, Dr. Arriola Attending Provider Unavailable Primary Care Provider UnavailDAPHNE Saldivar Attending Unavailable Dani WATKINS, Dr. Pressley Primary Care Physician Dr. Wendie Louise MD Referring Provider Lety Ortiz Attending Physician Lety Ortiz Referring Provider Dr. Flako Adam MD Attending Physician Dr. David Miles MD Attending Physician Dr. David Miles MD Emergency Department Physici an Lety Joseph Referring Unavailabl e Dani, Wendie Primary Care Unavailable Lety Joseph Attending Unavailabl e Robotham, Vanessa Consulting Unavailable Dani, Wendie Primary Care Unavailable White Adina L Attending Unavailable White, Adina L Admitting Unavailable White, Adina L Referring Unavailable White, Adina L Consulting Unavailable Robotham, Vanessa Attending Unavailable Colin, Colten Consulting Unavailable Lety Joseph Attending Unavailabl e Lety Joseph Referring Unavailabl e Dani, Wendie Primary Care Unavailable Cathy CRESPO Rhea Referring Unavailable Dani, Wendie Primary Care Unavailable Rhea Calderon Attending Unavailable Robotham, Vanessa Referring Unavailable Robotham, Vanessa Attending Unavailable Dani, Wendie Primary Care Unavailable Dani, Wendie Primary Care Unavailable David Miles Attending Unavailable Danny Lagunas Attending Unavailable Danny Lagunas Consulting Unavailable Rhea Calderon Attending Unavailable Dani, Wendie Primary Care Unavailable Flako Adam Attending Unavailable Lety Joseph Referring Unavailabl e Dani, Wendie Primary Care Unavailable Flako Adam Attending Unavailable Colin Colten Attending Unavailable Ifeanyi Peters Attending Unavailable Dani, Wendie Primary Care Unavailable Dani, Wendie Referring Unavailable Lety Joseph Attending Unavailabl e Dani, Wendie Primary Care Unavailable Dani, Wendie Referring Unavailable Robotham, Vanessa Attending Unavailable Dani, Wendie Primary Care Unavailable Dani, Wendie Referring Unavailable Robotham, Vanessa Attending Unavailable Dani, Wendie Primary Care Unavailable Dani, Wendie Referring Unavailable Dani, Wendie Attending Unavailable Dani, Wendie Primary Care Unavailable Dani, Wendie Referring Unavailable Robotham, Vanessa Referring Unavailable Robotham, Vanessa Attending Unavailable Wendie Louise Primary Care Unavailable Wendie Louise Attending Unavailable Wendie Louise Referring Unavailable Wendie Louise Primary Care Unavailable Wendie Louise Primary Care Unavailable Wendie Louise Attending Unavailable Danny Lagunas Attending Unavailable Wendie Louise Primary Care Unavailable Robotham, Vanessa Consulting Unavailable White, Adina L Admitting Unavailable White, Adina L Referring Unavailable White, Adina L Consulting Unavailable David Shawkash Consulting Unavailable Gunnar, Vanessa Attending Unavailable Wendie Louise Primary Care Unavailable Wendie Louise Referring Unavailable Ifeanyi Peters Attending Unavailable Allergies Allergy Classification Reported Allergen(s) Allergy Type Date of Onset Reaction(s) Facility (2 sources) cat dander; Translations: [cat dander] Allergy to substance Shortness of breath [facility] Medications Current Medications Medication Drug Class(es) Dates Sig (Normalized) Sig (Original) cetirizine hydrochloride 10 mg oral tablet (3 sources) Histamine-1 Receptor Antagonist Start: 11-13-2024 take 1 tablet by mouth every other week as needed cholecalciferol 0.05 mg oral capsule (5 sources) Vitamin D Start: 10-30-2023 take 1 capsule by mouth once daily cpap (8 sources) Start: 03-28-2022 cpap Active 0 .Route .[facility] March 28, 2022 12:00am setting of 12 Start: 03-28-2022 cpap Active 0 .Route .[facility] March 28, 2022 1:00am setting of 12 Start: 03-28-2022 cpap Active 0 .ROUTE .[facility] March 28, 2022 12:00am setting of 12 24 hr dilTIAZem hydrochloride 180 mg extended release oral capsule (20 sources) Calcium Channel Mirian Start: 12-12-2024 take 1 capsule by mouth every twelve hours DILT-XR 180 mg 24 hr capsule Take 1 capsule (180 mg) by mouth every 12 hours. 12/12/2024 Active Start: 06-04-2024 End: 12-12-2024 take 1 capsule by mouth twice daily Diltiazem Hcl (Dilt-Xr) 180 mg capsule,ext.rel 24h degradable Discontinued 180 mg PO TWICE A DAY 180 0 August 05, 2024 11:12am December 12, 2024 7:29am Start: 07-26-2022 End: 08-07-2023 take 1 capsule by mouth twice daily Diltiazem Hcl 180 mg capsule,extended release 24hr Discontinued 180 mg PO TWICE A DAY 60 July 26, 2022 8:52am August 07, 2023 1:23pm fluticasone propionate 0.05 mg/actuat metered dose nasal spray (15 sources) Corticosteroid Start: 02-21-2025 Start: 01-02-2025 take 2 spray(s) nasa l route once daily fluticasone (Flonase) 50 mcg/actuation nasal spray Administer 2 sprays into each nostril once daily. 01/02/2025 Active Start: 02-05-2018 End: 02-21-2025 Fluticasone Propionate (Lucien rgy Relief (Fluticasone)) 50 mcg/actuation spray,suspension Discontinued 2 NMA INTRANASAL DAILY 16 August 05, 2024 11:27am February 21, 2025 11:29am Start: 02-05-2018 Fluticasone Pr opionate (Allergy Relief (Fluticasone)) 50 mcg/actuation spray,suspension Active 2 SPRAY INTRANASAL DAILY February 04, 2018 11:00pm Iskud-Bf-5-Qvv-Agx-Wzqmqqw-A st (Megared Stoneham-3 Krill Oil) 1,000-230-60 mg capsule (20 sources) Start: 10-04-2024 take 3 capsules by mouth twice daily Start: 10-04-2024 take 3 capsules by mouth twice daily Mctrg-Yi-6-Vws-Pol-Uqrtorr-Ast (Megared Stoneham-3 Krill Oil) 1,000-230-60 mg capsule Active 1 NMA PO TWICE A DAY 180 3 October 04, 2024 11:07am Start: 07-30-2024 End: 10-04-2024 take 3 capsules by mouth twice daily Gixba-Zp-1-Nmi-Hch-Owmocol-Ast (Megared Stoneham-3 Krill Oil) 1,000-230-60 mg capsule Discontinued 1 NMA PO TWICE A DAY 180 3 July 30, 2024 11:46am October 04, 2024 10:07am Start: 07-30-2024 End: 10-04-2024 take 3 capsules by mouth twice daily Lbkqd-Ft-5-Tdz-Nde-Ckwfgaw-Ast (Megared Stoneham-3 Krill Oil) 1,000-230-60 mg capsule Discontinued 1 NMA PO TWICE A DAY 180 July 30, 2024 12:46pm October 04, 2024 11:07am Start: 12-05-2023 End: 07-30-2024 take 3 capsules by mouth twice daily Flhns-Sk-5-Zbq-Uzm-Odllqps-Ast (Megared Stoneham-3 Krill Oil) 1,000-230-60 mg capsule Discontinued 1 NMA PO TWICE A DAY 180 December 05, 2023 3:34pm July 30, 2024 11:46am Start: 12-05-2023 End: 07-30-2024 take 3 capsules by mouth twice daily Oxzzu-Gd-7-Ftm-Fuj-Zkqmpik-Ast (Megared Stoneham-3 Krill Oil) 1,000-230-60 mg capsule Discontinued 1 NMA PO TWICE A DAY 180 December 05, 2023 4:34pm July 30, 2024 12:46pm Start: 12-05-2023 take 3 capsules by mouth twice daily Ofnxz-Sw-2-Kia-Tju-Rymrzfh-Ast (Megared Stoneham-3 Krill Oil) 1,000-230-60 mg capsule Active 1 NMA PO TWICE A DAY 180 December 05, 2023 4:34pm Start: 12-05-2023 End: 12-05-2023 take 3 capsules by mouth twice daily Nbbwp-Yk-8-Zaq-Uqt-Tnpdfzr-Ast (Megared Stoneham-3 Krill Oil) 1,000-230-60 mg capsule Discontinued 1 NMA PO TWICE A DAY 180 December 05, 2023 10:29am December 05, 2023 3:34pm Start: 12-05-2023 End: 12-05-2023 take 3 capsules by mouth twice daily Fwqzb-Mu-9-Ksw-Xsi-Cnjmpfe-Ast (Megared Stoneham-3 Krill Oil) 1,000-230-60 mg capsule Discontinued 1 NMA PO TWICE A DAY 180 December 05, 2023 11:29am December 05, 2023 4:34pm Start: 12-05-2023 End: 12-05-2023 take 3 capsules by mouth twice daily Nezrg-Up-6-Kfr-Txo-Gtknzty-Ast (Megared Stoneham-3 Krill Oil) 1,000-230-60 mg capsule Discontinued 1 NMA PO TWICE A DAY December 05, 2023 11:29am December 05, 2023 4:34pm Start: 08-30-2023 End: 12-05-2023 take 3 capsules by mouth once daily Jicpu-Eh-6-Fmx-Ztw-Dtwgjwz-Ast (Megared Stoneham-3 Krill Oil) 1,000-230-60 mg capsule Discontinued 1 NMA PO DAILY August 30, 2023 8:31am December 05, 2023 10:30am Start: 08-30-2023 End: 12-05-2023 take 3 capsules by mouth once daily Lodqs-Qb-2-Vjg-Gdi-Wccgiju-Ast (Megared Stoneham-3 Krill Oil) 1,000-230-60 mg capsule Discontinued 1 NMA PO DAILY August 30, 2023 9:31am December 05, 2023 11:30am Start: 08-30-2023 End: 12-05-2023 take 3 capsules by mouth once daily Xggij-Kd-4-Tsa-Vil-Xclbhff-Ast (Megared Stoneham-3 Krill Oil) 1,000-230-60 mg capsule Discontinued 1 NMA PO DAILY August 30, 2023 9:31am December 05, 2023 11:30am Start: 05-19-2023 End: 08-30-2023 take 3 capsules by mouth once daily Lmcdz-Mi-6-Cks-Par-Mhhkxaq-Ast (Megared Stoneham-3 Krill Oil) 1,000-230-60 mg capsule Discontinued 1 NMA PO DAILY May 19, 2023 12:00am August 30, 2023 8:31am Start: 05-19-2023 End: 08-30-2023 take 3 capsules by mouth once daily Eohvt-Kp-3-Wby-Tum-Orkudhq-Ast (Megared Stoneham-3 Krill Oil) 1,000-230-60 mg capsule Discontinued 1 NMA PO DAILY May 19, 2023 1:00am August 30, 2023 9:31am Start: 05-19-2023 End: 08-30-2023 take 3 capsules by mouth once daily Fezmg-Ei-5-Wqq-Ezq-Ixveguc-Ast (Megared Stoneham-3 Krill Oil) 1,000-230-60 mg capsule Discontinued 1 NMA PO DAILY May 19, 2023 1:00am August 30, 2023 9:31am Start: 05-19-2023 Fkbdw-Ld-2-Dha -Hxu-Sjfjtjv-Vpp (Megared Stoneham-3 Krill Oil) 1,000-230-60 mg capsule Active 1 CAP PO DAILY May 19, 2023 12:00am loratadine 10 mg oral tablet (7 sources) Start: 11-13-2024 take 1 tablet by stacey th every other week Start: 10-30-2023 End: 11-13-2024 take 1 tablet by mouth once daily Loratadine (Claritin) 10 mg tablet Discontinued 10 mg PO DAILY October 29, 2023 11:00pm November 13, 2024 7:42am Multivitamin preparation (6 sources) Start: 09-15-2020 take [...] DAILY September 14, 2020 11:00pm Multivitamin tablet (4 sources) Start: 09-15-2020 Start: 09-15-2020 Multivitamin t ablet Active 1 {tbl} PO DAILY September 15, 2020 12:00am NON FORMULARY (1 source) Start: 01-02-2025 NON FORMULARY Take 1 each by mouth 2 times a day. AIDE KRILL OIL OMEGA 3 01/02/2025 Active sildenafil 20 mg oral tablet (20 sources) Phosphodiesterase 5 Inhibitor Start: 02-21-2025 take 1 tablet by mouth once daily as needed Start: 04-05-2022 End: 02-21-2025 take 1 tablet by mouth once daily as needed Sildenafil (Pulm.Hypertension) 20 mg tablet Discontinued 20 mg PO .COMPLEX as needed for sexual activity 30 05July 30, 2024 11:46am December 11, 2024 11:34am One tablet daily as needed. Start: 03-28-2022 End: 12-06-2022 Sildenafil (Pulm.Hypertensio n) 20 mg tablet Discontinued 20 mg PO .COMPLEX as needed March 28, 2022 12:00am April 05, 2022 2:05pm 20 mg orally prn 2-5 tabs PRN; administer doses at least 4-6 hours apart Completed/Discontinued Medications Medication Drug Class(es) Dates Sig (Normalized) Sig (Original) acetaminophen 325 mg / HYDROcodone bitartrate 5 mg oral tablet (10 sources) Opioid Agonist Start: 04-01-2018 End: 04-04-2018 Hydrocodone-Acetami nophen 1 TABLET tablet Discontinued 1 {tbl} PO EVERY 6 HOURS NEEDED as needed for Pain 12 3 April 01, 2018 12:00am April 03, 2018 12:00am April 04, 2018 12:06am Traumatic rupture of quadriceps tendon Strain of unspecified quadriceps muscle, fascia and tendon, initial encounter Start: 04-01-2018 End: 04-04-2018 take 1 tablet by mouth every six hours as needed Hydrocodone-Acetaminophen Discontinued 1 TABLET PO EVERY 6 HOURS NEEDED 12 April 01, 2018 12:00am April 04, 2018 12:06am amoxicillin 500 mg oral tablet (20 sources) Penicillin-class Antibacterial Start: 07-11-2023 End: 10-30-2023 take 2 tablets by mouth twice daily Amoxicillin 500 mg tablet Discontinued 1000 mg PO TWICE A DAY 40 0 July 10, 2023 11:00pm October 30, 2023 7:51am Start: 03-27-2023 End: 04-06-2023 take 1 capsule by mouth three times daily Amoxicillin 500 mg capsule Discontinued 500 mg PO THREE TIMES A DAY 30 10 0 March 27, 2023 12:00am April 05, 2023 12:00am April 06, 2023 12:05am Start: 12-27-2022 End: 01-06-2023 take 1 capsule by mouth three times daily Amoxicillin 500 mg capsule Discontinued 500 mg PO THREE TIMES A DAY 30 10 December 26, 2022 11:00pm January 04, 2023 11:00pm January 05, 2023 11:03pm Start: 09-21-2022 End: 10-01-2022 take 1 capsule by mouth three times daily Amoxicillin 500 mg capsule Discontinued 500 mg PO THREE TIMES A DAY 30 10 0 September 20, 2022 11:00pm September 29, 2022 11:00pm September 30, 2022 11:12pm amoxicillin 875 mg / clavulanate 125 mg oral tablet (20 sources) Penicillin-class Antibacterial Start: 08-12-2024 End: 11-13-2024 take 1 tablet by mouth twice daily Amoxicillin-Pot Clavulanate 875-125 mg tablet Discontinued 1 {tbl} PO Q12H 14 7 0 August 11, 2024 11:00pm November 13, 2024 7:39am take one tablet by mouth twice daily for one week Start: 07-23-2024 End: 07-30-2024 take 1 tablet by mouth twice daily Amoxicillin-Pot Clavulanate 875-125 mg tablet Discontinued 1 {tbl} PO TWICE A DAY 14 7 0 July 22, 2024 11:00pm July 28, 2024 11:00pm July 29, 2024 11:08pm take one tablet by mouth twice daily for one week Start: 06-07-2024 End: 07-10-2024 Amoxicillin-Pot Clavulanate 875-125 mg tablet Discontinued 1 {tbl} PO TWICE A DAY 28 0 June 21, 2024 12:00am July 10, 2024 11:59am Start: 12-19-2021 End: 03-28-2022 Amoxicillin-Pot Clavulanate 875-125 mg tablet Discontinued 1 {tbl} PO Q12H 14 0 December 18, 2021 11:00pm March 28, 2022 9:19am Start: 12-19-2021 End: 03-28-2022 take 1 tablet by mouth every twelve hours Amoxicillin-Pot Clavulanate Discontinued 1 TABLET PO Q12H 14 December 18, 2021 11:00pm March 28, 2022 9:19am Start: 04-16-2021 End: 04-26-2021 Amoxicillin-Pot Clavulanate (Augmentin) 875-125 mg tablet Discontinued 1 {tbl} PO Q12H 20 10 0 April 16, 2021 12:00am April 25, 2021 12:00am April 26, 2021 12:01am Acute sinusitis, unspecified aspirin 81 mg delayed release oral tablet (10 sources) Platelet Aggregation Inhibitor, Nonsteroidal Anti-inflammatory Drug Start: 05-12-2017 End: 03-28-2022 take 1 tablet by mouth once daily Aspirin (Adult Aspirin Regimen) 81 mg tablet,delayed release (DR/EC) Discontinued 81 mg PO daily May 12, 2017 12:00am March 28, 2022 9:19am azithromycin 250 mg oral tablet (5 sources) Macrolide Antimicrobial Start: 03-29-2023 End: 10-30-2023 Azithromycin 250 mg tablet Discontinued 0 PO .COMPLEX 6 0 March 29, 2023 12:00am October 30, 2023 7:51am For 250 mg dose pack: take 500 [...] (Compound) Discontinued 0 .ROUTE .MEDSUPPLY 1 September 03, 2020 11:00pm March 15, 2021 10:01am As directed Diltiazem 2% / Lidocaine 5% Ointment (Compound) ointment (4 sources) Start: 09-04-2020 End: 03-15-2021 Diltiazem 2% / Lidocaine 5% Ointment (Compound) ointment Discontinued 0 .ROUTE .MEDSUPPLY 1 0 September 03, 2020 11:00pm March 15, 2021 10:01am As directed Start: 09-04-2020 End: 03-15-2021 Diltiazem 2% / Lidocaine 5% Ointment (Compound) ointment Discontinued 0 .ROUTE .MEDSUPPLY 1 0 September 04, 2020 12:00am March [...] PO DAILY 90 4 March 11, 2020 9:09am December 21, 2020 8:18am Start: 05-12-2017 End: 03-11-2020 take 1 tablet by mouth once daily Fenofibrate Nanocrystallized (Tricor) 48 mg tablet Discontinued 48 mg PO daily May 12, 2017 12:00am March 11, 2020 9:07am hydroCHLOROthiazide 25 mg oral tablet (20 sources) Thiazide Diuretic Start: 04-03-2018 End: 12-12-2024 take 1 tablet by mouth once daily Hydrochlorothiazide 25 mg tablet Discontinued 25 mg PO DAILY 90 3 November 04, 2024 6:25am December 12, 2024 7:29am Start: 05-12-2017 End: 12-04-2017 take 1 tablet by mouth once daily Hydrochlorothiazide 25 mg tablet Discontinued 25 mg PO daily May 12, 2017 12:00am December 04, 2017 3:30pm hydroCHLOROthiazide 25 mg / valsartan 160 mg oral tablet (10 sources) Thiazide Diuretic, Angiotensin 2 Receptor Mirian Start: 06-16-2015 End: 05-12-2017 Valsartan-Hydrochlorothiazid e 1 TABLET tablet Discontinued 1 {tbl} PO DAILY June 16, 2015 12:00am May 12, 2017 4:24pm Start: 06-16-2015 End: 05-12-2017 take 1 tablet by mouth once daily Valsartan-Hydrochlorothiazide Discontinu ed 1 TABLET PO DAILY June 16, 2015 12:00am May 12, 2017 4:24pm icosapent ethyl 1000 mg oral capsule (10 sources) Start: 12-21-2020 End: 03-15-2021 Icosapent Ethyl (Vascepa) 1 gram capsule Discontinued 2 g PO TWICE A DAY 360 3 December 20, 2020 11:00pm March 15, 2021 10:02am AIDE 600 mg (4 sources) Start: 06-04-2024 End: 06-04-2024 take 600 mg by mouth once daily AIDE 600 mg Discontinued 600 mg PO DAILY June 04, 2024 12:00am June 04, 2024 4:16am Start: 06-04-2024 End: 06-04-2024 take 600 mg by mouth once daily AIDE 600 mg Discontinued 600 mg PO DAILY June 04, 2024 1:00am June 04, 2024 5:16am losartan potassium 100 mg oral tablet (20 sources) Angiotensin 2 Receptor Mirian Start: 04-03-2018 End: 12-12-2024 take 1 tablet by mouth once daily Losartan 100 mg tablet Discontinued 100 mg PO DAILY 90 3 November 04, 2024 6:25am December 12, 2024 7:29am mirtazapine 15 mg oral tablet (10 sources) Start: 09-15-2020 End: 03-15-2021 take 1 tablet by mouth at bedtime Mirtazapine 15 mg tablet Discontinued 15 mg PO AT BEDTIME September 14, 2020 11:00pm March 15, 2021 10:01am oxyCODONE hydrochloride 5 mg oral tablet (10 sources) Opioid Agonist Start: 04-04-2018 End: 04-09-2018 take 5-10 mg by mouth every four hours as needed for pain Oxycodone 5 MG tablet Discontinued 5 - 10 mg PO EVERY 4 HOURS NEEDED as needed for Pain 40 5 0 April 04, 2018 12:00am April 08, 2018 12:00am April 09, 2018 12:08am Other acute postprocedural pain potassium chloride 10 meq extended release oral capsule (17 sources) Start: 09-14-2021 End: 03-29-2023 take 1 capsule by mouth once daily Potassium Chloride 10 mEq capsule, extended release Discontinued 10 meq PO DAILY 90 3 May 19, 2022 2:59pm March 29, 2023 9:53am rosuvastatin calcium 20 mg oral tablet (20 sources) HMG-CoA Reductase Inhibitor Start: 07-15-2020 End: 10-27-2022 take 1 tablet by mouth once daily Rosuvastatin 20 mg tablet Discontinued 20 mg PO DAILY 90 August 29, 2022 9:19am October 27, 2022 8:30am test 180 (10 sources) Start: 12-21-2020 End: 03-15-2021 test 180 Discontinued PO December 21, 2020 8:50am March 15, 2021 11:01am Start: 12-21-2020 End: 03-15-2021 test 180 Discontinued PO 0 A ugust 2020 11:00pm March 15, 2021 10:01am Start: 12-21-2020 End: 03-15-2021 test 180 Discontinued PO 0 A ugust 2020 12:00am March 15, 2021 11:01am Start: 12-21-2020 End: 03-15-2021 test 180 Discontinued PO Aug ust 2020 12:00am March 15, 2021 11:01am Start: 12-21-2020 End: 03-15-2021 test 180 Discontinued PO Aug us2020 11:00pm March 15, 2021 10:01am valsartan 320 mg oral tablet (10 sources) Angiotensin 2 Receptor Mirian Start: 05-12-2017 End: 12-11-2017 take 1 tablet by mouth once daily Valsartan (Diovan) 320 mg tablet Discontinued 320 mg PO daily May 12, 2017 12:00am December 11, 2017 9:34am 24 hr verapamil hydrochloride 180 mg extended release oral capsule (20 sources) Calcium Channel Mirian Start: 10-18-2021 End: 07-26-2022 take 1 capsule by mouth twice daily Verapamil 180 mg capsule,ext rel. pellets 24 hr Discontinued 180 mg PO TWICE A DAY 180 4 May 19, 2022 3:00pm July 26, 2022 8:47am Start: 12-04-2018 End: 10-18-2021 take 1 capsule by mouth twice daily Verapamil 120 mg capsule,ext rel. pellets 24 hr Discontinued 120 mg PO TWICE A DAY 180 July 16, 2021 3:23pm October 18, 2021 7:20am Start: 04-03-2018 End: 12-04-2018 take 1 tablet by mouth twice daily Verapamil 120 mg tablet Discontinued 120 mg PO TWICE A DAY 180 3 December 03, 2018 2:42pm December 04, 2018 8:13am Start: 05-15-2017 End: 12-05-2017 take 1 tablet by mouth twice daily Verapamil 120 mg tablet Discontinued 120 mg PO TWICE A DAY 180 3 December 04, 2017 10:51am December 05, 2017 10:15am Start: 06-16-2015 End: 05-15-2017 take 1 tablet by mouth once daily Verapamil 120 MG tablet Discontinued 120 mg PO DAILY June 16, 2015 12:00am May 15, 2017 11:41am zolpidem tartrate 10 mg oral tablet (20 sources) gamma-Aminobutyric Acid-ergic Agonist Start: 02-05-2018 End: 03-08-2019 take 1 tablet by mouth at bedtime as needed for sleep Zolpidem (Ambien) 10 mg tablet Discontinued 10 mg PO AT BEDTIME as needed for Sleep February 04, 2018 11:00pm March 08, 2019 8:55am Start: 05-12-2017 End: 05-15-2017 take 1 tablet by mouth at bedtime as needed Zolpidem (Ambien) 10 mg tablet Discontinued 10 mg PO BEDTIME as needed May 12, 2017 12:00am May 15, 2017 11:41am Problems Active Problems Problem Classification Problem Date Documented Date Episodic/Chronic Administrative/social admission (3 sources) Patient encounter status; Translations: [Other specified counseling] Onset: 01-16-2025 01-16-2025 Episodic Anal and rectal conditions (10 sources) Anal fissure; Translations: [Anal fissure, unspecified] 09-04-2020 Episodic Conditions associated with dizziness or vertigo (1 source) Conditions associated with dizziness or vertigo Onset: 06-22-2017 Disorders of lipid metabolism (20 sources) Hypertriglyceridemia; Translations: [Pure hyperglyceridemia] Onset: 06-17-2024 Chronic Diverticulosis and diverticulitis (13 sources) Diverticulitis of intestine; Translations: [Diverticulitis of intestine, part unspecified, with perforation and abscess without bleeding] Onset: 06-12-2024 06-05-2024 Chronic E Codes: Fall (1 source) Fall; Translations: [Unspecified fall, initial encounter] 02-24-2025 Episodic Essential hypertension (20 sources) Essential hypertension; Translations: [Essential (primary) hypertension] Onset: 12-24-2024 Chronic Immunizations and screening for infectious disease (7 sources) Contact with and (suspected) exposure to other viral communicable diseases; Translations: [Contact with or suspected exposure to other viral communicable disease] 12-27-2022 Episodic Open wounds of extremities (10 sources) Laceration of thigh; Translations: [Laceration without foreign body, left thigh, initial encounter] 07-12-2020 Episodic Other connective tissue disease (9 sources) Pain in lower limb; Translations: [Pain in right leg] 03-06-2019 Episodic Other connective tissue disease (1 source) Pain in bilateral legs; Translations: [Pain in right leg] 03-06-2019 Episodic Other injuries and conditions due to external causes (1 source) Hematoma; Translations: [Other injury of unspecified body region, initial encounter] 02-24-2025 Episodic Other injuries and conditions due to external causes (1 source) Other specified injuries of right lower leg, initial encounter; Translations: [Other specified injuries of right lower leg, initial encounter] Onset: 03-03-2025 Episodic Other lower respiratory disease (10 sources) Dyspnea on exertion; Translations: [Dyspnea, unspecified] 09-07-2021 Episodic Other lower respiratory disease (2 sources) Dyspnea, unspecified; Translations: [Other respiratory abnormalities] Episodic Other nutritional; endocrine; and metabolic disorders (9 sources) Insulin resistance; Translations: [Metabolic syndrome] 03-28-2022 Chronic Other nutritional; endocrine; and metabolic disorders (2 sources) Metabolic syndrome; Translations: [Dysmetabolic syndrome X] Onset: 06-26-2024 Chronic Other screening for suspected conditions (not mental disorders or infectious disease) (4 sources) Calcification of coronary artery; Translations: [Abnormal findings on diagnostic imaging of heart and coronary circulation] Onset: 06-17-2024 12-25-2024 Episodic Other upper respiratory disease (10 sources) Respiratory tract congestion; Translations: [Nasal congestion] 05-07-2021 Episodic Other upper respiratory infections (10 sources) Chronic sinusitis; Translations: [Chronic sinusitis, unspecified] 05-07-2021 Chronic Other upper respiratory infections (20 sources) Acute sinusitis; Translations: [Acute sinusitis, unspecified] Episodic Janene-; endo-; and myocarditis; cardiomyopathy (except that caused by tuberculosis or sexually transmitted disease) (20 sources) Hypertrophic obstructive cardiomyopathy; Translations: [Obstructive hypertrophic cardiomyopathy] Onset: 06-17-2024 Chronic Residual codes; unclassified (11 sources) Obstructive sleep apnea syndrome; Translations: [Obstructive sleep apnea (adult) (pediatric)] 03-08-2019 Chronic Residual codes; unclassified (3 sources) Obstructive sleep apnea (adult) (pediatric); Translations: [Obstructive sleep apnea (adult)(pediatric)] Onset: 06-17-2024 Chronic Residual codes; unclassified (1 source) Dependence on other enabling machines and devices; Translations: [Dependence on other enabling machines and devices] Onset: 06-17-2024 Chronic Sprains and strains (10 sources) Rupture of quadriceps tendon; Translations: [Strain of left quadriceps muscle, fascia and tendon, initial encounter] 04-02-2018 Episodic Superficial injury; contusion (1 source) Contusion of left knee; Translations: [Contusion of left knee, initial encounter] 02-24-2025 Episodic Unclassified (1 source) Acute nasopharyngitis [common cold] / J00(ICD-10) Onset: 06-22-2017 Past or Other Problems Problem Classification Problem Date Documented Da te Episodic/Chronic Abdominal pain (6 sources) Right flank pain; Translations: [Unspecified abdominal pain] Onset: 06-17-2024 10-30-2023 Episodic Conditions associated with dizziness or vertigo (1 source) Dizziness and giddiness; Translations: [Dizziness and giddiness] Onset: 06-22-2017 Episodic Unclassified (1 source) Onset: 01-16-2025 01-16-2025 Results Test Name Value Interpretation Reference Range Facility CBC W/Diff, Automatedon 03-01 Absolute Lymph 2.14 X10 3/uL Normal 0.83-4.51 [facility] Comment on above: Performed By: #### L 500.2500, L100.0100 #### [facility] [address] [facility] [place], [address] Absolute Neut 4.6 X10 3/uL Normal 2.0-7.7 [facility] Comment on above: Performed By: #### L 500.2500, L100.0100 #### [facility] [address] [place], [address] Basophils/100 WBC (Bld) 0.5 % Normal 0-1 [facility] Comment on above: Performed By: #### L 500.2500, L100.0100 #### [facility] [address] [place], [address] Eosinophils/100 WBC (Bld) 2.6 % Normal 0-5 [facility] Comment on above: Performed By: #### L 500.2500, L100.0100 #### [facility] [address] [place], [address] Erythrocyte distribution width (RBC) [Ratio] 12.5 % Normal 11.6-14.6 [facility] Comment on above: Performed By: #### L 500.2500, L100.0100 #### [facility] [address] [place], [address] Hematocrit (Bld) [Volume fraction] 42.4 % Normal 40-54 [facility] Comment on above: Performed By: #### L 500.2500, L100.0100 #### [facility] [address] [place], [address] Hemoglobin (Bld) [Mass/Vol] 15.5 g/dL Normal 13.0-16.5 [facility] Comment on above: Performed By: #### L 500.2500, L100.0100 #### [facility] [address] [place], [address] IG% 0.300 Normal 0.0-0.9 [facility] Comment on above: Result Comment: IG% - Immature Granulocytes (promyelocytes, myelocytes and metamyelocytes) > 1% indicates that a LEFT SHIFT is Present. Performed By: #### L 500.2500, L100.0100 #### [facility] [address] [place], [address] Lymphocytes/100 WBC (Bld) 28.2 % Normal 19-41 [facility] Comment on above: Performed By: #### L 500.2500, L100.0100 #### [facility] [address] [place], [address] MCH (RBC) [Entitic mass] 32.7 pg High 27.0-32.0 [facility] Comment on above: Performed By: #### L 500.2500, L100.0100 #### [facility] [address] [place], [address] MCHC (RBC) [Mass/Vol] 36.6 g/dL High 32-36 [facility] Comment on above: Performed By: #### L 500.2500, L100.0100 #### [facility] [address] [place], [address] MCV (RBC) [Entitic vol] 89.5 fL Normal 80-94 [facility] Comment on above: Performed By: #### L 500.2500, L100.0100 #### [facility] [address] [place], [address] Monocytes/100 WBC (Bld) 7.5 % Normal 0-10 [facility] Comment on above: Performed By: #### L 500.2500, L100.0100 #### [facility] [address] [place], [address] Neutrophils/100 WBC (Bld) 60.9 % Normal 47-70 [facility] Comment on above: Performed By: #### L 500.2500, L100.0100 #### [facility] [address] [place], [address] Nucleated RBC (Bld) [#/Vol] 0 10*3/uL Normal 0-5 [facility] Comment on above: Performed By: #### L 500.2500, L100.0100 #### [facility] [address] [place], [address] Platelet mean volume (Bld) [Entitic vol] 9.5 fL Normal 6.2-12.0 [facility] Comment on above: Performed By: #### L 500.2500, L100.0100 #### [facility] [address] [place], [address] Platelets (Bld) [#/Vol] 208 10*3/uL Normal 150-450 [facility] Comment on above: Performed By: #### L 500.2500, L100.0100 #### [facility] [address] [place], [address] RBC (Bld) [#/Vol] 4.74 10*6/uL Normal 4.6-6.2 [facility] Comment on above: Performed By: #### L 500.2500, L100.0100 #### [facility] [address] [place], [address] RDW SD 41.3 fl Normal 35.1-43.9 [facility] Comment on above: Performed By: #### L 500.2500, L100.0100 #### [facility] [address] [place], [address] WBC (Bld) [#/Vol] 7.6 10*3/uL Normal 4.4-11.0 [facility] Comment on above: Performed By: #### L 500.2500, L100.0100 #### [facility] [address] [place], [address] Comprehensive Metabolic Prof ilon 03-12-2025 Albumin [Mass/Vol] 4.3 g/dL Normal 3.4-4.8 [facility] Comment on above: Performed By: #### L 500.2500, L100.0100 #### [facility] [address] [place], [address] Albumin/Globulin [Mass ratio] 1.5 {ratio} Normal 0.9-2.4 [facility] Comment on above: Performed By: #### L 500.2500, L100.0100 #### [facility] [address] [place], [address] ALK PHOS 73 U/L Normal 40-129 [facility] Comment on above: Performed By: #### L 500.2500, L100.0100 #### [facility] [address] [place], [address] ALT [Catalytic activity/Vol] 24 U/L Normal <=46 [facility] Comment on above: Performed By: #### L 500.2500, L100.0100 #### [facility] [address] [place], [address] AST [Catalytic activity/Vol] 20 U/L Normal <=37 [facility] Comment on above: Performed By: #### L 500.2500, L100.0100 #### [facility] [address] [place], [address] Bilirubin [Mass/Vol] 0.42 mg/dL Normal 0.00-1.30 [facility] Comment on above: Performed By: #### L 500.2500, L100.0100 #### [facility] [address] [place], [address] BUN/CRE 26.1 RATIO High 10-20 [facility] Comment on above: Performed By: #### L 500.2500, L100.0100 #### [facility] [address] [place], [address] Calcium [Mass/Vol] 9.0 mg/dL Normal 7.6-11.0 [facility] Comment on above: Performed By: #### L 500.2500, L100.0100 #### [facility] [address] [place], [address] Chloride [Moles/Vol] 105 mmol/L Normal 98-108 [facility] Comment on above: Performed By: #### L 500.2500, L100.0100 #### [facility] [address] [place], [address] CO2 [Moles/Vol] 24.2 mmol/L Normal 21.0-32.0 [facility] Comment on above: Performed By: #### L 500.2500, L100.0100 #### [facility] [address] [place], [address] Creatinine [Mass/Vol] 1.11 mg/dL Normal 0.70-1.20 [facility] Comment on above: Performed By: #### L 500.2500, L100.0100 #### [facility] [address] [place], [address] GAP 10 Normal 5-15 [facility] Comment on above: Performed By: #### L 500.2500, L100.0100 #### [facility] [address] [place], [address] GFR/1.73 sq M.predicted among non-blacks MDRD (S/P/Bld) [Vol rate/Area] 76 mL/min/{1.73_m2} Normal >60 [facility] Comment on above: Result Comment: mL/m in/1.73m2 CKD-EPI Creatinine Equation (2020) Performed By: #### L 500.2500, L100.0100 #### [facility] [address] [place], [address] Globulin (S) [Mass/Vol] 2.9 g/dL Normal 2.2-4.2 [facility] Comment on above: Performed By: #### L 500.2500, L100.0100 #### [facility] [address] [place], [address] Glucose [Mass/Vol] 99 mg/dL Normal 70-99 [facility] Comment on above: Performed By: #### L 500.2500, L100.0100 #### [facility] [address] [place], [address] Potassium [Moles/Vol] 4.2 mmol/L Normal 3.3-5.1 [facility] Comment on above: Performed By: #### L 500.2500, L100.0100 #### [facility] [address] [place], [address] Sodium [Moles/Vol] 139 mmol/L Normal 133-145 [facility] Comment on above: Performed By: #### L 500.2500, L100.0100 #### [facility] [address] [place], [address] T PROT 7.3 g/dL Normal 5.9-8.4 [facility] Comment on above: Performed By: #### L 500.2500, L100.0100 #### [facility] [address] [place], [address] Urea nitrogen [Mass/Vol] 29 mg/dL High 4-19 [facility] Comment on above: Performed By: #### L 500.2500, L100.0100 #### [facility] [address] [place], [address] Hemoglobin A1con 03-12-2025 HbA1c (Bld) [Mass fraction] 4.7 % Normal <=5.6 [facility] Comment on above: Result Comment: Norm al < 5.7 % Prediabetic 5.7 - 6.4 % Diabetic >or= 6.5 % Please note range changes. Performed By: #### L 500.2500, L100.0100 #### [facility] [address] [place], [address] Lipid Profileon 03-12-2025 CHOL:HDL 4.33 Normal [facility] Comment on above: Performed By: #### L 500.2500, L100.0100 #### [facility] [address] [place], [address] Cholesterol [Mass/Vol] 170 mg/dL Normal <=200 [facility] Comment on above: Result Comment: Chol esterol level, Desirable <200 mg/dL Borderline high cholesterol 200-239 mg/dL High cholesterol >=240 mg/dL Recommendations of the NCEP Adult Treatment Panel for the following risk-cutoff thresholds for the [place] population. Performed By: #### L 500.2500, L100.0100 #### [facility] [address] [place], [address] Cholesterol in HDL [Mass/Vol] 39 mg/dL Low [facility] Comment on above: Result Comment: Briseida onal Cholesterol Education Program (NCEP) guidelines: <40 mg/dL: Low HDL-cholesterol (major risk factor for CHD) >= 60 mg/dL: High HDL-cholesterol (negative risk factor for CHD) HDL-cholesterol is affected by a number of factors, e.g. smoking, exercise, hormones, sex and age. Performed By: #### L 500.2500, L100.0100 #### [facility] [address] [place], [address] Cholesterol in LDL [Mass/Vol] 95 mg/dL Normal [facility] Comment on above: Result Comment: Bord mjgdjs=516-262 mg/dL Higher Hoky=753 mg/dL or greater Eagle Equation 2020 for LDL-C Performed By: #### L 500.2500, L100.0100 #### [facility] [address] [place], [address] Cholesterol in VLDL [Mass/Vol] 42 mg/dL High 5-40 [facility] Comment on above: Performed By: #### L 500.2500, L100.0100 #### [facility] [address] [place], [address] Triglyceride [Mass/Vol] 209 mg/dL High [facility] Comment on above: Result Comment: The drugs N-Acetylcysteine and Metamizole may falsely depress this assay. Normal range: <150 mg/dL Borderline High: 150-199 mg/dL High: 200-499 mg/dL Very High: >500 mg/dL Performed By: #### L 500.2500, L100.0100 #### [facility] [address] [place], [address] PSA,Total - Annual Screenon 03-12-2025 PSA,TOT SCREEN 1.55 ng/mL Normal 0.02-4.00 [facility] Comment on above: Result Comment: This test was performed using the [employer] tPSA method. Measured values of a patient??sample can vary depending on the testing procedure used. PSA values determined on patient samples by different testing procedures cannot be used interchangeably. If there is a change in PSA assays while monitoring therapy, sequential testing should be performed to confirm baseline values. Performed By: #### L 500.2500, L100.0100 #### [facility] [address] [place], [address] Thyroid Stim Hormone (TSH)on 03-12-2025 TSH 2.830 uIU/mL Normal 0.300-4.200 [facility] Comment on above: Performed By: #### L 500.2500, L100.0100 #### [facility] [address] [place], [address] Vitamin B12on 03-12-2025 Cobalamin (Vitamin B12) [Mass/Vol] 607 pg/mL Normal 180-914 [facility] Comment on above: Performed By: #### L 500.2500, L100.0100 #### [facility] [address] [place], [address] Vitamin D,25 Hydroxyon 03-12 Vitamin D 25-OH 32.0 ng/mL Normal 30-100 [facility] Comment on above: Result Comment: Faye min D Status Deficiency: <20 ng/mL (50nmol/L) Insufficiency: 20-30 ng/mL (50-75 nmol/L) Sufficiency: 30-100 ng/mL (75-250 nmol/L) Toxicity: >100 ng/mL (>250 nmol/L) Performed By: #### L 500.2500, L100.0100 #### [facility] [address] [place], [address] Emergency Department Summary on 02-16-2025 Emergency Department Summary [facility] Medical Records Department [address] [place] [address] Emergency Department Summary 02/16/25 MR#: [id number] Acct: [id number] Name: GEORGIA THORPE Jr. Rep #: [id number] : 1965 59 From: David Miles MD PCP: Dr. Wendie Louise MD Status:REG ER Location: ED HPI History of Present Illness HPI Narrative: 59-year-old male fell over a week ago injured his right knee medially. Came in to have it evaluated. He is on aspirin but no other blood thinners. No other injuries. Chief Complaint: Lower Extremity Injury Informant: patient Occured/Mechanism Mechanism/Context: Yes injury and Yes blunt trauma Onset/Context/Timing Onset: Weeks Context: Sudden Onset Timing: Continuous Quality of Pain: Dull and Aching Current Severity: Moderate Maximum Severity: Moderate Narrative Narrative: 59-year-old male fell hitting his right medial part of his knee and lower leg on a wooden step over a week ago. Went to have it evaluated. He developed a hematoma and bruising. No other complaints or injuries. Prior similar symptoms: No Recent Illness/Hospitalizat ion: No PFSH PFSH Medical History Elevated coronary artery calcium score Contact with and (suspected) exposure to other [...] Medications ???Medication ???Instructions ???Recorded ???Last Taken ???Type multivitamin 1 tab PO DAILY 09/15/20 Unknown Hi story cpap 03/28/22 Unknown History cholecalciferol (vitamin D3) 50 50 mcg PO DAILY 10/30/23 Unknown H istory mcg (2,000 unit) capsule fluticasone propionate 50 2 spray intranasal DAILY #16 grams 08/05/24 Unknown Rx mcg/actuation nasal spray,suspension (Allergy Relief (fluticasone)) krill 1,000 mg-omega-3 230 mg-dha 1 cap PO BID #180 caps 10/04/24 U nknown Rx 60 mm-bwc-qtctrxybn-ast axan capsule (MegaRed [place]-3 Krill Oil) cetirizine 10 mg tablet (Zyrtec) 10 mg PO .COMPLEX PRN 11/13/24 Unk nown History loratadine 10 mg tablet (Claritin) 10 mg PO .COMPLEX 11/13/24 Unkno wn History sildenafil (pulm.hypertension) 20 20 mg PO .COMPLEX PRN sexual 11/29 07/23 Unknown Rx mg tablet activity #30 tabs diltiazem HCl 180 mg 180 mg PO BID #180 caps 12/12/24 U nknown Rx capsule,extended release 24 hr, controlled (DILT-XR) hydrochlorothiazide 25 mg tablet 25 mg PO DAILY #90 tabs 12/12/24 U nknown Rx losartan 100 mg tablet 100 mg PO DAILY #90 tabs 12/12/24 Unknown Rx Allergy/AdvReac Type Severity Reaction Status Date / Time cat dander Allergy Shortness Verified 02/16/25 19:48 of breath Family History Father CAD (coronary [...] safe at home: Yes ROS ROS ED ROS Narrative Denies recent illness. Constitutional Constitutional ED: Denies chills or fever(s) Eyes Eyes: Denies blurry vision ENT ENT ED: Denies ear pain Cardiovascular Cardiovascular: Denies chest pain Respiratory/Chest Respiratory/Chest: Denies cough or dyspnea Gastrointestinal Gastrointestinal: Denies abdominal pain Genitourinary Genitourinary ED: Denies dysuria or hematuria Musculoskeletal Musculoskeletal: Denies arthralgias Integumentary Denies abscess Neurologic Neurologic: Denies headache(s) Psychiatric Psychiatric: Denies anxiety Endocrine Endocrinology: Denies polydipsia, polyphagia or polyuria Hematologic/Lymphati c Hematologic/Lymphati c: Denies easy bleeding, easy bruising or lymphadenopathy Allergic/Immunologic Allergic/Immunologic ED: Denies mouth swelling, tongue swelling or urticaria EXAM Physical Exam Narrative Exam Narrative: (more content not included)... Normal [facility] Knee 4 or More Viewson 02-16 Knee 4 or More Views [facility] Imaging Services [address] [place] [address] Knee 4 or More Views MR#: [id number] Acct: [id number] Name: GEORGIA THORPE JrMichela Rep #: [id number] : 1965 M 59 From: Rui Vidales MD PCP: Dr. Wendie Louise MD Status: PRE ER Study: Knee 4 or More Views Date of Exam: 02/16/25 Exam# [id number] Ordering Dr: Padmini,Lexx P. PROCEDURE: KNEE 4 OR MORE VIEWS 02/16/2025 REASON FOR EXAM: TRAUMA TECHNIQUE: Procedure Code: RADKN Modality: DX Procedure: KNEE 4 OR MORE VIEWS Laterality: FINDINGS: No evidence acute fracture or dislocation. Suprapatellar enthesophyte. The joint spaces are maintained. RAD/Knee 4 or More Views IMPRESSION: No acute osseous abnormalities. Reading Location: [id number] CC: Dr. Wendie Louise MD; ED PHYSICIAN PROVIDER Shingle Bolt Cutter: Signed Normal [facility] ECG 12 lead (Clinic Performe d)on 01-16-2025 Normal sinus rhythm anterior lateral and inferolateral ST segment abnormality [facility] Work Phone: Coronary Angiography CTon Coronary Angiography CT [facility] Imaging Services [address] [place] [address] 12/25/24 0616 MR#: [id number] Acct: [id number] Name: GEORGIA THORPE Jr. Rep #: [id number] : 1965 59 From: Flako Adam MD PCP: Dr. Wendie Louise MD Status:REG REF Y Location: CT Calcium Scoring Date of Study:: 12/24/24 Indications Indications: Hypertension Coronary Calcium Scoring: High-resolution Computed Tomographic imaging of the chest was performed on [12/24/2024], with particular attention paid to the coronary arteries. Images from the examination were analyzed for the presence and extent of coronary artery calcification , using coronary calcium quantification software. The patient tolerated the procedure well and there were no complications. The results of the coronary calcification analysis are provided below. Findings Coronary Artery Left Main (LM): 0 Left Anterior Descending (LAD): 265 Left Circumflex (LCX): 2.8 Right Coronary Artery (RCA): 134 Total Agatston Score: 401.8 Percentile Rankinth to 75th percentile Calcium Scoring Interpretation: Different methods to categorize the overall amount of coronary plaque. Overall amount CAC SIS Visual of coronary plaque P1 Mild -100 <2 1-2 vessels with mild amount of plaque P2 Moderate 101-300 3-4 1-2 vessels with moderate amount, 3 vessels with mild amount of plaque P3 Severe 301-999 5-7 3 vessels with moderate amount, 1 vessel with severe amount of plaque P4 Extensive >1000 >8 2-3 vessels with severe amount of plaque Calcium Score: Severe: 3 vessels w/moderate amount, 1 vessel w/severe amt of plaque Conclusion: 1 vessel with severe plaque noted in one of the vessel with moderate plaque present. 12/25/24 0618 Date Flako Adam MD Cosigner Signature (if applicable): Date CC: Dr. Flako Adam MD; Dr. Wendie Louise MD; ZAK Cote Signed Normal [facility] Echo Completeon 12-24-2024 Echo Complete [facility] [place] [address] Echo Complete 12/24/24 1353 MR#: [id number] Acct: [id number] Name: GEORGIA THORPE Jr. Rep #: [id number] : 1965 59 From: Flako Adam MD Attending Dr: ZAK Cote Status: REG CLI Ordering Dr: Lety Joseph Date: 11/30 10/23 Location: [facility] Sex: M C Admitted: Reason For Study Reason For Study: HCM Procedure This was a 2D Doppler, Color Flow transthoracic echocardiogram. Myocardial strain analysis was performed in this exam to aid in the assessment of cardiac function. Exam performed in department. Left Ventricle Normal LV size. Moderate eccentric left ventricular hypertrophy. The left ventricular ejection fraction is 60 %. Stage 1 diastolic dysfunction. No regional wall motion abnormalities noted. Right Ventricle Normal RV size. Normal systolic function. Atria Normal left atrium. Normal right atrium. Mitral Valve Normal mitral valve. Tricuspid Valve Normal tricuspid valve. Aortic Valve Trisinus/trileaflet aortic valve. Pulmonic Valve Normal pulmonic valve. Great Vessels Normal aortic root. The pulmonary artery is normal size. Inferior vena cava collapse with respiration. Pericardium/Pleural No pericardial effusion. MMode/2D Measurements Calculations LVIDd: 4.8 cm IVSd: 1.6 cm LVOT diam: 2.2 cm LVIDs: 3.0 cm LVPWd: 1.1 cm LVOT area: 3.8 cm2 RVDd: 3.3 cm FS: 36.6 % CO(Teich): 4.3 l/min asc Aorta Diam: 3.5 cm LAV(MOD-bp): 63.7 ml LAV(MOD-bp) Indexed: 31.8 ml/m2 LAV(MOD-sp2): 71.4 ml LAV(MOD-sp4): 54.5 ml CO(MOD-sp4): 2.5 l/min LVAd ap4: 25.4 cm2 LVAd ap2: 23.2 cm2 SV(MOD-sp4): 40.9 ml LVLd ap4: 7.6 cm LVLd ap2: 7.8 cm EDV(MOD-sp4): 69.8 ml EDV(MOD-sp2): 57.5 ml SI(MOD-sp4): 20.5 ml/m2 EDV(sp4-el): 72.3 ml EDV(sp2-el): 59.0 ml LVAs ap4: 14.5 cm2 LVAs ap2: 12.9 cm2 LVLs ap4: 6.5 cm LVLs ap2: 6.9 cm ESV(MOD-sp4): 28.9 ml ESV(MOD-sp2): 21.7 ml ESV(sp4-el): 27.5 ml ESV(sp2-el): 20.6 ml EF(MOD-sp4): 58.6 % EF(MOD-sp2): 62.2 % EF(sp4-el): 61.9 % SV(MOD-sp2): 35.8 ml SV(sp4-el): 44.8 ml Ao sinus diam: 3.6 cm SI(MOD-sp2): 17.9 ml/m2 Ao ST Junction: 3.0 cm LA dimension(2D): 4.4 cm LA A4 area: 19.0 cm2 TAPSE: 2.6 cm RA A4 area: 10.9 cm2 Time Measurements MV dec time: 0.20 sec Doppler Measurements Calculations MV E max chevy: 61.2 cm/sec Lat Peak E' Chevy: 12.6 cm/sec Med Peak E' Chevy: 5.9 cm/sec MV A max chevy: 65.1 cm/sec E/E' lat: 4.9 E/E' med: 10.4 MV E/A: 0.94 MV dec slope: 306.6 cm/sec2 Ao V2 max: 176.6 cm/sec LV V1 max: 155.6 cm/sec Ao max P.5 mmHg LV V1 max P.7 mmHg Ao V2 mean: 122.5 cm/sec LV V1 mean P.1 mmHg Ao mean P.0 mmHg LV V1 mean: 119.9 cm/sec Ao V2 VTI: 37.9 cm LV V1 VTI: 31.1 cm AV (velocity ratio): 0.82 ROSALIO(I,D): 3.1 cm2 ROSALIO(V,D): 3.4 cm2 CO(LVOT): 7.2 l/min PA V2 max: 114.6 cm/sec SV(LVOT): 119.2 ml ECHO/Echo Complete Interpretation Summary Normal LV size. The left ventricular ejection fraction is 60 %. Moderate eccentric left ventricular hypertrophy. Stage 1 diastolic dysfunction. Ordering Physician: Lety Joseph Referring Physician: Wendie Louise M.D. Performed By: Tracey Puckett RDCS 12/24/24 1525 Date Flako Adam MD CC: Dr. Wendie Louise MD; ZAK Cote Date Dictated: 12/24/24 1353 Date Transcribed: 12/24/24 1525 Shingle Bolt Cutter: Signed Normal [facility] Echocardiogram study reportO rdered By: Flako Adam on 12-24-2024 Study report [facility] [place] [place] [address] Echo Complete 12/24/24 1353 MR#: [id number] Acct: [id number] Name: GEORGIA THORPE Jr. Rep #:[id number] : 1965 59 From: Flako Jackson Attending Dr: ZAK Cote Status: REG CLI Ordering Dr: Lety Joseph PA Date: 12/24/24 Location: [facility] Sex: M C Admitted: Reason For Study Reason For Study: HCM Procedure This was a 2D Doppler, Color Flow transthoracic echocardiogram. Myocardial strain analysis was performed in this exam to aid in the assessment of cardiac function. Exam performed in department. Left Ventricle Normal LV size. Moderate eccentric left ventricular hypertrophy. The left ventricular ejection fraction is 60 %. Stage 1 diastolic dysfunction. No regional wall motion abnormalities noted. Right Ventricle Normal RV size. Normal systolic function. Atria Normal left atrium. Normal right atrium. Mitral Valve Normal mitral valve. Tricuspid Valve Normal tricuspid valve. Aortic Valve Trisinus/trileaflet aortic valve. Pulmonic Valve Normal pulmonic valve. Great Vessels Normal aortic root. The pulmonary artery is normal size. Inferior vena cava collapse with respiration. Pericardium/Pleural No pericardial effusion. MMode/2D Measurements & Calculations LVIDd: 4.8 cm IVSd: 1.6 cm LVOT diam: 2.2 cm LVIDs: 3.0 cm LVPWd: 1.1 cm LVOT area: 3.8 cm2 RVDd: 3.3 cm FS: 36.6 % CO(Teich): 4.3 l/min asc Aorta Diam: 3.5 cm LAV(MOD-bp): 63.7 ml LAV(MOD-bp) Indexed: 31.8 ml/m2 LAV(MOD-sp2): 71.4 ml LAV(MOD-sp4): 54.5 ml __ CO(MOD-sp4): 2.5 l/min LVAd ap4: 25.4 cm2 LVAd ap2: 23.2 cm2 SV(MOD-sp4): 40.9 ml LVLd ap4: 7.6 cm LVLd ap2: 7.8 cm EDV(MOD-sp4): 69.8 ml EDV(MOD-sp2): 57.5 ml SI(MOD-sp4): 20.5 ml/m2 EDV(sp4-el): 72.3 ml EDV(sp2-el): 59.0 ml LVAs ap4: 14.5 cm2 LVAs ap2: 12.9 cm2 LVLs ap4: 6.5 cm LVLs ap2: 6.9 cm ESV(MOD-sp4): 28.9 ml ESV(MOD-sp2): 21.7 ml ESV(sp4-el): 27.5 ml ESV(sp2-el): 20.6 ml EF(MOD-sp4): 58.6 % EF(MOD-sp2): 62.2 % EF(sp4-el): 61.9 % _ SV(MOD-sp2): 35.8 ml SV(sp4-el): 44.8 ml Ao sinus diam: 3.6 cm SI(MOD-sp2): 17.9 ml/m2 Ao ST Junction: 3.0 cm LA dimension(2D): 4.4 cm LA A4 area: 19.0 cm2 TAPSE: 2.6 cm RA A4 area: 10.9 cm2 Time Measurements MV dec time: 0.20 sec Doppler Measurements & Calculations MV E max chevy: 61.2 cm/sec Lat Peak E' Chevy: 12.6 cm/sec Med Peak E' Chevy: 5.9 cm/sec MV A max chevy: 65.1 cm/sec E/E' lat: 4.9 E/E' med: 10.4 MV E/A: 0.94 MV dec slope: 306.6 cm/sec2 Ao V2 max: 176.6 cm/sec LV V1 max: 155.6 cm/sec Ao max P.5 mmHg LV V1 max P.7 mmHg Ao V2 mean: 122.5 cm/sec LV V1 mean P.1 mmHg Ao mean P.0 mmHg LV V1 mean: 119.9 cm/sec Ao V2 VTI: 37.9 cm LV V1 VTI: 31.1 cm AV (velocity ratio): 0.82 ROSALIO(I,D): 3.1 cm2 ROSALIO(V,D): 3.4 cm2 CO(LVOT): 7.2 l/min PA V2 max: 114.6 cm/sec SV(LVOT): 119.2 ml ECHO/Echo Complete Interpretation Summary Normal LV size. The left ventricular ejection fraction is 60 %. Moderate eccentric left ventricular hypertrophy. Stage 1 diastolic dysfunction. Ordering Physician: Lety Joseph Referring Physician: Wendie Louise M.D. Performed By: Tracey Puckett RDCS 12/24/24 1525 Date _ Flako Adam MD CC: Dr. Wendie Louise MD; ZAK Cote ~ Date Dictated: 12/24/24 1353 Date Transcribed: 12/24/24 152 Shingle Bolt Cutter: Signed [facility] Work Phone: Limited Chest CT Cardiac Onl yon 12-24-[address] Cardiac Only [facility] [address] [place], [place] [address] Limited Chest CT Cardiac Only MR#: [id number] Acct: [id number] Name: GEORGIA THORPE Jr. Rep #: [id number] : 1965 M 59 From: Karthikeyan Jackson PCP: Dr. Wendie Louise MD Status: REG REF Study: Limited Chest CT Cardiac Only Date of Exam: Exam# [id number] Ordering Dr: Lety Joseph PROCEDURE: LIMITED CHEST CT CARDIAC ONLY 12/24/2024 REASON FOR EXAM: ESSENTIAL HYPERTENSION PRIMARY HYPERTROPHIC CARDIOMYOPATHY TECHNIQUE: CT performed for coronary artery calcium scoring. One or more dose reduction techniques were used (e.g., Automated exposure control, adjustment of the mA and/or kV according to patient size, use of iterative reconstruction technique). RADIATION DOSE SUMMARY: CTDlvol: 12.19 mGy DLP: 219.42 mGycm COMPARISON: None. CT/Limited Chest CT Cardiac Only IMPRESSION: No pericardial effusion is seen. No cardiomegaly is noted. Limited imaging of the lungs demonstrates no acute process. No pleural effusion or pneumothorax is seen in visualized areas. No adenopathy is noted. The visualized upper abdomen demonstrates no significant abnormality. Reading Location: [place] [address] CC: Dr. Wendie Louise MD; ZAK Cote Shingle Bolt Cutter: Signed Normal [facility] Cardiology Visit Reporton Cardiology Visit Report [facility] [address] [place], [place] [address] OFFICE VISIT Date of Service: 11/13/24 MR#: [id number] Acct: [id number] Name: GEORGIA THORPE Jr. Rep #: [id number] : 1965 Provider: ZAK Raymundo Age/Sex: 58/M [facility] Status: Signed HPI HPI History of Present [...] NIBP Intake Visit Reasons: 1 Y FU Mail List Librarian Required: No Is patient in pain?: No [...] #180 caps 10/04/24 0 11/13/24 Rx 60 ns-epn-kvgazehfn-ast axan capsule (MegaRed [place]-3 Krill Oil) hydrochlorothiazide 25 mg tablet 25 [...] Neuro Ne (more content not included)... Normal [facility] Surgery Visit Reporton 08-15 Surgery Visit Report [facility] [address] [facility] [place] [address] OFFICE VISIT Date of Service: 08/15/24 MR#: [id number] Acct: [id number] Name: GEORGIA THORPE Jr. Rep #: [id number] : 1965 Provider: Dr. Ifeanyi garcia MD Age/Sex: 58/M Location: [facility] Status: Signed Intake Vital Signs 06/17/24 09:57 [...] #180 caps 07/30/24 0 08/15/24 Rx 60 kr-bbc-yseigjsnn-ast axan capsule (MegaRed [place]-3 Krill Oil) sildenafil (pulm.hypertension) 20 20 mg [...] No de (more content not included)... Normal [facility] Abdomen/Pelvis WITH Contrast on 07-23-2024 Abdomen/Pelvis WITH Contrast [facility] [address] [place] [id number] Abdomen/Pelvis WITH Contrast MR#: [id number] Acct: [id number] Name: GEORGIA THORPE Jr. Rep #: [id number] : 1965 M 58 From: Parker Joseph MD PCP: Dr. Wendie Louise MD Status: [facility] Study: Abdomen/Pelvis WITH Contrast Date of Exam: Exam# [id number] Ordering Dr: Vanessa Maher MD EXAM: CT [...] rectum. 3. Bilateral inguinal hernias. Reading Location: [facility] CC: Dr. Wendie Louise MD; Dr. Vanessa Maher MD Shingle Bolt Cutter: Signed Normal [facility] Surgery Visit Reporton 07-11 Surgery Visit Report [facility] [address] [place] [address]. [address] [place] [address] OFFICE VISIT Date of Service: 07/10/24 MR#: [id number] Acct: [id number] Name: GEORGIA THORPE Rep #: [id number] : 1965 Provider: Dr. Vanessa norton MD Age/Sex: 58/M Location: [facility] Status: Signed Intake Vital Signs 06/17/24 09:57 [...] #180 caps 12/05/23 0 07/10/24 Rx 60 sv-bzn-vwfqdqdhi-ast axan capsule (MegaRed [place]-3 Krill Oil) sildenafil (pulm.hypertension) 20 20 mg PO .COMPLEX PRN sexual 04/0107/10/24 Rx mg tablet activity #30 tabs hydrochlorothiazide 25 mg tablet 25 mg PO DAILY #90 tabs 05/16/24 0 07/10/24 Rx losartan 100 mg tablet 100 mg PO DAILY #90 tabs 05/16/24 07/10/24 Rx diltiazem HCl 180 mg 180 mg PO BID 06/04/24 07/10/24 Hi story capsule,extended release 24 hr, controlled (DILT-XR) [facility] Medical History Contact with and (suspected) exposure [...] agreeable with plan. Vanessa Maher M.D. Pager: [phone] [facility] [address] [place] [address], [facility], [address] [facility] (more content not included)... Normal [facility] Surgery Visit Reporton 06-21 Surgery Visit Report [facility] [address] [place] [address]. [address] [place] [id number] OFFICE VISIT Date of Service: 06/21/24 MR#: [id number] Acct: [id number] Name: GEORGIA THORPE Jr. Rep #: [id number] : 1965 Provider: Dr. Vanessa norton MD Age/Sex: 58/M Location: [facility] Status: Signed Intake Vital Signs 06/14/24 13:04 06/17/24 09:57 Height 5 ft 7 in 5 ft 7 in Weight: 197 lb BMI 30.8 BP 126/69 H Blood Pressure Location Lt brachial Position Sitting Pulse 87 Pulse Source Monitor Temp 98.7 F Temp Source Temporal Pulse Oximetry (%) 93 Oxygen Delivery Method room air Intake Visit Reasons: DISCUSS CT RESULTS Chief Complaint: Discuss CT Mail List Librarian Required: No Is patient in pain?: No [...] #180 caps 12/05/23 0 06/21/24 Rx 60 lr-nyt-mfwxbfzmq-ast axan capsule (MegaRed [place]-3 Krill Oil) sildenafil (pulm.hypertension) 20 20 mg [...] you fallen in the past year?: No [facility] Medical History Contact with and (suspected) exposure [...] healthy appearing, comfortable and no acute distress HENNM Head: normocephalic and atraumatic Neck Neck: supple [...] abscess area/i (more content not included)... Normal [facility] Abdomen/Pelvis WITH Contrast on 06-20-2024 Abdomen/Pelvis WITH Contrast [facility] [address] [place] [address] Abdomen/Pelvis WITH Contrast MR#: [id number] Acct: [id number] Name: GEORGIA THORPE Jr. Rep #: [id number] : 1965 M 58 From: Wyatt Mock MD PCP: Dr. Wendie Louise MD Status: REG CLI Study: Abdomen/Pelvis WITH Contrast Date of Exam: Exam# [id number] Ordering Dr: Vanessa Maher MD PROCEDURE: CT [...] parapelvic cysts, stable. Bladder: Unremarkable. Reproductive Organs: Eqml-dv-mbozjded prostatomegaly. Prostate gland calcification. Bowel: Small hiatal [...] 4. Small stationary hiatal hernia. Reading Location: [facility] CC: Dr. Wendie Louise MD; Dr. Vanessa Maher MD Shingle Bolt Cutter: Signed Normal [facility] MR/IMBon 06-17-2024 MR/BMS.IMB [facility] [address] [facility] [place] [address] OFFICE VISIT Date of Service: 06/17/24 MR#: [id number] Acct: [id number] Name: GEORGIA THORPE Jr. Rep #: [id number] : 1965 Provider: Dr. Wendie hughes MD Age/Sex: 58/M [place] [facility] Status: Signed Intake Vital Signs 06/04/24 12:40 [...] air Intake Visit Reasons: Rt Side Pain Mail List Librarian Required: No Accompanied by: Self Is patient [...] #180 caps 12/05/23 0 06/17/24 Rx 60 iv-dlf-slcdnlujr-ast axan capsule (MegaRed [place]-3 Krill Oil) sildenafil (pulm.hypertension) 20 20 mg [...] to t (more content not included)... Normal [facility] Surgery Visit Reporton 06-14 Surgery Visit Report [facility] [address] [facility] [place] [address] OFFICE VISIT Date of Service: 06/14/24 MR#: [id number] Acct: [id number] Name: GEORGIA THORPE JrMichela Rep #: [id number] : 1965 Provider: Dr. Vanessa norton MD Age/Sex: 58/M Location: [facility] Status: Signed Intake Vital Signs 06/04/24 12:40 [...] #180 caps 12/05/23 0 06/14/24 Rx 60 tf-cjm-urovxcfco-ast axan capsule (MegaRed [place]-3 Krill Oil) sildenafil (pulm.hypertension) 20 20 mg [...] apnea, No (more content not included)... Normal [facility] Abdomen/Pelvis WITH Contrast on 06-13-2024 Abdomen/Pelvis WITH Contrast [facility] [address] [place] [address] Abdomen/Pelvis WITH Contrast MR#: [id number] Acct: [id number] Name: GEORGIA THORPE JrMichela Rep #: [id number] : 1965 M 58 From: Parker Joseph MD PCP: Dr. Wendie Louise MD Status: REG CLI Study: Abdomen/Pelvis WITH Contrast Date of Exam: Exam# [id number] Ordering Dr: Rhea Morgan EXAM: CT Abdomen and Pelvis With Intravenous [...] fat. 5. No obstructive uropathy. Reading Location: [facility] CC: CASSIA Morgan; Dr. Wendie Louise MD Shingle Bolt Cutter: Signed Normal [facility] 39-BB-Wbfbroc DOrdered By: Wilmar Louise on 06-12-2024 Vitamin D 25-Hydroxy 34.4 ng/mL [facility] Comment on above: Vitamin D 25(OH) Sta tus Range Deficiency <20 ng/mL (50nmol/L) Insufficiency 20 - 30 ng/mL (50 - 75 nmol/L) Sufficiency 30 - 100 ng/mL (75 - 250 nmol/L) Toxicity >100 ng/mL (>250 nmol/L) Absolute neutrophil countOrd ered By: Wendie Louise on 06-12-2024 Neutrophils (Bld) [#/Vol] 3.7 10*3/uL 2.0-7.7 [facility] Albumin to globulin ratioOrd ered By: Wendie Louise on 06-12-2024 Albumin/Globulin [Mass ratio] 0.8 {ratio} Low 0.9-2.4 [facility] Basophil percentageOrdered B y: Wendie Louise on 06-12-2024 Basophils/100 WBC (Bld) 0.7 % 0-1 [facility] Bilirubin, totalOrdered By: Wendie Louise on 06-12-2024 Bilirubin [Mass/Vol] 0.40 mg/dL 0.20-1.00 [facility] Comment on above: For patients on eltr ombopag therapy, use of Dimension [place] TBIL is not recommended. Blood urea nitrogen (BUN)/cr eatinine ratioOrdered By: Wendie Louise on 06-12-2024 Urea nitrogen/Creatinine [Mass ratio] 21.3 mg/mg High 10-20 [facility] CBC W/Diff, Automatedon 06-01 Absolute Lymph 2.52 X10 3/uL Normal 0.83-4.51 [facility] Comment on above: Performed By: #### L 501.5200, L500.2500, L501.2450, L500.3400, L100.0100 #### [facility] [address] [place], [address] Absolute Neut 3.7 X10 3/uL Normal 2.0-7.7 [facility] Comment on above: Performed By: #### L 501.5200, L500.2500, L501.2450, L500.3400, L100.0100 #### [facility] [address] [place], [address] Basophils/100 WBC (Bld) 0.7 % Normal 0-1 [facility] Comment on above: Performed By: #### L 501.5200, L500.2500, L501.2450, L500.3400, L100.0100 #### [facility] [address] [place], [address] Eosinophils/100 WBC (Bld) 3.2 % Normal 0-5 [facility] Comment on above: Performed By: #### L 501.5200, L500.2500, L501.2450, L500.3400, L100.0100 #### [facility] [address] [place], [address] Erythrocyte distribution width (RBC) [Ratio] 12.0 % Normal 11.6-14.6 [facility] Comment on above: Performed By: #### L 501.5200, L500.2500, L501.2450, L500.3400, L100.0100 #### [facility] [address] [place], [address] Hematocrit (Bld) [Volume fraction] 42.1 % Normal 40-54 [facility] Comment on above: Performed By: #### L 501.5200, L500.2500, L501.2450, L500.3400, L100.0100 #### [facility] [address] [place], [address] Hemoglobin (Bld) [Mass/Vol] 14.8 g/dL Normal 13.0-16.5 [facility] Comment on above: Performed By: #### L 501.5200, L500.2500, L501.2450, L500.3400, L100.0100 #### [facility] [address] [place], [address] IG% 0.600 Normal 0.0-0.9 [facility] Comment on above: Result Comment: IG% - Immature Granulocytes (promyelocytes, myelocytes and metamyelocytes) > 1% indicates that a LEFT SHIFT is Present. Performed By: #### L 501.5200, L500.2500, L501.2450, L500.3400, L100.0100 #### [facility] [address] [place], [address] Lymphocytes/100 WBC (Bld) 35.4 % Normal 19-41 [facility] Comment on above: Performed By: #### L 501.5200, L500.2500, L501.2450, L500.3400, L100.0100 #### [facility] [address] [place], [address] MCH (RBC) [Entitic mass] 31.6 pg Normal 27.0-32.0 [facility] Comment on above: Performed By: #### L 501.5200, L500.2500, L501.2450, L500.3400, L100.0100 #### [facility] [address] [place], [address] MCHC (RBC) [Mass/Vol] 35.2 g/dL Normal 32-36 [facility] Comment on above: Performed By: #### L 501.5200, L500.2500, L501.2450, L500.3400, L100.0100 #### [facility] [address] [place], [address] MCV (RBC) [Entitic vol] 90.0 fL Normal 80-94 [facility] Comment on above: Performed By: #### L 501.5200, L500.2500, L501.2450, L500.3400, L100.0100 #### [facility] [address] [place], [address] Monocytes/100 WBC (Bld) 8.3 % Normal 0-10 [facility] Comment on above: Performed By: #### L 501.5200, L500.2500, L501.2450, L500.3400, L100.0100 #### [facility] [address] [place], [address] Neutrophils/100 WBC (Bld) 51.8 % Normal 47-70 [facility] Comment on above: Performed By: #### L 501.5200, L500.2500, L501.2450, L500.3400, L100.0100 #### [facility] [address] [place], [address] Nucleated RBC (Bld) [#/Vol] 0 10*3/uL Normal 0-5 [facility] Comment on above: Performed By: #### L 501.5200, L500.2500, L501.2450, L500.3400, L100.0100 #### [facility] [address] [place], [address] Platelet mean volume (Bld) [Entitic vol] 9.1 fL Normal 6.2-12.0 [facility] Comment on above: Performed By: #### L 501.5200, L500.2500, L501.2450, L500.3400, L100.0100 #### [facility] [address] [place], [address] Platelets (Bld) [#/Vol] 360 10*3/uL Normal 150-450 [facility] Comment on above: Performed By: #### L 501.5200, L500.2500, L501.2450, L500.3400, L100.0100 #### [facility] [address] [place], [address] RBC (Bld) [#/Vol] 4.68 10*6/uL Normal 4.6-6.2 [facility] Comment on above: Performed By: #### L 501.5200, L500.2500, L501.2450, L500.3400, L100.0100 #### [facility] [address] [place], [address] RDW SD 39.1 fl Normal 35.1-43.9 [facility] Comment on above: Performed By: #### L 501.5200, L500.2500, L501.2450, L500.3400, L100.0100 #### [facility] [address] [place], [address] WBC (Bld) [#/Vol] 7.1 10*3/uL Normal 4.4-11.0 [facility] Comment on above: Performed By: #### L 501.5200, L500.2500, L501.2450, L500.3400, L100.0100 #### [facility] [address] [place], [address] Carbon dioxide measurementOr dered By: Wendie Louise on 06-12-2024 CO2 [Moles/Vol] 26.0 mmol/L 21.0-32.0 [facility] Chloride measurementOrdered By: Wendie Louise on 06-12-2024 Chloride [Moles/Vol] 108 mmol/L High 98-107 [facility] Comprehensive Metabolic Prof ilon 06-12-2024 Albumin [Mass/Vol] 3.4 g/dL Normal 3.2-5.0 [facility] Comment on above: Performed By: #### L 501.5200, L500.2500, L501.2450, L500.3400, L100.0100 #### [facility] [address] [place], [address] Albumin/Globulin [Mass ratio] 0.8 {ratio} Low 0.9-2.4 [facility] Comment on above: Performed By: #### L 501.5200, L500.2500, L501.2450, L500.3400, L100.0100 #### [facility] [address] [place], [address] ALK P 63 U/L Normal 45-117 [facility] Comment on above: Performed By: #### L 501.5200, L500.2500, L501.2450, L500.3400, L100.0100 #### [facility] [address] [place], [address] ALT [Catalytic activity/Vol] 44 U/L Normal 16-61 [facility] Comment on above: Performed By: #### L 501.5200, L500.2500, L501.2450, L500.3400, L100.0100 #### [facility] [address] [place], [address] AST [Catalytic activity/Vol] 20 U/L Normal 15-37 [facility] Comment on above: Performed By: #### L 501.5200, L500.2500, L501.2450, L500.3400, L100.0100 #### [facility] [address] [place], [address] Bilirubin [Mass/Vol] 0.40 mg/dL Normal 0.20-1.00 [facility] Comment on above: Result Comment: For patients on eltrombopag therapy, use of Dimension [place] TBIL is not recommended. Performed By: #### L 501.5200, L500.2500, L501.2450, L500.3400, L100.0100 #### [facility] [address] [place], [address] BUN/CRE 21.3 RATIO High 10-20 [facility] Comment on above: Performed By: #### L 501.5200, L500.2500, L501.2450, L500.3400, L100.0100 #### [facility] [address] [place], [address] CA,Total 9.1 mg/dL Normal 8.5-10.1 [facility] Comment on above: Performed By: #### L 501.5200, L500.2500, L501.2450, L500.3400, L100.0100 #### [facility] [address] [place], [address] Chloride [Moles/Vol] 108 mmol/L High 98-107 [facility] Comment on above: Performed By: #### L 501.5200, L500.2500, L501.2450, L500.3400, L100.0100 #### [facility] [address] [place], [address] CO2 [Moles/Vol] 26.0 mmol/L Normal 21.0-32.0 [facility] Comment on above: Performed By: #### L 501.5200, L500.2500, L501.2450, L500.3400, L100.0100 #### [facility] [address] [place], [address] Creatinine [Mass/Vol] 1.22 mg/dL Normal 0.70-1.30 [facility] Comment on above: Result Comment: The validity of the calculated GFR GFRAA in patients over 70 years has not been determined. Clinical correlation is essential. Performed By: #### L 501.5200, L500.2500, L501.2450, L500.3400, L100.0100 #### [facility] [address] [place], [address] EST GFR - AA 78 mL/min Normal >60 [facility] Comment on above: Result Comment: Afri can Icelandic GFR Calc Performed By: #### L 501.5200, L500.2500, L501.2450, L500.3400, L100.0100 #### [facility] [address] [place], [address] GAP 5 Normal 5-15 [facility] Comment on above: Performed By: #### L 501.5200, L500.2500, L501.2450, L500.3400, L100.0100 #### [facility] [address] [place], [address] GFR/1.73 sq M.predicted among non-blacks MDRD (S/P/Bld) [Vol rate/Area] 65 mL/min/{1.73_m2} Normal >60 [facility] Comment on above: Result Comment: Non- GFR Calc Performed By: #### L 501.5200, L500.2500, L501.2450, L500.3400, L100.0100 #### [facility] [address] [place], [address] Globulin (S) [Mass/Vol] 4.2 g/dL Normal 2.2-4.2 [facility] Comment on above: Performed By: #### L 501.5200, L500.2500, L501.2450, L500.3400, L100.0100 #### [facility] [address] [place], [address] Glucose [Mass/Vol] 94 mg/dL Normal 74-106 [facility] Comment on above: Performed By: #### L 501.5200, L500.2500, L501.2450, L500.3400, L100.0100 #### [facility] [address] [place], [address] Potassium [Moles/Vol] 3.7 mmol/L Normal 3.5-5.1 [facility] Comment on above: Performed By: #### L 501.5200, L500.2500, L501.2450, L500.3400, L100.0100 #### [facility] [address] [place], [address] Sodium [Moles/Vol] 139 mmol/L Normal 136-145 [facility] Comment on above: Performed By: #### L 501.5200, L500.2500, L501.2450, L500.3400, L100.0100 #### [facility] [address] [place], [address] T PROT 7.6 g/dL Normal 6.4-8.2 [facility] Comment on above: Performed By: #### L 501.5200, L500.2500, L501.2450, L500.3400, L100.0100 #### [facility] [address] [place], [address] Urea nitrogen [Mass/Vol] 26 mg/dL High 7-18 [facility] Comment on above: Performed By: #### L 501.5200, L500.2500, L501.2450, L500.3400, L100.0100 #### [facility] [address] [place], [address] Eosinophil percentageOrdered By: Wendie Louise on 06-12-2024 Eosinophils/100 WBC (Bld) 3.2 % 0-5 [facility] Erythrocyte distribution wid th ratioOrdered By: Wendie Louise on 06-12-2024 Erythrocyte distribution width (RBC) [Ratio] 12.0 % 11.6-14.6 [facility] Erythrocyte distribution wid th standard deviationOrdered By: Wendie Louise on 06-12-2024 Erythrocyte distribution width (RBC) [Entitic vol] 39.1 fL 35.1-43.9 [facility] Estimated glomerular filtrat ion rate (GFR) AmericanOrdered By: Wendie Louise on 06-12-2024 Estimated GFR (MDRD) Amer 78 mL/min >60 [facility] Comment on above: GFR Calc Glomerular filtration rate ( GFR) estimationOrdered By: Wendie Louise on 06-12-2024 Estimated GFR (MDRD) Non-Af Amer 65 mL/min >60 [facility] Comment on above: Non- GFR Calc Glucose measurementOrdered B y: Wendie Louise on 06-12-2024 Glucose [Mass/Vol] 94 mg/dL 74-106 [facility] Hematocrit Auto (Bld) [Volum e fraction]Ordered By: Wendie Louise on 06-12-2024 Hematocrit (Bld) [Volume fraction] 42.1 % 40-54 [facility] Hemoglobin measurementOrdere d By: Wendie Louise on 06-12-2024 Hemoglobin (Bld) [Mass/Vol] 14.8 g/dL 13.0-16.5 [facility] High density lipoprotein (HD L) measurementOrdered By: Wendie Louise on 06-12-2024 Cholesterol in HDL [Mass/Vol] 36 mg/dL Low >40 [facility] Comment on above: The drugs N-Acetylcy steine and Metamizole may falsely depress this assay. Reference Range HDL <40 mg/dL Low HDL Cholesterol HDL >or= 60 mg/dL High HDL Cholesterol Immature granulocytes/100 WB C Auto (Bld)Ordered By: Wendie Louise on 06-12-2024 Immature granulocytes/100 WBC (Bld) 0.600 % 0.0-0.9 [facility] Comment on above: IG% - Immature Granu locytes (promyelocytes, myelocytes and metamyelocytes) > 1% indicates that a LEFT SHIFT is Present. Laboratory - Chemistry and C hemistry - challengeOrdered By: Wendie Louise on 06-12-2024 AST [Catalytic activity/Vol] 20 U/L 15-37 [facility] Lipid Profileon 06-12-2024 Cholesterol [Mass/Vol] 119 mg/dL Normal 200 [facility] Comment on above: Result Comment: <200 mg/dL Desirable 200-240 mg/dL Borderline >240 mg/dL High Risk Performed By: #### L 501.5200, L500.2500, L501.2450, L500.3400, L100.0100 #### [facility] [address] [place], [place], [id number] Cholesterol in HDL [Mass/Vol] 36 mg/dL Low [facility] Comment on above: Result Comment: The drugs N-Acetylcysteine and Metamizole may falsely depress this assay. Reference Range HDL <40 mg/dL Low HDL Cholesterol HDL >or= 60 mg/dL High HDL Cholesterol Performed By: #### L 501.5200, L500.2500, L501.2450, L500.3400, L100.0100 #### [facility] [address] [place], [address] Cholesterol in LDL [Mass/Vol] 41 mg/dL Normal 0-130 [facility] Comment on above: Performed By: #### L 501.5200, L500.2500, L501.2450, L500.3400, L100.0100 #### [facility] [address] [place], [address] Cholesterol in VLDL [Mass/Vol] 42 mg/dL High 5-40 [facility] Comment on above: Performed By: #### L 501.5200, L500.2500, L501.2450, L500.3400, L100.0100 #### [facility] [address] [place], [address] Triglyceride [Mass/Vol] 210 mg/dL High [facility] Comment on above: Result Comment: The drugs N-Acetylcysteine and Metamizole may falsely depress this assay. Serum Triglycerides Reference Interval Normal <150 mg/dL Borderline high 150 - 199 mg/dL High 200 - 499 mg/dL Very High > or = 500 mg/dL Performed By: #### L 501.5200, L500.2500, L501.2450, L500.3400, L100.0100 #### [facility] [address] [place], [address] Low density lipoprotein (LDL ) cholesterol measurementOrdered By: Wendie Louise on 06-12-2024 Cholesterol in LDL [Mass/Vol] 41 mg/dL 0-130 [facility] Lymphocytes Auto (Unsp spec) [#/Vol]Ordered By: Wendie Louise on 06-12-2024 Lymphocytes (Bld) [#/Vol] 2.52 10*3/uL 0.83-4.51 [facility] Lymphocytes/100 WBC Auto (Un sp spec)Ordered By: Wendie Louise on 06-12-2024 Lymphocytes/100 WBC (Bld) 35.4 % 19-41 [facility] MCV (mean corpuscular volume ) determinationOrdered By: Wendie Louise on 06-12-2024 MCV (RBC) [Entitic vol] 90.0 fL 80-94 [facility] Mean corpuscular hemoglobin (MCH) determinationOrdered By: Wendie Louise on 06-12-2024 MCH (RBC) [Entitic mass] 31.6 pg 27.0-32.0 [facility] Mean corpuscular hemoglobin concentration (MCHC) determinationOrdered By: Wendie Louise on 06-12-2024 MCHC (RBC) [Mass/Vol] 35.2 g/dL 32-36 [facility] Mean platelet volume determi nationOrdered By: Wendie Louise on 06-12-2024 Platelet mean volume (Bld) [Entitic vol] 9.1 fL 6.2-12.0 [facility] Monocyte percentageOrdered B y: Wendie Louise on 06-12-2024 Monocytes/100 WBC (Bld) 8.3 % 0-10 [facility] Neutrophil percentageOrdered By: Wendie Louise on 06-12-2024 Neutrophils/100 WBC (Bld) 51.8 % 47-70 [facility] Nucleated red blood cell per centageOrdered By: Wendie Louise on 06-12-2024 Nucleated RBC/100 WBC (Bld) [Ratio] 0 % 0-5 [facility] Platelet countOrdered By: Edda Louise on 06-12-2024 Platelets (Bld) [#/Vol] 360 10*3/uL 150-450 [facility] Potassium measurementOrdered By: Wendie Louise on 06-12-2024 Potassium [Moles/Vol] 3.7 mmol/L 3.5-5.1 [facility] RBC Auto (Bld) [#/Vol]Ordere d By: Wendie Louise on 06-12-2024 RBC (Bld) [#/Vol] 4.68 10*6/uL 4.6-6.2 [facility] Serum anion gap measurementO rdered By: Wendie Louise on 06-12-2024 Anion gap [Moles/Vol] 5 mmol/L 5-15 [facility] Serum globulin measurementOr dered By: Wendie Louise on 06-12-2024 Globulin (S) [Mass/Vol] 4.2 g/dL 2.2-4.2 [facility] Serum or plasma alanine watts otransferase (ALT) measurementOrdered By: Wendie Louise on 06-12-2024 ALT [Catalytic activity/Vol] 44 U/L 16-61 [facility] Serum or plasma albumin chiara urement (mass/volume)Ordered By: Wendie Louise on 06-12-2024 Albumin [Mass/Vol] 3.4 g/dL 3.2-5.0 [facility] Serum or plasma alkaline jason sphatase measurementOrdered By: Wendie Louise on 06-12-2024 ALP [Catalytic activity/Vol] 63 U/L 45-117 [facility] Serum or plasma calcium chiara urement (mass/volume)Ordered By: Wendie Louise on 06-12-2024 Calcium [Mass/Vol] 9.1 mg/dL 8.5-10.1 [facility] Serum or plasma cholesterol measurement (mass/volume)Ordered By: Wendie Louise on 06-12-2024 Cholesterol [Mass/Vol] 119 mg/dL <200 [facility] Comment on above: <200 mg/dL Desirable 200-240 mg/dL Borderline >240 mg/dL High Risk Serum or plasma creatinine m easurement (mass/volume)Ordered By: Wendie Louise on 06-12-2024 Creatinine [Mass/Vol] 1.22 mg/dL 0.70-1.30 [facility] Comment on above: The validity of the calculated GFR & GFRAA in patients over 70 years has not been determined. Clinical correlation is essential. Serum or plasma urea nitroge n measurement (mass/volume)Ordered By: Wendie Louise on 06-12-2024 Urea nitrogen [Mass/Vol] 26 mg/dL High 7-18 [facility] Sodium levelOrdered By: Rica Louise on 06-12-2024 Sodium [Moles/Vol] 139 mmol/L 136-145 [facility] TSH QnOrdered By: Wendie Laughlin hner on 06-12-2024 Thyroid Stimulating Hormone (TSH) 1.820 uIU/mL 0.358-3.740 [facility] Thyroid Stim Hormone (TSH)on 06-12-2024 TSH 1.820 uIU/mL Normal 0.358-3.740 [facility] Comment on above: Performed By: #### L 501.5200, L500.2500, L501.2450, L500.3400, L100.0100 #### [facility] [address] [place], [address] Total proteinOrdered By: Camilla Louise on 06-12-2024 Protein [Mass/Vol] 7.6 g/dL 6.4-8.2 [facility] Triglycerides measurementOrd ered By: Wendie Louise on 06-12-2024 Triglyceride [Mass/Vol] 210 mg/dL High <199 [facility] Comment on above: The drugs N-Acetylcy steine and Metamizole may falsely depress this assay.Serum Triglycerides Reference Interval Normal <150 mg/dL Borderline high 150 - 199 mg/dL High 200 - 499 mg/dL Very High > or = 500 mg/dL Very low density lipoprotein (VLDL) cholesterol measurementOrdered By: Wendie Louise on 06-12-2024 VLDL Cholesterol 42 mg/dL High 5-40 [facility] Vitamin D,25 Hydroxyon 06-12 Vitamin D 25-OH 34.4 ng/mL Normal [facility] Comment on above: Result Comment: Faye min D 25(OH) Status Range Deficiency <20 ng/mL (50nmol/L) Insufficiency 20 - 30 ng/mL (50 - 75 nmol/L) Sufficiency 30 - 100 ng/mL (75 - 250 nmol/L) Toxicity >100 ng/mL (>250 nmol/L) Performed By: #### L 501.5200, L500.2500, L501.2450, L500.3400, L100.0100 #### [facility] [address] [place], [address] White blood cell (WBC) count Ordered By: Wendie Louise on 06-12-2024 WBC (Bld) [#/Vol] 7.1 10*3/uL 4.4-11.0 [facility] Basic Metabolic Profile (BMP )on 06-10-2024 BUN Normal 7-18 [facility] Comment on above: Result Comment: Canc elled via OM: Order cancelled - Patient discharged Performed By: #### L 500.2500 #### [facility] [address] [place], [address] BUN/CRE Normal 10-20 [facility] Comment on above: Result Comment: Canc elled via OM: Order cancelled - Patient discharged Performed By: #### L 500.2500 #### [facility] [address] [place], [address] CA,Total Normal 8.5-10.1 [facility] Comment on above: Result Comment: Canc elled via OM: Order cancelled - Patient discharged Performed By: #### L 500.2500 #### [facility] [address] [place], [address] CL Normal 98-107 [facility] Comment on above: Result Comment: Canc elled via OM: Order cancelled - Patient discharged Performed By: #### L 500.2500 #### [facility] [address] [place], [address] CO2 Normal 21.0-32.0 [facility] Comment on above: Result Comment: Canc elled via OM: Order cancelled - Patient discharged Performed By: #### L 500.2500 #### [facility] [address] [place], [address] CREAT,SERUM Normal 0.70-1.30 [facility] Comment on above: Result Comment: Canc elled via OM: Order cancelled - Patient discharged Performed By: #### L 500.2500 #### [facility] [address] [place], [address] EST GFR Normal >60 [facility] Comment on above: Result Comment: Canc elled via OM: Order cancelled - Patient discharged Performed By: #### L 500.2500 #### [facility] [address] [place], [address] EST GFR - AA Normal >60 [facility] Comment on above: Result Comment: Canc elled via OM: Order cancelled - Patient discharged Performed By: #### L 500.2500 #### [facility] [address] [place], [address] GAP Normal 5-15 [facility] Comment on above: Result Comment: Canc elled via OM: Order cancelled - Patient discharged Performed By: #### L 500.2500 #### [facility] [address] [place], [address] GLU Normal 74-106 [facility] Comment on above: Result Comment: Canc elled via OM: Order cancelled - Patient discharged Performed By: #### L 500.2500 #### [facility] [address] [place], [address] Potassium Normal 3.5-5.1 [facility] Comment on above: Result Comment: Canc elled via OM: Order cancelled - Patient discharged Performed By: #### L 500.2500 #### [facility] [address] [place], [address] Basic Metabolic Profile (BMP) Normal 136-145 [facility] Comment on above: Result Comment: Canc elled via OM: Order cancelled - Patient discharged Performed By: #### L 500.2500 #### [facility] [address] [place], [address] CBC-Complete Blood Cnt No Di ffon 06-10-2024 HCT Normal 40-54 [facility] Comment on above: Result Comment: Canc elled via OM: Order cancelled - Patient discharged Performed By: #### L 100.0500 #### [facility] [address] [place], [address] HGB Normal 13.0-16.5 [facility] Comment on above: Result Comment: Canc elled via OM: Order cancelled - Patient discharged Performed By: #### L 100.0500 #### [facility] [address] [place], [address] MCH Normal 27.0-32.0 [facility] Comment on above: Result Comment: Canc elled via OM: Order cancelled - Patient discharged Performed By: #### L 100.0500 #### [facility] [address] [place], [address] MCHC Normal 32-36 [facility] Comment on above: Result Comment: Canc elled via OM: Order cancelled - Patient discharged Performed By: #### L 100.0500 #### [facility] [address] [place], [address] MCV Normal 80-94 [facility] Comment on above: Result Comment: Canc elled via OM: Order cancelled - Patient discharged Performed By: #### L 100.0500 #### [facility] [address] [place], [address] PLT Normal 150-450 [facility] Comment on above: Result Comment: Canc elled via OM: Order cancelled - Patient discharged Performed By: #### L 100.0500 #### [facility] [address] [place], [address] RBC Normal 4.6-6.2 [facility] Comment on above: Result Comment: Canc elled via OM: Order cancelled - Patient discharged Performed By: #### L 100.0500 #### [facility] [address] [place], [address] RDW CV Normal 11.6-14.6 [facility] Comment on above: Result Comment: Canc elled via OM: Order cancelled - Patient discharged Performed By: #### L 100.0500 #### [facility] [address] [place], [address] RDW SD Normal 35.1-43.9 [facility] Comment on above: Result Comment: Canc elled via OM: Order cancelled - Patient discharged Performed By: #### L 100.0500 #### [facility] [address] [place], [address] WBC Normal 4.4-11.0 [facility] Comment on above: Result Comment: Canc elled via OM: Order cancelled - Patient discharged Performed By: #### L 100.0500 #### [facility] [address] [place], [address] Basic Metabolic Profile (BMP )on 06-09-2024 BUN Normal 7-18 [facility] Comment on above: Result Comment: Canc elled via OM: Order cancelled - Patient discharged Performed By: #### L 500.2500, L100.0100 #### [facility] [address] [place], [address] BUN/CRE Normal 10-20 [facility] Comment on above: Result Comment: Canc elled via OM: Order cancelled - Patient discharged Performed By: #### L 500.2500, L100.0100 #### [facility] [address] [place], [address] CA,Total Normal 8.5-10.1 [facility] Comment on above: Result Comment: Canc elled via OM: Order cancelled - Patient discharged Performed By: #### L 500.2500, L100.0100 #### [facility] [address] [place], [address] CL Normal 98-107 [facility] Comment on above: Result Comment: Canc elled via OM: Order cancelled - Patient discharged Performed By: #### L 500.2500, L100.0100 #### [facility] [address] [place], [address] CO2 Normal 21.0-32.0 [facility] Comment on above: Result Comment: Canc elled via OM: Order cancelled - Patient discharged Performed By: #### L 500.2500, L100.0100 #### [facility] [address] [place], [address] CREAT,SERUM Normal 0.70-1.30 [facility] Comment on above: Result Comment: Canc elled via OM: Order cancelled - Patient discharged Performed By: #### L 500.2500, L100.0100 #### [facility] [address] [place], [address] EST GFR Normal >60 [facility] Comment on above: Result Comment: Canc elled via OM: Order cancelled - Patient discharged Performed By: #### L 500.2500, L100.0100 #### [facility] [address] [place], [address] EST GFR - AA Normal >60 [facility] Comment on above: Result Comment: Canc elled via OM: Order cancelled - Patient discharged Performed By: #### L 500.2500, L100.0100 #### [facility] [address] [place], [address] GAP Normal 5-15 [facility] Comment on above: Result Comment: Canc elled via OM: Order cancelled - Patient discharged Performed By: #### L 500.2500, L100.0100 #### [facility] [address] [place], [address] GLU Normal 74-106 [facility] Comment on above: Result Comment: Canc elled via OM: Order cancelled - Patient discharged Performed By: #### L 500.2500, L100.0100 #### [facility] [address] [place], [address] Potassium Normal 3.5-5.1 [facility] Comment on above: Result Comment: Canc elled via OM: Order cancelled - Patient discharged Performed By: #### L 500.2500, L100.0100 #### [facility] [address] [place], [address] Basic Metabolic Profile (BMP) Normal 136-145 [facility] Comment on above: Result Comment: Canc elled via OM: Order cancelled - Patient discharged Performed By: #### L 500.2500, L100.0100 #### [facility] [address] [place], [address] Basic Metabolic Profile (BMP )on 06-08-2024 BUN Normal 7-18 [facility] Comment on above: Result Comment: Canc elled via OM: Order cancelled - Patient discharged Performed By: #### L 500.2500 #### [facility] [address] [place], [address] BUN/CRE Normal 10-20 [facility] Comment on above: Result Comment: Canc elled via OM: Order cancelled - Patient discharged Performed By: #### L 500.2500 #### [facility] [address] [place], [address] CA,Total Normal 8.5-10.1 [facility] Comment on above: Result Comment: Canc elled via OM: Order cancelled - Patient discharged Performed By: #### L 500.2500 #### [facility] [address] [place], [address] CL Normal 98-107 [facility] Comment on above: Result Comment: Canc elled via OM: Order cancelled - Patient discharged Performed By: #### L 500.2500 #### [facility] [address] [place], [address] CO2 Normal 21.0-32.0 [facility] Comment on above: Result Comment: Canc elled via OM: Order cancelled - Patient discharged Performed By: #### L 500.2500 #### [facility] [address] [place], [address] CREAT,SERUM Normal 0.70-1.30 [facility] Comment on above: Result Comment: Canc elled via OM: Order cancelled - Patient discharged Performed By: #### L 500.2500 #### [facility] [address] [place], [address] EST GFR Normal >60 [facility] Comment on above: Result Comment: Canc elled via OM: Order cancelled - Patient discharged Performed By: #### L 500.2500 #### [facility] [address] [place], [address] EST GFR - AA Normal >60 [facility] Comment on above: Result Comment: Canc elled via OM: Order cancelled - Patient discharged Performed By: #### L 500.2500 #### [facility] [address] [place], [address] GAP Normal 5-15 [facility] Comment on above: Result Comment: Canc elled via OM: Order cancelled - Patient discharged Performed By: #### L 500.2500 #### [facility] [address] [place], [address] GLU Normal 74-106 [facility] Comment on above: Result Comment: Canc elled via OM: Order cancelled - Patient discharged Performed By: #### L 500.2500 #### [facility] [address] [place], [address] Potassium Normal 3.5-5.1 [facility] Comment on above: Result Comment: Canc elled via OM: Order cancelled - Patient discharged Performed By: #### L 500.2500 #### [facility] [address] [place], [address] Basic Metabolic Profile (BMP) Normal 136-145 [facility] Comment on above: Result Comment: Canc elled via OM: Order cancelled - Patient discharged Performed By: #### L 500.2500 #### [facility] [address] [place], [address] CBC-Complete Blood Cnt No Di ffon 06-08-2024 HCT Normal 40-54 [facility] Comment on above: Result Comment: Canc elled via OM: Order cancelled - Patient discharged Performed By: #### L 501.5200, L500.2500, L501.2450, L500.3400, L100.0100 #### [facility] [address] [place], [address] HGB Normal 13.0-16.5 [facility] Comment on above: Result Comment: Canc elled via OM: Order cancelled - Patient discharged Performed By: #### L 501.5200, L500.2500, L501.2450, L500.3400, L100.0100 #### [facility] [address] [place], [address] MCH Normal 27.0-32.0 [facility] Comment on above: Result Comment: Canc elled via OM: Order cancelled - Patient discharged Performed By: #### L 501.5200, L500.2500, L501.2450, L500.3400, L100.0100 #### [facility] [address] [place], [address] MCHC Normal 32-36 [facility] Comment on above: Result Comment: Canc elled via OM: Order cancelled - Patient discharged Performed By: #### L 501.5200, L500.2500, L501.2450, L500.3400, L100.0100 #### [facility] [address] [place], [address] MCV Normal 80-94 [facility] Comment on above: Result Comment: Canc elled via OM: Order cancelled - Patient discharged Performed By: #### L 501.5200, L500.2500, L501.2450, L500.3400, L100.0100 #### [facility] [address] [place], [address] PLT Normal 150-450 [facility] Comment on above: Result Comment: Canc elled via OM: Order cancelled - Patient discharged Performed By: #### L 501.5200, L500.2500, L501.2450, L500.3400, L100.0100 #### [facility] [address] [place], [address] RBC Normal 4.6-6.2 [facility] Comment on above: Result Comment: Canc elled via OM: Order cancelled - Patient discharged Performed By: #### L 501.5200, L500.2500, L501.2450, L500.3400, L100.0100 #### [facility] [address] [place], [address] RDW CV Normal 11.6-14.6 [facility] Comment on above: Result Comment: Canc elled via OM: Order cancelled - Patient discharged Performed By: #### L 501.5200, L500.2500, L501.2450, L500.3400, L100.0100 #### [facility] [address] [place], [address] RDW SD Normal 35.1-43.9 [facility] Comment on above: Result Comment: Canc elled via OM: Order cancelled - Patient discharged Performed By: #### L 501.5200, L500.2500, L501.2450, L500.3400, L100.0100 #### [facility] [address] [place], [address] WBC Normal 4.4-11.0 [facility] Comment on above: Result Comment: Canc elled via OM: Order cancelled - Patient discharged Performed By: #### L 501.5200, L500.2500, L501.2450, L500.3400, L100.0100 #### [facility] [address] [place], [address] Basic Metabolic Profile (BMP )on 06-07-2024 BUN/CRE 12.1 RATIO Normal 10-20 [facility] Comment on above: Performed By: #### L 501.5200, L500.2500, L501.2450, L500.3400, L100.0100 #### [facility] [address] [place], [address] CA,Total 8.9 mg/dL Normal 8.5-10.1 [facility] Comment on above: Performed By: #### L 501.5200, L500.2500, L501.2450, L500.3400, L100.0100 #### [facility] [address] [place], [address] Chloride [Moles/Vol] 107 mmol/L Normal 98-107 [facility] Comment on above: Performed By: #### L 501.5200, L500.2500, L501.2450, L500.3400, L100.0100 #### [facility] [address] [place], [address] CO2 [Moles/Vol] 24.0 mmol/L Normal 21.0-32.0 [facility] Comment on above: Performed By: #### L 501.5200, L500.2500, L501.2450, L500.3400, L100.0100 #### [facility] [address] [place], [address] Creatinine [Mass/Vol] 1.07 mg/dL Normal 0.70-1.30 [facility] Comment on above: Result Comment: The validity of the calculated GFR GFRAA in patients over 70 years has not been determined. Clinical correlation is essential. Performed By: #### L 501.5200, L500.2500, L501.2450, L500.3400, L100.0100 #### [facility] [address] [place], [address] ECRCL 78.58 ml/min Normal [facility] Comment on above: Performed By: #### L 501.5200, L500.2500, L501.2450, L500.3400, L100.0100 #### [facility] [address] [place], [address] EST GFR - AA 91 mL/min Normal >60 [facility] Comment on above: Result Comment: Afri can Icelandic GFR Calc Performed By: #### L 501.5200, L500.2500, L501.2450, L500.3400, L100.0100 #### [facility] [address] [place], [address] GAP 7 Normal 5-15 [facility] Comment on above: Performed By: #### L 501.5200, L500.2500, L501.2450, L500.3400, L100.0100 #### [facility] [address] [place], [address] GFR/1.73 sq M.predicted among non-blacks MDRD (S/P/Bld) [Vol rate/Area] 75 mL/min/{1.73_m2} Normal >60 [facility] Comment on above: Result Comment: Non- GFR Calc Performed By: #### L 501.5200, L500.2500, L501.2450, L500.3400, L100.0100 #### [facility] [address] [place], [address] Glucose [Mass/Vol] 109 mg/dL High 74-106 [facility] Comment on above: Result Comment: Fast ing Glucose result from 100 to 125 mg/dL suggests IMPAIRED HOMEOSTASIS per A.D.A. criteria. Performed By: #### L 501.5200, L500.2500, L501.2450, L500.3400, L100.0100 #### [facility] [address] [place], [address] Potassium [Moles/Vol] 3.7 mmol/L Normal 3.5-5.1 [facility] Comment on above: Performed By: #### L 501.5200, L500.2500, L501.2450, L500.3400, L100.0100 #### [facility] [address] [place], [address] Sodium [Moles/Vol] 138 mmol/L Normal 136-145 [facility] Comment on above: Performed By: #### L 501.5200, L500.2500, L501.2450, L500.3400, L100.0100 #### [facility] [address] [place], [address] Urea nitrogen [Mass/Vol] 13 mg/dL Normal 7-18 [facility] Comment on above: Performed By: #### L 501.5200, L500.2500, L501.2450, L500.3400, L100.0100 #### [facility] [address] [place], [address] Blood urea nitrogen (BUN)/cr eatinine ratioOrdered By: Danny Lagunas on 06-07-2024 Urea nitrogen/Creatinine [Mass ratio] 12.1 mg/mg 10-20 [facility] Carbon dioxide measurementOr dered By: Danny Lagunas on 06-07-2024 CO2 [Moles/Vol] 24.0 mmol/L 21.0-32.0 [facility] Chloride measurementOrdered By: Danny Lagunas on 06-07-2024 Chloride [Moles/Vol] 107 mmol/L 98-107 [facility] Discharge Instructionon Discharge Instruction [facility] Medical Records Department [address] [place] [address] Instructions for Home/Discharge Instructions 06/07/24 0957 MR#: [id number] Acct: [id number] Name: GEORGIA THORPE Jr. Rep #: [id number] : 1965 58 From: Danny Lagunas DO [...] capsule,ext.rel 24h degradable 180 mg PO BID [id number]-gy-3-dha-epa-p hospho-ast [Mega[employer] [place]-3 Krill Oil] 1,000-230-60 mg capsule 1 cap [...] MD; Dr. Vanessa Maher MD Signed Normal [facility] Estimated glomerular filtrat ion rate (GFR) AmericanOrdered By: Danny Lagunas on 06-07-2024 Estimated GFR (MDRD) Amer 91 mL/min >60 [facility] Comment on above: GFR Calc Estimation of creatinine abril aranceOrdered By: Danny Lagunas on 06-07-2024 Estimated Creatinine Clearance Calc 78.58 ml/min [facility] Glomerular filtration rate ( GFR) estimationOrdered By: Danny Lagunas on 06-07-2024 Estimated GFR (MDRD) Non-Af Amer 75 mL/min >60 [facility] Comment on above: Non- GFR Calc Glucose measurementOrdered B y: Danny Lagunas on 06-07-2024 Glucose [Mass/Vol] 109 mg/dL High 74-106 [facility] Comment on above: Fasting Glucose resu lt from 100 to 125 mg/dL suggests IMPAIRED HOMEOSTASIS per A.D.A. criteria. Potassium measurementOrdered By: Danny Lagunas on 06-07-2024 Potassium [Moles/Vol] 3.7 mmol/L 3.5-5.1 [facility] Serum anion gap measurementO rdered By: Danny Lagunas on 06-07-2024 Anion gap [Moles/Vol] 7 mmol/L 5-15 [facility] Serum or plasma calcium chiara urement (mass/volume)Ordered By: Danny Lagunas on 06-07-2024 Calcium [Mass/Vol] 8.9 mg/dL 8.5-10.1 [facility] Serum or plasma creatinine m easurement (mass/volume)Ordered By: Danny Lagunas on 06-07-2024 Creatinine [Mass/Vol] 1.07 mg/dL 0.70-1.30 [facility] Comment on above: The validity of the calculated GFR & GFRAA in patients over 70 years has not been determined. Clinical correlation is essential. Serum or plasma urea nitroge n measurement (mass/volume)Ordered By: Danny Lagunas on 06-07-2024 Urea nitrogen [Mass/Vol] 13 mg/dL 7-18 [facility] Sodium levelOrdered By: Uriel Lagunas on 06-07-2024 Sodium [Moles/Vol] 138 mmol/L 136-145 [facility] Absolute neutrophil countOrd ered By: Rhea Morgan on 06-06-2024 Neutrophils (Bld) [#/Vol] 6.1 10*3/uL 2.0-7.7 [facility] Basic Metabolic Profile (BMP )on 06-06-2024 BUN/CRE 11.1 RATIO Normal 10-20 [facility] Comment on above: Performed By: #### L 501.5200, L500.2500, L501.2450, L500.3400, L100.0100 #### [facility] [address] [place], [address] CA,Total 8.7 mg/dL Normal 8.5-10.1 [facility] Comment on above: Performed By: #### L 501.5200, L500.2500, L501.2450, L500.3400, L100.0100 #### [facility] [address] [place], [address] Chloride [Moles/Vol] 105 mmol/L Normal 98-107 [facility] Comment on above: Performed By: #### L 501.5200, L500.2500, L501.2450, L500.3400, L100.0100 #### [facility] [address] [place], [address] CO2 [Moles/Vol] 26.0 mmol/L Normal 21.0-32.0 [facility] Comment on above: Performed By: #### L 501.5200, L500.2500, L501.2450, L500.3400, L100.0100 #### [facility] [address] [place], [address] Creatinine [Mass/Vol] 1.08 mg/dL Normal 0.70-1.30 [facility] Comment on above: Result Comment: The validity of the calculated GFR GFRAA in patients over 70 years has not been determined. Clinical correlation is essential. Performed By: #### L 501.5200, L500.2500, L501.2450, L500.3400, L100.0100 #### [facility] [address] [place], [address] ECRCL 77.77 ml/min Normal [facility] Comment on above: Performed By: #### L 501.5200, L500.2500, L501.2450, L500.3400, L100.0100 #### [facility] [address] [place], [address] EST GFR - AA 90 mL/min Normal >60 [facility] Comment on above: Result Comment: Afri can Icelandic GFR Calc Performed By: #### L 501.5200, L500.2500, L501.2450, L500.3400, L100.0100 #### [facility] [address] [place], [address] GAP 8 Normal 5-15 [facility] Comment on above: Performed By: #### L 501.5200, L500.2500, L501.2450, L500.3400, L100.0100 #### [facility] [address] [place], [address] GFR/1.73 sq M.predicted among non-blacks MDRD (S/P/Bld) [Vol rate/Area] 74 mL/min/{1.73_m2} Normal >60 [facility] Comment on above: Result Comment: Non- GFR Calc Performed By: #### L 501.5200, L500.2500, L501.2450, L500.3400, L100.0100 #### [facility] [address] [place], [address] Glucose [Mass/Vol] 91 mg/dL Normal 74-106 [facility] Comment on above: Performed By: #### L 501.5200, L500.2500, L501.2450, L500.3400, L100.0100 #### [facility] [address] [place], [address] Potassium [Moles/Vol] 3.2 mmol/L Low 3.5-5.1 [facility] Comment on above: Performed By: #### L 501.5200, L500.2500, L501.2450, L500.3400, L100.0100 #### [facility] [address] [place], [address] Sodium [Moles/Vol] 139 mmol/L Normal 136-145 [facility] Comment on above: Performed By: #### L 501.5200, L500.2500, L501.2450, L500.3400, L100.0100 #### [facility] [address] [place], [address] Urea nitrogen [Mass/Vol] 12 mg/dL Normal 7-18 [facility] Comment on above: Performed By: #### L 501.5200, L500.2500, L501.2450, L500.3400, L100.0100 #### [facility] [address] [place], [address] Basophil percentageOrdered B y: Rhea Morgan on 06-06-2024 Basophils/100 WBC (Bld) 0.7 % 0-1 [facility] CBC W/Diff, Automatedon 02-0 Absolute Lymph 1.83 X10 3/uL Normal 0.83-4.51 [facility] Comment on above: Performed By: #### L 500.2500, L100.0100 #### [facility] [address] [place], [address] Absolute Neut 6.1 X10 3/uL Normal 2.0-7.7 [facility] Comment on above: Performed By: #### L 500.2500, L100.0100 #### [facility] [address] [place], [address] Basophils/100 WBC (Bld) 0.7 % Normal 0-1 [facility] Comment on above: Performed By: #### L 500.2500, L100.0100 #### [facility] [address] [place], [address] Eosinophils/100 WBC (Bld) 2.7 % Normal 0-5 [facility] Comment on above: Performed By: #### L 500.2500, L100.0100 #### [facility] [address] [place], [address] Erythrocyte distribution width (RBC) [Ratio] 11.9 % Normal 11.6-14.6 [facility] Comment on above: Performed By: #### L 500.2500, L100.0100 #### [facility] [address] [place], [address] Hematocrit (Bld) [Volume fraction] 37.3 % Low 40-54 [facility] Comment on above: Performed By: #### L 500.2500, L100.0100 #### [facility] [address] [place], [address] Hemoglobin (Bld) [Mass/Vol] 13.4 g/dL Normal 13.0-16.5 [facility] Comment on above: Performed By: #### L 500.2500, L100.0100 #### [facility] [address] [place], [address] IG% 0.600 Normal 0.0-0.9 [facility] Comment on above: Result Comment: IG% - Immature Granulocytes (promyelocytes, myelocytes and metamyelocytes) > 1% indicates that a LEFT SHIFT is Present. Performed By: #### L 500.2500, L100.0100 #### [facility] [address] [place], [address] Lymphocytes/100 WBC (Bld) 20.5 % Normal 19-41 [facility] Comment on above: Performed By: #### L 500.2500, L100.0100 #### [facility] [address] [place], [address] MCH (RBC) [Entitic mass] 32.1 pg High 27.0-32.0 [facility] Comment on above: Performed By: #### L 500.2500, L100.0100 #### [facility] [address] [place], [address] MCHC (RBC) [Mass/Vol] 35.9 g/dL Normal 32-36 [facility] Comment on above: Performed By: #### L 500.2500, L100.0100 #### [facility] [address] [place], [address] MCV (RBC) [Entitic vol] 89.4 fL Normal 80-94 [facility] Comment on above: Performed By: #### L 500.2500, L100.0100 #### [facility] [address] [place], [address] Monocytes/100 WBC (Bld) 7.4 % Normal 0-10 [facility] Comment on above: Performed By: #### L 500.2500, L100.0100 #### [facility] [address] [place], [address] Neutrophils/100 WBC (Bld) 68.1 % Normal 47-70 [facility] Comment on above: Performed By: #### L 500.2500, L100.0100 #### [facility] [address] [place], [address] Nucleated RBC (Bld) [#/Vol] 0 10*3/uL Normal 0-5 [facility] Comment on above: Performed By: #### L 500.2500, L100.0100 #### [facility] [address] [place], [address] Platelet mean volume (Bld) [Entitic vol] 9.4 fL Normal 6.2-12.0 [facility] Comment on above: Performed By: #### L 500.2500, L100.0100 #### [facility] [address] [place], [address] Platelets (Bld) [#/Vol] 265 10*3/uL Normal 150-450 [facility] Comment on above: Performed By: #### L 500.2500, L100.0100 #### [facility] [address] [place], [address] RBC (Bld) [#/Vol] 4.17 10*6/uL Low 4.6-6.2 [facility] Comment on above: Performed By: #### L 500.2500, L100.0100 #### [facility] [address] [place], [address] RDW SD 38.5 fl Normal 35.1-43.9 [facility] Comment on above: Performed By: #### L 500.2500, L100.0100 #### [facility] [address] [place], [address] WBC (Bld) [#/Vol] 8.9 10*3/uL Normal 4.4-11.0 [facility] Comment on above: Performed By: #### L 500.2500, L100.0100 #### [facility] [address] [place], [address] Eosinophil percentageOrdered By: Rhea Morgan on 06-06-2024 Eosinophils/100 WBC (Bld) 2.7 % 0-5 [facility] Erythrocyte distribution wid th ratioOrdered By: Rhea Morgan on 06-06-2024 Erythrocyte distribution width (RBC) [Ratio] 11.9 % 11.6-14.6 [facility] Erythrocyte distribution wid th standard deviationOrdered By: Rhea Morgan on 06-06-2024 Erythrocyte distribution width (RBC) [Entitic vol] 38.5 fL 35.1-43.9 [facility] Hematocrit Auto (Bld) [Volum e fraction]Ordered By: Rhea Morgan on 06-06-2024 Hematocrit (Bld) [Volume fraction] 37.3 % Low 40-54 [facility] Hemoglobin measurementOrdere d By: Rhea Morgan on 06-06-2024 Hemoglobin (Bld) [Mass/Vol] 13.4 g/dL 13.0-16.5 [facility] Immature granulocytes/100 WB C Auto (Bld)Ordered By: Rhea Morgan on 06-06-2024 Immature granulocytes/100 WBC (Bld) 0.600 % 0.0-0.9 [facility] Comment on above: IG% - Immature Granu locytes (promyelocytes, myelocytes and metamyelocytes) > 1% indicates that a LEFT SHIFT is Present. Lymphocytes Auto (Unsp spec) [#/Vol]Ordered By: Rhea Morgan on 06-06-2024 Lymphocytes (Bld) [#/Vol] 1.83 10*3/uL 0.83-4.51 [facility] Lymphocytes/100 WBC Auto (Un sp spec)Ordered By: Rhea Morgan on 06-06-2024 Lymphocytes/100 WBC (Bld) 20.5 % 19-41 [facility] MCV (mean corpuscular volume ) determinationOrdered By: Rhea Morgan on 06-06-2024 MCV (RBC) [Entitic vol] 89.4 fL 80-94 [facility] Mean corpuscular hemoglobin (MCH) determinationOrdered By: Rhea Morgan on 06-06-2024 MCH (RBC) [Entitic mass] 32.1 pg High 27.0-32.0 [facility] Mean corpuscular hemoglobin concentration (MCHC) determinationOrdered By: Rhea Morgan on 06-06-2024 MCHC (RBC) [Mass/Vol] 35.9 g/dL 32-36 [facility] Mean platelet volume determi nationOrdered By: Rhea Morgan on 06-06-2024 Platelet mean volume (Bld) [Entitic vol] 9.4 fL 6.2-12.0 [facility] Monocyte percentageOrdered B y: Rhea Morgan on 06-06-2024 Monocytes/100 WBC (Bld) 7.4 % 0-10 [facility] Neutrophil percentageOrdered By: Rhea Morgan on 06-06-2024 Neutrophils/100 WBC (Bld) 68.1 % 47-70 [facility] Nucleated red blood cell per centageOrdered By: Rhae Morgan on 06-06-2024 Nucleated RBC/100 WBC (Bld) [Ratio] 0 % 0-5 [facility] Platelet countOrdered By: Manolo Morgan on 06-06-2024 Platelets (Bld) [#/Vol] 265 10*3/uL 150-450 [facility] RBC Auto (Bld) [#/Vol]Ordere d By: Rhea Morgan on 06-06-2024 RBC (Bld) [#/Vol] 4.17 10*6/uL Low 4.6-6.2 [facility] White blood cell (WBC) count Ordered By: Rhea Morgan on 06-06-2024 WBC (Bld) [#/Vol] 8.9 10*3/uL 4.4-11.0 [facility] Basic Metabolic Profile (BMP )on 06-05-2024 BUN/CRE 11.6 RATIO Normal 10-20 [facility] Comment on above: Performed By: #### L 500.2500, L100.0100 #### [facility] [address] [place], [address] CA,Total 8.6 mg/dL Normal 8.5-10.1 [facility] Comment on above: Performed By: #### L 500.2500, L100.0100 #### [facility] [address] [place], [address] Chloride [Moles/Vol] 104 mmol/L Normal 98-107 [facility] Comment on above: Performed By: #### L 500.2500, L100.0100 #### [facility] [address] [place], [address] CO2 [Moles/Vol] 26.0 mmol/L Normal 21.0-32.0 [facility] Comment on above: Performed By: #### L 500.2500, L100.0100 #### [facility] [address] [place], [address] Creatinine [Mass/Vol] 1.12 mg/dL Normal 0.70-1.30 [facility] Comment on above: Result Comment: The validity of the calculated GFR GFRAA in patients over 70 years has not been determined. Clinical correlation is essential. Performed By: #### L 500.2500, L100.0100 #### [facility] [address] [place], [address] ECRCL 74.99 ml/min Normal [facility] Comment on above: Performed By: #### L 500.2500, L100.0100 #### [facility] [address] [place], [address] EST GFR - AA 86 mL/min Normal >60 [facility] Comment on above: Result Comment: Afri can Icelandic GFR Calc Performed By: #### L 500.2500, L100.0100 #### [facility] [address] [place], [address] GAP 8 Normal 5-15 [facility] Comment on above: Performed By: #### L 500.2500, L100.0100 #### [facility] [address] [place], [address] GFR/1.73 sq M.predicted among non-blacks MDRD (S/P/Bld) [Vol rate/Area] 71 mL/min/{1.73_m2} Normal >60 [facility] Comment on above: Result Comment: Non- GFR Calc Performed By: #### L 500.2500, L100.0100 #### [facility] [address] [place], [address] Glucose [Mass/Vol] 81 mg/dL Normal 74-106 [facility] Comment on above: Performed By: #### L 500.2500, L100.0100 #### [facility] [address] [place], [address] Potassium [Moles/Vol] 3.3 mmol/L Low 3.5-5.1 [facility] Comment on above: Performed By: #### L 500.2500, L100.0100 #### [facility] [address] [place], [address] Sodium [Moles/Vol] 138 mmol/L Normal 136-145 [facility] Comment on above: Performed By: #### L 500.2500, L100.0100 #### [facility] [address] [place], [address] Urea nitrogen [Mass/Vol] 13 mg/dL Normal 7-18 [facility] Comment on above: Performed By: #### L 500.2500, L100.0100 #### [facility] [address] [place], [address] CBC W/Diff, Automatedon 02-0 5-5 Absolute Lymph 1.68 X10 3/uL Normal 0.83-4.51 [facility] Comment on above: Performed By: #### L 500.2500, L100.0100 #### [facility] [address] [place], [address] Absolute Neut 6.7 X10 3/uL Normal 2.0-7.7 [facility] Comment on above: Performed By: #### L 500.2500, L100.0100 #### [facility] [address] [place], [address] Basophils/100 WBC (Bld) 0.5 % Normal 0-1 [facility] Comment on above: Performed By: #### L 500.2500, L100.0100 #### [facility] [address] [place], [address] Eosinophils/100 WBC (Bld) 3.0 % Normal 0-5 [facility] Comment on above: Performed By: #### L 500.2500, L100.0100 #### [facility] [address] [place], [address] Erythrocyte distribution width (RBC) [Ratio] 12.3 % Normal 11.6-14.6 [facility] Comment on above: Performed By: #### L 500.2500, L100.0100 #### [facility] [address] [place], [address] Hematocrit (Bld) [Volume fraction] 38.8 % Low 40-54 [facility] Comment on above: Performed By: #### L 500.2500, L100.0100 #### [facility] [address] [place], [address] Hemoglobin (Bld) [Mass/Vol] 13.4 g/dL Normal 13.0-16.5 [facility] Comment on above: Performed By: #### L 500.2500, L100.0100 #### [facility] [address] [place], [address] IG% 0.400 Normal 0.0-0.9 [facility] Comment on above: Result Comment: IG% - Immature Granulocytes (promyelocytes, myelocytes and metamyelocytes) > 1% indicates that a LEFT SHIFT is Present. Performed By: #### L 500.2500, L100.0100 #### [facility] [address] [place], [address] Lymphocytes/100 WBC (Bld) 17.5 % Low 19-41 [facility] Comment on above: Performed By: #### L 500.2500, L100.0100 #### [facility] [address] [place], [address] MCH (RBC) [Entitic mass] 31.6 pg Normal 27.0-32.0 [facility] Comment on above: Performed By: #### L 500.2500, L100.0100 #### [facility] [address] [place], [address] MCHC (RBC) [Mass/Vol] 34.5 g/dL Normal 32-36 [facility] Comment on above: Performed By: #### L 500.2500, L100.0100 #### [facility] [address] [place], [address] MCV (RBC) [Entitic vol] 91.5 fL Normal 80-94 [facility] Comment on above: Performed By: #### L 500.2500, L100.0100 #### [facility] [address] [place], [address] Monocytes/100 WBC (Bld) 8.6 % Normal 0-10 [facility] Comment on above: Performed By: #### L 500.2500, L100.0100 #### [facility] [address] [place], [address] Neutrophils/100 WBC (Bld) 70.0 % Normal 47-70 [facility] Comment on above: Performed By: #### L 500.2500, L100.0100 #### [facility] [address] [place], [address] Nucleated RBC (Bld) [#/Vol] 0 10*3/uL Normal 0-5 [facility] Comment on above: Performed By: #### L 500.2500, L100.0100 #### [facility] [address] [place], [address] Platelet mean volume (Bld) [Entitic vol] 9.9 fL Normal 6.2-12.0 [facility] Comment on above: Performed By: #### L 500.2500, L100.0100 #### [facility] [address] [place], [address] Platelets (Bld) [#/Vol] 248 10*3/uL Normal 150-450 [facility] Comment on above: Performed By: #### L 500.2500, L100.0100 #### [facility] [address] [place], [address] RBC (Bld) [#/Vol] 4.24 10*6/uL Low 4.6-6.2 [facility] Comment on above: Performed By: #### L 500.2500, L100.0100 #### [facility] [address] [place], [address] RDW SD 41.0 fl Normal 35.1-43.9 [facility] Comment on above: Performed By: #### L 500.2500, L100.0100 #### [facility] [address] [place], [address] WBC (Bld) [#/Vol] 9.6 10*3/uL Normal 4.4-11.0 [facility] Comment on above: Performed By: #### L 500.2500, L100.0100 #### [facility] [address] [place], [address] Abdomen/Pelvis W IV Cont ONL Yon 06-04-2024 Abdomen/Pelvis W IV Cont ONLY [facility] [address] [place] [address] Abdomen/Pelvis W IV Cont ONLY MR#: [id number] Acct: [id number] Name: GEORGIA THORPE Jr. Rep #: [id number] : 1965 M 58 From: Luis Lara DO PCP: Dr. Wendie Louise MD Status: PRE ER Study: Abdomen/Pelvis W IV Cont ONLY Date of Exam: Exam# [id number] Ordering Dr: Josué Valdez DO PROCEDURE: ABDOMEN/PELVIS [...] use of iterative reconstruction technique). Reading Location: [facility] CC: Dr. Wendie Louise MD; Josué Valdez DO [employer] Cutter: Signed Normal [facility] Albumin to globulin ratioOrd ered By: Adina Parikh on 06-04-2024 Albumin/Globulin [Mass ratio] 0.7 {ratio} Low 0.9-2.4 [facility] Basic Metabolic Profile (BMP )on 06-04-2024 BUN/CRE 15.2 RATIO Normal 10-20 [facility] Comment on above: Performed By: #### L 501.5200, L500.2500, L501.2450, L500.3400, L100.0100 #### [facility] [address] [place], [address] CA,Total 8.3 mg/dL Low 8.5-10.1 [facility] Comment on above: Performed By: #### L 501.5200, L500.2500, L501.2450, L500.3400, L100.0100 #### [facility] [address] [place], [address] Chloride [Moles/Vol] 102 mmol/L Normal 98-107 [facility] Comment on above: Performed By: #### L 501.5200, L500.2500, L501.2450, L500.3400, L100.0100 #### [facility] [address] [place], [address] CO2 [Moles/Vol] 27.0 mmol/L Normal 21.0-32.0 [facility] Comment on above: Performed By: #### L 501.5200, L500.2500, L501.2450, L500.3400, L100.0100 #### [facility] [address] [place], [address] Creatinine [Mass/Vol] 1.05 mg/dL Normal 0.70-1.30 [facility] Comment on above: Result Comment: The validity of the calculated GFR GFRAA in patients over 70 years has not been determined. Clinical correlation is essential. Performed By: #### L 501.5200, L500.2500, L501.2450, L500.3400, L100.0100 #### [facility] [address] [place], [address] ECRCL 80.49 ml/min Normal [facility] Comment on above: Performed By: #### L 501.5200, L500.2500, L501.2450, L500.3400, L100.0100 #### [facility] [address] [place], [address] EST GFR - AA 93 mL/min Normal >60 [facility] Comment on above: Result Comment: Afri can Icelandic GFR Calc Performed By: #### L 501.5200, L500.2500, L501.2450, L500.3400, L100.0100 #### [facility] [address] [place], [address] GAP 9 Normal 5-15 [facility] Comment on above: Performed By: #### L 501.5200, L500.2500, L501.2450, L500.3400, L100.0100 #### [facility] [address] [place], [address] GFR/1.73 sq M.predicted among non-blacks MDRD (S/P/Bld) [Vol rate/Area] 77 mL/min/{1.73_m2} Normal >60 [facility] Comment on above: Result Comment: Non- GFR Calc Performed By: #### L 501.5200, L500.2500, L501.2450, L500.3400, L100.0100 #### [facility] [address] [place], [address] Glucose [Mass/Vol] 109 mg/dL High 74-106 [facility] Comment on above: Result Comment: Fast ing Glucose result from 100 to 125 mg/dL suggests IMPAIRED HOMEOSTASIS per A.D.A. criteria. Performed By: #### L 501.5200, L500.2500, L501.2450, L500.3400, L100.0100 #### [facility] [address] [place], [address] Potassium [Moles/Vol] 2.8 mmol/L Low 3.5-5.1 [facility] Comment on above: Performed By: #### L 501.5200, L500.2500, L501.2450, L500.3400, L100.0100 #### [facility] [address] [place], [address] Sodium [Moles/Vol] 138 mmol/L Normal 136-145 [facility] Comment on above: Performed By: #### L 501.5200, L500.2500, L501.2450, L500.3400, L100.0100 #### [facility] [address] [place], [address] Urea nitrogen [Mass/Vol] 16 mg/dL Normal 7-18 [facility] Comment on above: Performed By: #### L 501.5200, L500.2500, L501.2450, L500.3400, L100.0100 #### [facility] [address] [place], [address] Bilirubin directOrdered By: Josué Valdez on 06-04-2024 Bilirubin.direct [Mass/Vol] 0.26 mg/dL 0.00-0.30 [facility] Bilirubin, totalOrdered By: Adina Parikh on 06-04-2024 Bilirubin [Mass/Vol] 1.10 mg/dL High 0.20-1.00 [facility] Comment on above: For patients on eltr ombopag therapy, use of Dimension [place] TBIL is not recommended. CBC W/Diff, Automatedon Absolute Lymph 1.39 X10 3/uL Normal 0.83-4.51 [facility] Comment on above: Performed By: #### L 501.5200, L500.2500, L501.2450, L500.3400, L100.0100 #### [facility] [address] [place], [address] Absolute Neut 8.9 X10 3/uL High 2.0-7.7 [facility] Comment on above: Performed By: #### L 501.5200, L500.2500, L501.2450, L500.3400, L100.0100 #### [facility] [address] [place], [address] Basophils/100 WBC (Bld) 0.2 % Normal 0-1 [facility] Comment on above: Performed By: #### L 501.5200, L500.2500, L501.2450, L500.3400, L100.0100 #### [facility] [address] [place], [address] Eosinophils/100 WBC (Bld) 1.1 % Normal 0-5 [facility] Comment on above: Performed By: #### L 501.5200, L500.2500, L501.2450, L500.3400, L100.0100 #### [facility] [address] [place], [address] Erythrocyte distribution width (RBC) [Ratio] 12.1 % Normal 11.6-14.6 [facility] Comment on above: Performed By: #### L 501.5200, L500.2500, L501.2450, L500.3400, L100.0100 #### [facility] [address] [place], [address] Hematocrit (Bld) [Volume fraction] 37.6 % Low 40-54 [facility] Comment on above: Performed By: #### L 501.5200, L500.2500, L501.2450, L500.3400, L100.0100 #### [facility] [address] [place], [address] Hemoglobin (Bld) [Mass/Vol] 13.2 g/dL Normal 13.0-16.5 [facility] Comment on above: Performed By: #### L 501.5200, L500.2500, L501.2450, L500.3400, L100.0100 #### [facility] [address] [place], [address] IG% 0.600 Normal 0.0-0.9 [facility] Comment on above: Result Comment: IG% - Immature Granulocytes (promyelocytes, myelocytes and metamyelocytes) > 1% indicates that a LEFT SHIFT is Present. Performed By: #### L 501.5200, L500.2500, L501.2450, L500.3400, L100.0100 #### [facility] [address] [place], [address] Lymphocytes/100 WBC (Bld) 12.2 % Low 19-41 [facility] Comment on above: Performed By: #### L 501.5200, L500.2500, L501.2450, L500.3400, L100.0100 #### [facility] [address] [place], [address] MCH (RBC) [Entitic mass] 31.7 pg Normal 27.0-32.0 [facility] Comment on above: Performed By: #### L 501.5200, L500.2500, L501.2450, L500.3400, L100.0100 #### [facility] [address] [place], [address] MCHC (RBC) [Mass/Vol] 35.1 g/dL Normal 32-36 [facility] Comment on above: Performed By: #### L 501.5200, L500.2500, L501.2450, L500.3400, L100.0100 #### [facility] [address] [place], [address] MCV (RBC) [Entitic vol] 90.4 fL Normal 80-94 [facility] Comment on above: Performed By: #### L 501.5200, L500.2500, L501.2450, L500.3400, L100.0100 #### [facility] [address] [place], [address] Monocytes/100 WBC (Bld) 7.6 % Normal 0-10 [facility] Comment on above: Performed By: #### L 501.5200, L500.2500, L501.2450, L500.3400, L100.0100 #### [facility] [address] [place], [address] Neutrophils/100 WBC (Bld) 78.3 % High 47-70 [facility] Comment on above: Performed By: #### L 501.5200, L500.2500, L501.2450, L500.3400, L100.0100 #### [facility] [address] [place], [address] Nucleated RBC (Bld) [#/Vol] 0 10*3/uL Normal 0-5 [facility] Comment on above: Performed By: #### L 501.5200, L500.2500, L501.2450, L500.3400, L100.0100 #### [facility] [address] [place], [address] Platelet mean volume (Bld) [Entitic vol] 9.7 fL Normal 6.2-12.0 [facility] Comment on above: Performed By: #### L 501.5200, L500.2500, L501.2450, L500.3400, L100.0100 #### [facility] [address] [place], [address] Platelets (Bld) [#/Vol] 226 10*3/uL Normal 150-450 [facility] Comment on above: Performed By: #### L 501.5200, L500.2500, L501.2450, L500.3400, L100.0100 #### [facility] [address] [place], [address] RBC (Bld) [#/Vol] 4.16 10*6/uL Low 4.6-6.2 [facility] Comment on above: Performed By: #### L 501.5200, L500.2500, L501.2450, L500.3400, L100.0100 #### [facility] [address] [place], [address] RDW SD 39.8 fl Normal 35.1-43.9 [facility] Comment on above: Performed By: #### L 501.5200, L500.2500, L501.2450, L500.3400, L100.0100 #### [facility] [address] [place], [address] WBC (Bld) [#/Vol] 11.4 10*3/uL High 4.4-11.0 [facility] Comment on above: Performed By: #### L 501.5200, L500.2500, L501.2450, L500.3400, L100.0100 #### [facility] [address] [place], [address] Absolute Lymph 1.70 X10 3/uL Normal 0.83-4.51 [facility] Comment on above: Performed By: #### L 501.5200, L500.2500, L501.2450, L500.3400, L100.0100 #### [facility] [address] [place], [address] Absolute Neut 10.3 X10 3/uL High 2.0-7.7 [facility] Comment on above: Performed By: #### L 501.5200, L500.2500, L501.2450, L500.3400, L100.0100 #### [facility] [address] [place], [address] Basophils/100 WBC (Bld) 0.3 % Normal 0-1 [facility] Comment on above: Performed By: #### L 501.5200, L500.2500, L501.2450, L500.3400, L100.0100 #### [facility] [address] [place], [address] Eosinophils/100 WBC (Bld) 0.5 % Normal 0-5 [facility] Comment on above: Performed By: #### L 501.5200, L500.2500, L501.2450, L500.3400, L100.0100 #### [facility] [address] [place], [address] Erythrocyte distribution width (RBC) [Ratio] 11.9 % Normal 11.6-14.6 [facility] Comment on above: Performed By: #### L 501.5200, L500.2500, L501.2450, L500.3400, L100.0100 #### [facility] [address] [place], [address] Hematocrit (Bld) [Volume fraction] 36.7 % Low 40-54 [facility] Comment on above: Performed By: #### L 501.5200, L500.2500, L501.2450, L500.3400, L100.0100 #### [facility] [address] [place], [address] Hemoglobin (Bld) [Mass/Vol] 13.7 g/dL Normal 13.0-16.5 [facility] Comment on above: Performed By: #### L 501.5200, L500.2500, L501.2450, L500.3400, L100.0100 #### [facility] [address] [place], [address] IG% 0.600 Normal 0.0-0.9 [facility] Comment on above: Result Comment: IG% - Immature Granulocytes (promyelocytes, myelocytes and metamyelocytes) > 1% indicates that a LEFT SHIFT is Present. Performed By: #### L 501.5200, L500.2500, L501.2450, L500.3400, L100.0100 #### [facility] [address] [place], [address] Lymphocytes/100 WBC (Bld) 12.8 % Low 19-41 [facility] Comment on above: Performed By: #### L 501.5200, L500.2500, L501.2450, L500.3400, L100.0100 #### [facility] [address] [place], [address] MCH (RBC) [Entitic mass] 33.0 pg High 27.0-32.0 [facility] Comment on above: Performed By: #### L 501.5200, L500.2500, L501.2450, L500.3400, L100.0100 #### [facility] [address] [place], [address] MCHC (RBC) [Mass/Vol] 37.3 g/dL High 32-36 [facility] Comment on above: Performed By: #### L 501.5200, L500.2500, L501.2450, L500.3400, L100.0100 #### [facility] [address] [place], [address] MCV (RBC) [Entitic vol] 88.4 fL Normal 80-94 [facility] Comment on above: Performed By: #### L 501.5200, L500.2500, L501.2450, L500.3400, L100.0100 #### [facility] [address] [place], [address] Monocytes/100 WBC (Bld) 7.7 % Normal 0-10 [facility] Comment on above: Performed By: #### L 501.5200, L500.2500, L501.2450, L500.3400, L100.0100 #### [facility] [address] [place], [address] Neutrophils/100 WBC (Bld) 78.1 % High 47-70 [facility] Comment on above: Performed By: #### L 501.5200, L500.2500, L501.2450, L500.3400, L100.0100 #### [facility] [address] [place], [address] Nucleated RBC (Bld) [#/Vol] 0 10*3/uL Normal 0-5 [facility] Comment on above: Performed By: #### L 501.5200, L500.2500, L501.2450, L500.3400, L100.0100 #### [facility] [address] [place], [address] Platelet mean volume (Bld) [Entitic vol] 9.6 fL Normal 6.2-12.0 [facility] Comment on above: Performed By: #### L 501.5200, L500.2500, L501.2450, L500.3400, L100.0100 #### [facility] [address] [place], [address] Platelets (Bld) [#/Vol] 232 10*3/uL Normal 150-450 [facility] Comment on above: Performed By: #### L 501.5200, L500.2500, L501.2450, L500.3400, L100.0100 #### [facility] [address] [place], [address] RBC (Bld) [#/Vol] 4.15 10*6/uL Low 4.6-6.2 [facility] Comment on above: Performed By: #### L 501.5200, L500.2500, L501.2450, L500.3400, L100.0100 #### [facility] [address] [place], [address] RDW SD 38.5 fl Normal 35.1-43.9 [facility] Comment on above: Performed By: #### L 501.5200, L500.2500, L501.2450, L500.3400, L100.0100 #### [facility] [address] [place], [address] WBC (Bld) [#/Vol] 13.3 10*3/uL High 4.4-11.0 [facility] Comment on above: Performed By: #### L 501.5200, L500.2500, L501.2450, L500.3400, L100.0100 #### [facility] [address] [place], [address] Comprehensive Metabolic Prof [facility] 06-04-2024 Albumin [Mass/Vol] 2.9 g/dL Low 3.2-5.0 [facility] Comment on above: Performed By: #### L 501.5200, L500.2500, L501.2450, L500.3400, L100.0100 #### [facility] [address] [place], [address] Albumin/Globulin [Mass ratio] 0.7 {ratio} Low 0.9-2.4 [facility] Comment on above: Performed By: #### L 501.5200, L500.2500, L501.2450, L500.3400, L100.0100 #### [facility] [address] [place], [address] ALK P 49 U/L Normal 45-117 [facility] Comment on above: Performed By: #### L 501.5200, L500.2500, L501.2450, L500.3400, L100.0100 #### [facility] [address] [place], [address] ALT [Catalytic activity/Vol] 29 U/L Normal 16-61 [facility] Comment on above: Performed By: #### L 501.5200, L500.2500, L501.2450, L500.3400, L100.0100 #### [facility] [address] [place], [address] AST [Catalytic activity/Vol] 13 U/L Low 15-37 [facility] Comment on above: Performed By: #### L 501.5200, L500.2500, L501.2450, L500.3400, L100.0100 #### [facility] [address] [place], [address] Bilirubin [Mass/Vol] 1.10 mg/dL High 0.20-1.00 [facility] Comment on above: Result Comment: For patients on eltrombopag therapy, use of Dimension [place] TBIL is not recommended. Performed By: #### L 501.5200, L500.2500, L501.2450, L500.3400, L100.0100 #### [facility] [address] [place], [address] BUN/CRE 16.0 RATIO Normal 10-20 [facility] Comment on above: Performed By: #### L 501.5200, L500.2500, L501.2450, L500.3400, L100.0100 #### [facility] [address] [place], [address] CA,Total 8.1 mg/dL Low 8.5-10.1 [facility] Comment on above: Performed By: #### L 501.5200, L500.2500, L501.2450, L500.3400, L100.0100 #### [facility] [address] [place], [address] Chloride [Moles/Vol] 105 mmol/L Normal 98-107 [facility] Comment on above: Performed By: #### L 501.5200, L500.2500, L501.2450, L500.3400, L100.0100 #### [facility] [address] [place], [address] CO2 [Moles/Vol] 25.0 mmol/L Normal 21.0-32.0 [facility] Comment on above: Performed By: #### L 501.5200, L500.2500, L501.2450, L500.3400, L100.0100 #### [facility] [address] [place], [address] Creatinine [Mass/Vol] 1.00 mg/dL Normal 0.70-1.30 [facility] Comment on above: Result Comment: The validity of the calculated GFR GFRAA in patients over 70 years has not been determined. Clinical correlation is essential. Performed By: #### L 501.5200, L500.2500, L501.2450, L500.3400, L100.0100 #### [facility] [address] [place], [address] ECRCL 84.49 ml/min Normal [facility] Comment on above: Performed By: #### L 501.5200, L500.2500, L501.2450, L500.3400, L100.0100 #### [facility] [address] [place], [address] EST GFR - AA 98 mL/min Normal >60 [facility] Comment on above: Result Comment: Afri can Icelandic GFR Calc Performed By: #### L 501.5200, L500.2500, L501.2450, L500.3400, L100.0100 #### [facility] [address] [place], [address] GAP 7 Normal 5-15 [facility] Comment on above: Performed By: #### L 501.5200, L500.2500, L501.2450, L500.3400, L100.0100 #### [facility] [address] [place], [address] GFR/1.73 sq M.predicted among non-blacks MDRD (S/P/Bld) [Vol rate/Area] 81 mL/min/{1.73_m2} Normal >60 [facility] Comment on above: Result Comment: Non- GFR Calc Performed By: #### L 501.5200, L500.2500, L501.2450, L500.3400, L100.0100 #### [facility] [address] [place], [address] Globulin (S) [Mass/Vol] 3.9 g/dL Normal 2.2-4.2 [facility] Comment on above: Performed By: #### L 501.5200, L500.2500, L501.2450, L500.3400, L100.0100 #### [facility] [address] [place], [address] Glucose [Mass/Vol] 97 mg/dL Normal 74-106 [facility] Comment on above: Performed By: #### L 501.5200, L500.2500, L501.2450, L500.3400, L100.0100 #### [facility] [address] [place], [address] Potassium [Moles/Vol] 3.2 mmol/L Low 3.5-5.1 [facility] Comment on above: Performed By: #### L 501.5200, L500.2500, L501.2450, L500.3400, L100.0100 #### [facility] [address] [place], [address] Sodium [Moles/Vol] 137 mmol/L Normal 136-145 [facility] Comment on above: Performed By: #### L 501.5200, L500.2500, L501.2450, L500.3400, L100.0100 #### [facility] [address] [place], [address] T PROT 6.8 g/dL Normal 6.4-8.2 [facility] Comment on above: Performed By: #### L 501.5200, L500.2500, L501.2450, L500.3400, L100.0100 #### [facility] [address] [place], [address] Urea nitrogen [Mass/Vol] 16 mg/dL Normal 7-18 [facility] Comment on above: Performed By: #### L 501.5200, L500.2500, L501.2450, L500.3400, L100.0100 #### [facility] [address] [place], [address] Consultation - Surgicalon Consultation - Surgical [facility] Medical Records Department [address] [place] [address] Consultation - Surgical 06/04/24 0726 MR#: [id number] Acct: [id number] Name: GEORGIA THORPE JrMichela Rep #: [id number] : 1965 58 From: Vanessa Maher MD PCP: Dr. Wendie Louise MD Status:ADM IN Location: [place] [id number] Assessment Plan Assessment/Plan (1) Diverticulitis of intestine [...] will be following. Vanessa Maher M.D. Pager: [phone] [facility] [address] [place] [address], [facility] [address] [place] [address] Office: [phone] HPI Consult Data Date of Consult: 06/04/24 [...] a colonoscopy around 2019 negative per patient. [facility] Medical History Contact with and (suspected) exposure [...] #180 caps 12/05/23 U nknown Rx 60 sm-jdn-oiyaapetc-ast axan capsule (Mega[employer] [place]-3 Krill Oil) sildenafil (pulm.hypertension) 20 20 mg [...] participate in: (more content not included)... Normal [facility] Emergency Department Summary on 06-04-2024 Emergency Department Summary [facility] Medical Records Department [address] [place] [address] Emergency Department Summary 06/04/24 MR#: [id number] Acct: [id number] Name: GEORGIA THORPE Jr. Rep #: [id number] : 1965 58 From: oJsué Valdez DO PCP: Dr. Wendie Louise MD Status:ADM IN Location: [facility] History of Present Illness Chief Complaint: Constipation [...] he presents to the hospital for evaluation [facility] Medical History Contact with and (suspected) exposure [...] #180 caps 12/05/23 U nknown Rx 60 pm-wuh-blqgyuacw-ast axan capsule (Mega[employer] [place]-3 Krill Oil) sildenafil (pulm.hypertension) 20 20 mg [...] Ox 99 (more content not included)... Normal [facility] H AND P Exam - Hospitaliston 06-04-2024 H&P Exam - Hospitalist [facility] Medical Records Department [address] [place] [address] H P Exam - Hospitalist 06/04/24 0243 MR#: [id number] Acct: [id number] Name: GEORGIA THORPE Jr. Rep #: [id number] : 1965 58 From: Adina Parikh MD PCP: Dr. Wendie Louise MD Status:ADM IN Location: [facility] HPI - General General Date of Admission: 06/04/24 Date of Service: 06/04/24 Chief Complaint: Abdominal pain, fever, chills. HPI Narrative The patient is a 58-year-old male with past medical history obesity, seizure disorder, SHAY on CPAP, hypertension, hyperlipidemia, allergic rhinitis, hypertrophic obstructive cardiomyopathy who presents to the [facility] ED on 06/04/24 with history of [...] discussed case with general surgeon Dr. Maher. [facility] Medical History Contact with and (suspected) exposure [...] #180 caps 12/05/23 U nknown Rx 60 tz-wdq-obrryvevu-ast axan capsule (Mega[employer] [place]-3 Krill Oil) sildenafil (pulm.hypertension) 20 20 mg [...] History househo (more content not included)... Normal [facility] - Chemistry and C hemistry - challengeOrdered By: Adina Parikh on 06-04-2024 AST [Catalytic activity/Vol] 13 U/L Low 15-37 [facility] Lipaseon 06-04-2024 Lipase [Catalytic activity/Vol] 36 U/L Normal 13-75 [facility] Comment on above: Result Comment: Clau jones note: LIPASE revised reference range effective 22. New Lipase methodology. Expected to produce lower values than the previous assay method. NEW Reference Range: 13 - 75 U/L Performed By: #### L 501.5200, L500.2500, L501.2450, L500.3400, L100.0100 #### [facility] [address], [place], [id number] Lipase measurementOrdered By : Josué Valdez on 06-04-2024 Lipase [Catalytic activity/Vol] 36 U/L 13-75 [facility] Comment on above: Please note:LIPASE r evised reference range effective 22. New Lipase methodology. Expected to produce lower values than the previous assay method. NEW Reference Range: 13 - 75 U/L Liver Profileon 06-04-2024 Albumin [Mass/Vol] 3.2 g/dL Normal 3.2-5.0 [facility] Comment on above: Performed By: #### L 501.5200, L500.2500, L501.2450, L500.3400, L100.0100 #### [facility] [address] [place], [address] ALK P 55 U/L Normal 45-117 [facility] Comment on above: Performed By: #### L 501.5200, L500.2500, L501.2450, L500.3400, L100.0100 #### [facility] [address] [place], [address] ALT [Catalytic activity/Vol] 31 U/L Normal 16-61 [facility] Comment on above: Performed By: #### L 501.5200, L500.2500, L501.2450, L500.3400, L100.0100 #### [facility] [address] [place], [address] AST [Catalytic activity/Vol] 17 U/L Normal 15-37 [facility] Comment on above: Performed By: #### L 501.5200, L500.2500, L501.2450, L500.3400, L100.0100 #### [facility] [address] [place], [address] Bilirubin [Mass/Vol] 1.00 mg/dL Normal 0.20-1.00 [facility] Comment on above: Result Comment: For patients on eltrombopag therapy, use of Dimension [place] TBIL is not recommended. Performed By: #### L 501.5200, L500.2500, L501.2450, L500.3400, L100.0100 #### [facility] [address] [place], [address] Bilirubin.direct [Mass/Vol] 0.26 mg/dL Normal 0.00-0.30 [facility] Comment on above: Performed By: #### L 501.5200, L500.2500, L501.2450, L500.3400, L100.0100 #### [facility] [address] [place], [address] Globulin (S) [Mass/Vol] 3.8 g/dL Normal 2.2-4.2 [facility] Comment on above: Performed By: #### L 501.5200, L500.2500, L501.2450, L500.3400, L100.0100 #### [facility] [address] [place], [address] T PROT 7.0 g/dL Normal 6.4-8.2 [facility] Comment on above: Performed By: #### L 501.5200, L500.2500, L501.2450, L500.3400, L100.0100 #### [facility] [address] [place], [address] Magnesiumon 06-04-2024 Magnesium [Mass/Vol] 2.7 mg/dL High 1.6-2.6 [facility] Comment on above: Performed By: #### L 501.5200, L500.2500, L501.2450, L500.3400, L100.0100 #### [facility] [address] [place], [address] Magnesium measurementOrdered By: Josué Valdez on 06-04-2024 Magnesium [Mass/Vol] 2.7 mg/dL High 1.6-2.6 [facility] Serum globulin measurementOr dered By: Adina Parikh on 06-04-2024 Globulin (S) [Mass/Vol] 3.9 g/dL 2.2-4.2 [facility] Serum or plasma alanine watts otransferase (ALT) measurementOrdered By: Adina Parikh on 06-04-2024 ALT [Catalytic activity/Vol] 29 U/L 16-61 [facility] Serum or plasma albumin chiara urement (mass/volume)Ordered By: Adina Parikh on 06-04-2024 Albumin [Mass/Vol] 2.9 g/dL Low 3.2-5.0 [facility] Serum or plasma alkaline jason sphatase measurementOrdered By: Adina Parikh on 06-04-2024 ALP [Catalytic activity/Vol] 49 U/L 45-117 [facility] Total proteinOrdered By: Darshana biswas Kati on 06-04-2024 Protein [Mass/Vol] 6.8 g/dL 6.4-8.2 [facility] Absolute lymphocyte countOrd ered By: Wendie Arriagachner on 06-06-2023 Lymphocytes Auto (Unsp spec) [#/Vol] 2.51 10*3/uL 0.83-4.51 [facility] Automated lymphocyte count a s percentage of total leukocytesOrdered By: Wendie Louise on 06-06-2023 Lymphocytes/100 WBC Auto (Unsp spec) 38.7 % 19-41 [facility] Basophil percentageOrdered B y: Wendie Louise on 06-06-2023 Basophils/100 WBC (Bld) 0.6 % 0-1 [facility] Bilirubin [Mass/Vol] 0.70 mg/dL 0.20-1.00 [facility] Comment on above: For patients on eltr ombopag therapy, use of Dimension [place] TBIL is not recommended. Chloride [Moles/Vol] 104 mmol/L 98-107 [facility] Cholesterol [Mass/Vol] 184 mg/dL <200 [facility] Comment on above: <200 mg/dL Desirable 200-240 mg/dL Borderline >240 mg/dL High Risk Eosinophils/100 WBC (Bld) 2.2 % 0-5 [facility] Glucose [Mass/Vol] 108 mg/dL 74-106 [facility] Comment on above: Fasting Glucose resu lt from 100 to 125 mg/dL suggests IMPAIRED HOMEOSTASIS per A.D.A. criteria. Hemoglobin (Bld) [Mass/Vol] 15.1 g/dL 13.0-16.5 [facility] Monocytes/100 WBC (Bld) 8.5 % 0-10 [facility] Neutrophils (Bld) [#/Vol] 3.2 10*3/uL 2.0-7.7 [facility] Neutrophils/100 WBC (Bld) 49.4 % 47-70 [facility] Potassium [Moles/Vol] 3.5 mmol/L 3.5-5.1 [facility] Protein [Mass/Vol] 7.4 g/dL 6.4-8.2 [facility] Sodium [Moles/Vol] 134 mmol/L 136-145 [facility] Triglyceride [Mass/Vol] 160 mg/dL <199 [facility] Comment on above: The drugs N-Acetylcy steine and Metamizole may falsely depress this assay.Serum Triglycerides Reference Interval Normal <150 mg/dL Borderline high 150 - 199 mg/dL High 200 - 499 mg/dL Very High > or = 500 mg/dL WBC (Bld) [#/Vol] 6.5 10*3/uL 4.4-11.0 [facility] Determination of erythrocyte mean corpuscular volume (MCV)Ordered By: Wendie Louise on 06-06-2023 MCV (RBC) [Entitic vol] 92.4 fL 80-94 [facility] Direct bilirubinOrdered By: Wendie Louise on 06-06-2023 Bilirubin.direct [Mass/Vol] 0.18 mg/dL 0.00-0.30 [facility] Erythrocyte distribution wid th ratioOrdered By: Wendie Louise on 06-06-2023 Erythrocyte distribution width (RBC) [Ratio] 12.4 % 11.6-14.6 [facility] Erythrocyte distribution wid th standard deviationOrdered By: Wendie Louise on 06-06-2023 Erythrocyte distribution width (RBC) [Entitic vol] 41.4 fL 35.1-43.9 [facility] Hematocrit Auto (Bld) [Volum e fraction]Ordered By: Wendie Louise on 06-06-2023 Hematocrit (Bld) [Volume fraction] 42.8 % 40-54 [facility] Immature granulocytes/100 WB C Auto (Bld)Ordered By: Wendie Louise on 06-06-2023 Immature granulocytes/100 WBC (Bld) 0.600 % 0.0-0.9 [facility] Comment on above: IG% - Immature Granu locytes (promyelocytes, myelocytes and metamyelocytes) > 1% indicates that a LEFT SHIFT is Present. Laboratory - Chemistry and C hemistry - challengeOrdered By: Wendie Louise on 06-06-2023 Albumin/Globulin [Mass ratio] 1.2 {ratio} 0.9-2.4 [facility] ALP [Catalytic activity/Vol] 66 U/L 45-117 [facility] ALT [Catalytic activity/Vol] 41 U/L 16-61 [facility] Cholesterol in HDL [Mass/Vol] 45 mg/dL >40 [facility] Comment on above: The drugs N-Acetylcy steine and Metamizole may falsely depress this assay. Reference Range HDL <40 mg/dL Low HDL Cholesterol HDL >or= 60 mg/dL High HDL Cholesterol Cholesterol in LDL [Mass/Vol] 107 mg/dL 0-130 [facility] CO2 [Moles/Vol] 27.0 mmol/L 21.0-32.0 [facility] Globulin (S) [Mass/Vol] 3.4 g/dL 2.2-4.2 [facility] Urea nitrogen/Creatinine [Mass ratio] 17.7 mg/mg 10-20 [facility] - Hematology and Cell countsOrdered By: Wendie Louise on 06-06-2023 MCH (RBC) [Entitic mass] 32.6 pg 27.0-32.0 [facility] MCHC (RBC) [Mass/Vol] 35.3 g/dL 32-36 [facility] Nucleated RBC/100 WBC (Bld) [Ratio] 0 % 0-5 [facility] Platelet mean volume (Bld) [Entitic vol] 9.4 fL 6.2-12.0 [facility] Platelets (Bld) [#/Vol] 223 10*3/uL 150-450 [facility] No Panel InformationOrdered By: Wendie Louise on 06-06-2023 Estimated GFR (MDRD) Amer 77 mL/min >60 [facility] Comment on above: GFR Calc Estimated GFR (MDRD) Non-Af Amer 64 mL/min >60 [facility] Comment on above: Non- GFR Calc Prostate Specific Antigen Screen 1.22 ng/mL 0.00-4.00 [facility] Comment on above: This test was perfor med using the TPSA assay method for the[employer] chemistry system. Values obtained with differentassay methods cannot be used interchangably.When changing PSA assays in the course of monitoring apatient, additional sequential testing should be carriedout to confirm baseline values. Vitamin D 25-Hydroxy 29.0 ng/mL [facility] Comment on above: Vitamin D 25(OH) Sta tus Range Deficiency <20 ng/mL (50nmol/L) Insufficiency 20 - 30 ng/mL (50 - 75 nmol/L) Sufficiency 30 - 100 ng/mL (75 - 250 nmol/L) Toxicity >100 ng/mL (>250 nmol/L) VLDL Cholesterol 32 mg/dL 5-40 [facility] RBC Auto (Bld) [#/Vol]Ordere d By: Wendie Louise on 06-06-2023 RBC (Bld) [#/Vol] 4.63 10*6/uL 4.6-6.2 [facility] Serum or plasma calcium chiara urement (mass/volume)Ordered By: Wendie Louise on 06-06-2023 Calcium [Mass/Vol] 8.8 mg/dL 8.5-10.1 [facility] Serum or plasma creatinine m easurement (mass/volume)Ordered By: Wendie Louise on 06-06-2023 Creatinine [Mass/Vol] 1.24 mg/dL 0.70-1.30 [facility] Comment on above: The validity of the calculated GFR & GFRAA in patients over 70 years has not been determined. Clinical correlation is essential. Serum or plasma thyroid stim ulating hormone (TSH) measurement (units/volume)Ordered By: Wendie Louise on 06-06-2023 TSH Qn 2.20 uIU/mL 0.358-3.74 [facility] Serum or plasma urea nitroge n measurement (mass/volume)Ordered By: Wendie Louise on 06-06-2023 Urea nitrogen [Mass/Vol] 22 mg/dL 7-18 [facility] Thin prep Papanicolaou smear with manual screeningOrdered By: Wendie Louise on 06-06-2023 Thin prep Papanicolaou smear with manual screening 4.0 g/dL 3.2-5.0 [facility] Thin prep Papanicolaou smear with manual screening 24 U/L 15-37 [facility] Thin prep Papanicolaou smear with manual screening 3 5-15 [facility] Whole blood hemoglobin A1c/t otal hemoglobin ratio (mass fraction)Ordered By: Wendie Lousie on 06-06-2023 HbA1c (Bld) [Mass fraction] 4.6 % 3.8-5.6 [facility] Comment on above: Normal < 5.7 % Predi abetic 5.7 - 6.4 % Diabetic >or= 6.5 % Please note range changes. Laboratory - Microbiology an d Antimicrobial susceptibilityon 12-27-2022 SARS-CoV-2 (COVID-19) RNA MICHELE+probe Ql (Unsp spec) Not detected [facility] No Panel Informationon 12-27 Influenza Types A,B Rapid (Clinic) Not detected [facility] Basophil percentageOrdered B y: Fabian Diaz on 10-10-2022 Bilirubin [Mass/Vol] 0.80 mg/dL 0.20-1.00 [facility] Comment on above: For patients on eltr ombopag therapy, use of Dimension [place] TBIL is not recommended. Cholesterol [Mass/Vol] 80 mg/dL <200 [facility] Comment on above: <200 mg/dL Desirable 200-240 mg/dL Borderline >240 mg/dL High Risk Protein [Mass/Vol] 7.5 g/dL 6.4-8.2 [facility] Triglyceride [Mass/Vol] 95 mg/dL <199 [facility] Comment on above: The drugs N-Acetylcy steine and Metamizole may falsely depress this assay.Serum Triglycerides Reference Interval Normal <150 mg/dL Borderline high 150 - 199 mg/dL High 200 - 499 mg/dL Very High > or = 500 mg/dL Direct bilirubinOrdered By: Fabian Diaz on 10-10-2022 Bilirubin.direct [Mass/Vol] 0.22 mg/dL 0.00-0.30 [facility] - Chemistry and C hemistry - challengeOrdered By: Fabian Diaz on 10-10-2022 ALP [Catalytic activity/Vol] 72 U/L 45-117 [facility] ALT [Catalytic activity/Vol] 51 U/L 16-61 [facility] Globulin (S) [Mass/Vol] 3.3 g/dL 2.2-4.2 [facility] Serum or plasma albumin chiara urement (mass/volume)Ordered By: Fabian Diaz on 10-10-2022 Albumin [Mass/Vol] 4.2 g/dL 3.2-5.0 [facility] Serum or plasma cholesterol in HDL measurement (mass/volume)Ordered By: Fabian Diaz on 10-10-2022 Cholesterol in HDL [Mass/Vol] 39 mg/dL >40 [facility] Comment on above: The drugs N-Acetylcy steine and Metamizole may falsely depress this assay. Reference Range HDL <40 mg/dL Low HDL Cholesterol HDL >or= 60 mg/dL High HDL Cholesterol Serum or plasma cholesterol in VLDL measurement (mass/volume)Ordered By: Fabian Diaz on 10-10-2022 Cholesterol in VLDL [Mass/Vol] 19 mg/dL 5-40 [facility] Serum or plasma low density lipoprotein (LDL) cholesterol measurement (mass/volume)Ordered By: Fabian Diaz on 10-10-2022 Cholesterol in LDL [Mass/Vol] 22 mg/dL 0-130 [facility] Thin prep Papanicolaou smear with manual screeningOrdered By: Fabian Diaz on 10-10-2022 Thin prep Papanicolaou smear with manual screening 29 U/L 15-37 [facility] Absolute lymphocyte counton 03-28-2022 Lymphocytes Auto (Unsp spec) [#/Vol] 1.98 10*3/uL 0.83-4.51 [facility] Work Phone: Basophil percentageon 2021 Basophils/100 WBC (Bld) 0.4 % 0-1 [facility] Work Phone: Bilirubin [Mass/Vol] 0.80 mg/dL 0.20-1.00 [facility] Work Phone: Comment on above: For patients on eltr ombopag therapy, use of Dimension [place] TBIL is not recommended. Chloride [Moles/Vol] 103 mmol/L 98-107 [facility] Work Phone: Cholesterol [Mass/Vol] 147 mg/dL <200 [facility] Work Phone: Comment on above: <200 mg/dL Desirable 200-240 mg/dL Borderline >240 mg/dL High Risk Eosinophils/100 WBC (Bld) 2.6 % 0-5 [facility] Work Phone: Glucose [Mass/Vol] 96 mg/dL 74-106 [facility] Work Phone: Neutrophils (Bld) [#/Vol] 4.1 10*3/uL 2.0-7.7 [facility] Work Phone: Neutrophils/100 WBC (Bld) 59.2 % 47-70 [facility] Work Phone: Potassium [Moles/Vol] 3.8 mmol/L 3.5-5.1 [facility] Work Phone: Protein [Mass/Vol] 7.9 g/dL 6.4-8.2 [facility] Work Phone: Sodium [Moles/Vol] 137 mmol/L 136-145 [facility] Work Phone: Triglyceride [Mass/Vol] 298 mg/dL <199 [facility] Work Phone: Comment on above: The drugs N-Acetylcy steine and Metamizole may falsely depress this assay.Serum Triglycerides Reference Interval Normal <150 mg/dL Borderline high 150 - 199 mg/dL High 200 - 499 mg/dL Very High > or = 500 mg/dL WBC (Bld) [#/Vol] 6.9 10*3/uL 4.4-11.0 [facility] Work Phone: Blood erythrocytes count (nu mber/volume)on 03-28-2022 RBC (Bld) [#/Vol] 5.09 10*6/uL 4.6-6.2 [facility] Work Phone: Blood hemoglobin measurement (mass/volume)on 03-28-2022 Hemoglobin (Bld) [Mass/Vol] 16.7 g/dL 13.0-16.5 [facility] Work Phone: Blood lymphocytes/100 leukoc yteson 03-28-2022 Lymphocytes/100 WBC (Bld) 28.8 % 19-41 [facility] Work Phone: Blood monocytes/100 leukocyt eson 03-28-2022 Monocytes/100 WBC (Bld) 8.6 % 0-10 [facility] Work Phone: Blood platelet mean volumeon 03-28-2022 Platelet mean volume (Bld) [Entitic vol] 9.8 fL 6.2-12.0 [facility] Work Phone: Determination of erythrocyte mean corpuscular volume (MCV)on 03-28-2022 MCV (RBC) [Entitic vol] 92.7 fL 80-94 [facility] Work Phone: Hematocrit Auto (Bld) [Volum e fraction]on 03-28-2022 Hematocrit (Bld) [Volume fraction] 47.2 % 40-54 [facility] Work Phone: Laboratory - Chemistry and C hemistry - challengeon 03-28-2022 ALP [Catalytic activity/Vol] 75 U/L 45-117 [facility] Work Phone: ALT [Catalytic activity/Vol] 59 U/L 16-61 [facility] Work Phone: CO2 [Moles/Vol] 25.0 mmol/L 21.0-32.0 [facility] Work Phone: Globulin (S) [Mass/Vol] 3.7 g/dL 2.2-4.2 [facility] Work Phone: Urea nitrogen/Creatinine [Mass ratio] 20.9 mg/mg 10-20 [facility] Work Phone: Laboratory - Hematology and Cell countson 03-28-2022 Erythrocyte distribution width (RBC) [Entitic vol] 42.4 fL 35.1-43.9 [facility] Work Phone: Erythrocyte distribution width (RBC) [Ratio] 12.5 % 11.6-14.6 [facility] Work Phone: Immature granulocytes/100 WBC (Bld) 0.400 % 0.0-0.9 [facility] Work Phone: Comment on above: IG% - Immature Granu locytes (promyelocytes, myelocytes and metamyelocytes) > 1% indicates that a LEFT SHIFT is Present. MCH (RBC) [Entitic mass] 32.8 pg 27.0-32.0 [facility] Work Phone: Nucleated RBC/100 WBC (Bld) [Ratio] 0 % 0-5 [facility] Work Phone: MCHC Auto (RBC) [Mass/Vol]on 03-28-2022 MCHC (RBC) [Mass/Vol] 35.4 g/dL 32-36 [facility] Work Phone: No Panel Informationon 03-28 Estimated GFR (MDRD) Amer 84 mL/min >60 [facility] Work Phone: Comment on above: GFR Calc Estimated GFR (MDRD) Non-Af Amer 70 mL/min >60 [facility] Work Phone: Comment on above: Non- GFR Calc Insulin Level 19.1 mU/L 2.6-37.6 [facility] Work Phone: Thyroid Stimulating Hormone (TSH) 3.16 uIU/mL 0.358-3.74 [facility] Work Phone: Vitamin D 25-Hydroxy 26.4 ng/mL [facility] Work Phone: Comment on above: Vitamin D 25(OH) Sta tus Range Deficiency <20 ng/mL (50nmol/L) Insufficiency 20 - 30 ng/mL (50 - 75 nmol/L) Sufficiency 30 - 100 ng/mL (75 - 250 nmol/L) Toxicity >100 ng/mL (>250 nmol/L) Platelets bldon 03-28-2022 Platelets (Bld) [#/Vol] 197 10*3/uL 150-450 [facility] Work Phone: Serum or plasma albumin chiara urement (mass/volume)on 03-28-2022 Albumin [Mass/Vol] 4.2 g/dL 3.2-5.0 [facility] Work Phone: Serum or plasma albumin/glob ulin mass ratioon 03-28-2022 Albumin/Globulin [Mass ratio] 1.1 {ratio} 0.9-2.4 [facility] Work Phone: Serum or plasma calcium chiara urement (mass/volume)on 03-28-2022 Calcium [Mass/Vol] 9.2 mg/dL 8.5-10.1 [facility] Work Phone: Serum or plasma cholesterol in HDL measurement (mass/volume)on 03-28-2022 Cholesterol in HDL [Mass/Vol] 44 mg/dL >40 [facility] Work Phone: Comment on above: The drugs N-Acetylcy steine and Metamizole may falsely depress this assay. Reference Range HDL <40 mg/dL Low HDL Cholesterol HDL >or= 60 mg/dL High HDL Cholesterol Serum or plasma cholesterol in VLDL measurement (mass/volume)on 03-28-2022 Cholesterol in VLDL [Mass/Vol] 60 mg/dL 5-40 [facility] Work Phone: Serum or plasma creatinine m easurement (mass/volume)on 03-28-2022 Creatinine [Mass/Vol] 1.15 mg/dL 0.70-1.30 [facility] Work Phone: Comment on above: The validity of the calculated GFR & GFRAA in patients over 70 years has not been determined. Clinical correlation is essential. Serum or plasma low density lipoprotein (LDL) cholesterol measurement (mass/volume)on 03-28-2022 Cholesterol in LDL [Mass/Vol] 43 mg/dL 0-130 [facility] Work Phone: Serum or plasma urea nitroge n measurement (mass/volume)on 03-28-2022 Urea nitrogen [Mass/Vol] 24 mg/dL 7-18 [facility] Work Phone: Thin prep Papanicolaou smear with manual screeningon 03-28-2022 Thin prep Papanicolaou smear with manual screening 24 U/L 15-37 [facility] Work Phone: Thin prep Papanicolaou smear with manual screening 9 5-15 [facility] Work Phone: Whole blood hemoglobin A1c/t otal hemoglobin ratio (mass fraction)on 03-28-2022 HbA1c (Bld) [Mass fraction] 4.8 % 3.8-5.6 [facility] Work Phone: Comment on above: Normal < 5.7 % Predi abetic 5.7 - 6.4 % Diabetic >or= 6.5 % Please note range changes. No Panel Informationon 12-19 POC SARS CoV-2 Antigen Negative [facility] Work Phone: Basophil percentageon 2021 Chloride [Moles/Vol] 105 mmol/L 98-107 [facility] Work Phone: Cholesterol [Mass/Vol] 129 mg/dL <200 [facility] Work Phone: Comment on above: <200 mg/dL Desirable 200-240 mg/dL Borderline >240 mg/dL High Risk Glucose [Mass/Vol] 91 mg/dL 74-106 [facility] Work Phone: Potassium [Moles/Vol] 3.8 mmol/L 3.5-5.1 [facility] Work Phone: Sodium [Moles/Vol] 139 mmol/L 136-145 [facility] Work Phone: Triglyceride [Mass/Vol] 277 mg/dL [facility] Work Phone: Comment on above: The drugs N-Acetylcy steine and Metamizole may falsely depress this assay.Serum Triglycerides Reference Interval Normal <150 mg/dL Borderline high 150 - 199 mg/dL High 200 - 499 mg/dL Very High > or = 500 mg/dL Laboratory - Chemistry and C hemistry - challengeon 09-29-2021 CO2 [Moles/Vol] 27.0 mmol/L 21.0-32.0 [facility] Work Phone: Urea nitrogen/Creatinine [Mass ratio] 19.7 mg/mg 10-20 [facility] Work Phone: No Panel Informationon 09-29 Estimated GFR (MDRD) Amer 72 mL/min >60 [facility] Work Phone: Comment on above: GFR Calc Estimated GFR (MDRD) Non-Af Amer 60 mL/min >60 [facility] Work Phone: Comment on above: Non- GFR Calc Serum or plasma calcium chiara urement (mass/volume)on 09-29-2021 Calcium [Mass/Vol] 8.7 mg/dL 8.5-10.1 [facility] Work Phone: Serum or plasma cholesterol in HDL measurement (mass/volume)on 09-29-2021 Cholesterol in HDL [Mass/Vol] 34 mg/dL [facility] Work Phone: Comment on above: The drugs N-Acetylcy steine and Metamizole may falsely depress this assay. Reference Range HDL <40 mg/dL Low HDL Cholesterol HDL >or= 60 mg/dL High HDL Cholesterol Serum or plasma cholesterol in VLDL measurement (mass/volume)on 09-29-2021 Cholesterol in VLDL [Mass/Vol] 55 mg/dL 5-40 [facility] Work Phone: Serum or plasma creatinine m easurement (mass/volume)on 09-29-2021 Creatinine [Mass/Vol] 1.32 mg/dL 0.70-1.30 [facility] Work Phone: Comment on above: The validity of the calculated GFR & GFRAA in patients over 70 years has not been determined. Clinical correlation is essential. Serum or plasma low density lipoprotein (LDL) cholesterol measurement (mass/volume)on 09-29-2021 Cholesterol in LDL [Mass/Vol] 40 mg/dL 0-130 [facility] Work Phone: Serum or plasma urea nitroge n measurement (mass/volume)on 09-29-2021 Urea nitrogen [Mass/Vol] 26 mg/dL 7-18 [facility] Work Phone: Thin prep Papanicolaou smear with manual screeningon 09-29-2021 Thin prep Papanicolaou smear with manual screening 7 5-15 [facility] Work Phone: Absolute lymphocyte counton 09-14-2021 Lymphocytes Auto (Unsp spec) [#/Vol] 2.82 10*3/uL 0.83-4.51 [facility] Work Phone: Basophil percentageon 2021 Basophils/100 WBC (Bld) 0.6 % 0-1 [facility] Work Phone: Bilirubin [Mass/Vol] 0.50 mg/dL 0.20-1.00 [facility] Work Phone: Comment on above: For patients on eltr ombopag therapy, use of Dimension [place] TBIL is not recommended. Chloride [Moles/Vol] 105 mmol/L 98-107 [facility] Work Phone: Cholesterol [Mass/Vol] 130 mg/dL <200 [facility] Work Phone: Comment on above: <200 mg/dL Desirable 200-240 mg/dL Borderline >240 mg/dL High Risk Eosinophils/100 WBC (Bld) 3.5 % 0-5 [facility] Work Phone: Glucose [Mass/Vol] 102 mg/dL 74-106 [facility] Work Phone: Comment on above: Fasting Glucose resu lt from 100 to 125 mg/dL suggests IMPAIRED HOMEOSTASIS per A.D.A. criteria. Neutrophils (Bld) [#/Vol] 3.4 10*3/uL 2.0-7.7 [facility] Work Phone: Neutrophils/100 WBC (Bld) 46.7 % 47-70 [facility] Work Phone: Potassium [Moles/Vol] 3.2 mmol/L 3.5-5.1 [facility] Work Phone: Protein [Mass/Vol] 6.7 g/dL 6.4-8.2 [facility] Work Phone: Sodium [Moles/Vol] 142 mmol/L 136-145 [facility] Work Phone: Triglyceride [Mass/Vol] 365 mg/dL [facility] Work Phone: Comment on above: The drugs N-Acetylcy steine and Metamizole may falsely depress this assay.Serum Triglycerides Reference Interval Normal <150 mg/dL Borderline high 150 - 199 mg/dL High 200 - 499 mg/dL Very High > or = 500 mg/dL WBC (Bld) [#/Vol] 7.2 10*3/uL 4.4-11.0 [facility] Work Phone: Blood erythrocytes count (nu mber/volume)on 09-14-2021 RBC (Bld) [#/Vol] 4.82 10*6/uL 4.6-6.2 [facility] Work Phone: Blood hemoglobin measurement (mass/volume)on 09-14-2021 Hemoglobin (Bld) [Mass/Vol] 15.6 g/dL 13.0-16.5 [facility] Work Phone: Blood lymphocytes/100 leukoc yteson 09-14-2021 Lymphocytes/100 WBC (Bld) 39.2 % 19-41 [facility] Work Phone: Blood monocytes/100 leukocyt eson 09-14-2021 Monocytes/100 WBC (Bld) 9.9 % 0-10 [facility] Work Phone: Blood platelet mean volumeon 09-14-2021 Platelet mean volume (Bld) [Entitic vol] 9.4 fL 6.2-12.0 [facility] Work Phone: Determination of erythrocyte mean corpuscular volume (MCV)on 09-14-2021 MCV (RBC) [Entitic vol] 91.1 fL 80-94 [facility] Work Phone: Direct bilirubinon 2 Bilirubin.direct [Mass/Vol] 0.13 mg/dL 0.00-0.30 [facility] Work Phone: Hematocrit Auto (Bld) [Volum e fraction]on 09-14-2021 Hematocrit (Bld) [Volume fraction] 43.9 % 40-54 [facility] Work Phone: Laboratory - Chemistry and C hemistry - challengeon 09-14-2021 ALP [Catalytic activity/Vol] 75 U/L 45-117 [facility] Work Phone: ALT [Catalytic activity/Vol] 57 U/L 16-61 [facility] Work Phone: [phone] CO2 [Moles/Vol] 31.0 mmol/L 21.0-32.0 [facility] Work Phone: Globulin (S) [Mass/Vol] 3.0 g/dL 2.2-4.2 [facility] Work Phone: Urea nitrogen/Creatinine [Mass ratio] 18.5 mg/mg 10-20 [facility] Work Phone: Laboratory - Hematology and Cell countson 09-14-2021 Erythrocyte distribution width (RBC) [Entitic vol] 39.2 fL 35.1-43.9 [facility] Work Phone: Erythrocyte distribution width (RBC) [Ratio] 11.9 % 11.6-14.6 [facility] Work Phone: Immature granulocytes/100 WBC (Bld) 0.100 % 0.0-0.9 [facility] Work Phone: Comment on above: IG% - Immature Granu locytes (promyelocytes, myelocytes and metamyelocytes) > 1% indicates that a LEFT SHIFT is Present. MCH (RBC) [Entitic mass] 32.4 pg 27.0-32.0 [facility] Work Phone: Nucleated RBC/100 WBC (Bld) [Ratio] 0 % 0-5 [facility] Work Phone: MCHC Auto (RBC) [Mass/Vol]on 09-14-2021 MCHC (RBC) [Mass/Vol] 35.5 g/dL 32-36 [facility] Work Phone: No Panel Informationon 09-14 Estimated GFR (MDRD) Amer 77 mL/min >60 [facility] Work Phone: Comment on above: GFR Calc Estimated GFR (MDRD) Non-Af Amer 64 mL/min >60 [facility] Work Phone: Comment on above: Non- GFR Calc Platelets bldon 09-14-2021 Platelets (Bld) [#/Vol] 173 10*3/uL 150-450 [facility] Work Phone: Serum or plasma albumin chiara urement (mass/volume)on 09-14-2021 Albumin [Mass/Vol] 3.7 g/dL 3.2-5.0 [facility] Work Phone: Serum or plasma calcium chiara urement (mass/volume)on 09-14-2021 Calcium [Mass/Vol] 8.5 mg/dL 8.5-10.1 [facility] Work Phone: Serum or plasma cholesterol in HDL measurement (mass/volume)on 09-14-2021 Cholesterol in HDL [Mass/Vol] 32 mg/dL [facility] Work Phone: Comment on above: The drugs N-Acetylcy steine and Metamizole may falsely depress this assay. Reference Range HDL <40 mg/dL Low HDL Cholesterol HDL >or= 60 mg/dL High HDL Cholesterol Serum or plasma cholesterol in VLDL measurement (mass/volume)on 09-14-2021 Cholesterol in VLDL [Mass/Vol] 73 mg/dL 5-40 [facility] Work Phone: Serum or plasma creatinine m easurement (mass/volume)on 09-14-2021 Creatinine [Mass/Vol] 1.24 mg/dL 0.70-1.30 [facility] Work Phone: Comment on above: The validity of the calculated GFR & GFRAA in patients over 70 years has not been determined. Clinical correlation is essential. Serum or plasma low density lipoprotein (LDL) cholesterol measurement (mass/volume)on 09-14-2021 Cholesterol in LDL [Mass/Vol] 25 mg/dL 0-130 [facility] Work Phone: Serum or plasma urea nitroge n measurement (mass/volume)on 09-14-2021 Urea nitrogen [Mass/Vol] 23 mg/dL -18 [facility] Work Phone: Thin prep Papanicolaou smear with manual screeningon 09-14-2021 Thin prep Papanicolaou smear with manual screening 22 U/L 15-37 [facility] Work Phone: Thin prep Papanicolaou smear with manual screening 6 5-15 [facility] Work Phone: CNOVon 10-16-2020 CNOV Office Visit (LAURA) GEOR[place]IA THORPE ([id number]) 1965 M Date Time Provider Department 10/16/20 [...] Rectal Exam: Anus: closed Resting tone: HIGH Client Application Support Specialist present: Yes Assessment Medical Decision Making: Assessment [...] with the (more content not included)... Normal [facility] HISTORY PHYSICALon HISTORY PHYSICAL HNO ID: [id number] Author: Kenny Merrill MD Service: ? Author [...] Rectal Exam: Anus: closed Resting tone: HIGH Client Application Support Specialist present: Yes Assessment Medical Decision Making: Assessment [...] with more than 50% of the total [id number] time of the visit in counseling / coordination of care. Vicenta Dumas MD [facility] Colorectal Surgery Risk o (more content not included)... Normal [facility] Vital Signs Date Time Vital Sign Value Performing Clinician Facility 02-16-2025 22:21-0400 Body temperature 98 [degF] Dr. Wendie Louise MD Work Phone: [facility] 02-16-2025 22:21-0400 Diastolic blood pressure 81 mm[Hg] Dr. Wendie Louise MD Work Phone: [facility] 02-16-2025 22:21-0400 Heart rate 68 /min Dr. Wendie Louise MD Work Phone: [facility] 02-16-2025 22:21-0400 Respiratory rate 16 /min Dr. Wendie Louise MD Work Phone: [facility] 02-16-2025 22:21-0400 SaO2% (BldA) [Mass fraction] 96 % Dr. Wendie Louise MD Work Phone: [facility] 02-16-2025 22:21-0400 Systolic blood pressure 145 mm[Hg] Dr. Wendie Louise MD Work Phone: [facility] 02-16-2025 19:47-0400 Body height 170.[address] Wendie Louise MD Work Phone: [facility] 02-16-2025 19:47-0400 Body mass index (BMI) [Ratio] 30.7 kg/m2 Dr. Wendie Louise MD Work Phone: [facility] 02-16-2025 19:47-0400 Body weight 88.[address] Wendie Louise MD Work Phone: [facility] 01-16-2025 08:55-0400 Body height 170.2 cm Daphne Ye APRN-CASSIDY Work Phone: [facility] 01-16-2025 08:55-0400 Body mass index (BMI) [Ratio] 30.23 kg/m2 Daphne eY APRN-CASSIDY Work Phone: [facility] 01-16-2025 08:55-0400 Body weight 87.54 kg Daphne Ye APRN-LEAD SHIPPER Work Phone: [facility] 01-16-2025 08:55-0400 Diastolic blood pressure 68 mm[Hg] Daphne Ye APRN-[employer] Work Phone: [facility] 01-16-2025 08:55-0400 Heart rate 59 /min Daphne Ye APRN-[employer] Work Phone: [facility] 01-16-2025 08:55-0400 SaO2% (BldA) [Mass fraction] 96 % Daphne Ye ARMORER TECHNICIAN-[employer] SHIPPER Work Phone: [facility] 01-16-2025 08:55-0400 Systolic blood pressure 112 mm[Hg] Daphne Ye ARMORER TECHNICIAN-[employer] SHIPPER Work Phone: [facility] 11-13-2024 08:25-0400 Body height 170.[address] Wendie Louise MD Work Phone: [facility] 11-13-2024 08:25-0400 Body mass index (BMI) [Ratio] 30.5 kg/m2 Dr. Wendie Louise MD Work Phone: [facility] 11-13-2024 08:25-0400 Body weight 88.[address] Wendie Louise MD Work Phone: [facility] 11-13-2024 08:25-0400 Diastolic blood pressure 74 mm[Hg] Dr. Wendie Louise MD Work Phone: [facility] 11-13-2024 08:25-0400 Heart rate 59 /min Dr. Wendie Louise MD Work Phone: [facility] 11-13-2024 08:25-0400 Respiratory rate 16 /min Dr. Wendie Louise MD Work Phone: [facility] 11-13-2024 08:25-0400 Systolic blood pressure 120 mm[Hg] Dr. Wendie Louise MD Work Phone: [facility] 08-15-2024 08:16-0400 Body temperature 97.2 [degF] Dr. Wendie Louise MD Work Phone: [facility] 08-15-2024 08:16-0400 Diastolic blood pressure 76 mm[Hg] Dr. Wendie Louise MD Work Phone: [facility] 08-15-2024 08:16-0400 Heart rate 78 /min Dr. Wendie Louise MD Work Phone: [facility] 08-15-2024 08:16-0400 Respiratory rate 17 /min Dr. Wendie Louise MD Work Phone: [facility] 08-15-2024 08:16-0400 SaO2% (BldA) [Mass fraction] 97 % Dr. Wendie Louise MD Work Phone: [facility] 08-15-2024 08:16-0400 Systolic blood pressure 119 mm[Hg] Dr. Wendie Louise MD Work Phone: [facility] 06-17-2024 09:57-0500 Body height 170.[address] Wendie Louise MD Work Phone: [facility] 06-17-2024 09:57-0500 Body mass index (BMI) [Ratio] 30.8 kg/m2 Dr. Wendie Louise MD Work Phone: [facility] 06-17-2024 09:57-0500 Body temperature 98.7 [degF] Dr. Wendie Louise MD Work Phone: [facility] 06-17-2024 09:57-0500 Body weight 89.[address] Wendie Louise MD Work Phone: [facility] 06-17-2024 09:57-0500 Diastolic blood pressure 69 mm[Hg] Dr. Wendie Louise MD Work Phone: [facility] 06-17-2024 09:57-0500 Heart rate 87 /min Dr. Wendie Louise MD Work Phone: [facility] 06-17-2024 09:57-0500 SaO2% (BldA) [Mass fraction] 93 % Dr. Wendie Louise MD Work Phone: [facility] 06-17-2024 09:57-0500 Systolic blood pressure 126 mm[Hg] Dr. Wendie Louise MD Work Phone: [facility] 06-14-2024 13:04-0500 Body mass index (BMI) [Ratio] 30.4 kg/m2 Dr. Wendie Louise MD Work Phone: [facility] 06-14-2024 13:04-0500 Body temperature 97.6 [degF] Dr. Wendie Louise MD Work Phone: [facility] 06-14-2024 13:04-0500 Body weight 88.[address] Wendie Louise MD Work Phone: [facility] 06-14-2024 13:04-0500 Diastolic blood pressure 83 mm[Hg] Dr. Wendie Louise MD Work Phone: [facility] 06-14-2024 13:04-0500 Heart rate 74 /min Dr. Wendie Louise MD Work Phone: [facility] 06-14-2024 13:04-0500 Respiratory rate 18 /min Dr. Wendie Louise MD Work Phone: [facility] 06-14-2024 13:04-0500 SaO2% (BldA) [Mass fraction] 100 % Dr. Wendie Louise MD Work Phone: [facility] 06-14-2024 13:04-0500 Systolic blood pressure 137 mm[Hg] Dr. Wendie Louise MD Work Phone: [facility] 06-07-2024 12:15-0500 Body temperature 98.4 [degF] Dr. Wendie Louise MD Work Phone: [facility] 06-07-2024 12:15-0500 Diastolic blood pressure 78 mm[Hg] Dr. Wendie Louise MD Work Phone: [facility] 06-07-2024 12:15-0500 Heart rate 74 /min Dr. Wendie Louise MD Work Phone: [facility] 06-07-2024 12:15-0500 Respiratory rate 18 /min Dr. Wendie Louise MD Work Phone: [facility] 06-07-2024 12:15-0500 SaO2% (BldA) [Mass fraction] 95 % Dr. Wendie Louise MD Work Phone: [facility] 06-07-2024 12:15-0500 Systolic blood pressure 152 mm[Hg] Dr. Wendie Louise MD Work Phone: [facility] 06-07-2024 03:50-0500 Body mass index (BMI) [Ratio] 30.2 kg/m2 Dr. Wendie Louise MD Work Phone: [facility] 06-07-2024 03:50-0500 Body weight 87.[address] Wendie Louise MD Work Phone: [facility] 03-29-2023 09:52-0500 Body height 170.[address] Wendie Louise Work Phone: [facility] 03-29-2023 09:52-0500 Body mass index (BMI) [Ratio] 32.1 kg/m2 Dr. Wendie Louise Work Phone: [facility] 03-29-2023 09:52-0500 Body temperature 98.4 [degF] Dr. Wendie Louise Work Phone: [facility] 03-29-2023 09:52-0500 Body weight 92.[address] Wendie Louise Work Phone: [facility] 03-29-2023 09:52-0500 Diastolic blood pressure 85 mm[Hg] Dr. Wendie Louise Work Phone: [facility] 03-29-2023 09:52-0500 Heart rate 77 /min Dr. Wendie Louise Work Phone: [facility] 03-29-2023 09:52-0500 Respiratory rate 16 /min Dr. Wendie Louise Work Phone: [facility] 03-29-2023 09:52-0500 SaO2% (BldA) [Mass fraction] 97 % Dr. Wendie Louise Work Phone: [facility] 03-29-2023 09:52-0500 Systolic blood pressure 143 mm[Hg] Dr. Wendie Louise Work Phone: [facility] 03-27-2023 08:19-0500 Diastolic blood pressure 87 mm[Hg] Dr. Wendie Louise Work Phone: [facility] 03-27-2023 08:19-0500 Systolic blood pressure 152 mm[Hg] Dr. Wendie Louise Work Phone: [facility] 03-27-2023 08:18-0500 Body temperature 98.6 [degF] Dr. Wendie Louise Work Phone: [facility] 03-27-2023 08:18-0500 Heart rate 63 /min Dr. Wendie Louise Work Phone: [facility] 03-27-2023 08:18-0500 Respiratory rate 18 /min Dr. Wendie Louise Work Phone: [facility] 03-27-2023 08:18-0500 SaO2% (BldA) [Mass fraction] 97 % Dr. Wendie Louise Work Phone: [facility] 12-27-2022 12:39-0400 Body temperature 98.2 [degF] Dr. eWndie Louise Work Phone: [facility] 12-27-2022 12:39-0400 Diastolic blood pressure 74 mm[Hg] Dr. Wendie Louise Work Phone: [facility] 12-27-2022 12:39-0400 Heart rate 58 /min Dr. Wendie Louise Work Phone: [facility] 12-27-2022 12:39-0400 Respiratory rate 14 /min Dr. Wendie Louise Work Phone: [facility] 12-27-2022 12:39-0400 SaO2% (BldA) [Mass fraction] 98 % Dr. Wendie Louise Work Phone: [facility] 12-27-2022 12:39-0400 Systolic blood pressure 112 mm[Hg] Dr. Wendie Louise Work Phone: [facility] 10-27-2022 09:01-0400 Body height 170.[address] Wendie Louise Work Phone: [facility] 10-27-2022 09:01-0400 Body mass index (BMI) [Ratio] 30.5 kg/m2 Dr. Wendie Louise Work Phone: [facility] 10-27-2022 09:01-0400 Body weight 88.[address] Wendie Louise Work Phone: [facility] 10-27-2022 09:01-0400 Diastolic blood pressure 70 mm[Hg] Dr. Wendie Louise Work Phone: [facility] 10-27-2022 09:01-0400 Heart rate 50 /min Dr. Wendie Louise Work Phone: [facility] 10-27-2022 09:01-0400 Respiratory rate 18 /min Dr. Wendie Louise Work Phone: [facility] 10-27-2022 09:01-0400 SaO2% (BldA) [Mass fraction] 99 % Dr. Wendie Louise Work Phone: [facility] 10-27-2022 09:01-0400 Systolic blood pressure 115 mm[Hg] Dr. Wendie Louise Work Phone: [facility] 09-21-2022 12:42-0400 Body height 170.[address] Wendie Louise Work Phone: [facility] 09-21-2022 12:42-0400 Body mass index (BMI) [Ratio] 30.7 kg/m2 Dr. Wendie Louise Work Phone: [facility] 09-21-2022 12:42-0400 Body temperature 97.6 [degF] Dr. Wendie Louise Work Phone: [facility] 09-21-2022 12:42-0400 Body weight 89.[address] Wendie Louise Work Phone: [facility] 09-21-2022 12:42-0400 Diastolic blood pressure 68 mm[Hg] Dr. Wendie Louise Work Phone: [facility] 09-21-2022 12:42-0400 Heart rate 60 /min Dr. Wendie Louise Work Phone: [facility] 09-21-2022 12:42-0400 Respiratory rate 16 /min Dr. Wendie Louise Work Phone: [facility] 09-21-2022 12:42-0400 SaO2% (BldA) [Mass fraction] 98 % Dr. Wendie Louise Work Phone: [facility] 09-21-2022 12:42-0400 Systolic blood pressure 122 mm[Hg] Dr. Wendie Louise Work Phone: [facility] 03-28-2022 09:16-0500 Body temperature 98.1 [degF] Dr. Parker Villavicencio Work Phone: [facility] Work Phone: 03-28-2022 09:16-0500 Body weight 98.[address] Parker Villavicencio Work Phone: [facility] Work Phone: 03-28-2022 09:16-0500 Diastolic blood pressure 91 mm[Hg] Dr. Parker Villavicencio Work Phone: [facility] Work Phone: 03-28-2022 09:16-0500 Heart rate 70 /min Dr. Parker Villavicencio Work Phone: [facility] Work Phone: 03-28-2022 09:16-0500 Respiratory rate 16 /min Dr. Parker Villavicencio Work Phone: [facility] Work Phone: 03-28-2022 09:16-0500 SaO2% (BldA) [Mass fraction] 98 % Dr. Parker Villavicencio Work Phone: [facility] Work Phone: 03-28-2022 09:16-0500 Systolic blood pressure 151 mm[Hg] Dr. Parker Villavicencio Work Phone: [facility] Work Phone: 12-19-2021 09:18-0400 Body temperature 98.3 [degF] Dr. Parker Villavicencio Work Phone: [facility] Work Phone: 12-19-2021 09:18-0400 Diastolic blood pressure 70 mm[Hg] Dr. Parker Villavicencio Work Phone: [facility] Work Phone: 12-19-2021 09:18-0400 Heart rate 74 /min Dr. Parker Villavicencio Work Phone: [facility] Work Phone: 12-19-2021 09:18-0400 Respiratory rate 14 /min Dr. Parker Villavicencio Work Phone: [facility] Work Phone: 12-19-2021 09:18-0400 SaO2% (BldA) [Mass fraction] 97 % Dr. Parker Villavicencio Work Phone: [facility] Work Phone: 12-19-2021 09:18-0400 Systolic blood pressure 136 mm[Hg] Dr. Parker Villavicencio Work Phone: [facility] Work Phone: 09-07-2021 14:00-0400 Body height 170.[address] Parker Villavicencio Work Phone: [facility] Work Phone: 09-07-2021 14:00-0400 Body mass index (BMI) [Ratio] 34.1 kg/m2 Dr. Parker Villavicencio Work Phone: [facility] Work Phone: 09-07-2021 14:00-0400 Body weight 98.[address] Parker Villavicencio Work Phone: [facility] Work Phone: 09-07-2021 14:00-0400 Diastolic blood pressure 73 mm[Hg] Dr. Parker Villavicencio Work Phone: [facility] Work Phone: 09-07-2021 14:00-0400 Heart rate 67 /min Dr. Parker Villavicencio Work Phone: [facility] Work Phone: 09-07-2021 14:00-0400 Respiratory rate 16 /min Dr. Parker Villavicencio Work Phone: [facility] Work Phone: 09-07-2021 14:00-0400 Systolic blood pressure 145 mm[Hg] Dr. Parker Villavicencio Work Phone: [facility] Work Phone: Encounters Encounter Date Encounter Type Care Provider Facility Start: 03-12-2025 End: 03-12-[address] [facility] Facility:[facility] Start: 02-16-2025 End: 02-16-2025 Emergency department patient visit Dr. David Miles MD -Emergency Department Work Phone: Start: 01-16-2025 End: 01-16-2025 Office outpatient new [address] [facility] [employer] TECHNIC[employer] Work Phone: [facility] Comment on above: Encounter for cardia c risk counseling (Primary Dx); Primary hypertension Start: 01-16-2025 End: 01-16-2025 ambulatory [facility] Start: 12-24-2024 Non-patient / Non-visit Dr. Luis Armando [facility] -[facility] Start: 12-24-2024 Registered Referred Lety Joseph PA -Cat Scan [facility] Work Phone: Start: 12-24-2024 End: 12-24-[address] Wendie Louise MD Work Phone: -Cardiovascular Services Start: 12-24-2024 End: 12-24-2024 Patient encounter procedure Lety Joseph PA -Cardiovascular Services Work Phone: Start: 12-24-2024 End: 12-24-2024 ambulatory Lety Joseph Facility:[facility] Start: 11-13-2024 End: 11-13-2024 Patient encounter procedure Lety Joseph PA -[facility] Work Phone: Start: 11-13-2024 End: 11-13-[address] Wendie Louise MD Work Phone: -[facility] Start: 08-15-2024 End: 08-15-[address] Ifeanyi Peters MD -[facility] Work Phone: Start: 08-15-2024 End: 08-15-2024 ambulatory Ifeanyi Peters Facility:[facility] Start: 07-23-2024 End: 07-23-[address] Wendie Louise MD Work Phone: [facility] Work Phone: Start: 07-23-2024 End: 07-23-[address] Vanessa Maher MD -Cat Scan, [facility] Work Phone: Start: 07-23-2024 End: 07-23-2024 ambulatory Vanessa Maher Facility:[facility] Start: 07-10-2024 End: 07-10-[address] Vanessa Maher MD -[facility] Work Phone: Start: 07-10-2024 End: 07-10-2024 ambulatory Vanessa Maher Facility:[facility] Start: 06-21-2024 End: 06-21-[address] Vanessa Maher MD -[facility] Work Phone: Start: 06-21-2024 End: 06-21-2024 [facility] Start: 06-20-2024 End: 06-20-[address] Vanessa Maher MD -Cat Scan, [facility] Work Phone: Start: 06-20-2024 End: 06-20-2024 ambulatory [facility] Facility:[facility] Start: 06-17-2024 End: 06-17-[address] Wendie Louise MD -[facility] Work Phone: Start: 06-17-2024 End: 06-17-2024 ambulatory Wendiepamela Louise [place] Start: 06-14-2024 End: 06-14-[address] Vanessa Maher MD -[facility] Work Phone: Start: 06-14-2024 End: 06-14-2024 ambulatory Vanessa [facility] Facility:[facility] Start: 06-13-2024 End: 06-13-2024 Patient encounter procedure Rhea CRESPO-C -Cat Scan, [facility] Work Phone: Start: 06-13-2024 End: 06-13-2024 ambulatory Rhea CRESPO Facility:[facility] Start: 06-12-2024 End: 06-12-[address] Wendie Louise MD -Laboratory Work Phone: Start: 06-12-2024 End: 06-12-2024 ambulatory Wendie Louise Facility:[facility] Start: 06-07-2024 Non-patient / Non-visit [facility] Schneider [facility] Work Phone: Start: 06-06-2024 Non-patient / Non-visit [facility]. Schneider [facility] Work Phone: Start: 06-06-2024 Non-patient / Non-visit Dr. Ifeanyi Peters MD -[facility] Start: 06-05-2024 Non-patient / Non-visit Dr. Colten Shaw MD -[facility] Work Phone: Start: 06-04-2024 Non-patient / Non-visit Dr. Amrit Maher MD -[facility] Start: 06-04-2024 ambulatory Vanessa Koroma y:[facility] Start: 06-04-2024 End: 06-07-2024 Evaluation and management of inpatient Dr. Danny Lagunas DO -Medical Surgical 2 Work Phone: Start: 06-06-2023 End: 06-06-[address] Wendie Louise Work Phone: [facility] Work Phone: Start: 06-06-2023 End: 06-06-[address] Wendie Louise Work Phone: [facility]-Laboratory Work Phone: Start: 03-29-2023 End: 03-29-[address] Wendie Louise Work Phone: [facility] Work Phone: Start: 03-27-2023 End: 03-27-[address] Wendie Louise Work Phone: [facility] Work Phone: Start: 12-29-2022 Non-patient / Non-visit Dr. Edda Louise Work Phone: [facility] Start: 12-29-2022 End: 12-29-[address] Wendie Louise Work Phone: [facility] Work Phone: Start: 12-29-2022 End: 12-29-[address] Wendie Louise Work Phone: [facility]-Cardiovascula r Services Work Phone: Start: 12-27-2022 End: 12-27-[address] Wendie Louise Work Phone: [facility] Work Phone: Start: 10-27-2022 End: 10-27-[address] Wendie Louise Work Phone: [facility] Work Phone: Start: 10-10-2022 End: 10-10-[address] Wendie Louise Work Phone: [facility] Work Phone: Start: 10-10-2022 End: 10-10-[address] Wendie Louise Work Phone: [facility] Start: 09-21-2022 End: 09-21-[address] Wendie Louise Work Phone: [facility] Start: 03-28-2022 End: 03-28-[address] Parker Villavicencio Work Phone: [facility] Work Phone: Start: 03-28-2022 End: 03-28-[address] Parker Villavicencio Work Phone: [facility] Start: 03-28-2022 End: 03-28-[address] Parker Villavicencio Work Phone: [facility] Start: 12-19-2021 End: 12-19-[address] Parker Villavicencio Work Phone: [facility] Start: 09-29-2021 End: 09-29-[address] Parker Villavicencio Work Phone: [facility] Start: 09-14-2021 End: 09-14-[address] Parker Villavicencio Work Phone: [facility] Start: 09-07-2021 End: 09-07-[address] Parker Villavicencio Work Phone: [facility] Start: 06-22-2017 Ambulatory NONE PCP Facility: [facility] Procedures Date Procedure Procedure Detail Performing Clinician Start: 02-16-2025 Radiologic exam knee complete 4/more views Dr. Wendie Louise MD Work Phone: Start: 01-16-2025 Ecg routine ecg w/le ast 12 lds w/i&r Daphne Ye [employer] TECHNICIAN[employer] Work Phone: Start: 12-24-2024 CT angiography of co ronary arteries Dr. Wendie Louise MD Work Phone: Start: 07-23-2024 Computed tomography of abdomen and [...] Treatment Date Care Activity Detail Author Start: 12-18-2039 RSV High Risk: (Elderly (60+) or Population) (1 - 1-dose 75+ series) RSV High Risk: (Elderly (60+) or Population) (1 - 1-dose 75+ series) [facility] Start: 01-15-2026 End: 01-15-2026 Patient encounter procedure 01/15/2026 9:00 AM EDT Office Visit [facility] Office Building [address] [place] [address] Daphne Ye, ARMORER TECHNICIAN-LEAD SHIPPER [address] [place], [place] [id number] [facility] Start: 02-16-2025 [facility] Start: 12-30-2024 COVID-19 Vaccine ( season) COVID-19 Vaccine ( season) [facility] Start: 12-30-2024 Influenza vaccination Influenza Vaccine (#1) [facility] Start: 12-25-2024 Radionuclide imaging of perfusion of myocardium under exercise stress [facility] Start: 06-07-2024 Patient discharge [facility] Start: 06-07-2024 [facility] Start: 06-05-2024 Application of intermittent pneumatic compression device [facility] Start: 06-04-2024 Following clinical pathway protocol [facility] Start: 06-04-2024 Assessment of risk of venous thromboembolism [facility] Start: 06-04-2024 Continuous positive airway pressure ventilation treatment [facility] Start: 06-04-2024 Inhalation therapy procedure [facility] Start: 06-04-2024 Insertion of catheter into peripheral vein [facility] Start: 06-04-2024 Introduction of urinary catheter [facility] Start: 06-04-2024 Measuring intake and output [facility] Start: 06-04-2024 Providing care according to standard [facility] Start: 06-04-2024 Provision of activity privileges [facility] Start: 06-04-2024 Referral to general surgeon [facility] Start: 06-04-2024 Referral to service [facility] Start: 06-04-2024 [facility] Start: 06-04-2024 Admission procedure [facility] Start: 2014 Pneumococcal vaccination Pneumococcal Vaccine (1 of 1 - PCV) [facility] Start: 2014 Prostate specific antigen measurement PSA Prostate Cancer Screening [facility] Start: 2014 Zoster Vaccines (1 of 2) Zoster Vaccines (1 of 2) [facility] Start: 1986 DTaP/Tdap/Td Vaccines (1 - Tdap) DTaP/Tdap/Td Vaccines (1 - Tdap) [facility] Start: 1982 Hepatitis C screening Hepatitis C Screening [facility] Start: 1965 MMR Vaccines (1 of 1 - Standard series) MMR Vaccines (1 of 1 - Standard series) [facility] Start: 1964 HIV screening HIV Screening [facility] Start: 1964 Lipid panel Lipid Panel [facility] Start: 1964 Screening for malignant neoplasm of colon [facility] Start: 1964 Yearly Adult Physical Yearly Adult Physical [facility] CT angiography of co ronary arteries [facility] Lipid 1996 panel - S niko or Plasma [facility] Patient Education ED Hematoma [facility] Work Phone: Patient referral [facility] Work Phone: Prostate specific an tigen measurement [facility] Immunizations Immunization Date Immunization Notes Care Provider Carine lee 04-06-2022 influenza virus vaccine, unspecified formulation Daphne Ye ARMORER TECHNICIAN-LE[employer] SHIPPER Work Phone: [facility] Work Phone: Payers Date Payer Category Payer Private Health Insurance GENERIC COMMERCIAL [id number] 2024 Unknown [id number] 2024 Self-pay [id number] 2024 Unknown [id number] 2024 Self-pay [id number] 2015 Unknown [id number] 1965 Unknown [id number] [id number]. 1244 Unknown [id number] Unknown [id number] 2.16.840.1.521999.3.579.2. 462 Unknown [id number] 2.16.840.1.571837.3.579.2. 462 Unknown [id number] 2.16.840.1.096806.3.579.2. 462 Unknown [id number] 2.16.840.1.175676.3.579.2. 462 Unknown [id number] 2.16.840.1.721902.3.579.2. 462 Unknown [id number] 2..840.1.884604.3.579.2. 462 Unknown [id number] 2..840.1.629295.3.579.2. 462 Unknown [id number] 2.16.840.1.570183.3.579.2. 462 Unknown [id number] 2.16.840.1.542980.3.579.2. 462 Unknown [id number] 2.16.840.1.440288.3.579.2. 462 Unknown [id number] 2.16.840.1.191723.3.579.2. 462 Unknown [id number] 2.16.840.1.773888.3.579.2. 462 Unknown [id number] 2.16.840.1.425401.3.579.2. 462 Unknown [id number] 2.16.840.1.513808.3.579.2. 462 Unknown [id number] 2.16.840.1.524358.3.579.2. 462 Unknown [id number] 2.16.840.1.754670.3.579.2. 462 Unknown [id number] 2.16.840.1.977176.3.579.2. 462 Unknown [id number] 2.16.840.1.631636.3.579.2. 462 Unknown [id number] 2.16.840.1.622478.3.579.2. 462 Unknown [id number] 2.16.840.1.470629.3.579.2. 462 Unknown [id number] 2.16.840.1.736493.3.579.2. 462 Unknown [id number] 2.16.840.1.345202.3.579.2. 462 Unknown [id number] 2.16.840.1.986252.3.579.2. 462 Unknown [id number] 2.16.840.1.830072.3.579.2. 462 Unknown [id number] 2.16.840.1.030279.3.579.2. 462 Social History Date Type Detail Facility Start: 09-07-2021 End: 03-29-2023 Tobacco smoking status MDIS Unknown if ever smoked [facility] Start: 1965 Sex Assigned At Male W [facility] Start: 06-04-2024 End: 02-16-2025 Tobacco smoking status NHIS Never smoked tobacco (finding) [facility] Start: 07-28-2024 Sex Male (finding) [facility] Start: 01-16-2025 Tobacco use and exposure Former smokeless tobacco user [facility] Work Phone: End: 05-01-2009 History of tobacco use User of smokeless tobacco [facility] Work Phone: Start: 01-16-2025 Alcoholic beverage intake Current drinker of alcohol (finding) [facility] Work Phone: Start: 01-16-2025 History of Social function [facility] Work Phone: Start: 01-16-2025 Tobacco use panel [facility] Start: 01-16-2025 Alcohol Comment [facility] [place] [place] Work Phone: Start: 1965 Sex assigned at Not on file [facility] Work Phone: Start: 03-26-2022 Sex Male [facility] Goals Date Patient Goal Desired Activity /State Functional Status Date Assessment Result Facility 06-07-2024 Functional status Ambulates;Up ad quinton [facility] Work Phone: Mental Status Date Assessment Result Facility 06-07-2024 Cognitive function Voice/Name [facility] Work Phone: Clinical Notes 06-04-2024 to 02-16-2025 Note Date & Type Note Facility 02-16-2025 Discharge summary [facility] 02-16-2025 Radiology Diagnostic study note [facility] Imaging Services [address] [place], [place] [id number] Knee 4 or More Views MR#: [id number] Acct: [id number] Name: GEORGIA THORPE JrMichela Rep #: [id number] : 1965 M 59 From: Lawrence Vidales MD PCP: Dr. Wendie Louise MD Status: PRE ER Study:Knee 4 or More Views Date of Exam: 02/16/25 Exam# [id number] Ordering Dr: Padmini ,Lexx P. PROCEDURE: KNEE 4 OR MORE VIEWS 02/16/2025 REASON FOR EXAM: TRAUMA TECHNIQUE: Procedure Code: RADKN Modality: DX Procedure: KNEE 4 OR MORE VIEWS Laterality: FINDINGS: No evidence acute fracture or dislocation. Suprapatellar enthesophyte. The joint spaces are maintained. RAD/Knee 4 or More Views IMPRESSION: No acute osseous abnormalities. Reading Location: [id number] CC: Dr. Wendie Louise MD; ED PHYSICIAN PROVIDER ~ [employer] Bolt Cutter: Signed [facility] 02-16-2025 Discharge summary Note Date/Time February 16, 2025 11:02pm [facility] Medical Records Department [address] [place] [address] Emergency Department Summary 02/16/25 MR#: [id number] Acct: [id number] Name: GEORGIA THORPE Jr. Rep #:[id number] : 1965 59 From: David Miles MD PCP: Dr. Wendie Louise MD Status:REG ER Location: ED HPI History of Present Illness HPI Narrative: 59-year-old male fell over a week ago injured his right knee medially. Came in to have it evaluated. He is on aspirin but no other blood thinners. No other injuries. Chief Complaint: Lower Extremity Injury Informant: patient Occured/Mechanism Mechanism/Context: Yes injury and Yes blunt trauma Onset/Context/Timing Onset: Weeks Context: Sudden Onset Timing: Continuous Quality of Pain: Dull and Aching Current Severity: Moderate Maximum Severity: Moderate Narrative Narrative: 59-year-old male fell hitting his right medial part of his knee and lower leg neelima wooden step over a week ago. Went to have it evaluated. He developed a hematoma and bruising. No other complaints or injuries. Prior similar symptoms: No Recent Illness/Hospitalization: No PFSH PFS Medical History Elevated coronary artery calcium score Contact with and (suspected) exposure to other [...] Allergic rhinitis Erectile dysfunction Hyperlipidemia Home Medications ?Medication ?Instructions ?Recorded ?Last Taken ?Type multivitamin 1 tab PO DAILY 09/15/20 Unkn own History cpap 03/28/22 Unknown History cholecalciferol (vitamin D3) 50 50 mcg PO DAILY Unknown History mcg (2,000 unit) capsule fluticasone propionate 50 2 spray intranasal DAILY #16 grams 08/05/24 Unknown Rx mcg/actuation nasal spray,suspension (Allergy Relief (fluticasone)) krill 1,000 mg-omega-3 230 mg-dha 1 cap PO BID #180 ca ps 10/04/24 Unknown Rx 60 mi-cmr-uyljcfgyn-astaxan capsule (MegaRed [place]-3 Krill Oil) cetirizine 10 mg tablet (Zyrtec) 10 mg PO .COMPLEX PRN 07/16/25 Unknown History loratadine 10 mg tablet (Claritin) 10 mg PO .COMPLEX 0 11/13/24 Unknown History sildenafil (pulm.hypertension) 20 20 mg PO .COMPLEX CA N sexual 12/11/24 Unknown Rx mg tablet activity #30 tabs diltiazem HCl 180 mg 180 mg PO BID #180 caps 11/29 08/23 Unknown Rx capsule,extended release 24 hr, controlled (DILT-XR) hydrochlorothiazide 25 mg tablet 25 mg PO DAILY #90 ta bs 12/12/24 Unknown Rx losartan 100 mg tablet 100 mg PO DAILY #90 tabs Unknown Rx Allergy/AdvReac Type Severity Reaction Status Date / Time cat dander Allergy Shortness Verified 02/16/25 19:48 of breath Family History Father CAD (coronary [...] safe at home: Yes ROS ROS ED ROS Narrative Denies recent illness. Constitutional Constitutional ED: Denies chills or fever(s) Eyes Eyes: Denies blurry vision ENT ENT ED: Denies ear pain Cardiovascular Cardiovascular: Denies chest pain Respiratory/Chest Respiratory/Chest: Denies cough or dyspnea Gastrointestinal Gastrointestinal: Denies abdominal pain Genitourinary Genitourinary ED: Denies dysuria or hematuria Musculoskeletal Musculoskeletal: Denies arthralgias Integumentary Denies abscess Neurologic Neurologic: Denies headache(s) Psychiatric Psychiatric: Denies anxiety Endocrine Endocrinology: Denies polydipsia, polyphagia or polyuria Hematologic/Lymphatic Hematologic/Lymphatic: Denies easy bleeding, easy bruising or lymphadenopathy Allergic/Immunologic Allergic/Immunologic ED: Denies mouth swelling, tongue swelling or urticaria EXAM Physical Exam Narrative Exam Narrative: 59-year-old male sitting upright in bed vital signs stable afebrile. No acute distress. Accompanied by his . H EENT exam pupils round react light. Extremities are intact. No trauma to his face or scalp. C-spine nontender. Normal range of motion of his neck. Back nontender. Lungs clear. Heart regular rhythm rate about 65 no murmur. Chest wall ribs nontender. Abdomen soft nontender. Pelvic girdle intact. Moving all 4 extremities. Neurovascularly intact. Normal strength. Normal range of motion. Specificallyright hip nontender. Right knee he has full flexion extension. On his medial right knee just below the tibial tuberosity. There is no effusion. Ligaments are intact. No bony deformity. No calf tenderness. Or cord. He has bruising down into his foot from gravity pouring it down. He has normal dorsi plantarflexion of his foot normal DP pulse able to wiggle his toes normal sensation foot is nontender. Neurologically he is awake alert. No focal motor deficits. Below the knee he has a hematoma immediately Const Vital Signs: 02/16/25 19:47 Temperature 98 F Temperature Source Oral Pulse Rate 66 Respiratory Rate 18 Blood Pressure 145/81 H Blood Pressure Mean 102 Pulse Ox 96 Oxygen Delivery Method Room Air MDM MDM MDM Narrative Medical decision making narrative: 59-year-old male injured his right knee and lower leg over a week ago. Has a soft tissue hematoma. X-ray was obtained of his right knee 4 views interpreted by myself and the radiologist shows no acute fracture. No dislocation. No effusion. There is a be treated soft tissue hematoma. Ice. Tylenol Motrin. Follow-up if not improving. He does not need a noninvasive study there is no signs of a blood clot. Radiography Diagnostic Testing: Clinical Impression(s) from Imaging Studies Knee X-Ray 02/16/25 19:50 IMPRESSION: No acute osseous abnormalities. Reading Location: [address] Right knee x-ray, 4 views, interpreted by myself and the radiologist shows no acute abnormality. No fracture. No effusion. Discharge Plan Triage Chief Complaint: Lower Extremity Injury ED Provider: David Miles Dx/Rx/DC Orders Clinical Impression: Fall, Contusion of knee, left, Hematoma Instructions: ED Hematoma Prescriptions: No Action multivitamin Tablet 1 tab PO DAILY (DME) cpap See Rx Instructions .Route .MEDSUPPLY Rx Instructions: setting of 12 cholecalciferol (vitamin D3) 50 mcg (2,000 unit) capsule 50 mcg PO DAILY loratadine [Claritin] 10 mg tablet 10 mg PO .COMPLEX Rx Instructions: 10 mg orally daily every other week. Alternate with zyrtec; cetirizine [Zyrtec] 10 mg tablet 10 mg PO .COMPLEX PRN Rx Instructions: 10 mg orally Daily every other week, alternating with claritin PRN; fluticasone propionate [Allergy Relief (fluticasone)] 50 mcg/actuation spray,suspension 2 spray INTRANASAL DAILY Qty: 16 3RF duwou-jt-4-uzl-bof-aebqxkm-ast [MegaRed [place]-3 Krill Oil] 1,000-230-60 mg capsule 1 cap PO BID Qty: 180 3RF sildenafil (pulm.hypertension) 20 mg tablet 20 mg PO .COMPLEX PRN (Reason: sexual activity) Qty: 30 1RF Rx Instructions: One tablet daily as needed. diltiazem HCl [DILT-XR] 180 mg capsule,ext.rel 24h degradable 180 mg PO BID Qty: 180 3RF hydrochlorothiazide 25 mg tablet 25 mg PO DAILY Qty: 90 3RF losartan 100 mg tablet 100 mg PO DAILY Qty: 90 3RF Primary Care Provider: Wendie Louise Referrals: Wendie Louise MD [Primary Care Provider, Internal Medicine - [facility]] - As Needed Activity Restrictions/Additional Instructions: This is a soft tissue hematoma or bruise in the soft tissue. It is not a blood clot. Ice to the area. Elevate. Motrin and Tylenol for pain and swelling. This should progressively get better but it may take several weeks. Follow-up with your doctor if not improving your leg gets a lot more swollen. This is nota blood clot but those can develop but it is pretty unlikely. Print Language: Uzbek Disposition Disposition: Home, Self Care What to do if you have Problems For any increased pain, shortness of breath, bleeding, nausea or vomiting, chestpain, or any unexpected problems, contact your Primary Care Provider. Call [facility] ([phone]) or report to the closest Emergency Room. Call 911 if necessary. 02/16/252201 <Electronically signed by David Miles MD> Cosigner Signature (if applicable): CC: Dr. Wendie Louise MD ~ Signed [facility] Work Phone: 1(675) 327-287009-18-2025 History of Present illness Narrative* Daphne Ye, ARMORER TECHNICIAN-LEAD SHIPPER - 01/16/2025 9:00 AM EDT Images from the original note were not included. [facility] [place] History of present illness: This is a pleasant and obese 59 y.o. male with a history of hypertension who presents to the clinicfor cardiac care. Social History: Retried. Walks the dogs briskly and plays golf. Tobacco denies, Alcohol 6 beers a week , Caffeine use 6 cups of coffee/day and 2 cans of pop/day, Drug use current THC user, gummies 30mg THC for sleep. FamHx: Father of SCD at age 61. Subjective: Denies chest pain or pressure, dyspnea at rest, fatigue, palpitations, leg edema, nausea, fever, chills, orthopnea, or syncope. Cardiac Testing Personally reviewed with my independent interpretation: TTE with strain (November 2024): From outside facility reports normal left ventricular systolic function with estimated LVEF 60% with no regional wall motion abnormalities. Normal RV size and systolic function. Normal biatrial size. No hemodynamically significant valvular disease. CT cardiac score (November 2024): Total CAC score 402 predominantly in LAD and RCA. Coronary angiography (August 2011): From outside facility , no report describing coronary anatomy. Patient reports clean. Exercise stress test (July 2011): No chest pain, baseline ECG sinus bradycardia with ST T wave abnormalities but did not change with peak stress. Achieved 10.1 METS. Assessment and Plan Cardiac Risk counseling -LDL 41, at goal without use of statin -Total CAC score 402 which increases his annual risk of fatal or nonfatal heart attack by 2.4% -Intermediate 10-year ASCVD risk of 6.3% -Does not have any anginal symptoms -Coronary calcification could be secondary to age and bad genes. Currently has no symptoms to warrant repeat ischemic evaluation. He has a history of ST segment abnormalities on resting ECG that is present today. -Recommend aggressive lifestyle and behavior modification including reducing alcohol intake to no more than 2 drinks a day, regular cardiovascular exercise, 8 hours of sleep a night, and adopting a Mediterranean style diet cooked at home. - He is not a very high ischemic risk therefore aspirin therapy not indicated. Primary hypertension - States he checks at home, no log - Blood pressure stable and well-controlled by reading in clinic - Continue losartan 100 mg daily and hydrochlorothiazide 25 mg daily Return to Care: Follow up 1 year Objective VITALS Vitals: 01/16/25 0855 BP: 112/68 Pulse: 59 SpO2: 96% Weight Vitals: 01/16/25 0855 Weight: 87.5 kg (193 lb) Past Medical History Medical History[1] Past Surgical History Surgical History[2] Medications No current outpatient medications Allergies Allergies[3] Social History Social History[4] Family History Family History[5] PHYSICAL EXAM Physical Exam Vitals and nursing note reviewed. Constitutional: General: He is not in acute distress. Appearance: He is obese. HENT: Head: Normocephalic and atraumatic. Mouth/Throat: Mouth: Mucous membranes are moist. Pharynx: Oropharynx is clear. Eyes: General: No scleral icterus. Pupils: Pupils are equal, round, and reactive to light. Cardiovascular: Rate and Rhythm: Normal rate and regular rhythm. Pulses: Normal pulses. Heart sounds: Normal heart sounds, S1 normal and S2 normal. No murmur heard. No friction rub. Pulmonary: Effort: Pulmonary effort is normal. Breath sounds: Normal breath sounds. Abdominal: General: Bowel sounds are normal. There is no distension. Palpations: Abdomen is soft. Tenderness: There is no abdominal tenderness. Musculoskeletal: General: Normal range of motion. Cervical back: Normal range of motion and neck supple. Right lower leg: No edema. Left lower leg: No edema. Skin: General: Skin is warm and dry. Capillary Refill: Capillary refill takes less than 2 seconds. Findings: No rash. Neurological: General: No focal deficit present. Mental Status: He is alert. Psychiatric: Mood and Affect: Mood normal. Behavior: Behavior normal. Cardiovascular Labs No results found for: HGB, PLT, WBC, NA, K, CREATININE, BUN, CALCIUM, INR, BNP,TROPHS, LDLF Echocardiogram The ASCVD Risk score (Brandon DK, et al., 2019) failed to calculate for the following reasons: Cannot find a previous HDL lab Cannot find a previous total cholesterol lab Low Risk: <5% Borderline Risk: 5%-7.4% Intermediate Risk: 7.5% - 19.9% High Risk: >20% If your symptoms worsen or progress please go directory to your nearest emergency department for evaluation. Thank you for this interesting clinical case and allowing me to participate in the care of this patient. Please reach me out if you have any questions or if you need any clarifications regarding thispatient's care. Disclaimer: This note was dictated by speech recognition, and every effort has been made to prevent any error in court collections officer, however minor errors may be present Daphne Ye CNP, ACNPC Advanced Practice Provider, Nurse Practitioner Division of Cardiovascular Medicine [place] [facility] [place] [1] No past medical history on file. [2] No past surgical history on file. [3] Not on File [4] [5] No family history on file. [facility] Work Phone: 1(599) 401-740609-18-2025 Instructions* Patient Instructions* JUSTIN Lux - 01/16/2025 9:00 AM EDT Vitamin D3 with K2 [facility] Work Phone: 1(249) 518-392407-16-2025 Evaluation note* Diagnosis Onset Date Resolution Status Admit Date Asymmetric septal hypertrophy chroni c November 13, 2024 8:22am Essential hypertension chronic Ju ly 2024 8:22am [facility] Work Phone: 1(166) 883-515704-17-2025 Evaluation note* Diagnosis Onset Date Resolution Status Admit Date Diverticulitis of intestine with abscess acute August 15, 2024 8:11am Asymmetric septal hypertrophy chroni c November 13, 2024 8:22am Essential hypertension chronic Ju ly 2024 8:22am [facility] Work Phone: 1(519) 856-210203-25-2025 Radiology Diagnostic study note [facility] Imaging Services [address] [place] [address] Abdomen/Pelvis WITH Contrast MR#: [id number] Acct: [id number] Name: GEORGIA THORPE Jr. Rep #: [id number] : 1965 M 58 From: Breonna Joseph MD PCP: Dr. Wendie Louise MD Status: REG CLI Study:Abdomen/Pelvis WITH Contrast Date of Ex am: 07/23/24 Exam# [id number] Ordering Dr: Vanessa Maher MD EXAM: CT [...] rectum. 3. Bilateral inguinal hernias. Reading Location: [facility] CC: Dr. Wendie Louise MD; Dr. Vanessa Maher MD ~ [employer] Cutter: Signed [facility]02-07-2025 [facility] Medical Records Department [address] [place] [address] Discharge Summary 06/07/24 0958 MR#: [id number] Acct: [id number] Name: GEORGIA THORPE Jr. Rep #: [id number] : 1965 58 From: Danny Lagunas DO PCP: Dr. Wendie Louise MD Status:DIS IN [place] [facility] [place] Providers Date of Admission: 06/04/24 Date of [...] 10/30/23 krill 1,000 mg-omega-3 230 mg-dha 60 lo-hca-todidpoox-astaxan capsule (MegaRed [place]-3 Krill Oil) 1 cap PO BID #180 [...] Patient is a 58-year-old male who presented [facility] ED on 06/04/2024 with abdominal pain [...] Psych mental status g (more content not included)...[facility] 06-04-2024 Evaluation note* Diagnosis Onset Date Resolution Status Admit Date Diverticulitis of intestine with abscess acute June 04 2:43am Diverticulitis of intestine with abscess acute June 14, 2 025 12:54pm Diverticulitis of intestine with abscess acute June 17, 2 025 9:51am Right flank pain acute June 17, 2024 9:51am Essential hypertension chronic bruary 2024 9:51am Hyperlipidemia chronic June 012024 9:51am Hypertrophic obstructive cardiomyopathy chronic June 17, 2 025 9:51am SHAY on CPAP chronic June 9:51am Diverticulitis of intestine with abscess acute June 21, 2 025 12:53pm Diverticulitis of intestine with abscess acute July 10, 2024 12:54pm [facility] Work Phone: Evaluation note* Diagnosis Onset Date Resolution Status Dyspnea on exertion acute Essential hypertension chron ic Hyperlipidemia chronic Hypertrophic obstructive cardiomyopathy [facility] Work Phone: Evaluation note* Diagnosis Onset Date Resolution Status Acute sinusitis acute Insulin resistance acute Essential hypertension chron ic Hyperlipidemia chronic Hypertriglyceridemia chronic Hypertrophic obstructive cardiomyopathy chronic SHAY on CPAP [facility] Work Phone: Evaluation note* Diagnosis Onset Date Resolution Status Acute maxillary sinusitis, unspecified acute [facility] Work Phone: Evaluation note* Diagnosis Onset Date Resolution Status Acute maxillary sinusitis, unspecified acute Essential hypertension chron ic Hyperlipidemia chronic Hypertriglyceridemia chronic Hypertrophic obstructive cardiomyopathy chronic Acute maxillary sinusitis, unspecified acute Contact with and (suspected) exposure to other viral communicable diseases acute [facility] Work Phone: Evaluation note* Diagnosis Onset Date Resolution Status Acute maxillary sinusitis, unspecified acute Acute maxillary sinusitis, unspecified acute Insulin resistance acute Hyperlipidemia chronic Hypertriglyceridemia chronic Hypertrophic obstructive cardiomyopathy chronic SHAY on CPAP chronic [facility] Work Phone: Evaluation note* Diagnosis Encounter for cardiac risk counseling- Primary Primary hypertension Unspecified essential hypertension documented in this encounter [facility] Work Phone: Hospital Discharge instructionsAdditional Instructions This is a soft tissue hematoma or bruise in the soft tissue. It is not a blood clot. Ice to the area. Elevate. Motrin and Tylenol for pain and swelling. This should progressively get better but it may take several weeks. Follow-up with your doctor if not improving your leg gets a lot more swollen. This is not a blood clot but those can develop but it is pretty unlikely.[facility] Work Phone: Reason for referral (narrative)No reason for referral information availableWRegency Hospital [place] Work Phone: Summary Purpose Family History No Family History Records Found Relationship Condition Age at Onset Recorded Date/T marti father Coronary artery disease Unknown Hypertension Unknown aunt Malignant neoplasm Unknown Advance Directives No Advanced Directives Records Found Advance Directive Response Recorded Date/ Time Advance Directives No June 7:21am Living Will No July 11, 2020 1:55pm Power of Certified Professional Midwife No July 11 1:55pm Advance Directive Response Recorded Date/ Time Advance Directives No June 6:21am Living Will No July 11, 2020 12:55pm Power of Certified Professional Midwife No July 11 12:55pm Advance Directive Response Recorded Date/ Time Living Will No June 04 5:12am Do you have a Healthcare Power of Certified Professional Midwife? No June 04, 2024 5:12am Advance Directives No October 26 10:00am Advance Directive Response Recorded Date/ Time Living Will No October 27, 2023 10:00am Do you have a Healthcare Power of Certified Professional Midwife? No October 27, 2023 10:00am Advance Directives No October 26 10:00am Advance Directive Response Recorded Date/ Time Living Will No October 27, 2023 9:00am Do you have a Healthcare Power of Certified Professional Midwife? No October 27, 2023 9:00am Do you have a Healthcare Power of Certified Professional Midwife? No February 16, 2025 9:21pm Advance Directives No October 26 9:00am Chief Complaint and Reason for Visit Chief [...] Essential hypertension November 13, 2024 8 :22am Chief Complaint Admit Date 1 Y FU November 13, 2024 8:22 am HTN, hypertrophic cardiomyopathy December 24, 2024 1:45pm SCREENING December 24, 2024 1: 48pm CT CALCIUM SCORING December 24, 2024 1: 49pm Reason for Visit Admit Date Asymmetric septal hypertrophy November 13, 2024 8:22am Essential hypertension November 13, 2024 8 :22am Chief Complaint Admit Date 1 Y FU November 13, 2024 8:22 am HTN, hypertrophic cardiomyopathy December 24, 2024 1:45pm SCREENING December 24, 2024 1: 48pm CT CALCIUM SCORING December 24, 2024 1: 49pm right knee February 16, 2025 7 :47pm Additional Source Comments (unrecognized sect ion and content) No Status Records FoundNo Status Records FoundNo Status Records FoundNo Status Records Found INFORMATION SOURCE (unrecogn ized section and content) DATE CREATED AUTHOR 10/20/2017 [facility] DATE CREATED AUTHOR AUTHOR'S ORGANIZ ATION 06/02/2021 [facility] DATE CREATED AUTHOR AUTHOR'S ORGANIZ ATION 01/17/2025 [facility] DATE CREATED AUTHOR AUTHOR'S ORGANIZ ATION 03/13/2025 [facility] Care Teams (unrecognized sec tion and content) Team Status: Active Member Role Status Dates Dr. Parker Villavicencio DO Family Provider Active Dr. Wendie Louise MD Primary Care Provider Active Team Status: Inactive Member Role Status Dates Dr. Wendie Louise MD Primary Care Provider, Referri ng Provider Active Ifeanyi Olea PA, PA Attending Provider Active Team Status: Inactive Member Role Status Dates Dr. Wednie Louise MD Primary Care Provider Active Lety Joseph PA, PA Attending Provider, Referr ing Provider Active Team Status: Inactive Member Role Status Dates Dr. Wendie Louise MD Primary Care Provider, Referri ng Provider Active Lety Joseph PA, PA Attending Provider Active Team Status: Active [...] 2024 End: June 21, 2024 Dr. Wendie Luoise MD Referring Provider Active Start: June 21, [...] 13, 2024 End: November 13, 2024 Lety Joseph PA, PA Attending Provider Active Start: November 13, 2024 End: November 13, 2024 Team Status: Inactive Member Role/Relationship Status Dates Dr. Wendie Louise MD Primary Care Provider Active Start: November 13, 2024 End: November 13, 2024 Dr. Wendie Louise MD Referring Provider Active Start: November 13, 2024 End: November 13, 2024 Lety Joseph PA, PA Attending Provider Active Start: November 13, 2024 End: November 13, 2024 Team Status: Inactive Member Role/Relationship Status Dates Dr. Wendie Louise MD Primary Care Provider Active Start: December 24, 2024 End: December 24, 2024 Lety Joseph PA, PA Attending Provider Active Start: December 24, 2024 End: December 24, 2024 Lety Joseph PA, PA Referring Provider Active Start: December 24, 2024 End: December 24, 2024 Team Status: Active Member Role/Relationship Status Dates Dr. Wendie Louise MD Primary Care Provider Active Start: December 24, 2024 Lety Joseph PA, PA Attending Provider Active Start: December 24, 2024 Lety Joseph PA, PA Referring Provider Active Start: December 24, 2024 Team Status: Active Member Role/Relationship Status Dates Dr. Wendie Luoise MD Primary Care Provider Active Start: December 24, 2024 Dr. Flako Adam MD Attending Provider Active S tart: December 24, 2024 Lety Joseph PA, PA Referring Provider Active Start: December 24, 2024 Team Status: Active Member Role/Relationship Status Dates Dr. Wendie Louise MD Primary Care Provider Active Start: December 24, 2024 Dr. Flako Adam MD Attending Provider Active S tart: December 24, 2024 Team Status: Active Member Role/Relationship Status Dates Dr. Wendie Louise MD Primary care physician Active Team Status: Inactive Member Role/Relationship Status Dates Dr. Wendie Louise MD Primary care physician Active Start: November 13, 2024 End: November 13, 2024 Dr. Wendie Louise MD Referring Provider Active Start: November 13, 2024 End: November 13, 2024 Lety Joseph PA, PA Attending physician Active Start: November 13, 2024 End: November 13, 2024 Team Status: Inactive Member Role/Relationship Status Dates Dr. Wendie Louise MD Primary care physician Active Start: December 24, 2024 End: December 24, 2024 Lety Joseph PA, PA Attending physician Active Start: December 24, 2024 End: December 24, 2024 Lety Joseph PA, PA Referring Provider Active Start: December 24, 2024 End: December 24, 2024 Team Status: Active Member Role/Relationship Status Dates Dr. Wendie Louise MD Primary care physician Active Start: December 24, 2024 Lety Joseph PA, PA Attending physician Active Start: December 24, 2024 Lety Joseph PA, PA Referring Provider Active Start: December 24, 2024 Team Status: Active Member Role/Relationship Status Dates Dr. Wendie Louise MD Primary care physician Active Start: December 24, 2024 Dr. Flako Adam MD Attending physician Active Start: December 24, 2024 Lety Joseph PA, PA Referring Provider Active Start: December 24, 2024 Team Status: Active Member Role/Relationship Status Dates Dr. Wendie Louise MD Primary care physician Active Start: December 24, 2024 Dr. Flako Adam MD Attending physician Active Start: December 24, 2024 Team Status: Inactive Member Role/Relationship Status Dates Dr. Wendie Louise MD Primary care physician Active Start: February 16, 2025 End: February 16, 2025 Dr. David Miles MD Attending physician Active Start: February 16, 2025 End: February 16, 2025 Dr. David Miles MD Emergency Departmen t Physician Active Start: February 16, 2025 End: February 16, 2025 Reason for Visit (unrecogniz ed section and content) Reason Comments New Patient Visit Npv, discuss new str ess test Specialty Diagnoses / Procedures Referred By Contac t Referred To Contact Diagnoses Primary hypertension Procedures ECG 12 lead (Clinic Performed) Daphne Ye, ARMORER TECHNICIAN-LEAD SHIPPER [address] [facility], [facility] [address] [place] [address] Phone: tel: fax: Referral ID Status Reason Start Date Expiration Date V isits Requested Visits Authorized [id number] Authorized 01/16/2025 01/16/2026 1 1 FOR RECORDS PERTAINING TO PATIENTS WHO ARE [...] BE BASED ON THE PRIMARY CLINICAL RECORDS. [employer] provides no warranty or guarantee of the accuracy or completeness of information in this document.
--- NOTE | 2025-04-15 08:36 | STRESSREP ---
Stress Test Report Exercise myocardial perfusion stress test. 59-year-old male with a history of hypertrophic cardiomyopathy. Stress protocol: Resting EKG demonstrates normal sinus rhythm with a rate of 55 bpm resting blood pressure is 120/[address] depression is noted in leads II, III, aVF, V4 V5 V6. The patient exercised according to the regular Lorenzo protocol for a total duration of 7 minutes and 51 seconds attaining a maximum heart rate of 150 bpm which was 93% of maximum predicted heart rate; the maximum workload was 10.1 metabolic equivalents. At rest there were ST or T wave changes noted at baseline and at peak exercise upsloping ST changes were noted which were suggestive of ischemia at the high workload attained. No clinical angina was noted the test was terminated due to the target heart rate being achieved/fatigue. The peak blood pressure was 192/78 mmHg. Rate-pressure product was 18,900. Myocardial perfusion protocol. 14.3 mCi of technetium 99m sestamibi was injected at rest. The patient exercised according to regular Lorenzo protocol for total duration of 7 minutes and 51 seconds and at peak exercise 44.1 mCi of technetium 99m sestamibi was injected stress images were obtained stress and rest images were reconstructed in comparing the short axis vertical long and horizontal long axis. Gated images were also obtained. Perfusion SPECT analysis: Review of the stress images demonstrate normal uptake of tracer noted in all areas of the myocardium. The resting images similarly demonstrate normal uptake of tracer noted in all areas of the myocardium. No areas of reversibility are noted to suggest ischemia no previous infarct was noted. Gated SPECT analysis: The gated ejection fraction is 57%. Conclusion: Normal exercise myocardial perfusion stress test at a high workload EKG changes noted at baseline and with exercise..
== END | disposition home or self-care (01) ==
PROVIDERS: PCP Internal Medicine; Referring Provider Physician Assistant Medical; Visit Provider Physician Assistant Medical
DX: R93.1 Abnormal findings on diagnostic imaging of heart and coronary circulation (principal); I42.1 Obstructive hypertrophic cardiomyopathy; I10 Essential (primary) hypertension; E78.5 Hyperlipidemia, unspecified; E78.1 Pure hyperglyceridemia
CPT/HCPCS: 78452; 93017; A9500; A4216